=== PATIENT | male | born 1970 | race Caucasian/White ===

== ENCOUNTER 2022-12-11 07:51 | Outpatient (RCR) | payer BC, MEDICARE, SELFPAY | END 2023-01-03 16:15 | disposition home or self-care (01) | LOC: PT 07:51 | PROVIDERS: PCP Internal Medicine | DX: Z96.642 Presence of left artificial hip joint (principal) | CPT/HCPCS: 97110; 97112 ==

== ENCOUNTER 2023-09-12 10:03 | Outpatient (OUT) | payer OTHER, SELFPAY ==
[2023-09-12 11:02] LABS: Magnesium 1.8 mg/dL (1.8-2.4)
== END 2023-09-12 10:04 | disposition home or self-care (01) ==
LOC: LAB 10:03
PROVIDERS: PCP Internal Medicine; Visit Provider Nurse Practitioner Family
DX: E23.6 Other disorders of pituitary gland (principal)
CPT/HCPCS: 36415; 83735

== ENCOUNTER 2023-09-26 08:47 | Outpatient (OUT) | payer BC, MEDICARE, SELFPAY ==
--- OUTSIDE RECORDS SUMMARY | 2023-09-26 08:51 | XMS_ITS | CCD ---
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 creatine ingestion, or following therapy that affects renal tubular secretion. Performed By: #### C DP, BMP #### [facility] [place] [address] Tube Machine Operator: Fanelly, Omkar, DO Glucose [Mass/Vol] 118 mg/dL High 70-99 [facility] Comment on above: Performed By: #### C DP, BMP #### [facility] [address] [facility] [place] [address] Tube Machine Operator: Omkar Leon DO Potassium [Moles/Vol] 4.9 mmol/L Normal 3.7-5.3 [facility] Comment on above: Performed By: #### C DP, BMP #### [facility] [address] [facility] [place] [address] Tube Machine Operator: Omkar Leon DO Sodium [Moles/Vol] 138 mmol/L Normal 135-144 [facility] Comment on above: Performed By: #### C TOÑO, BMP #### [facility] [address] [place] [address] Tube Machine Operator: Omkar Leon DO Urea nitrogen [Mass/Vol] 17 mg/dL Normal 6-20 [facility] Comment on above: Performed By: #### C TOÑO, BMP #### [facility] [address] [facility] [place] [address] Tube Machine Operator: Omkar Leon DO CBC with Auto Differentialon 09-24-2022 Absolute Eos # 0.20 [facility] Absolute Lymph # 1.70 [facility] Absolute [place] # 0.60 [facility] Basophils (Bld) [#/Vol] 0.10 10*3/uL [facility] Basophils/100 WBC (Bld) 1 % 0 - 2 % [facility] Eosinophils/100 WBC (Bld) 2 % 0 - 4 % [facility] Hematocrit (Bld) [Volume fraction] 41.3 % 41 - 53 % [facility] Hemoglobin (Bld) [Mass/Vol] 14.2 g/dL 13.5 - 17.5 g/dL [facility] Interpretation and review of laboratory results Abnormal [facility] Lymphocytes/100 WBC (Bld) 23 % Low 24 - 44 % [facility] MCH (RBC) [Entitic mass] 31.1 pg 26 - 34 pg [facility] MCHC (RBC) [Mass/Vol] 34.4 g/dL 31 - 37 g/dL [facility] MCV (RBC) [Entitic vol] 90.4 fL 80 - 100 fL [facility] Monocytes/100 WBC (Bld) 8 % High 1 - 7 % [facility] Platelet distribution width (Bld) [Ratio] 13.4 % 11.5 - 14.9 % [facility] Platelet mean volume (Bld) [Entitic vol] 9.2 fL 6.0 - 12.0 fL [facility] Platelets (Bld) [#/Vol] 230 10*3/uL [facility] RBC (Bld) [#/Vol] 4.57 10*6/uL 4.5 - 5.9 m/uL [facility] Segmented neutrophils/100 WBC (Bld) 66 % 36 - 66 % [facility] Segs Absolute 5.00 [facility] WBC (Bld) [#/Vol] 7.6 10*3/uL [facility] CBC with Diffon 09-24-2022 Abs. Basophil 0.10 k/uL Normal 0.0-0.2 [facility] Comment on above: Performed By: #### C DP, BMP #### [facility] [address] [place], [place] [phone] Tube Machine Operator: Omkar Leon DO Abs.Neutrophil (Seg) 5.00 k/uL Normal 1.3-9.1 [facility] Comment on above: Performed By: #### C DP, BMP #### [facility] [address] [place], [place] [id number] Tube Machine Operator: Omkar Leon DO Basophils/100 WBC (Bld) 1 % Normal 0-2 [facility] Comment on above: Performed By: #### C DP, BMP #### [facility] [address] [facility] [place] [address] Tube Machine Operator: Omkar Leon DO Eosinophils (Bld) [#/Vol] 0.20 10*3/uL Normal 0.0-0.4 [facility] Comment on above: Performed By: #### C DP, BMP #### [facility] [place] [address] Tube Machine Operator: Omkar Leon DO Eosinophils/100 WBC (Bld) 2 % Normal 0-4 [facility] Comment on above: Performed By: #### C DP, BMP #### [facility] [address] [place] [address] Tube Machine Operator: Omkar Leon DO Erythrocyte distribution width (RBC) [Ratio] 13.4 % Normal 11.5-14.9 [facility] Comment on above: Performed By: #### C DP, BMP #### [facility] [address] [place] [address] Tube Machine Operator: Omkar Leon DO Hematocrit (Bld) [Volume fraction] 41.3 % Normal 41-53 [facility] Comment on above: Performed By: #### C TOÑO, BMP #### [facility] [address] [place] [address] Tube Machine Operator: Omkar Leon DO Hemoglobin (Bld) [Mass/Vol] 14.2 g/dL Normal 13.5-17.5 [facility] Comment on above: Performed By: #### C DP, BMP #### [facility] [address] [place] [address] Tube Machine Operator: Omkar Leon DO Lymphocytes (Bld) [#/Vol] 1.70 10*3/uL Normal 1.0-4.8 [facility] Comment on above: Performed By: #### C DP, MARLO #### [facility] [address] [place] [address] Tube Machine Operator: Omkar Leon DO Lymphocytes/100 WBC (Bld) 23 % Low 24-44 [facility] Comment on above: Performed By: #### C DP, BMP #### [facility] [address] [place] [address] Tube Machine Operator: Omkar Leon DO MCH (RBC) [Entitic mass] 31.1 pg Normal 26-34 [facility] Comment on above: Performed By: #### C TOÑO, BMP #### [facility] [address] [place] [address] Tube Machine Operator: Omkar Leon DO MCHC (RBC) [Mass/Vol] 34.4 g/dL Normal 31-37 [facility] Comment on above: Performed By: #### C DP, BMP #### [facility] [address] [place] [address] Tube Machine Operator: Omkar Leon DO MCV (RBC) [Entitic vol] 90.4 fL Normal 80-100 [facility] Comment on above: Performed By: #### C TOÑO, BMP #### [facility] [address] [place] [address] Tube Machine Operator: Omkar Leon DO Monocytes (Bld) [#/Vol] 0.60 10*3/uL Normal 0.1-1.3 [facility] Comment on above: Performed By: #### C DP, BMP #### [facility] [address] [place] [address] Tube Machine Operator: Omkar Leon DO Monocytes/100 WBC (Bld) 8 % High 1-7 [facility] Comment on above: Performed By: #### C DP, BMP #### [facility] [address] [place] [address] Tube Machine Operator: Omkar eLon DO Neutrophil (Seg) 66 % Normal 36-66 [facility] Comment on above: Performed By: #### C DP, BMP #### [facility] [address] [place] [address] Tube Machine Operator: Omkar Leon DO Platelet mean volume (Bld) [Entitic vol] 9.2 fL Normal 6.0-12.0 [facility] Comment on above: Performed By: #### C TOÑO, BMP #### [facility] [address] [place] [address] Tube Machine Operator: Omkar Leon DO Platelets (Bld) [#/Vol] 230 10*3/uL Normal 150-450 [facility] Comment on above: Performed By: #### C TOÑO, BMP #### [facility] [address] [place] [address] Tube Machine Operator: Omkar Leon DO RBC (Bld) [#/Vol] 4.57 10*6/uL Normal 4.5-5.9 [facility] Comment on above: Performed By: #### C TOÑO, BMP #### [facility] [address] [place] [address] Tube Machine Operator: Omkar Leon DO WBC (Bld) [#/Vol] 7.6 10*3/uL Normal 3.5-11.0 [facility] Comment on above: Performed By: #### C TOÑO, BMP #### [facility] [address] [place] [address] Tube Machine Operator: Omkar Leon DO MRSA, DNA, Nasalon 3 Specimen Description .NASAL SWAB Normal [facility] Comment on above: Performed By: #### M RSANO #### [facility] [address] [place] [address] Tube Machine Operator: Omkar Leon DO [address] [id number] Tube Machine Operator: Nirmal Colon MD Microscopic Urinalysison Bacteria, UA None None [facility] Casts UA 3 to 5 /LPF [facility] Epithelial Cells UA 0 TO 2 /HPF [facility] RBC clumps Auto (Urine sed) [#/Area] 0 TO 2 /HPF [facility] WBC, UA 0 TO 2 /HPF [facility] TYPE AND SCREENon 09-24-2022 ABO/Rh Positive [facility] Arm Band Number [id number] [facility] Blood Bank Comment ABORH CONFIRMED O POS: 003 [facility] Expiration Date 2022,2359 [facility] Type + Screenon 09-24-2022 Type + Screen Sample Expiration 2022,2359 Arm Band Number [id number] ABO/Rh(D) O POSITIVE Antibody Screen NEGATIVE Blood Bank Comment ABORH CONFIRMED O POS: 003 Normal [facility] Comment on above: Performed By: #### T YS #### [facility] [address] [place] [address] Tube Machine Operator: Omkar Leon DO UA w/Reflex Cultureon 2022 Bilirubin, SemiQt,Ur Negative Normal NEG [facility] Comment on above: Performed By: #### U AXLOR #### [facility] [address] [place] [address] Tube Machine Operator: Omkar Leon DO Blood, Urine Negative Normal NEG [facility] Comment on above: Performed By: #### U AX UMJULISSAO #### [facility] [address] [place] [address] Tube Machine Operator: Omkar Leon DO Clarity (U) Clear Normal CLEAR [facility] Comment on above: Performed By: #### U LOR CARDOZA #### [facility] [address] [place] [address] Tube Machine Operator: Omkar Leon DO Color (U) Yellow Normal YEL [facility] Comment on above: Performed By: #### U AXLOR #### [facility] [address] [place] [address] Tube Machine Operator: Omkar Leon DO Glucose Ql (U) Negative Normal NEG [facility] Comment on above: Performed By: #### U LOR CARDOZA #### [facility] [address] [place] [address] Tube Machine Operator: Omkar Leon DO Ketones Ql (U) Negative Normal NEG [facility] Comment on above: Performed By: #### U AXLOR #### [facility] [address] [place] [address] Tube Machine Operator: Omkar Leon DO Leukocyte esterase Test strip Ql (U) Negative Normal NEG [facility] Comment on above: Performed By: #### U LOR CARDOZA #### [facility] [address] [place] [address] Tube Machine Operator: Omkar Leon DO Nitrite,Ur Negative Normal NEG [facility] Comment on above: Performed By: #### U AXLOR #### [facility] [address] [place] [address] Tube Machine Operator: Omkar Leon DO PH,Ur 5.5 Normal 5.0-8.0 [facility] Comment on above: Performed By: #### U LOR CARDOZA #### [facility] [address] [place] [address], [place] [address] Tube Machine Operator: Omkar Leon DO Protein Ql (U) 2+ Abnormal NEG [facility] Comment on above: Performed By: #### U AXLOR #### [facility] [address] [facility] [place] [address] Tube Machine Operator: Omkar Leon DO Spec. [place],Ur 1.021 Normal 1.000-1.030 [facility] Comment on above: Performed By: #### U AXLOR #### [facility] [address] [facility] [place] [address] Tube Machine Operator: Omkar Leon DO Urobilinogen,Ur Normal Normal NORM [facility] Comment on above: Performed By: #### U AXLOR #### [facility] [address] [place] [address] Tube Machine Operator: Omkar Leon DO Urinalysis with Reflex to Cu ltureon 09-24-2022 Bilirubin Urine Negative NEGATIVE [facility] Color, UA Yellow Yellow [facility] Glucose Auto test strip (U) [Mass/Vol] Negative NEGATIVE [facility] Interpretation and review of laboratory results Abnormal [facility] Ketones (U) [Mass/Vol] Negative NEGATIVE [facility] Leukocyte esterase Auto test strip Ql (U) Negative NEGATIVE [facility] Nitrite Auto test strip Ql (U) Negative NEGATIVE [facility] Protein (U) [Mass/Vol] 5.5 mg/dL 5.0 - 8.0 [facility] Protein (U) [Mass/Vol] 2+ Abnormal NEGATIVE [facility] Specific [place], UA 1.021 1.000 - 1.030 [facility] Turbidity UA Clear Clear [facility] Urine Hgb Negative NEGATIVE [facility] Urobilinogen, Urine Normal Normal [facility] Urinalysis,Microon 3 Bacteria None Normal NONE [facility] Comment on above: Performed By: #### LOR PARKER #### [facility] [address] [facility] [place] [address] Tube Machine Operator: Omkar Leon DO Casts 3 to 5 Normal [facility] Comment on above: Performed By: #### LOR PARKER #### [facility] [address] [facility] [place] [address] Tube Machine Operator: Omkar Leon DO Epithelial cells LM Ql (Urine sed) 0 TO 2 Normal [facility] Comment on above: Performed By: #### LOR PARKER #### [facility] [address] [facility] [place] [address] Tube Machine Operator: Omkar Leon DO Urine RBC's 0 TO 2 Normal [facility] Comment on above: Performed By: #### LOR PARKER #### [facility] [address] [facility] [place] [address] Tube Machine Operator: Omkar Leon DO Urine WBC's 0 TO 2 Normal [facility] Comment on above: Performed By: #### LOR PARKER #### [facility] [address] [facility] [place] [address] Tube Machine Operator: Omkar Leon DO Refillon 09-08-2022 Refill [id number] Spencer Desir 1970 M Date Provider Department Center 09/08/2022 LIEN [facility]A MP MED Medical [facility]avi No family history on file Reason for Visit and Comments: Med Refill [[id number]] Normal [facility] MAGNESIUMon 04-01-2022 Magnesium [Mass/Vol] 1.8 mg/dL Normal 1.8-2.4 [facility] Comment on above: Performed By: #### M G #### [facility] [address] [place] [address] Dr. Madhu Augustine [id number] 1 on 02-03-2022 Insulin-Like Growth Factor I 240 ng/mL Normal 74-255 [facility] Comment on above: Performed By: #### I NSGF1 #### [facility] [address] [address] [address] Madhu Augustine FSHon 02-01-2022 FSH 0.4 mIU/mL Critically low 1.5-12.4 [facility] Comment on above: Performed By: #### L BCFSH #### [facility] [address] [address] [address] Madhu Augustine LUTEINIZING HORMONE (LH)on 0 02-01-2022 LH <0.3 Critically low 1.7-8.6 [facility] Comment on above: Performed By: #### L BCLH #### [facility] [address] [place] [address] Dr. Madhu Augustine TESTOSTERONE, TOTALon 2021 Testosterone [Mass/Vol] 756 ng/dL Normal 264-916 [facility] Comment on above: Result Comment: Adul t male reference interval is based on a population of healthy nonobese males (BMI <30) between 19 and 39 years old. Omar et.al. JCEM 2017,102;1966-6042. PMID: [id number]. Performed By: #### T ESTTOT #### [facility] [address] [place] [address] Dr. Madhu Augustine CBC AUTO DIFFon 01-31-2022 BASO # 0.1 103/ul Normal 0.0-0.1 [facility] Comment on above: Performed By: #### C BC #### [facility] [address] [address] [address] Madhu Augustine Basophils/100 WBC (Bld) 0.9 % Normal 0.2-2.0 [facility] Comment on above: Performed By: #### C BC #### [facility] [address] [place] [address] Dr. Madhu Augustine EO # 0.2 103/ul Normal 0.0-0.7 [facility] Comment on above: Performed By: #### C BC #### [facility] [address] [place] [address] Dr. Madhu Augustine Eosinophils/100 WBC (Bld) 2.4 % Normal 0.9-7.0 [facility] Comment on above: Performed By: #### C BC #### [facility] [address] [place] [address] Dr. Madhu Augustine Erythrocyte distribution width (RBC) [Ratio] 14.4 % Normal 11.0-15.0 [facility] Comment on above: Performed By: #### C BC #### [facility] [address] [place] [address] Dr. Madhu Augustine Hematocrit (Bld) [Volume fraction] 41.1 % Critically low 42.0-54.0 [facility] Comment on above: Performed By: #### C BC #### [facility] [address] [place] [address] Dr. Madhu Augustine Hemoglobin (Bld) [Mass/Vol] 13.5 g/dL Critically low 14.0-18.0 [facility] Comment on above: Performed By: #### C BC #### [facility] [address] [place] [address] Dr. Madhu Augustine IG # 0.05 10e3/ul Critically high 0.00-0.03 [facility] Comment on above: Performed By: #### C BC #### [facility] [address] [place] [address] Dr. Madhu Augustine IG % 0.7 % Critically high 0.0-0.5 [facility] Comment on above: Performed By: #### C BC #### [facility] [address] [place] [address] Dr. Madhu Augustine LYMPH # 1.6 103/ul Normal 1.2-3.8 [facility] Comment on above: Performed By: #### C BC #### [facility] [address] [place] [address] Dr. Madhu Augustine Lymphocytes/100 WBC (Bld) 21.5 % Normal 20.5-60.0 [facility] Comment on above: Performed By: #### C BC #### [facility] [address] [place] [address] Dr. Madhu Augustine MANUAL DIFF REQ NO Normal [facility] Comment on above: Performed By: #### C BC #### [facility] [address] [place] [address] Dr. Madhu Augustine MCH (RBC) [Entitic mass] 30.7 pg Normal 25.9-34.0 [facility] Comment on above: Performed By: #### C BC #### [facility] [address] [place] [address] Dr. Madhu Augustine MCHC (RBC) [Mass/Vol] 32.8 g/dL Normal 29.9-35.2 [facility] Comment on above: Performed By: #### C BC #### [facility] [address] [place] [address] Dr. Madhu Augustine MCV (RBC) [Entitic vol] 93.4 fL Normal 80.0-94.0 [facility] Comment on above: Performed By: #### C BC #### [facility] [address] [place] [address] Dr. Madhu Augustine MONO # 0.7 103/ul Normal 0.3-0.8 [facility] Comment on above: Performed By: #### C BC #### [facility] [address] [place] [address] Dr. Madhu Augustine Monocytes/100 WBC (Bld) 8.5 % Normal 1.7-12.0 [facility] Comment on above: Performed By: #### C BC #### [facility] [address] [place] [address] Dr. Madhu Augustine NEUT # 5.1 103/ul Normal 1.4-6.5 [facility] Comment on above: Performed By: #### C BC #### [facility] [address] [place] [address] Dr. Madhu Augustine Neutrophils/100 WBC (Bld) 66.0 % Normal 43.0-75.0 [facility] Comment on above: Performed By: #### C BC #### [facility] [address] [address] [address] Madhu Augustine Platelet mean volume (Bld) [Entitic vol] 10.2 fL Normal 9.5-13.5 [facility] Comment on above: Performed By: #### C BC #### [facility] [address] [address] [address] Madhu Augustine PLT 207 103/ul Normal 150-450 [facility] Comment on above: Performed By: #### C BC #### [facility] [address] [address] [address] Madhu Augustine RBC 4.40 106/ul Critically low 4.70-6.10 [facility] Comment on above: Performed By: #### C BC #### [facility] [address] [place] [address] Dr. Madhu Augustine WBC 7.6 103/ul Normal 4.0-11.0 [facility] Comment on above: Performed By: #### C BC #### [facility] [address] [place] [address] Dr. Madhu Augustine LIPID PROFILEon 01-31-2022 CHOL-HDL RATIO NORM SEE BELOW Normal [facility] Comment on above: Result Comment: 3.3 - 4.4 LOW RISK 4.4 - 7.1 AVERAGE RISK 7.1 - 11.0 MODERATE RISK >11.0 HIGH RISK Performed By: #### L IPID, CMP #### [facility] [address] [place] [address] Dr. Madhu Augustine Cholesterol [Mass/Vol] 156 mg/dL Normal <=200 [facility] Comment on above: Performed By: #### L IPID, CMP #### [facility] [address] [place] [address] Dr. Madhu Augustine Cholesterol in HDL [Mass/Vol] 53 mg/dL Normal 40-60 [facility] Comment on above: Performed By: #### L IPID, CMP #### [facility] [address] [place] [address] Dr. Madhu Augustine Cholesterol in LDL [Mass/Vol] 84.0 mg/dL Normal [facility] Comment on above: Performed By: #### L IPID, CMP #### [facility] [address] [address] [address] Madhu Augustine Cholesterol.total/ Cholesterol in HDL [Mass ratio] 2.9 {ratio} Normal [facility] Comment on above: Performed By: #### L IPID, CMP #### [facility] [address] [address] [address] Madhu Augustine HDL NORMAL > or = 60 mg/dl - LO W CARDIOVASCULAR RISK <40 mg/dl - HIGH CARDIOVASCULAR RISK Normal [facility] Comment on above: Performed By: #### L IPID, CMP #### [facility] [address] [address] [address] Madhu Augustine LDL CALC NORMAL SEE BELOW Normal [facility] Comment on above: Result Comment: <100 mg/dl OPTIMAL 100 - 129 mg/dl NEAR OR ABOVE OPTIMAL 130 - 159 mg/dl BORDERLINE HIGH 160 - 189 mg/dl HIGH >190 mg/dl VERY HIGH Performed By: #### L IPID, CMP #### [facility] [address] [address] [address] Madhu Augustine Triglyceride [Mass/Vol] 95 mg/dL Normal <=150 [facility] Comment on above: Performed By: #### L IPID, CMP #### [facility] [address] [address] [address] Madhu Augustine VLDL CALC 19.0 mg/dL Normal [facility] Comment on above: Performed By: #### L IPID, CMP #### [facility] [address] [address] [address] Madhu Augustine PROF 14(COMP METB)on 022 Albumin [Mass/Vol] 3.5 g/dL Normal 3.4-5.0 [facility] Comment on above: Performed By: #### L IPID, CMP #### [facility] [address] [address] [address] Madhu Augustine Albumin/Globulin [Mass ratio] 1.1 {ratio} Normal [facility] Comment on above: Performed By: #### L IPID, CMP #### [facility] [address] [address] [address] Madhu Augustine ALP [Catalytic activity/Vol] 51 U/L Normal 46-116 [facility] Comment on above: Performed By: #### L IPID, CMP #### [facility] [address] [address] [address] Madhu Augustnie ALT [Catalytic activity/Vol] 40 U/L Normal 16-63 [facility] Comment on above: Performed By: #### L IPID, CMP #### [facility] [address] [address] [address] Madhu Augustine Anion gap [Moles/Vol] 12.7 mmol/L Normal [facility] Comment on above: Performed By: #### L IPID, CMP #### [facility] [address] [address] [address] Madhu Augustine AST [Catalytic activity/Vol] 18 U/L Normal 15-37 [facility] Comment on above: Performed By: #### L IPID, CMP #### [facility] [address] [address] [address] Madhu Augustine Bilirubin [Mass/Vol] 0.4 mg/dL Normal 0.2-1.0 [facility] Comment on above: Performed By: #### L IPID, CMP #### [facility] [address] [address] [address] Madhu Augustine Calcium [Mass/Vol] 8.9 mg/dL Normal 8.5-10.1 [facility] Comment on above: Performed By: #### L IPID, CMP #### [facility] [address] [address] [address] Madhu Augustine Chloride [Moles/Vol] 104 mmol/L Normal 98-107 [facility] Comment on above: Performed By: #### L IPID, CMP #### [facility] [address] [address] [address] Madhu Augustine CO2 [Moles/Vol] 26.4 mmol/L Normal 21.0-32.0 [facility] Comment on above: Performed By: #### L IPID, CMP #### [facility] [address] [address] [address] Madhu Augustine Creatinine [Mass/Vol] 0.99 mg/dL Normal 0.70-1.30 [facility] Comment on above: Performed By: #### L IPID, CMP #### [facility] [address] [address] [address] Madhu Augustine EGFR-AF BAHRAINI >60 Normal >=60 [facility] Comment on above: Performed By: #### L IPID, CMP #### [facility] [address] [address] [address] Madhu Augustine EGFR-NON AF BAHRAINI >60 Normal >=60 [facility] Comment on above: Performed By: #### L IPID, CMP #### [facility] [address] [address] [address] Madhu Augustine Globulin (S) [Mass/Vol] 3.2 g/dL Normal [facility] Comment on above: Performed By: #### L IPID, CMP #### [facility] [address] [address] [address] Madhu Augustine Glucose [Mass/Vol] 108 mg/dL Critically high 74-106 [facility] Comment on above: Performed By: #### L IPID, CMP #### [facility] [address] [address] [address] Madhu Augustine Potassium [Moles/Vol] 4.1 mmol/L Normal 3.5-5.1 [facility] Comment on above: Performed By: #### L IPID, CMP #### [facility] [address] [address] [address] Madhu Augustine Protein [Mass/Vol] 6.7 g/dL Normal 6.4-8.2 [facility] Comment on above: Performed By: #### L IPID, CMP #### [facility] [address] [address] [address] Madhu Augustine Sodium [Moles/Vol] 139 mmol/L Normal 136-145 [facility] Comment on above: Performed By: #### L IPID, CMP #### [facility] [address] [address] [address] Madhu Augustine Urea nitrogen [Mass/Vol] 14.0 mg/dL Normal 7.0-18.0 [facility] Comment on above: Performed By: #### L IPID, CMP #### [facility] [address] [address] [address] Madhu Augustine Urea nitrogen/Creatinin e [Mass ratio] 14.1 mg/mg Normal [facility] Comment on above: Performed By: #### L IPID, CMP #### [facility] [address] [address] [address] Madhu Augustine VITAMIN B12on 01-31-2022 Cobalamin (Vitamin B12) [Mass/Vol] 1106.0 pg/mL Critically high 193.0-986.0 [facility] Comment on above: Performed By: #### V ITB12, VITAD #### [facility] [address] [place] [address] Dr. Madhu Augustine VITAMIN D 25 OHon 01-31-2022 VIT D 25-OH 53.4 ng/mL Normal [facility] Comment on above: Performed By: #### V ITB12, VITAD #### [facility] [address] [place] [address] Dr. Madhu Augustine VIT D RANGES SEE BELOW Normal [facility] Comment on above: Result Comment: <20 ng/mL Vit D deficient 20 - <30 ng/mL Vit D insufficient 30 - 100 ng/mL Vit D sufficient >100 ng/mL Potential Toxicity Performed By: #### V ITB12, VITAD #### [facility] [address] [place] [address] Dr. Madhu Augustine Rehab Psych Evaluationon Rehab Psych Evaluation MR#: [id number] REHABILITATION SERVICES ( ) INPATIENT (x) OUTPATIENT Patient Name: Gabino Desir Date of : 1970 Referring Physician: Lien Johnson M.D. Dictated By: Ramesh Hu, PhD Evaluation Date: 10/13/2018 neuropsychological evaluation DATE OF SERVICE: 10/12/2018-10/22/2018 DIAGNOSIS: Postconcussive syndrome DATE OF ONSET: 05/14/2018 DATE OF : 1970 AGE: 47 years TIME SPENT: 34895=0 unit; 03568=1 unit; 51324=3 units; 81268=0 unit; 33053=4 units REASON FOR REFERRAL: This is the initial neuropsychological evaluation of Mr. Gabino Desir, a 48-year-old, right-hand, White, , gentleman, who was referred by hide stretcher hand, Dr. Lien Johnson to ascertain his present neurocognitive status in the context of a work-related incident, which occurred on 05/14/2018 and resulted in a concussion and a reported brief loss of consciousness. Mr. Desir is referred with postconcussive syndrome. HISTORY OF PRESENTING PROBLEM: Mr. Desir presents to the current evaluation on time and accompanied by his , Mrs. Bev Desir; both were believed to be accurate historians. A clinic note from Dr. Johnson dated 09/13/2018 was consulted. Mr. Desir is presently involved with worker's compensation and was evaluated on 09/01/2018 by preventative medicine specialist, Dr. Young Morgan ([employer]); said evaluation was also consulted. Mr. Desir notes that attorneys working with the [employer] are handling his case. According to Dr. Morgan's medical examination report, Mr. Desir sustained a concussion on 05/14/2018, while working for [employer]. Dr. Morgan noted a 70-80 pound object had fallen from a dvaid striking [Mr. Desir] on the head. According to Dr. Morgan's evaluation, Mr. Desir experienced no nausea or vomiting, but reported a headache of 7 of 10. It was noted that Mr. Desir was taken to [facility], where he underwent a CT of the head, which according to Dr. Morgan was read as normal. Dr. Morgan's medical evaluation also cites an MRI of the brain, which was also read as normal. According to Dr. Lucas's evaluation, by 06/2018, it was deemed Mr. Desir was not capable of returning to work and speech therapy was requested; Mr. Desir reportedly was found to have cognitive and communication deficits (please see cognitive section for more specific findings from noted speech therapy evaluation). Presently, Mr. Desir continues to report difficulties with cognitive functioning that affect multiple areas of his daily functioning. CURRENT MEDICATIONS: Mrs. Desir kindly presented us with an up-to-date list of Mr. Desir's current medications and they are as follows: Coreg, Lotrel, BuSpar, Topamax, melatonin, Elavil, and apresoline. PAST MEDICAL HISTORY: Mr. Desir reports history of high blood pressure. According to Dr. Johnson's clinic note, Mr. Desir's medical history is also significant for a sprain of the right knee. Mr. Desir reports no history of seizure disorder or additional instances of loss of consciousness. He adds his developmental history was unremarkable. PAST SURGICAL HISTORY: Mr. Desir reports a history of knee procedure and a hand surgery as a child. PSYCHIATRIC HISTORY: Mr. Desir reports no current or historical psychiatric treatment. SUBSTANCE USE: Mr. Desir reports very little alcohol use. He adds no history of heavy alcohol consumption. Mr. Desir notes no history of illicit substance use, but adds occasional chewing tobacco use. FAMILY MEDICAL HISTORY: Mr. Desir reports cardiovascular disease on his mother's side of the family. He reports his father's side of the family is healthy. SOCIAL HISTORY: Mr. Desir notes he was born in [place], [place]. He adds he has been for 24 years and has one child. Mr. Desir notes he presently resides in [place], [place] with his and daughter. EDUCATIONAL HISTORY: Mr. 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 Mr. Desir reports no difficulties with academic attainment such as special education, learning disabilities, or grade retention. For the purposes of this evaluation, Mr. Desir was credited with 14 years of education. VOCATIONAL HISTORY: As previously mentioned, Mr. Desir has been on medical leave since the May 2018 injury from his employment at [employer], where he has worked for approximately five years. CURRENT FUNCTIONING: Behavioral: Mr. Desir reports variable sleep. He adds since the accident, he's had frequent racing thoughts that reportedly impact his sleep quality. Mr. Desir reports frequent fatigue throughout the day and notes he has gained weight since the accident. Mr. Desir notes he used to enjoy outdoor activities, but adds he has participated little since the accident. Emotional: Mr. Desir endorsed symptoms consistent with major depression, which he reports experiencing approximately 2-3 days per week. He reports his depressive episodes can last half a day. Mrs. Desir reports her has displayed isolation and reports he is not nearly as social as he used to be. She adds he struggles with lots of stimulation. Mr. Desir also reports increases in anger and irritability, and notes he is easily frustrated and that this behavior is new since the accident. Mrs. Desir also agrees and notes her is more frustrated than he had been previously. Cognitive: Mr. Desir reports difficulties with maintaining concentration and focus. With regard to memory, Mr. Desir notes difficulties with short-term memory, specifically for conversations and lists. He also reports difficulty remembering information his has told him. He adds no difficulties remembering his medications, but notes his medications are organized for him. He states he has been employing memory strategies that he learned from the Speech Therapy when he participated at [facility]. Mr. Desir also reports changes to his speech and language, and that he often blurts out in the middle of conversations in order to prevent forgetting what he wants to say. The following cognitive scores are highlighted in Dr. Lucas's record regarding Mr. Desir's apparent Speech Therapy evaluation: [Mr. Desir's] memory was at 52.6%, attention 81.25%, problem-solving 86.9% with an overall score of 80%. At the time of Dr. Lucas's medical evaluation, Mr. Desir was administered a short memory screen; he was accurately able to recall 2 of 3 items by the end of the visit. Physical: Mr. Desir reports no current pain, but reports headaches occurring approximately 2-3 times per week. He adds his headaches often last all day. He also reports light sensitivity. Mr. Desir adds no changes to his hearing and vision. Activities of Daily Living: Mr. Desir reports he is independent with basic tasks of daily living such as dressing, bathing, eating, and toileting. Mr. Desir adds his manages their finances and has always done so. Mr. Desir notes he maintains his abilities to complete household duties and chores such as laundry and cooking. However, Mrs. Desir reports Mr. Desir struggles to complete household tasks he would have previously been able to do, such as installing a bathroom faucet. Mr. Desir is not currently driving and indicates he was instructed not to do so. FINDINGS: Behavior: Mr. Desir was observed to be of above average height and above average weight. He was appropriately dressed and groomed for this evaluation. Ambulation and level of activity were generally unremarkable, although Mr. Desir was observed to ambulate with a slight limp. Sensory and motor coordination were also unremarkable. Rapport was believed to be easily established, although he was generally quiet and reserved. He appeared euthymic and affect was congruent. Speech was normal with regard to rate, rhythm, and prosody. Word-finding difficulties were not observed. Auditory comprehension was unremarkable. Overall, Mr. Desir appeared cooperative and generally motivated throughout this evaluation and tasks used to evaluate performance validity suggested results are valid. Consequently, the results of this evaluation are believed to accurately reflect Mr. Desir's current neurocognitive status. Vision: Near-point visual acuity was estimated at 20/20 OU with corrective lens. Intellectual Functioning: Mr. Desir was administered selected subtests from the WAIS-IV and obtained an estimated Full Scale IQ in the average range (FSIQ=92). Mr. Desir was also administered a reading recognition task to estimate premorbid intellectual abilities; performance was in the average range, suggesting no attenuation of intellectual abilities. Visual Perception: Abilities in this domain are generally consistent with intellectual functioning. Performance on a task of visuoconstruction, in which he was to construct blocks to match picture item, was in the upper end of the low average range. Speech and Language: Abilities in this domain are variable and scores ranged from mildly impaired to average. Performance on a task of oral vocabulary was in the average range. However, timed tasks of speech fluency were impaired. Performance on a phonemic fluency task was in the mildly impaired range, as was a task of categorical fluency. Mr. Desir was slow to respond despite being instructed to work as quickly as possible. Attention: Abilities in this domain are variable and suggest difficulties maintaining attention. Performance on a task of immediate auditory attention, in which he was to recite digits forward, backward, and in sequential order was in the upper end of the low average range. Mr. Desir was also administered a computerized task designed to evaluate sustained visual attention. Performance on this task was notable for inattention and poor vigilance. Memory: Abilities in this domain are intact and consistent with IQ functioning. Performance on a story memory task was in the high average range for immediate recall and in the average range for delayed recall. Recognition memory was in the high average range. Performance on a task of visual memory was in the average range for both immediate and delayed recall. Recognition memory was in the high average range. Story and visual memory scores were combined to yield an Immediate Memory Index in the average range (HEO=656), and a Delayed Memory Index in the average range (FHW=405). Obtained index scores were compared to predicted index scores based on the previously mentioned reading recognition task. Predicted index scores were in the average range suggesting no attenuation of memory abilities. Speed of Information Processing: Abilities in this domain are impaired. Performance on a task of visual search and symbol matching was in the mildly impaired range, as was a more complex task involving symbol substitution. Together these scores combined to yield a Processing Speed Index in the mildly impaired range (PSI=74). Mr. Desir made no errors, but displayed little hurry speed, despite being instructed to work as quickly as possible. Higher Cognitive Functioning: Performance in this domain is intact and generally consistent with IQ functioning. Performance on a task of motor speed and sequencing, was in the average range. Performance on a more complex sequencing task involving set-shifting and cognitive flexibility, was in the low average range. Affective Functioning: Mr. Desir was administered the Personality Assessment inventory (FRANKI). No significant scale elevations were identified. However, during the clinical interview, Mr. Desir endorsed multiple symptoms of depressed and anxious mood. TEST DATA: WAIS-IV (scaled scores): VC=10, BD=8, DS=8, SS=5, CD=5 TOPF=96 TMT: A=24 seconds; B=77 seconds Phonemic=25 Categorical=14 WMS-IV (scaled scores): LM I=12, LM II=11, VR I=10, VR II=9 IMPRESSIONS: 1. Mr. Desir is a 48-year-old gentleman who was referred for this evaluation to determine his present neurocognitive status in the context of a work-related injury (05/14/2018) that resulted in a concussion and a reported brief loss of consciousness. Mr. Desir is referred with postconcussive syndrome. Neuroimaging (CT and MRI) have been read as normal . Mr. Desir continues to report difficulties with cognitive functioning. 2. Results appear valid. Mr. Desir's intellectual functioning was found to be in the average range, consistent with estimation of premorbid abilities. Tasks of cognitive functioning were generally intact. However, tasks involving processing speed were quite variable and scores ranged from mildly impaired to average and variability is likely related to fluctuating attention. With regard to memory, performance was intact and we have no evidence to suggest a memory impairment is present. Our findings of intact memory performance and fluctuating attention is contrary to how he performed on the noted Speech Therapy assessment. Research is clear that the trajectory of recovery of cognitive abilities following concussion is for a person to resume baseline functioning within the first few days to few weeks. Mr. Desir is approximately six-months post injury and it is likely his subjective cognitive difficulties are related to non-neurologic variables such as poor sleep and affective distress. We expect with treatment, Mr. Browns cognitive functioning to improve to baseline; he is very close at present. 3. From a cognitive perspective, we have no reservation regarding Mr. Desir's ability to carry out work related duties. However, we are unable to speak to any potential physical limitations that may be present. 4. With regard to Mr. Desir's behavioral functioning, no difficulties were observed. 5. With regard to Mr. Desir's emotional functioning, he endorsed no symptoms on a self-report questionnaire; however, multiple symptoms were identified during the interview and further evaluation is warranted. RECOMMENDATIONS: 1. Continue medications as prescribed and follow up with referring providers as directed. 2. Mr. Desir endorsed symptoms of depression and anxiety and we recommend he consider participating in counseling to help learn more adaptive ways to cope with low mood and stress. We recommend any provider who offers Cognitive Behavioral Therapy (CBT), such could be found through [facility] services. He may also benefit from reading The Depression Cure by Kamar and Feeling Better: A 6-week Mind-Body Program to Ease your Chronic Symptoms by Basilio Baron and The Anxiety and Phobia Workbook by Alfredo Lr. 2. We recommend the following strategies to help Mr. Desir with his memory difficulties. a. Place commonly lost items in the same spot. i. If you are prone to losing certain items, such as keys or eyeglasses, choose a place to leave them, and always put them in that spot when not using them. b. Write things down. i. If you have trouble remembering phone numbers or appointments, write them down and place the list in a conspicuous spot. ii. Make a daily to do that list can serve as a reminder of important tasks and obligations. In fact, the mere acts of writing notes and making lists reinforce memory. c. Say words out loud. i. Say I've turned off the stove after shutting off the stove will give you an extra verbal reminder when you later try to recall whether it is still on. ii. Incorporating people's names into the conversation just after you have met them will serve the same purpose. For example, saying Very nice to meet you, Emilia will help consolidate the memory of this name. d. Use memory aids. i. Use a pocket notepad, personal digital director, wristwatch alarm, voice recorder, pill box, or other aids to help remember what you have to do or to keep track of information. He may also benefit from reading the following book The Memory Bible, by Arvind Durham. This book offers brain exercises and strategies to help circumvent daily memory difficulties. 3. Mr. Desir did display variability in attention; though he does not meet criteria for ADHD, he may benefit from reading More Attention Less Deficit by Chetan 4. Mr. Desir reports difficulty with his sleep and notes racing thoughts at night. We recommend the read Say Hemal to Insomnia by Christiano. He may benefit from the following strategies: a. Limit daytime naps to 30 minutes b. Avoid stimulants such as caffeine close to bedtime c. Exercise to promote good quality sleep d. Avoid foods that are high in fat and sugar, or other foods that Mr. Desir finds disrupts her sleep, right before bedtime e. Increase exposure to natural light during the day f. Establish a regular, relaxing bedtime routine (having caffeine-free tea before bed, reading for 20 minutes before bed) g. Avoid electronic screens 30 minutes before bed h. Make sure your sleep environment is pleasant (cooler temperatures, blackout curtains, white noise machines) 5. The results of this evaluation will be provided to and Mrs. Desir on 10/22/2018 at 1:30 p.m. ADDENDUM: So Discussed. At this time, he is discharged from our care. 6. Repeat neuropsychological evaluation does not appear warranted at this time. Thank you for allowing us to participate in the care of this nice gentleman. If you have any questions, please call [phone]. DICTATED BY: Ramesh Hu, PhD Neuropsychology Fellow REVIEWED BY: Electronically Signed by: Nereyda Rivera, PhD, ABPP 10/28/2018 08:41 A Nereyda Rivera, PhD, ABPP Board Certified Clinical Neuropsychologist Date Dict: 10/13/2018/12:18 P/Ramesh Hu, PhD Date Trans: 10/13/2018 01:51 P/mmo [id number] cc: Nereyda Rivera, PhD, ABPP [address] Rehab Medicine [facility] [address] Lien Johnson M.D. Dept Of P M R Rehab [facility] [address] *Mr. Gabino Desir [address] [place] [id number] [place] [facility] Vital Signs Date Time Vital Sign Value Performing Clinician Facility 10-07-2022 13:13-0400 SaO2% (BldA) [Mass fraction] 92 % [facility] Lopez MD [facility] 10-07-2022 11:30-0400 Body temperature 98.1 [degF] Ravi Lopez MD [facility] 10-07-2022 11:30-0400 Diastolic blood pressure 74 mm[Hg] Ravi Lopez MD Work Phone: [facility] [employer] [facility] 10-07-2022 11:30-0400 Heart rate 70 /min Ravi Lopez MD Work Phone: [facility] 10-07-2022 11:30-0400 Respiratory rate 16 /min Ravi Lopez MD Work Phone: [facility] 10-07-2022 11:30-0400 Systolic blood pressure 128 mm[Hg] Ravi Lopez MD Work Phone: [facility] 10-07-2022 05:46-0400 Body height 182.9 cm Ravi Lopez MD Work Phone: [email or web address] 10-07-2022 05:46-0400 Body mass index (BMI) [Ratio] 49.5 kg/m2 Ravi Lopez MD Work Phone: [email or web address] 10-07-2022 05:46-0400 Body weight 165.56 kg Ravi Lopez MD Work Phone: [email or web address] 09-26-2022 09:30-0400 Body height 182.88 cm [facility] Other [employer] Other 09-26-2022 09:30-0400 Body mass index (BMI) [Ratio] 53.65 kg/m2 [facility] Other [facility] Other 09-26-2022 09:30-0400 Body weight 179.44 kg Iron [facility] Other [facility] Other 09-26-2022 09:30-0400 Diastolic blood pressure 82 mm[Hg] Iron [facility] Other [facility] Other 09-26-2022 09:30-0400 Respiratory rate 16 /min Iron [facility] Other [facility] Other 09-26-2022 09:30-0400 Systolic blood pressure 130 mm[Hg] Iron [facility] Other [facility] Other 09-24-2022 07:12-0400 Body height 182.9 cm Ravi Lopez MD Work Phone: [email or web address] 09-24-2022 07:12-0400 Body mass index (BMI) [Ratio] 49.5 kg/m2 Ravi Lopez MD Work Phone: [email or web address] 09-24-2022 07:12-0400 Body temperature 98.01 [degF] Ravi Lopez MD Work Phone: [email or web address] 09-24-2022 07:12-0400 Body weight 165.56 kg Ravi Lopez MD Work Phone: [email or web address] 09-24-2022 07:12-0400 Diastolic blood pressure 83 mm[Hg] Ravi Lopez MD Work Phone: [email or web address] Comment on above: 172/91 right arm 09-24-2022 07:12-0400 Heart rate 70 /min Ravi Lopez MD Work Phone: [email or web address] 09-24-2022 07:12-0400 Respiratory rate 18 /min Ravi Lopez MD Work Phone: [email or web address] 09-24-2022 07:12-0400 SaO2% (BldA) [Mass fraction] 97 % Ravi Lopez MD Work Phone: [email or web address] 09-24-2022 07:12-0400 Systolic blood pressure 162 mm[Hg] Ravi Lopez MD Work Phone: [email or web address] Comment on above: 172/91 right arm Encounters Encounter Date Encounter Type Care Provider Facility Start: 09-22-2023 Telephone encounter Miley Christopher Mike greer OD Work Phone: Ophthalmology Comment on above: Received Outside Med ical Records Start: 07-08-2023 End: 07-08-2023 ambulatory Iron Olmos Other [facility] Other Start: 07-08-2023 Telephone encounter [facility] Start: 03-30-2023 ambulatory LIEN JOHNSON [facility] Start: 03-19-2023 End: 03-19-2023 ambulatory Iron Olmos Other [facility] APERA BAGS Other Start: 03-19-2023 Telephone encounter [facility] Start: 10-31-[address] DOCTOR FLOWERS Facility :[facility]1 Start: 10-07-2022 End: 10-07-2022 ambulatory [facility] Start: 10-07-2022 End: 10-07-2022 Subsequent hospital visit by physician Ravi Lopez MD Work Phone: [facility] Med Surg Comment on above: Primary osteoarthrit is of left hip (Primary Dx) Start: 09-26-2022 End: 09-26-2022 ambulatory Iron Olmos Other [facility] Other Start: 09-26-2022 Encounter for other preprocedural examination [facility] Start: 09-26-2022 Office outpatient vi sit 25 minutes Iron [facility] Start: 09-24-2022 End: 09-29-2022 ambulatory [facility] Start: 09-24-2022 End: 09-28-2022 Subsequent hospital visit by physician Ravi Lopez MD Work Phone: [facility] Pre-Admit Testing Comment on above: Hypertension, unspec ified type Start: 04-02-2022 Encounter for genera l adult medical examination without abnormal findings DR IRON OLMOS [facility] Start: 04-01-2022 End: 04-02-2022 Encounter for general adult medical examination without abnormal findings DR IRON OLMOS Facility:[facility] Start: 04-01-2022 End: 04-02-[address] IRON OLMOS Facility:[facility] Start: 03-28-2022 Adult health examination Onesimo Olmos Other [facility] Other Start: 01-31-2022 End: 02-01-[address] DOCTOR FLOWERS Facility:[facility] Start: 04-05-2020 Preoperative cardiovascular examination Iron Olmos Other [facility] Other Procedures Date Procedure Procedure Detail Performing Clinician Start: 10-07-2022 Fluoroscopy during operation Ravi Lopez MD Work Phone: Start: 09-24-2022 Antibody screen Ravi Lopez MD Work Phone: Start: 09-24-2022 Ecg routine ecg w/le ast 12 lds i&r only Daniel Palmer MD Work Phone: Start: 09-24-2022 Basic metabolic pane l calcium total Daniel Palmer MD Work Phone: Start: 09-24-2022 Blood typing serologic abo Daniel Palmer MD Work Phone: Start: 09-24-2022 Iadna s aureus methi cillin resist amp probe tq Ravi Lopez MD Work Phone: Start: 09-24-2022 Urnls dip stick/tabl et rgnt auto w/o microscopy Daniel Palmer MD Work Phone: Start: 04-01-2022 PSA screening DMITRI FINLEY Comment on above: Performed By: #### L IPID, CMP #### [facility] [address] [place] [address] Dr. Madhu Augustine Start: 12-09-2013 Pre-surgery evaluation Iron [facility]mos Other Start: 02-25-2013 Lipid 1996 panel - S dinorah or Plasma Miley Enrique OD Work Phone: Screening for malign ant neoplasm of prostate [facility] Other Plan of Treatment Date Care Activity Detail Author Start: 07-13-2023 Depression Assessment Depression Ass essment [facility] Start: 03-13-2023 Covid-19 Vaccine ( season) Covid-19 Vaccine ( season) [facility] Start: 03-13-2023 Influenza vaccination Influenza Vacc ine (#1) [facility] Start: 10-24-2022 End: 10-24-2022 Patient encounter procedure 10/24/2022 Office Visit Orthopedic Surgery Ravi Lopez MD [address] [facility] [address] [place] [address] [facility] Orthopedics and Sports Medicine Start: 10-07-2022 End: 10-07-2022 Admission to same day surgery center 10/07/2022 Surgery IP Unit Ravi Lopez MD [address] [place] [address] HIP TOTAL ARTHROPLASTY MINIMALLY INVASIVE [facility] Comment on above: HIP TOTAL ARTHROPLAS TY MINIMALLY INVASIVE Start: 10-07-2022 Subsequent hospital visit by physician 10/07/2022 Hospital Encounter IP Unit Ravi Lopez MD [address] [place] [address] [facility] Start: 10-07-2022 End: 10-07-2022 Arthrp acetblr/prox fem prostc agrft/algrft [facility] Start: 02-10-2022 Influenza vaccination Flu vaccine (# 1) [facility] Start: 07-09-2021 COVID-19 Vaccine (4 - Booster for Pfizer series) COVID-19 Vaccine (4 - Booster for Pfizer series) [facility] Start: 10-11-2019 Shingles vaccine (1 of 2) Shingles vaccine (1 of 2) [facility] Start: 10-11-2019 Shingrix Vaccine (1 of 2) Shingrix Vaccine (1 of 2) [facility] Start: 02-25-2018 Lipid panel Lipid Screening [facility] Start: 02-29-2016 Diabetes Screening Diabetes Screenin g [facility] Start: 2014 Screening for malign ant neoplasm of colon [facility] Start: 2009 Lipid panel Lipids [facility] Start: 2004 Diabetes screen Diabetes screen [facility] Start: 1988 DTaP/Tdap/Td vaccine (1 - Tdap) DTaP/Tdap/Td vaccine (1 - Tdap) [facility] Start: 1988 Hepatitis B Vaccine (1 of 3 - 19+ 3-dose series) Hepatitis B Vaccine (1 of 3 - 19+ 3-dose series) [facility] Start: 1988 Urine microalbumin profile DTaP,Tdap,Td Vaccine (1 - Tdap) [facility] Start: 10-11-1987 Hepatitis C screening [facility] [employer] Start: 10-11-1987 HIV screening HIV Screening [facility] Start: 1984 HIV screening HIV screen [facility] Start: 1981 Depression Screen Depression Screen [facility] Oxygen therapy [[facility] Data Set] Initiate Oxygen Therapy Protocol Respiratory Care Routine Daily until discontinued starting 10/07/2022 [email or web address] Work Phone: Comment on above: Daily until disconti nued starting 10/07/2022 Spirometry panel Incentive maynor metry Respiratory Care Routine Every 2hr while awake until discontinued starting 10/07/2022 [email or web address] Work Phone: Comment on above: Every 2hr while awak e until discontinued starting 10/07/2022 Immunizations Immunization Date Immunization Notes Care Provider Leo santizo NEGATED: Highlighted row has not occurred!02-28-2013 pneumococcal polysaccharide vaccine, 23 valent Miley Enrique OD Work Phone: [facility] Payers Date Payer Category Payer Unknown [id number] 2019 Unknown [id number] 2018 Unknown [employer] HIOCOMP [id number] 2018-Present [phone] [address] [facility] [address] [place] [address] [facility] [id number] 2018 Worker's Compensation [id number] 1970 Unknown [id number] 1970 Unknown [id number] 6 1970 Unknown [id number] 3 1970 Unknown [id number] 3 1970 Unknown [id number] 3 1970 Unknown [id number] 3 1960 Medicare [id number] 1959 Unknown [id number] Social History Date Type Detail Facility Start: 02-25-2013 End: 09-24-2022 Tobacco smoking status AKIS Never smoked tobacco [email or web address] Start: 09-24-2022 Tobacco use and exposure Smokeless tobacco non-user [employer] Phone: Start: 02-25-2013 End: 09-24-2022 Alcohol intake Current drinker of alcohol (finding) [employer] Phone: Start: 09-24-2022 Alcohol Comment social [email or web address] Phone: Start: 1970 Sex Assigned At Not on file B ON [employer] Phone: Start: 09-14-2022 End: 10-07-2022 Exposure to SARS-CoV-2 (event) Not sure [employer] Phone: Sex Assigned At [facility] Other Start: 02-25-2013 Tobacco use and exposure User of smokeless tobacco [facility] History of tobacco use Chews Tobacco [facility] Start: 02-25-2013 Alcohol intake [facility] Start: 02-25-2013 Alcohol Comment 3-4 Cans Per Day [facility] Medical Equipment Procedure Code Equipment Code Equipment Origin al Text Equipment Identifier Dates Dup Use [id number] I mpl Hip Cer Option Type 1 Tpr Sleve +3 - [id number] Start: 10-07-2022 Head Fem [id number] Hip [employer] Delt Opt For G7 Acet Sys - [id number] Start: 10-07-2022 Note 09-22-2023 Telephone Encounter - Kristina Melton - 09/22/2023 3:37 PM EDT Note Date & Type Note Facility 09-22-2023 Miscellaneous Notes Formattin g of this note might be different from the original. Received outside Records from [facility] needing consult with Dr. Enrique for Neuro Ophthalmology consult. Please contact patient to schedule at [phone]. Records in Dr. Enrique's mailbox. documented in this encounter [facility] Progress note 03-30-2023 Note Date & Type Note Facility 03-30-2023 Note ASSESSMENT/PLAN: Gabino was seen today for follow-up. Diagnoses and all orders for this visit: Injury of head, subsequent encounter - ZOLMitriptan (Zomig) 2.5 mg tablet; zolmitriptan 2.5 mg tablet TAKE 1 TABLET BY MOUTH EVERY DAY NEEDED - traZODone (Desyrel) 150 mg tablet; Take 1 tablet (150 mg) by mouth at bedtime. - ondansetron (Zofran) 4 mg tablet; Zofran 4 mg tablet Take 2 tablets twice a day by oral route. No ref. 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 Does report some worsening of memory/concentration in the past few months. Plan: Discussed importance of sleep hygiene and sleep routine Continue magnesium oxide and Zomig for headaches Continue trazodone 150 mg for sleep hygiene Continue propanolol 20 mg TID for agitation Refilled Zofran for nausea associated with migraines Follow-up in one year Risks, and benefits to any new medications were discussed with patient. All questions answered to patient's satisfaction. The patient was instructed to call if symptoms are worsening or not improving. The patient was counseled regarding impressions, instructions for management and importance of compliance with treatment. Patient was seen and examined with a medical student. Agree with the above. Please see the additions to the impression and plan below: Impression: Traumatic brain injury with associated cognitive deficits, sleep disturbance, headache agitation and chronic nausea Plan: Patient continues to have persistent headaches nausea sleep difficulties. We will continue the trazodone, propranolol, and he is getting medications for headache and nausea from another provider (Ramin and perri) which he needs refills on today, so we were in agreement with providing them in the short-term/interim even though they are prescribed by another provider. He reports some acutely worsening cognitive deficits which are likely related to stress level and sleep hygiene, we re-discussed sleep hygiene during the visit. Lien Johnson MD SUBJECTIVE: Gabino Desir is a 52 y.o. male who presents to [facility] today for 1 year follow-up for work-related TBI in May 2018. Since his last visit, he states his headaches have been well controlled on Aimovig. He has noticed his short-term memory getting worse (forgetting where he is driving, grocery lists, and conversations) which he has noticed for the past 3-4 months. He has also noticed decreased concentration and is getting more easily distracted. His balance has been stable. His anxiety has also slightly worsened, though he attributes this to major life events including his daughter getting and buying a new house. Reports sleeping 5-6 hours per night. He continues to take magnesium oxide for headaches, trazodone 150 mg for sleep, and propanolol 20 mg TID for agitation. Does not report any new side effects or concerns. Review of Systems Musculoskeletal: Negative for gait problem. Neurological: Positive for headaches. Psychiatric/Behavioral: The patient is nervous/anxious. Patient Active Problem List Diagnosis Head injury Hypertension Hypertensive urgency DAMARIS on CPAP Osteoarthritis of left hip Tobacco abuse Outpatient Medications Prior to Visit Medication Sig Dispense Refill amLODIPine-benazepriL (Lotrel) 10-40 mg capsule amlodipine 10 mg-benazepril 40 mg capsule TAKE 1 CAPSULE BY MOUTH EVERY DAY carvedilol (Coreg) 25 mg tablet Take 25 mg by mouth. erenumab-aooe (Aimovig Autoinjector) 70 mg/mL auto-injector INJECT 1 DOSE SUBCUTANEOUSLY ONCE A MONTH hydrALAZINE (Apresoline) 25 mg tablet hydralazine 25 mg tablet TAKE 1 TABLET BY MOUTH FOUR TIMES A DAY magnesium oxide (Mag-Ox) 400 mg (241.3 mg magnesium) tablet Take 1 tablet by mouth in the morning. propranolol (Inderal) 20 mg tablet Take 20 mg by mouth. somatropin (Humatrope) 6 mg (18 unit) cartridge Take by injection route. testosterone cypionate (Depo-Testosterone) 200 mg/mL injection INJECT 1 ML INTRAMUSCULARLY EVERY 2 WEEKS FOR 30 DAYS triamcinolone (Kenalog) 0.1 % cream Apply topically. ondansetron (Zofran) 4 mg tablet Zofran 4 mg tablet Take 2 tablets twice a day by oral route. traZODone (Desyrel) 150 mg tablet Take 1 tablet (150 mg) by mouth at bedtime. 90 tablet 3 ZOLMitriptan (Zomig) 2.5 mg tablet zolmitriptan 2.5 mg tablet TAKE 1 TABLET BY MOUTH EVERY DAY NEEDED mirtazapine (Remeron) 7.5 mg tablet No facility-administered medications prior to visit. No Known Allergies OBJECTIVE: Vitals: 03/30/23 1340 BP: 167/80 Pulse: 67 Weight: (!) 157 kg (347 lb) Height: 1.829 m (6') Body mass index is 47.06 kg/m???. Physic (more content not included)... [facility] History of Present illness Narrative 10-07-2022 JURGEN Sandoval - 10/07/2022 3:46 PM Brigitte Schulz PT - 10/07/2022 3:45 PM Nathaniel Alvarado - 10/07/2022 2:26 PM EDT Note Date & Type Note Facility 10-07-2022 History of Present illness Narrative [facility] Occupational Therapy Evaluation Date: 10/07/22 Patient Name: Gabino Desir Room: Account: [id number] : 1970 (51 y.o.) Gender: male Discharge Recommendations: The patient would benefit from additional Occupational Therapy after discharge from the facility upon return to their Home. OT Equipment Recommendations Equipment Needed: Yes Mobility Devices: Walker, ADL Assistive Devices Walker: Rolling (present at end of session - daughter picked up RW) ADL Assistive Devices: Shower Chair with back, Toileting - Raised Toilet Seat with arms, Gait Belt, Elastic Shoe Laces Referring Practitioner: Ravi Lopez MD Diagnosis: Primary osteoarthritis of left hip s/p L KAREN Treatment Diagnosis: Impaired self-care status. Past Medical History: has a past medical history of Anxiety and depression, DJD (degenerative joint disease), Headaches due to old head injury, Hypertension, DAMARIS (obstructive sleep apnea), Pituitary dysfunction (HCC), PTSD (post-traumatic stress disorder), Sleep disorder, and TBI (traumatic brain injury). Past Surgical History: has a past surgical history that includes Hand surgery (Left); Colonoscopy; Endoscopy, colon, diagnostic; and Knee arthroscopy (Left). Restrictions Restrictions/Precautions Restrictions/Precautions: Fall Risk;Surgical Protocols;Weight Bearing (Preveena) Required Braces or Orthoses?: No Implants present? : Metal implants (L KAREN) Lower Extremity Weight Bearing Restrictions Left Lower Extremity Weight Bearing: Weight Bearing As Tolerated (Full WBAT) Position Activity Restriction Other position/activity restrictions: OT PT eval and treat; anterior approach no SLR LLE Vitals Vitals Heart Rate: 70 Heart Rate Source: Monitor BP: 128/74 Patient Position: Semi fowlers MAP (Calculated): 92 Resp: 16 SpO2: 92 % O2 Device: None (Room air) RN notified of patient's oxygen saturation on room air 91-92% with activity. Patient desaturated to 88% upon sitting in chair, however recovered to 91% with VCs for pursed lip breathing. Patient with PT at end of OT evaluation. Subjective Subjective: We got the walk-in shower all ready to go patient reports that he and his spouse got the house ready prior to his surgery. Subjective Pain: Patient reports 5/10 pain in L hip with movement. Social/Functional History Social/Functional History Lives With: Spouse Type of Home: House Home Layout: Two level, 1/2 bath on main level, Bed/Bath upstairs, Performs ADL's on one level (patient anticiaptes sleeping in recliner if needed; 16 steps to second floor with L HR) Home Access: Stairs to enter with rails Entrance Stairs - Number of Steps: front door entrance 4 INES with B HR (too wide to reach at same time); back door entrance 3 INES with R HR Entrance Stairs - Rails: Right Bathroom Shower/Tub: Walk-in shower, Doors Bathroom Toilet: Handicap height (vanity next to toilet upstairs) Bathroom Equipment: Grab bars in shower, Hand-held shower Home Equipment: Cane (RW has been ordered and patient's daughter is obtaining walker) Has the patient had two or more falls in the past year or any fall with injury in the past year?: No ADL Assistance: Independent (assist with socks PRN) Homemaking Assistance: Independent Homemaking Responsibilities: Yes Ambulation Assistance: Independent (with cane) Transfer Assistance: Independent Occupation: On disability Additional Comments: Patient's spouse Bev is taking 1 week off for work to stay home with patient and provide assist PRN. Objective Orientation Overall Orientation Status: Within Functional Limits Sensation Overall Sensation Status: WFL (denies) ADL Feeding: Independent Grooming: Setup UE Bathing: Stand by assistance LE Bathing: Moderate assistance LE Bathing Skilled Clinical Factors: patient reports his spouse bought him a long-handled sponge UE Dressing: Stand by assistance UE Dressing Skilled Clinical Factors: seated EOB LE Dressing: Maximum assistance LE Dressing Skilled Clinical Factors: OT demonstrated use of academic hospitalist and patient threaded B LE with academic hospitalist and Minimal assist into underwear. Assist to thread B LE pants. Assist to manage clothing over hips and don socks/shoes. Demonstrated use of sock aid, however patient declines use. Patient and patient's spouse report that she will provide patient with assist PRN for lower body self-care. Patient acknowledges that he has a academic hospitalist and sock aid at home. Toileting: Minimal assistance Toileting Skilled Clinical Factors: assist to manage pants as they fell to the ground, however CGA for all other tasks Additional Comments: OT provided patient and patient's spouse with education regarding safety with self-care including use of modified techniques such as sitting for lower body bathing/dressing, use of academic hospitalist/sock aid, and use of shower chair. Patient and patient's spouse verbalize Good understanding and state they have a sock aid and academic hospitalist and will purchase a shower chair. Patient acknowledges understanding of recommendation for 1st floor setup and / Supervision upon discharge home with use of recliner for sleeping as well as practicing flight of steps with PT prior to trialling. Patient and patient's verbalize Good understanding of all recommendations provided. 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 WFL per patient report Tone LUE LUE Tone: Normotonic LUE Strength Gross LUE Strength: WFL L Hand General: 4+/5 RUE AROM (degrees) RUE AROM : WFL Right Hand AROM (degrees) Right Hand AROM: WFL Tone RUE RUE Tone: Normotonic RUE Strength Gross RUE Strength: WFL R Hand General: 4+/5 Hand Dominance Hand Dominance: Right Fine Motor Skills/Coordination Coordination Movements Are Fluid And Coordinated: Yes Bed Mobility Bed mobility Rolling to Left: Moderate assistance, 2 Person assistance Supine to Sit: Moderate assistance, 2 Person assistance Sit to Supine: Unable to assess Scooting: Minimal assistance Bed Mobility Comments: head of bed elevated. 2 assist to edge of bed to L due to pain. Pt plans to sleep in recliner at home. Discussed elevated cushion or using several firm pillows to increase height of recliner Balance Balance Sitting Balance: Contact guard assistance Standing Balance: Contact guard assistance Transfers Transfers Sit to stand: Stand by assistance (initially Minimal assist x 2, however progessed to SBA with Good carryover of education) Stand to sit: Stand by assistance (initially Minimal assist x 2, however progessed to SBA with Good carryover of education) Toilet Transfers Toilet Transfers Comments: Patient stood at toilet to void with CGA. RN notified that patient voided. Functional Mobility Functional - Mobility Device: Rolling Walker Activity: To/from bathroom Assist Level: Contact guard assistance Functional Mobility Comments: progressing to SBA Assessment Assessment Performance deficits / Impairments: Decreased functional mobility , Decreased ADL status, Decreased endurance, Decreased balance, Decreased high-level IADLs Treatment Diagnosis: Impaired self-care status. Decision Making: Medium Complexity Discharge Recommendations: 24 hour supervision or assist, Home with Home health OT Activity Tolerance Activity Tolerance: Patient Tolerated treatment well Safety Devices Type of Devices: All fall risk precautions in place, Call light within reach, Gait belt, Patient at risk for falls, Left in chair, Nurse notified (RN Nancy notified of mobility and O2 sats) Patient Education Patient Education Education Given To: Patient, Family Education Provided: Role of Therapy, Plan of Care, Precautions, ADL Adaptive Strategies, Transfer Training, IADL Safety, Equipment, Fall Prevention Strategies Education Method: Verbal, Demonstration Barriers to Learning: None Education Outcome: Verbalized understanding, Demonstrated understanding Functional Outcome Measures [facility] Daily Activity - Inpatient How much help is needed for putting on and taking off regular lower body clothing?: A Lot How much help is needed for bathing (which includes washing, rinsing, drying)?: A Lot How much help is needed for toileting (which includes using toilet, bedpan, or urinal)?: A Little How much help is needed for putting on and taking off regular upper body clothing?: A Little How much help is needed for taking care of personal grooming?: A Little How much help for eating meals?: None [facility] Inpatient Daily Activity Raw Score: 17 [facility] Inpatient ADL T-Scale Score : 37.26 ADL Inpatient CMS 0-100% Score: 50.11 ADL Inpatient CMS G-Code Modifier : CK Goals Patient Goals Patient goals : To return home with spouse Short Term Goals Time Frame for Short Term Goals: By discharge, patient will Short Term Goal 1: perform BADLs with Supervision Short Term Goal 2: perform functional mobility and transfers during self-care with Supervision, RW, and Good safety Short Term Goal 3: verbalize/demonstrate Good understanding of Fall Prevention Strategies to maximize safety and IND with self-care Short Term Goal 4: verbalize/demonstrate Good understanding of assistive equipment/durable medical equipment/modified techniques to maximize safety and IND with self-care Plan Occupational Therapy Plan Times Per Week: 4-6 Times Per Day: Once a day Current Treatment Recommendations: Self-Care / ADL, Home management training, Strengthening, Balance training, Functional mobility training, Endurance training, Pain management, Safety education & training, Patient/Caregiver education & training, Equipment evaluation, education, & procurement OT Individual Minutes OT Individual Minutes Time In: 1307 Time Out: 1400 Minutes: 53 Time Code Minutes Timed Code Treatment Minutes: 38 Minutes Physical Therapy Facility/Department: [facility] Physical Therapy Initial Assessment Name: Gabino Desir : 1970 Date of Service: 10/07/2022 Discharge Recommendations: The patient would benefit from additional Physical Therapy after discharge from the facility upon return to their Home. PT Equipment Recommendations Equipment Needed: Yes Mobility Devices: Walker Other: Adjusted to his height by medical technical writer Patient Diagnosis(es): The encounter diagnosis was Primary osteoarthritis of left hip. Past Medical History: has a past medical history of Anxiety and depression, DJD (degenerative joint disease), Headaches due to old head injury, Hypertension, DAMARIS (obstructive sleep apnea), Pituitary dysfunction (HCC), PTSD (post-traumatic stress disorder), Sleep disorder, and TBI (traumatic brain injury). Past Surgical History: has a past surgical history that includes Hand surgery (Left); Colonoscopy; Endoscopy, colon, diagnostic; and Knee arthroscopy (Left). Assessment Assessment: Pt is a 1-2 assist for mobility. 2 assist only for initial bed mobiilty and stands but progressed to SBA transfers end of session. Did discuss education, benefits of pilows/additonal height in recliner. Educated on use of gait belt to enter stairs. present for stair training and pt verbalizes feeling safe on stairs. HEP went over with patient as well as use of ice as needed initially. Pt declines ice end of session. Bariatric RW adjusted for pt per his height by medical technical writer.Recommend staying on first floor initially and working on flight of steps with home health PT. Treatment Diagnosis: impaired functional mobility 2* L KAREN Specific Instructions for Next Treatment: gait, stairs, HEP Therapy Prognosis: Good Decision Making: Medium Complexity Exam: ROM, MMT, bed mobility transfers, amb, balance Clinical Presentation: Pt alert, cooperative, pleasant Barriers to Learning: pain Requires PT Follow-Up: Yes Activity Tolerance Activity Tolerance: Patient tolerated treatment well;Patient limited by pain Plan Physcial Therapy Plan General Plan: 2 times a day 7 days a week Specific Instructions for Next Treatment: gait, stairs, HEP Current Treatment Recommendations: Strengthening, ROM, Balance training, Functional mobility training, Transfer training, Endurance training, Gait training, Stair training, Equipment evaluation, education, & procurement, Patient/Caregiver education & training, Safety education & training, Home exercise program, Pain management, Positioning, Therapeutic activities Safety Devices Type of Devices: All fall risk precautions in place, Call light within reach, Gait belt, Patient at risk for falls, Left in chair, Nurse notified (TIFF Cruz notified of mobility and O2 sats) Restrictions Restrictions/Precautions Restrictions/Precautions: Fall Risk, Surgical Protocols, Weight Bearing (Preveena) Required Braces or Orthoses?: No Implants present? : Metal implants (L KAREN) Lower Extremity Weight Bearing Restrictions Left Lower Extremity Weight Bearing: Weight Bearing As Tolerated (Full WBAT) Position Activity Restriction Other position/activity restrictions: OT PT eval and treat; anterior approach no SLR LLE Subjective Pain: Pt reports 5/10 acute pain in L hip General Chart Reviewed: Yes Patient assessed for rehabilitation services?: Yes Additional Pertinent Hx: TBI Family / Caregiver Present: Yes (, additional family came later) Referring Practitioner: Dr Lopez Referral Date : 10/07/22 Diagnosis: primary OA L hip Follows Commands: Within Functional Limits Subjective Subjective: Pt in bed on 2L O2, agreeable to PT OT co eval. Social/Functional History Social/Functional History Lives With: Spouse Type of Home: House Home Layout: Two level, 1/2 bath on main level, Bed/Bath upstairs, Performs ADL's on one level (patient anticiaptes sleeping in recliner if needed; 16 steps to second floor with L HR) Home Access: Stairs to enter with rails Entrance Stairs - Number of Steps: front door entrance 4 INES with B HR (too wide to reach at same time); back door entrance 3 INES with R HR Entrance Stairs - Rails: Right Bathroom Shower/Tub: Walk-in shower, Doors Bathroom Toilet: Handicap height (vanity next to toilet upstairs) Bathroom Equipment: Grab bars in shower, Hand-held shower Home Equipment: Cane (RW has been ordered and patient's daughter is obtaining walker) Has the patient had two or more falls in the past year or any fall with injury in the past year?: No ADL Assistance: Independent (assist with socks PRN) Homemaking Assistance: Independent Homemaking Responsibilities: Yes Ambulation Assistance: Independent (with cane) Transfer Assistance: Independent Occupation: On disability Additional Comments: Patient's spouse Bev is taking 1 week off for work to stay home with patient and provide assist PRN. Vision/Hearing Vision Vision: Impaired Vision Exceptions: Wears glasses at all times Hearing Hearing: Within functional limits Cognition Orientation Overall Orientation Status: Within Functional Limits Objective Heart Rate: 70 Heart Rate Source: Monitor BP: 128/74 Patient Position: Semi fowlers MAP (Calculated): 92 Resp: 16 SpO2: 92 % O2 Device: None (Room air) Observation/Palpation Observation: O2 sats 92-94% on 2L O2 initially, O2 sats remained 91% and above during ambulation and dropped to 88% briefly before returning to 90% and above post ambulation., Preveena AROM RLE (degrees) RLE AROM: WFL AROM LLE (degrees) LLE AROM : WFL AROM RUE (degrees) RUE General AROM: See OT AROM LUE (degrees) LUE General AROM: See OT Strength RLE Strength RLE: WFL Comment: Grossly 4-/5 Strength LLE Strength LLE: WFL Comment: Grossly 3+/5 Strength RUE Comment: See OT Strength LUE Comment: See OT Sensation Overall Sensation Status: WFL (denies) Bed mobility Rolling to Left: Moderate assistance;2 Person assistance Supine to Sit: Moderate assistance;2 Person assistance Sit to Supine: Unable to assess Scooting: Minimal assistance Bed Mobility Comments: head of bed elevated. 2 assist to edge of bed to L due to pain. Pt plans to sleep in recliner at home. Discussed elevated cushion or using several firm pillows to increase height of recliner Transfers Sit to Stand: Minimal Assistance;Stand by assistance;2 Person Assistance (min x1 initially, progresssed to SBA) Stand to Sit: Minimal Assistance Bed to Chair: Contact guard assistance Comment: Pt initially min x2 to stand from elevated bed height, 2nd stand SBA at edge of bed. Up to mobility chair due to raised height. Discussed raise surfaces at home. Ambulation WB Status: Full WBAT LLE Ambulation Surface: Level tile Device: Rolling Walker Assistance: Contact guard assistance Quality of Gait: decreased stance time LLE, normal to slow silverio. Gait Deviations: Slow Silverio Distance: 50', 10' Comments: Good RW control, education on turns and picking up LLE on turns. Steady no LOB. More Ambulation?: No Stairs/Curb Stairs?: Yes Stairs # Steps : 2 (ascend/descend 2 steps) Stairs Height: 4 Rails: Bilateral Device: Rolling walker Assistance: Contact guard assistance Comment: Step to pattern, good technique. Pt verbalizes feeling good after 2 steps and familiar with technique prior to surgery. Balance Posture: Good Sitting - Static: Good Sitting - Dynamic: Good Standing - Static: Good;- Standing - Dynamic: Fair;+ Comments: Standing balance with bariatric RW. Exercise Treatment: static standing x2 minutes to use restroom, CGA to min x1. AM-PAC Score AM-PAC Inpatient Mobility Raw Score : 14 (10/07/22 154) AM-PAC Inpatient T-Scale Score : 38.1 (10/07/22 154) Mobility Inpatient CMS 0-100% Score: 61.29 (10/07/22 154) Mobility Inpatient CMS G-Code Modifier : CL (10/07/221543) Goals Short Term Goals Time Frame for Short Term Goals: 1-2 tx Short Term Goal 1: Pt to demo Min to CGA x1 for bed mobility. Short Term Goal 2: Pt to perform transfers SBA. Short Term Goal 3: Pt to amb 100' with device SBA to CGA. Short Term Goal 4: Pt to ascend/descend 4 stairs 1 UE support, CGA. Short Term Goal 5: Pt to demo good HEP technique. Additional Goals?: Yes Short Term Goal 6: Pt to reduce pain to 2-3/10 with movement Patient Goals Patient Goals : To go home Education Patient Education Education Given To: Patient;Family Education Provided: Role of Therapy;Plan of Care;Home Exercise Program;Precautions;Transfer Training;Family Education;Equipment;Fall Prevention Strategies Education Method: Demonstration;Verbal;Printed Information/Hand-outs Barriers to Learning: None Education Outcome: Demonstrated understanding;Verbalized understanding Therapy Time Individual Concurrent Group Co-treatment Time In 1313 Time Out 1408 Minutes 55 Timed Code Treatment Minutes: 40 Minutes Nicole Schulz PT CLINICAL PHARMACY NOTE: MEDS TO BEDS Total # of Prescriptions Filled: 2 The following medications were delivered to the patient: Percocet 5/325 Cefdinir 300mg Additional Documentation: Delivered Medication to Patients Room Sold bottle of ASA OTC at patient request documented in this encounter JAMILA SHARMA [employer] Work Phone: Hospital Discharge instructions 10-07-2022 Discharge InstructionsDischarge Instr - JACQUELIN Note Date & Type Note Facility 10-07-2022 Hospital Discharg e instructions Gillian Suarez RN - 10/07/2022 7:56 AM EDT DISCHARGE INSTRUCTIONS Caring for yourself after joint replacement surgery (Total Hip and Total Knee Replacement) Activity and Therapy Receive physical therapy three times per week. (Pain medication one hour prior to therapy) Perform PT exercises on own when not receiving home or outpatient PT. Ideally exercises should be at least two times a day. Increase level of activity and ambulation each day. Perform deep breathing exercises daily. Patient provides self-care when possible. Work on Range of motion for Total knee patients. No pillow under the knee for Total knee patients. Elevate the surgical leg when seated. No driving until cleared by surgeon Diet: Increase oral intake of fruits, fiber and water to prevent constipation. Drink fluids frequently and take stool softeners to aid in bowel motility. Increase protein intake/reduce high-sugar intake to help promote healing and prevent infection. Incision Care: Keep Aquacel or other dressing intact until seen and removed by surgeon, unless saturated, in which case, call surgeon and request instructions. If dressing falls off, call surgeon. Davis Hose on in the am and off in the pm to reduce swelling. Ice affected area four times a day, for twenty minutes. Pain Medications and Anticoagulant You have been place on an anticoagulant to prevent blood clots. Take this medication exactly as prescribed. Be alert for signs of bleeding. Take care not to injure yourself. You have been provided pain medicine to control your pain. Do not take more narcotics than prescribed. You may begin weaning from narcotics as your pain level improves by decreasing the amount or frequency of the narcotics. You may also take plain acetaminophen as an alternate to the narcotics. Never exceed the recommended dosage. Ice, rest and elevating the surgical limb also help with pain control. When to call the Surgeon: Increased redness, warmth, drainage, swelling or odor from incision site. Temperature above 101 degrees. Pain not controlled by prescribed medications. Calf tenderness, swelling, or redness. Shortness of breath or chest pain. If you cannot urinate and have been consuming liquids Any incision or surgical-related concerns. Call surgeon with concerns PRIOR TO going to hospital. Normal Conditions: Swelling in the operative leg: this should reduce over time. Bruising behind the knee and around surgical area. Some post-operative pain. Constipation related to pain medications/decreased mobility. (Increase fiber & water intake.) Slight warmth of operative leg. Fatigue and moderate pain after therapy. Numbness near the incision site. Nausea - take pain medications with food. Cut back on pain medication. NOTE: Remember to go to follow-up orthopedic appointment with surgeon Gillian Suarez RN - 10/07/2022 7:26 AM EDT Continuity of Care Form Patient Name: Gabino Desir : 1970 Admit date: 10/07/2022 Discharge date: 10/07/22 Code Status Order: Full Code Advance Directives: Advance Care Flowsheet Documentation Date/Time Healthcare Directive Type of Healthcare Directive Copy in Chart Healthcare Agent Appointed Healthcare Agent's Name Healthcare Agent's Phone Number 10/07/22 [phone] No, patient does not have an advance directive for healthcare treatment -- -- -- -- -- Admitting Physician: Ravi Lopez MD PCP: Iron Olmos DO Discharging Nurse: Discharging Hospital Unit/Room#: [facility] OR Pool/NONE Discharging Unit Emergency Contact: Extended Emergency Contact Information Primary Emergency Contact: Bev Desir Mobile Relation: Spouse Boot Trimmer needed? 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 Injury of head S09.90XA Primary osteoarthritis of left hip M16.12 Isolation/Infection: Isolation No Isolation Patient Infection Status None to display Nurse Assessment: Last Vital Signs: BP (!) 161/86 Pulse 75 Temp 96.9 F (36.1 C) (Infrared) Resp 20 Ht 6' (1.829 m) Wt (!) 365 lb (165.6 kg) SpO2 96% BMI 49.50 kg/m Last documented pain score (0-10 scale): Pain Level: 7 Last Weight: Wt Readings from Last 1 Encounters: 10/07/22 (!) 365 lb (165.6 kg) Mental Status: oriented and alert IV Access: - None Nursing Mobility/ADLs: Walking Independent Transfer Independent Bathing Assisted Dressing Independent Toileting Independent Feeding Independent Valance Cutter Independent Med Delivery whole Wound Care Documentation and Therapy: Safety Concerns: At Risk for Falls Impairments/Disabilities: None Nutrition Therapy: Current Nutrition Therapy: - Oral Diet: General Routes of Feeding: Oral Liquids: No Restrictions Daily Fluid Restriction: no Last Modified Barium Swallow with Video (Video Swallowing Test): not done Treatments at the Time of Hospital Discharge: Respiratory Treatments: n/a Oxygen Therapy: is not on home oxygen therapy. Ventilator: - No ventilator support Rehab Therapies: Physical Therapy and Occupational Therapy Weight Bearing Status/Restrictions: No weight bearing restrictions Other Medical Equipment (for information only, NOT a DME order): walker Other Treatments: Usp assessment and monitoring. Medication education and monitoring per protocol. TOTAL JOINT REPLACEMENT PATIENT HOME HEALTH CARE PROTOCOL This patient is a post-operative total joint replacement patient. Expectations for this patient s care are as follows: Goals: DailyTherapy for rehabilitative purposes for two weeks. Increased level of activity and ambulation each day. Well-controlled pain. Free from infection. Encourage patient to provide self-care when possible. Ambulation with a rolling walker. Activity & Diet: Therapy performed daily. (Instruct patient to take pain meds. 1 hour prior to therapy.) Up in chair for all meals and majority of day. Range of motion for TKA patients. Hip precautions for KAREN patients. Incentive Spirometer: 3- 4 inhalations every twenty minutes, during the day, while awake, the first week home after discharge Increase oral intake of fruits, fiber and water and take a daily stool softener to prevent constipation. Consider stronger bowel protocol if no bowel movement is achieved after three days home. Increase protein intake and reduce sugar intake to promote healing and prevent infection. No pillow under the knee for TKA patients. Davis Hose go on in the a.m. and come off in the p.m. (Hand wash them every two or three days, roll in towel to remove most of moisture, and hang to dry.) Incision Care: If patient has ROMERO bandage it may be removed POD #2 Keep incisional dressing intact until seen and removed by surgeon, unless saturated, in which case, call surgeon and request instructions. If dressing falls off, call surgeon. If using the Prevena dressing, with battery pack, place battery pack in waterproof bag during shower. If using Aquacel dressing then dressing is waterproof and patient may shower. If patient has a Prevena remove on POD #5 and replace with Aquacel dressing (patient was provided with dressing in hospital) Elevated the leg and ice the affected area four times a day, for twenty minutes each time and after every physical therapy session. Normal Conditions - Will improve with provided comfort measures and time: Some swelling in the operative leg is normal - this should reduce over time. Some post-operative pain is normal. This will improve with prescribed medication, provided comfort measures and time. Constipation related to pain medications & decreased mobility is a common occurrence. (Increase your fiber & water intake and take a stool softener.) Slight warmth of operative site is normal and will diminish with time. Fatigue and moderate pain after therapy is normal and will improve with time. Numbness near the incision site is normal and will improve with time. NOTE: Ensure/Remind patient to go to their follow-up appointment with their orthopedic surgeon, which is scheduled Abnormal Conditions - When to call the Surgeon: Increasing/excessive redness, warmth or swelling at the incisional site not relieved with ice and elevation. Increasing/excessive pain not well-controlled by prescribed medications. Drainage or odor from or around the incision site. (A little blood showing through the bandage is ok, but active leaking, of any color, coming out of the bandage is NOT normal.) Temperature above 101 degrees. (A mild temp of 99 - 100 is normal - if temp gets to 101 you may use Tylenol once - if it does not improve, you may use a 2nd dose of Tylenol after 5 hours - if temperature is still at or above 101 degrees then call the surgeon.) Calf tenderness, swelling, or redness or numbness of the foot/lower leg. Shortness of breath or chest pain. Any other incision or surgical-related concerns. CALL SURGEON with concerns PRIOR TO sending patient to hospital. Patient's personal belongings (please select all that are sent with patient): All belongings returned to patient RN SIGNATURE: CASE MANAGEMENT/SOCIAL WORK SECTION Inpatient Status Date: Readmission Risk Assessment Score: Readmission Risk Risk of Unplanned Readmission: 0 Discharging to Facility/ Agency [facility] [address] [facility] [id number] Fax Compressor Station Chief Engineer/Wet Room Supervisor signature: PHYSICIAN SECTION Prognosis: Good Condition at Discharge: Stable Rehab Potential (if transferring to Rehab): Good Recommended Labs or Other Treatments After Discharge: see above Physician Certification: I certify the above information and transfer of Gabino Desir is necessary for the continuing treatment of the diagnosis listed and that he requires Home Care for less 30 days. Update Admission H&P: No change in H&P PHYSICIAN SIGNATURE: documented in this encounter [employer] Phone: Evaluation note 09-26-2022 Note Date & Type Note Facility 09-26-2022 Evaluation note Encounter Date Diagnosis Assessment Notes Sep, Preop exam for internal medicine (ICD-10 - Z01.818) Health optimal with no further testing recommended. Reviewed medications, continue w/o interruption. Sep, Primary hypertension (ICD-10 - I10) Stable, continue medication w/o interruption Sep, Obstructive sleep apnea (ICD-10 - G47.33) Compliant w/ treatment. Sep, Morbid exogenous obesity (ICD-10 - E66.01) Monitor for postoperative hypoventilation and hypercapnia Sep, Post concussion syndrome (ICD-10 - F07.81) Stable w/ treatment [facility] Other Hospital Discharge instructions 09-24-2022 Discharge Instructions Note Date & Type Note Facility 09-24-2022 Hospital Discharg e instructions Loren Ortega RN - 09/24/2022 6:51 AM EDT Pre-op Instructions For Out-Patient Surgery Medication Instructions: Please stop herbs and any supplements now (includes vitamins and minerals). Please contact your surgeon and prescribing physician for pre-op instructions for any blood thinners. If you have inhalers/aerosol treatments at home, please use them the morning of your surgery and bring the inhalers with you to the hospital. Please take the following medications the morning of your surgery with a sip of water: Hydralazine, Clonidine, Propranolol Surgery Instructions: After midnight before surgery: Do not eat or drink anything, including water, mints, gum, and hard candy. You may brush your teeth without swallowing. No smoking, chewing tobacco, or street drugs. Please shower or bathe before surgery. If you were given Surgical Scrub Chlorhexidine Gluconate Liquid (CHG), please shower the night before and the morning of your surgery following the detailed instructions you received during your pre-admission visit. Please do not wear any cologne, lotion, powder, deodorant, jewelry, piercings, perfume, makeup, nail romansh, hair accessories, or hair spray on the day of surgery. Wear loose comfortable clothing. Leave your valuables at home. Bring a storage case for any glasses/contacts. An adult who is responsible for you MUST drive you home and should be with you for the first 24 hours after surgery. If having out-patient knee and foot surgeries, please arrange for planned crutches, walker, or wheelchair before arriving to the hospital. The Day of Surgery: Arrive at [facility] Surgery Entrance at the time directed by your surgeon and check in at the desk. If you have a living will or healthcare power of corporate associate attorney, please bring a copy. You will be taken to the pre-op holding area where you will be prepared for surgery. A physical assessment will be performed by a nurse practitioner or assisted living housekeeper. Your IV will be started and you will meet your anesthesiologist. When you go to surgery, your family will be directed to the surgical waiting room, where the doctor should speak with them after your surgery. After surgery, you will be taken to the recovery room then when you are awake and stable you will go to the short stay unit for preparation to be discharged. If you use a Bi-PAP or C-PAP machine, please bring it with you and leave it in the car in case it is needed in recovery room. documented in this encounter [employer] Phone: Evaluation note Note Date & Type Note Facility Evaluation note Diagnosis Hypertension, unspecified type Osteoarthritis of left hip, unspecified osteoarthritis type documented in this encounter [employer] Phone: Evaluation note Note Date & Type Note Facility Evaluation note Diagnosis Primary osteoarthritis of left hip- Primary Primary localized osteoarthrosis, pelvic region and thigh Primary osteoarthritis of left hip Primary localized osteoarthrosis, pelvic region and thigh documented in this encounter [employer] Phone: Evaluation note Note Date & Type Note Facility Evaluation note No Information [facility] Other History general Narrative - Reported Note Date & Type Note Facility History general Narrative - Reported Type Medical History Screening PSA (prost ate specific antigen) Medical History Obstructive sleep apnea Medical History Lumbar spondylosis Medical History Arthritis of left hip Medical History Arthritis of left knee Medical History Benign hypertension with chronic kidney disease, stage II Medical History COVID Medical History Low testosterone Medical History High risk medication use Medical History Acute eczema Surgical History EGD 2019 Surgical History COLONOSCOPY 2019 Surgical History ARTHROSCOPY, KNEE-LEFT 2013 Hospitalization History SEE SURGICAL HX [facility] Other Summary Purpose Family History No Family History Records FoundNo Family History Records FoundNo Family History Records FoundNo Family History Records Found Advance Directives Latest Code Status on File Code Status Date Activated Date Inactivated Comments Full Code 10/07/2022 5:37 AM Additional Source Comments (unrecognized sect ion and content) No Status Records FoundNo Status Records FoundNo Status Records FoundNo Status Records Found INFORMATION SOURCE (unrecogn ized section and content) DATE CREATED AUTHOR 12/19/2018 [facility] DATE CREATED AUTHOR AUTHOR'S ORGANIZ ATION 10/09/2022 [facility] DATE CREATED AUTHOR AUTHOR'S ORGANIZ ATION 11/24/2022 [facility] DATE CREATED AUTHOR AUTHOR'S ORGANIZ ATION 08/01/2023 [facility] Care Teams (unrecognized sec tion and content) Infection Prevention Specialist Relationship Specialty Start Date End Date Iron Olmos [address] [place] [address] PCP - General Internal Medicine 08/26/22 Infection Prevention Specialist Relationship Specialty Start Date End Date Iron OlmosDO [address] [place] [address] PCP - General Internal Medicine 08/26/22 REASON FOR VISIT (unrecogniz ed section and content) Specialty Diagnoses / Procedures Referred By Nayla lucio Referred To Contact Diagnoses Osteoarthritis of left hip, unspecified osteoarthritis type DEGENERATIVE JOINT DISEASE LEFT HIP Procedures WI ARTHRP ACETBLR/PROX FEM PROSTC AGRFT/ALGRFT HIP TOTAL ARTHROPLASTY MINIMALLY INVASIVE Ravi Lopez MD [address] [facility] [address] [place] [address] [facility] [id number] [place] [address] Referral ID Status Reason Start Date Expiration Date Visits Re quested Visits Authorized [id number] 1 1 Reason Comments Received Outside Medical Records Ordered Prescriptions (unrec ognized section and content) Prescription Sig Dispensed Refills Start Date End Da te oxyCODONE-acetaminophen (PERCOCET) 5-325 MG per tabletIndications:Primary osteoarthritis of left hip Take 1-2 tablets by mouth every 4 hours as needed for Pain for up to 7 days. Max Daily Amount: 12 tablets 42 tablet 0 10/07/2022 10/14/2022 cefdinir (OMNICEF) 300 MG capsule Take 1 capsule by mouth 2 times daily 20 capsule 1 10/07/2022 aspirin EC 81 MG EC tablet Take 1 tablet by mouth in the morning and 1 tablet in the evening. 90 tablet 1 10/07/2022 Scheduled Active and Recently Administ ered Medications (unrecognized section and content) Medication Order 10/05/2022 10/06/2022 10/07/2022 acetaminophen (TYLENOL) tablet 1,000 mg (COMPLETED) 1,000 mg, Oral, ONCE, 1 dose, On Thu10/07/22 at 0600, Maximum dose of acetaminophen is 4000 mg from all sources in 24 hours. Avoid in patient with liver disease Use reduced dose for patient <65kg, Maximum dose of acetaminophen is 4000 mg from all sources in 24 hours. Avoid in patient with liver disease Use reduced dose for patient <65kg, Pre-op (day of surgery) 0608 (Given - Provid er: Leigha Lea RN) acetaminophen (TYLENOL) tablet 650 mg 650 mg, Oral, EVERY 6 HOURS, First dose on Thu10/07/22 at 1200, Until Discontinued, Maximum dose of acetaminophen is 4000 mg from all sources in 24 hours., Post-op 1143 (Given - Provid er: Sergio Mccann RN)1800 (Due) aspirin EC tablet 81 mg 81 mg, Oral, 2 TIMES DAILY, First dose on Thu10/07/22 at 1145, Until Discontinued, Do not crush or break., Post-op 1143 (Given - Provid er: Sergio Mccann RN)2100 (Due) ceFAZolin (ANCEF) 3000 mg in sodium chloride 0.9% 100 mL IVPB (COMPLETED) 3,000 mg, IntraVENous, MASTER BLACK BELT TO O.R., 1 dose, On Thu10/07/22 at 0600, Antimicrobial Indications: Surgical Prophylaxis, Administer within 1 hour prior to incision. Recommend to repeat in 3-4 hours after initial dose if still intra-op., Pre-op (day of surgery) 0742 (Given - Provid er: Keny Deng, SPICE BLENDER - TRAFFIC OPERATOR) ceFAZolin (ANCEF) 3000 mg in sodium chloride 0.9% 100 mL IVPB (COMPLETED) 3,000 mg, IntraVENous, ONCE, 1 dose, On Thu10/07/22 at 1545, Antimicrobial Indications: Surgical Prophylaxis, Post-op 1412 (New Bag - Prov ider: Sergio Mccann RN)1445 (Stopped - Provider: Sergio Mccann RN) dexamethasone (PF) (DECADRON) injection 10 mg (COMPLETED) 10 mg, IntraVENous, ONCE, On Thu10/07/22 at 0600, For 1 dose, Avoid, or decrease dose if patient is hyperglycemic with FBS>300 Or in severe uncontrolled diabetes, Pre-op (day of surgery) 0615 (Given - Provid er: Leigha Lea RN) gabapentin (NEURONTIN) tablet 900 mg (COMPLETED) 900 mg (rounded from 800 mg), Oral, ONCE, 1 dose, On Thu10/07/22 at 0600, Decrease to 600 mg in patients > 65 yrs to 75 years Decrease to 300 mg in patients > 75 years Consider dose reduction in patients with DAMARIS Avoid in patients with CRI creatinine > 2.0, Decrease to 600 mg in patients > 65 yrs to 75 years Decrease to 300 mg in patients > 75 years Consider dose reduction in patients with DAMARIS Avoid in patients with CRI creatinine > 2.0, Pre-op (day of surgery) 0608 (Given - Provid er: Leigha Lea RN) scopolamine (TRANSDERM-SCOP) transdermal patch 1 patch (CANCELED) 1 patch, TransDERmal, Administer over 72 Hours, ONCE, On Thu10/07/22 at 0600, For 1 dose, 1.5 mg patch delivers 1 mg over 3 days. Apply patch to hairless area behind the ear. Caution: Increased chance of sedation and/or delirium/hallucination > 70 years Avoid in patient with glaucoma, Pre-op (day of surgery) 0608 (Patch Applied - Provider: Leigha Lea RN - Comment: behind left ear)1133 (Patch Removed - Provider: Sergio Mccann RN - Comment: Time automatically adjusted from order being discontinued) sodium chloride flush 0.9 % injection 5-40 mL 5-40 mL, IntraVENous, EVERY 12 HOURS SCHEDULED (2 times per day), First dose on Thu10/07/22 at 1145, Until Discontinued, For Line Patency: Peripheral IV = 5 mL; Midline or Central Line = 10 mL/lumen. If following IV push medication, administer flush at same rate as the IV push. Flush volume is determined by type of infusion therapy being given. For non-viscous solutions use: Peripheral IV = 5 mL Midline or Central Line = 10 mL/lumen For viscous solutions (i.e. blood components, parenteral nutrition, contrast media, or after obtaining blood sample) use: Peripheral IV = 10 mL Midline or Central Line = 20 mL/lumen, Post-op 1136 (Not Given - Pr ovider: Sergio Mccann RN - Reason: IV Fluid Infusing)2100 (Due) Continuous Medication Order 10/05/2022 10/06/2022 10/07/2022 lactated ringers IV soln infusion (CANCELED) IntraVENous, at 125 mL/hr, CONTINUOUS, Starting on Thu10/07/22 at 0600, Pre-op (day of surgery) 0613 (New Bag - Prov ider: Leigha Lea RN)0723 (NoRateChange - Provider: ARIC Singh CRNA)0909 (Paused - Provider: ARIC Singh CRNA - Comment: Switch to gravity)0910 (Restarted - Provider: ARIC Singh CRNA)0911 (Stopped - Provider: ARIC Singh CRNA)0913 (New Bag - Provider: ARIC Singh CRNA)0953 (Anesthesia Volume Adjustment - Provider: ARIC Singh CRNA)1510 (Stopped - Provider: Sergio Mccann RN) lactated ringers IV soln infusion IntraVENous, at 125 mL/hr, CONTINUOUS, Starting on Thu10/07/22 at 1145, Post-op 1137 (New Bag - Prov ider: Sergio Mccann RN)1510 (Stopped - Provider: Sergio Mccann RN) PRN Medication Order 10/05/2022 10/06/2022 10/07/2022 0.9 % sodium chloride infusion IntraVENous, at 5-250 mL/hr, PRN, if patient receiving piggyback infusions and maintenance fluids are not ordered OR KVO fluids to protect IV site / prevent frequent line interruptions/ long duration, Starting on Thu10/07/22 at 1121, For piggyback infusion, administer at same rate as piggyback for a total of 25 mL. Enter 25 mL into dose field and piggyback rate into rate field of order. If piggyback is infusing at a rate less than 100 mL/hr, enter 25 mL into dose field and 100 mL/hr into rate field of order. For KVO fluids, enter rate of 20 mL/hr or less into rate field of order., Post-op calcium chloride 10 % injection (CANCELED) PRN, Starting on Thu10/07/22 at 0934, Until Thu10/07/22 at 1007, Intra-op 0934 (Given - Provid er: Denis Leach DO) diphenhydrAMINE (BENADRYL) injection 12.5 mg (COMPLETED) 12.5 mg, IntraVENous, ONCE PRN, 1 dose, Starting on Thu10/07/22 at 0957, Until Thu10/07/22 at 1019, Itching, PACU only 1019 (Given - Provid er: Alban Agosto RN) EPINEPHrine (EPINEPHrine HCL) 1 mg/mL 1 mL, ketorolac (TORADOL) 30 MG/ML 1 mg, morphine (PF) 1 MG/ML 10 mg, ropivacaine (NAROPIN) 0.2% 60 mL, sodium chloride (PF) 0.9 % 30 mL (CANCELED) PRN, Starting on Thu10/07/22 at 0932, Intra-op 0932 (Given - Provid er: Denis Leach DO) fentaNYL (SUBLIMAZE) injection 50 mcg (COMPLETED) 50 mcg, IntraVENous, EVERY 5 MIN PRN, 2 doses, Starting on Thu10/07/22 at 0957, Until Thu10/07/22 at 1035, Pain Severe (7-10), For Phase I. If Phase II oral narcotics have been administered in the last 60 minutes, do not administer IV narcotics unless specifically approved by provider., PACU only 1018 (Given - Provid er: Alban Agosto RN)1035 (Given - Provider: Alban Agosto RN) HYDROmorphone (DILAUDID) injection 0.5 mg 0.5 mg, IntraVENous, EVERY 3 HOURS PRN, Starting on Thu10/07/22 at 1121, Until Discontinued, Pain Severe (7-10), If oral and IV narcotics ordered, use oral first and only use IV if oral is ineffective or cannot take oral. Do Not give oral and IV within 1 hour of each other unless specifically ordered., Post-op ketorolac (TORADOL) injection 30 mg 30 mg, IntraVENous, EVERY 6 HOURS PRN, 12 doses, Starting on Thu10/07/22 at 1121, Until Thu10/07/22 at 2359, Pain Moderate (4-6), Do not administer for more than 5 days., Post-op ondansetron (ZOFRAN) injection 4 mg 4 mg, IntraVENous, EVERY 6 HOURS PRN, Starting on Thu10/07/22 at 1121, Until Discontinued, Nausea, Post-op oxyCODONE (ROXICODONE) immediate release tablet 5 mg(Linked Group 1) 5 mg, Oral, EVERY 4 HOURS PRN, Starting on Thu10/07/22 at 1121, Until Discontinued, Pain Moderate (4-6), Post-op 1233 (See Alternativ e - Provider: Sergio Mccann RN) oxyCODONE HCl (OXY-IR) immediate release tablet 10 mg(Linked Group 1) 10 mg, Oral, EVERY 4 HOURS PRN, Starting on Thu10/07/22 at 1121, Until Discontinued, Pain Severe (7-10), Post-op 1233 (Given - Provid er: Sergio Mccann RN) sodium chloride flush 0.9 % injection 5-40 mL 5-40 mL, IntraVENous, PRN, Starting on Thu10/07/22 at 1121, Until Discontinued, Line Care, After every IV line use, For Line Patency: Peripheral IV = 5 mL; Midline or Central Line = 10 mL/lumen. If following IV push medication, administer flush at same rate as the IV push. Flush volume is determined by type of infusion therapy being given. For non-viscous solutions use: Peripheral IV = 5 mL Midline or Central Line = 10 mL/lumen For viscous solutions (i.e. blood components, parenteral nutrition, contrast media, or after obtaining blood sample) use: Peripheral IV = 10 mL Midline or Central Line = 20 mL/lumen, Post-op thrombin kit (CANCELED) PRN, Starting on Thu10/07/22 at 0934, Intra-op 0934 (Given - Provid er: Denis Leach, DO - Comment: GIVEN TO GPS NURSE) Linked Groups Order Group 1: oxyCODONE (ROXICODONE) immediate release tablet 5 mgJump to med 5 mg, Oral, EVERY 4 HOURS PRN, Starting on Thu10/07/22 at 1121, Until Discontinued, Pain Moderate (4-6), Post-op Or oxyCODONE HCl (OXY-IR) immediate release tablet 10 mgJump to med 10 mg, Oral, EVERY 4 HOURS PRN, Starting on Thu10/07/22 at 1121, Until Discontinued, Pain Severe (7-10), Post-op Source Comments (unrecognize d section and content) In the event this informatio n is protected by the Federal Confidentiality of Alcohol and Drug Abuse Patient Records regulations: The Federal rules restrict any use of the information to criminally investigate or prosecute any alcohol or drug abuse patient.[facility] FOR RECORDS PERTAINING TO PATIENTS WHO ARE OR HAVE BEEN ENROLLED IN A CHEMICAL DEPENDENCY/SUBSTANCEABUSE PROGRAM, SOME INFORMATION MAY BE OMITTED. This clinical summary was aggregated from multiple sources. Caution should be exercised in using it in the provision of clinical care. This summary normalizes information from multiple sources, and as a consequence, information in this document may materially change the coding, format and clinical context of patient data. In addition, data may be omitted in some cases. CLINICAL DECISIONS SHOULD BE BASED ON THE PRIMARY CLINICAL RECORDS. [email or web address] provides no warranty or guarantee of the accuracy or completeness of information in this document.
[2023-09-26 09:07] LABS: Basophils Absolute Auto 0.1 10^3/uL (0.0-0.1); Basophils Percent Auto 0.9 % (0.2-2.0); Eosinophils Absolute Auto 0.2 10^3/uL (0.0-0.7); Eosinophils Percent Auto 3.1 % (0.9-7.0); Hematocrit 37.6 % (42.0-54.0); Hemoglobin 12.3 g/dL (14.0-18.0); Immature Granulocytes Abs Auto 0.05 10^3/uL (0.00-0.03); Immature Granulocytes Pct Auto 0.7 % (0.0-0.5); Mean Corpuscular HGB Conc 32.7 g/dL (29.9-35.2); Mean Corpuscular Hemoglobin 30.9 pg (25.9-34.0); Mean Corpuscular Volume 94.5 fL (80.0-94.0); Mean Platelet Volume 10.2 fL (9.5-13.5); Monocytes Absolute Auto 0.6 10^3/uL (0.3-0.8); Monocytes Percent Auto 7.9 % (1.7-12.0); Neutrophils Absolute Auto 4.5 10^3/uL (1.4-6.5); Neutrophils Percent Auto 60.4 % (43.0-75.0); Platelet Count 226 10^3/uL (150-450); Red Blood Count 3.98 10^6/uL (4.70-6.10); Red Cell Distribution Width 12.6 % (11.0-15.0); White Blood Count 7.5 10^3/uL (4.0-11.0)
[2023-09-26 11:22] LABS: Alanine Aminotransferase 91 U/L (16-63); Albumin Globulin Ratio 0.9; Albumin Level 3.4 g/dL (3.4-5.0); Alkaline Phosphatase 78 U/L (46-116); Anion Gap 13.6; Aspartate Amino Transferase 33 U/L (15-37); BUN Creatinine Ratio 15.3; Bilirubin Total 0.4 mg/dL (0.2-1.0); Calcium 8.9 mg/dL (8.5-10.1); Carbon Dioxide 27.8 mmol/L (21.0-32.0); Chloride 105 mmol/L (98-107); Chol HDL Ratio 2.8; Cholesterol 196 mg/dL (<=200); Estimated GFR (African America >60 (>=60); Estimated GFR (Non-African Ame >60 (>=60); Globulin 3.6 g/dL; Glucose 110 mg/dL (74-106); HDL Cholesterol 70 mg/dL (40-60); Potassium 4.4 mmol/L (3.5-5.1); Sodium 142 mmol/L (136-145); Triglycerides 107 mg/dL (<=150); VLDL CHOLESTEROL 21.4 mg/dL
[2023-09-26 11:38] LABS: Prostate Specific Antigen Scrn 0.19 ng/mL (<=4.00)
[2023-09-27 08:10] LABS: Testosterone 144 ng/dL (264-916)
== END 2023-09-26 08:48 | disposition home or self-care (01) ==
PROVIDERS: PCP Internal Medicine; Visit Provider Internal Medicine
DX: Z00.00 Encounter for general adult medical examination without abnormal findings (principal); R79.89 Other specified abnormal findings of blood chemistry
CPT/HCPCS: 36415; 80053; 80061; 84403; 85025; G0103

== ENCOUNTER 2023-11-18 19:53 | Outpatient (OUT) | payer BC, MEDICARE, SELFPAY ==
--- OUTSIDE RECORDS SUMMARY | 2023-11-18 19:57 | XMS_ITS | CCD ---
Author Organization [facility] Care Team Providers Care De Alcoholizer Name Role Phone Iron Olmos DO Primary [...] Unavailable BALL, DR LEWIS Primary Care Unavailable Iron Olmos Unavailable LIEN JOHNSON Attending Unavailable Unavailable Primary Care Provider Unavailabl e Allergies Allergy Classification Reported Allergen(s) Allergy Type Date of Onset Reaction(s) Facility (2 sources) patient allergy list reviewed by nurse or physicia Propensity to adverse reactions 9 Comment:Done [facility] Other (2 sources) Allergies Reconciled Propensity to adverse reactions Unknown [facility] Other Medications Current Medications Medication Drug Class(es) [...] Vitamin D Cholecalciferol (VITAMIN D) 50 MCG (1999 UT) CAPS capsule Take by mouth daily 0 [...] Comment on above: [facility] metoprolol tartrate 50 mg oral [...] Start: 04-19-2020 take 2 tablets by mo [facility] twice daily ondansetron (ZOFRAN) 4 MG [...] sources) H/O: high risk medication; Translations: [Other chcf (current) drug therapy] Episodic Other aftercare (2 sources) Long-term current use of drug therapy; Translations: [Other chcf (current) drug therapy] Episodic Other circulatory disease [...] Test Name Value Interpretation Reference Range Facility [facility] 09-22-2023 CNPN Telephone (OPHTBE) SARA YEBOAH ([id number]) 1970 M Date Time Provider Department 09/22/23 MILEY ENRIQUE OPHTBE During your visit today, we recorded the following information about you: Kristina Melton 09/22/2023 3:40 PM Signed Received outside Records from [facility] needing consult with Dr. Enrique for Neuro Ophthalmology consult. Please contact patient to schedule at [phone]. Records in Dr. Enrique's mailbox. Allergies As of Date: 09/22/2023 (No Known Allergies) Date Reviewed: 02/28/2013 Reviewed by: Riana Trejo ([facility]) - Fully Assessed Reason for Visit: Received Outside Medical Records [[id number]] Prescriptions as of 09/25/2023 - metoprolol tartrate, short acting, 50 mg tablet Take 1.5 tablets by mouth every 8 hours. - chlorthalidone 25 mg tablet Take 1 tablet by mouth once daily. - lisinopril 40 mg tablet Take 1 tablet by mouth once daily. Problem List As Of Date 09/22/2023 Noted Resolved SUMMARY [V999.95] 02/25/2013 Hypertensive urgency [I16.0] 02/25/2013 DAMARIS on CPAP [G47.33] 02/25/2013 Hypertension [I10] 02/25/2013 Tobacco abuse [Z72.0] 02/26/2013 Encounter Status:Closed by KRISTINA MELTON on 09/25/23 Normal [facility] 36on 07-31-2023 36 Pateint spouse calls to state that Balaji Bennett has not received the visit notes for patient from 2021 which she states there were 2 visits and the visit from 03/2023 she request those notes be sent to [employer] legal rep also at fax [phone]. All visits have been fax to the requested parties. Normal [facility] Follow-Upon 03-30-2023 Follow-Up [id number] Spencer Yeboah 1970 M Date Provider Department Center 03/30/2023 LIEN ESPAÑA MP PHYS MED Medical Pavi No family history on file Level of Service:19408 [place] OFFICE/OUTPATIENT ESTABLISHED LOW MDM 20-29 MIN Reason for Visit and Comments: Follow-up [712076] - Today annual follow up, and also need medication refills Normal [facility] FLUORO FOR SURGICAL PROCEDUR ESon 10-07-2022 FLUORO FOR SURGICAL PROCEDURES Radiology exam is complete. No Radiologist dictation. Please follow up with ordering provider. Final result Normal [facility] Radiology exam is complete. No Radiologist dictation. Please follow up with ordering provider. [facility] RIS CONSOLIDATED EKG 12 LeadOrdered By: Milan Pearson on 09-25-2022 Atrial Rate 67 BPM [employer] Phone: P Sabael 21 degrees [employer] Phone: P-R Interval 190 ms [employer] Phone: Q-T Interval 388 ms [employer] Phone: QRS Duration 110 ms [employer] Phone: QTc Calculation (Bazett) 409 ms [employer] Phone: R Sabael -38 degrees [employer] Phone: T Sabael 41 degrees [employer] Work Phone: Ventricular Rate 67 BPM [facility] [employer] [employer] Work Phone: [facility] Work Phone: EKG 12 Leadon 09-25-2022 Normal sinus rhythm Left axis deviation Abnormal ECG No previous ECGs available [facility] Milan Menon MD - 09/25/2022 Normal sinus rhythm Left axis deviation Abnormal ECG No previous ECGs available [facility] Work Phone: MRSA DNA Probe, Nasalon 09-10 MRSA, DNA, Nasal Negative NEGATIVE [facility] [employer] Comment on above: NEGATIVE: MRSA DNA n ot detected by nucleic acid amplification. Results should be used as an adjunct to nosocomial control efforts to identify patients needing enhanced precautions. The test is not intended to identify patients with staphylococcal infections. Results should not be used to guide or monitor treatment for MRSA infections. Specimen Description .NASAL SWAB [facility] [employer] MRSA, DNA, Nasalon MRSA, DNA, Nasal Negative Normal [facility] Comment on above: Result Comment: NEGA TIVE: MRSA DNA not detected by nucleic acid amplification. Results should be used as an adjunct to nosocomial control efforts to identify patients needing enhanced precautions. The test is not intended to identify patients with staphylococcal infections. Results should not be used to guide or monitor treatment for MRSA infections. Performed By: #### M RSANO #### [facility] [address] [place] [address] Director Of Medicare: Omkar Leon DO [facility] [address] [place] [address] [id number] Director Of Medicare: Nirmal Colon MD Basic Metabolic Panelon 09-10 Anion gap [Moles/Vol] 9 mmol/L 9 - 17 mmol/L [facility] Calcium [Mass/Vol] 9.4 mg/dL 8.6 - 10. 4 mg/dL [facility] Chloride [Moles/Vol] 102 mmol/L 98 - 107 mmol/L [facility] CO2 [Moles/Vol] 27 mmol/L 20 - 31 mmol/L [facility] Creatinine [Mass/Vol] 1.06 mg/dL 0.70 - 1.20 mg/dL [facility] GFR/1.73 sq M.predicted MDRD (S/P/Bld) [Vol rate/Area] - PINF [facility] Comment on above: These results are not [...] 118 mg/dL High 70 - 99 mg/dL [facility] Interpretation and review of laboratory results Abnormal [facility] Potassium [Moles/Vol] 4.9 mmol/L 3.7 - 5.3 mmol/L [facility] Sodium [Moles/Vol] 138 mmol/L 135 - 144 mmol/L [facility] Urea nitrogen [Mass/Vol] 17 mg/dL 6 - 20 mg/dL [facility] Basic Metabolic Profon 09-24 Anion gap [Moles/Vol] 9 mmol/L Normal 9-17 [facility] Comment on above: Performed By: #### C DP, BMP #### [facility] [address] [facility] [place] [address] Director Of Medicare: Omkar Leon, DO Calcium [Mass/Vol] 9.4 mg/dL Normal 8.6-10.4 [facility] Comment on above: Performed By: #### C DP, BMP #### [facility] [address] [place], [place] [id number] Director Of Medicare: Omkar Leon DO Chloride [Moles/Vol] 102 mmol/L Normal 98-107 [facility] Comment on above: Performed By: #### C DP, BMP #### [facility] [address] [facility] [place] [address] Director Of Medicare: Omkar Leon DO CO2 [Moles/Vol] 27 mmol/L Normal 20-31 [facility] Comment on above: Performed By: #### C TOOÑ, BMP #### [facility] [address] [facility] [place] [address] Director Of Medicare: Omkar Leon DO Creatinine [Mass/Vol] 1.06 mg/dL Normal 0.70-1.20 [facility] Comment on above: Performed By: #### C TOÑO, BMP #### [facility] [place] [address] Director Of Medicare: Omkar Leon DO GFR/1.73 sq M.predicted among non-blacks MDRD (S/P/Bld) [Vol rate/Area] mL/min/{1.73_m2} Normal >60 [facility] Comment on above: Result Comment: These results [...] Performed By: #### C DP, BMP #### [facility] [address] [facility] [place] [address] Director Of Medicare: Omkar Leon DO Glucose [Mass/Vol] 118 mg/dL High 70-99 [facility] Comment on above: Performed By: #### C TOÑO, BMP #### [facility] [address] [facility] [place] [address] Director Of Medicare: Omkar Leon DO Potassium [Moles/Vol] 4.9 mmol/L Normal 3.7-5.3 [facility] Comment on above: Performed By: #### C DP, BMP #### [facility] [address] [facility] [place] [address] Director Of Medicare: Omkar Leon DO Sodium [Moles/Vol] 138 mmol/L Normal 135-144 [facility] Comment on above: Performed By: #### C DP, BMP #### [facility] [address] [facility] [place] [address] Director Of Medicare: Omkar Leon DO Urea nitrogen [Mass/Vol] 17 mg/dL Normal 6-20 [facility] Comment on above: Performed By: #### C DP, BMP #### [facility] [address] [facility] [place] [address] Director Of Medicare: Omkar Leon DO CBC with Auto Differentialon 09-24-2022 Absolute Eos # 0.20 [place] [facility] Absolute Lymph # 1.70 [facility] Absolute [place] # 0.60 [facility] Basophils (Bld) [#/Vol] 0.10 10*3/uL [facility] Basophils/100 WBC (Bld) 1 % 0 - 2 % [facility] Eosinophils/100 WBC (Bld) 2 % 0 - 4 % [facility] Hematocrit (Bld) [Volume fraction] 41.3 % 41 - 53 % [facility] Hemoglobin (Bld) [Mass/Vol] 14.2 g/dL 13.5 - 17.5 g/dL [facility] Interpretation and review of laboratory results Abnormal [facility] Lymphocytes/100 WBC (Bld) 23 % Low 24 - 44 % [facility] MCH (RBC) [Entitic mass] 31.1 pg 26 - 34 pg [facility] MCHC (RBC) [Mass/Vol] 34.4 g/dL 31 - 37 g/dL [facility] MCV (RBC) [Entitic vol] 90.4 fL 80 - 100 fL [facility] Monocytes/100 WBC (Bld) 8 % High 1 - 7 % [facility] Platelet distribution width (Bld) [Ratio] 13.4 % 11.5 - 14.9 % [facility] Platelet mean volume (Bld) [Entitic vol] 9.2 fL 6.0 - 12.0 fL [facility] Platelets (Bld) [#/Vol] 230 10*3/uL [facility] RBC (Bld) [#/Vol] 4.57 10*6/uL 4.5 - 5.9 m/uL [facility] Segmented neutrophils/100 WBC (Bld) 66 % 36 - 66 % [facility] Segs Absolute 5.00 [facility] WBC (Bld) [#/Vol] 7.6 10*3/uL [facility] CBC with Diffon 09-24-2022 Abs. Basophil 0.10 k/uL Normal 0.0-0.2 [facility] Comment on above: Performed By: #### C DP, BMP #### [facility] [address] [place] [address] Director Of Medicare: Omkar Leon DO Abs.Neutrophil (Seg) 5.00 k/uL Normal 1.3-9.1 [facility] Comment on above: Performed By: #### C DP, BMP #### [facility] [place] [address] Director Of Medicare: Omkar Leon DO Basophils/100 WBC (Bld) 1 % Normal 0-2 [facility] Comment on above: Performed By: #### C DP, BMP #### [facility] [place] [address] Director Of Medicare: Omkar Leon DO Eosinophils (Bld) [#/Vol] 0.20 10*3/uL Normal 0.0-0.4 [facility] Comment on above: Performed By: #### C DP, BMP #### [facility] [address] [facility] [place] [address] Director Of Medicare: Omkar Leon DO Eosinophils/100 WBC (Bld) 2 % Normal 0-4 [facility] Comment on above: Performed By: #### C DP, BMP #### [facility] [address] [facility] [place] [address] Director Of Medicare: Omkar Loen DO Erythrocyte distribution width (RBC) [Ratio] 13.4 % Normal 11.5-14.9 [facility] Comment on above: Performed By: #### C DP, BMP #### [facility] [address] [place] [address]. [place] [address] Director Of Medicare: Omkar Leon DO Hematocrit (Bld) [Volume fraction] 41.3 % Normal 41-53 [facility] Comment on above: Performed By: #### C DP, BMP #### [facility] [place] [address] Director Of Medicare: Omkar Leon DO Hemoglobin (Bld) [Mass/Vol] 14.2 g/dL Normal 13.5-17.5 [facility] Comment on above: Performed By: #### C DP, BMP #### [facility] [address] [place] [address]. [place] [address] Director Of Medicare: Omkar Leon DO Lymphocytes (Bld) [#/Vol] 1.70 10*3/uL Normal 1.0-4.8 [facility] Comment on above: Performed By: #### C DP, BMP #### [facility] [address] [place] [address]. [place] [address] Director Of Medicare: Omkar Leon DO Lymphocytes/100 WBC (Bld) 23 % Low 24-44 [facility] Comment on above: Performed By: #### C DP, BMP #### [facility] [address] [place] [address] Director Of Medicare: Omkar Leon DO MCH (RBC) [Entitic mass] 31.1 pg Normal 26-34 [facility] Comment on above: Performed By: #### C DP, BMP #### [facility] [address] [place] [address] Director Of Medicare: Omkar Leon DO MCHC (RBC) [Mass/Vol] 34.4 g/dL Normal 31-37 [facility] Comment on above: Performed By: #### C DP, BMP #### [facility] [address] [place] [address] Director Of Medicare: Omkar Leon DO MCV (RBC) [Entitic vol] 90.4 fL Normal 80-100 [facility] Comment on above: Performed By: #### C DP, BMP #### [facility] [address] [place] [address] Director Of Medicare: Omkar Leon DO Monocytes (Bld) [#/Vol] 0.60 10*3/uL Normal 0.1-1.3 [facility] Comment on above: Performed By: #### C DP, BMP #### [facility] [address] [place] [address] Director Of Medicare: Omkar Leon DO Monocytes/100 WBC (Bld) 8 % High 1-7 [facility] Comment on above: Performed By: #### C DP, BMP #### [facility] [address] [place] [address] Director Of Medicare: Omkar Leon DO Neutrophil (Seg) 66 % Normal 36-66 [facility] Comment on above: Performed By: #### C DP, BMP #### [facility] [address] [place] [address] Director Of Medicare: Omkar Leon DO Platelet mean volume (Bld) [Entitic vol] 9.2 fL Normal 6.0-12.0 [facility] Comment on above: Performed By: #### C TOÑO, BMP #### [facility] [address] [facility] [place] [address] Director Of Medicare: Omkar Leon DO Platelets (Bld) [#/Vol] 230 10*3/uL Normal 150-450 [facility] Comment on above: Performed By: #### C TOÑO, BMP #### [facility] [address] [place] [address] Director Of Medicare: Omkar Leon DO RBC (Bld) [#/Vol] 4.57 10*6/uL Normal 4.5-5.9 [facility] Comment on above: Performed By: #### C TOÑO, BMP #### [facility] [address] [place] [address] Director Of Medicare: Omkar eLon DO WBC (Bld) [#/Vol] 7.6 10*3/uL Normal 3.5-11.0 [facility] Comment on above: Performed By: #### C TOÑO, BMP #### [facility] [address] [place] [address] Director Of Medicare: Omkar Leon DO MRSA, DNA, Nasalon 3 Specimen Description .NASAL SWAB Normal [facility] Comment on above: Performed By: #### M RSANO #### [facility] [address] [place] [address] Director Of Medicare: Omkar Leon DO [address] [address] Director Of Medicare: Nirmal Colon MD Microscopic Urinalysison Bacteria, UA None None [facility] Casts UA 3 to 5 /LPF [facility] Epithelial Cells UA 0 TO 2 /HPF [facility] RBC clumps Auto (Urine sed) [#/Area] 0 TO 2 /HPF [facility] WBC, UA 0 TO 2 /HPF [facility] TYPE AND SCREENon 09-24-2022 ABO/Rh Positive [facility] Arm Band Number [id number] [facility] Blood Bank Comment ABORH CONFIRMED O POS: 003 [facility] Expiration Date 2022,2359 [facility] Type + Screenon 09-24-2022 Type + Screen Sample Expiration 2022,2359 Arm Band Number [id number] ABO/Rh(D) O POSITIVE Antibody Screen NEGATIVE Blood Bank Comment ABORH CONFIRMED O POS: 003 Normal [facility] Comment on above: Performed By: #### T YS #### [facility] [address] [place] [address] Director Of Medicare: Omkar Leon DO UA w/Reflex Cultureon 2022 Bilirubin, SemiQt,Ur Negative Normal NEG [facility] Comment on above: Performed By: #### LOR PARKER #### [facility] [address] [place] [address] Director Of Medicare: Omkar Leon DO Blood, Urine Negative Normal NEG [facility] Comment on above: Performed By: #### LOR PARKER #### [facility] [place] [address] Director Of Medicare: Omkar Leon DO Clarity (U) Clear Normal CLEAR [facility] Comment on above: Performed By: #### LOR PARKER #### [facility] [address] [place] [address] Director Of Medicare: Omkar Leon DO Color (U) Yellow Normal YEL [facility] Comment on above: Performed By: #### U AXLOR #### [facility] [address] [facility] [place] [address] Director Of Medicare: Omkar Leon DO Glucose Ql (U) Negative Normal NEG [facility] Comment on above: Performed By: #### U LOR CARDOZA #### [facility] [address] [facility] [place] [address] Director Of Medicare: Omkar Leon DO Ketones Ql (U) Negative Normal NEG [facility] Comment on above: Performed By: #### U LOR CARDOZA #### [facility] [address] [facility] [place] [address] Director Of Medicare: Omkar Leon DO Leukocyte esterase Test strip Ql (U) Negative Normal NEG [facility] Comment on above: Performed By: #### LOR PARKER #### [facility] [address] [facility] [place] [address] Director Of Medicare: Omkar Leon DO Nitrite,Ur Negative Normal NEG [facility] Comment on above: Performed By: #### U AXLOR #### [facility] [address] [facility] [place] [address] Director Of Medicare: Omkar Leon DO PH,Ur 5.5 Normal 5.0-8.0 [facility] Comment on above: Performed By: #### U LOR CARDOZA #### [facility] [address] [place] [address] Director Of Medicare: Omkar Leon DO Protein Ql (U) 2+ Abnormal NEG [facility] Comment on above: Performed By: #### LOR PARKER #### [facility] [address] [facility] [place] [address] Director Of Medicare: Omkar Leon DO Spec. Howell,Ur 1.021 Normal 1.000-1.030 [facility] Comment on above: Performed By: #### LOR PARKER #### [facility] [address] [place] [address] Director Of Medicare: Omkar Leon DO Urobilinogen,Ur Normal Normal NORM [facility] Comment on above: Performed By: #### LOR PARKER #### [facility] [address] [place] [address] Director Of Medicare: Omkar Leon DO Urinalysis with Reflex to Cu ltureon 09-24-2022 Bilirubin Urine Negative NEGATIVE [facility] Color, UA Yellow Yellow [facility] Glucose Auto test strip (U) [Mass/Vol] Negative NEGATIVE [facility] Interpretation and review of laboratory results Abnormal [facility] Ketones (U) [Mass/Vol] Negative NEGATIVE [facility] Leukocyte esterase Auto test strip Ql (U) Negative NEGATIVE [facility] Nitrite Auto test strip Ql (U) Negative NEGATIVE [facility] Protein (U) [Mass/Vol] 5.5 mg/dL 5.0 - 8.0 [facility] Protein (U) [Mass/Vol] 2+ Abnormal NEGATIVE [facility] Specific Howell, UA 1.021 1.000 - 1.030 [facility] Turbidity UA Clear Clear [facility] Urine Hgb Negative NEGATIVE [facility] Urobilinogen, Urine Normal Normal [facility] Urinalysis,Microon 3 Bacteria None Normal NONE [facility] Comment on above: Performed By: #### LOR PARKER #### [facility] [address] [place], [place] [id number] Director Of Medicare: Omkar Leon DO Casts 3 to 5 Normal [facility] Comment on above: Performed By: #### LOR PARKER #### [facility] [address] [facility] [place] [address] Director Of Medicare: Omkar Leon DO Epithelial cells LM Ql (Urine sed) 0 TO 2 Normal [facility] Comment on above: Performed By: #### U AX UMICAO #### [facility] [address] [facility] [place] [address] Director Of Medicare: Omkar Leon DO Urine RBC's 0 TO 2 Normal [facility] Comment on above: Performed By: #### LOR PARKER #### [facility] [address] [facility] [place] [address] Director Of Medicare: Omkar Leon DO Urine WBC's 0 TO 2 Normal [facility] Comment on above: Performed By: #### LOR PARKER #### [facility] [address] [facility] [place] [address] Director Of Medicare: Omkar Leon DO Refillon 09-08-2022 Refill [id number] Spencer Yeboah as 1970 M Date Provider Department Center 09/08/2022 LIEN [facility] MP PHYS MED Medical Pavi No family history on file Reason for Visit and Comments: Med Refill [[id number]] Normal [facility] MAGNESIUMon 04-01-2022 Magnesium [Mass/Vol] 1.8 mg/dL Normal 1.8-2.4 [facility] Comment on above: Performed By: #### M G #### [facility] [address] [address] [address] Madhu Augustine YQWURIR-KAWM-JFDSWX-FACTOR 1 on 02-03-2022 Insulin-Like Growth Factor I 240 ng/mL Normal 74-255 [facility] Comment on above: Performed By: #### I NSGF1 #### [facility] [address] [address] [address] Madhu Augustine FSHon 07-23-2022 FSH 0.4 mIU/mL Critically low 1.5-12.4 [facility] Comment on above: Performed By: #### L BCFSH #### [facility] [address] [place] [address] Dr. Madhu Augustine LUTEINIZING HORMONE (LH)on 0 02-01-2022 LH <0.3 Critically low 1.7-8.6 [facility] Comment on above: Performed By: #### L BCLH #### [facility] [address] [place] [address] Dr. Madhu Augustine TESTOSTERONE, TOTALon 2021 Testosterone [Mass/Vol] 756 ng/dL Normal 264-916 [facility] Comment on above: Result Comment: Adul t male reference interval is based on a population of healthy nonobese males (BMI <30) between 19 and 39 years old. Omar et.al. JCEM 2017,102;6838-8525. PMID: [id number]. Performed By: #### T ESTTOT #### [facility] [address] [place] [address] Dr. Madhu Augustine CBC AUTO DIFFon 01-31-2022 BASO # 0.1 103/ul Normal 0.0-0.1 [facility] Comment on above: Performed By: #### C BC #### [facility] [address] [place] [address] Dr. Madhu Augustine Basophils/100 WBC (Bld) 0.9 % Normal 0.2-2.0 [facility] [facility] Comment on above: Performed By: #### C BC #### [facility] [address] [place] [address] Dr. Madhu Augustine EO # 0.2 103/ul Normal 0.0-0.7 [facility] Comment on above: Performed By: #### C BC #### [facility] [address] [place] [address] Dr. Madhu Augustine Eosinophils/100 WBC (Bld) 2.4 % Normal 0.9-7.0 [facility] Comment on above: Performed By: #### C BC #### [facility] [address] [place] [address] Dr. Madhu Augustine Erythrocyte distribution width (RBC) [Ratio] 14.4 % Normal 11.0-15.0 [facility] Comment on above: Performed By: #### C BC #### [facility] [address] [place] [address] Dr. Madhu Augustine Hematocrit (Bld) [Volume fraction] 41.1 % Critically low 42.0-54.0 [facility] Comment on above: Performed By: #### C BC #### [facility] [address] [place] [address] Dr. Madhu Augustine Hemoglobin (Bld) [Mass/Vol] 13.5 g/dL Critically low 14.0-18.0 [facility] Comment on above: Performed By: #### C BC #### [facility] [address] [place] [address] Dr. Madhu Augustine IG # 0.05 10e3/ul Critically high 0.00-0.03 [facility] Comment on above: Performed By: #### C BC #### [facility] [address] [place] [address] Dr. Madhu Augustine IG % 0.7 % Critically high 0.0-0.5 [facility] Comment on above: Performed By: #### C BC #### [facility] [address] [place] [address] Dr. Madhu Augustine LYMPH # 1.6 103/ul Normal 1.2-3.8 [facility] Comment on above: Performed By: #### C BC #### [facility] [address] [place] [address] Dr. Madhu Augustine Lymphocytes/100 WBC (Bld) 21.5 % Normal 20.5-60.0 [facility] Comment on above: Performed By: #### C BC #### [facility] [address] [place] [address] Dr. Madhu Augustine MANUAL DIFF REQ NO Normal [facility] Comment on above: Performed By: #### C BC #### [facility] [address] [place] [address] Dr. Madhu Augustine MCH (RBC) [Entitic mass] 30.7 pg Normal 25.9-34.0 [facility] Comment on above: Performed By: #### C BC #### [facility] [address] [place] [address] Dr. Madhu Augustine MCHC (RBC) [Mass/Vol] 32.8 g/dL Normal 29.9-35.2 [facility] Comment on above: Performed By: #### C BC #### [facility] [address] [place] [address] Dr. Madhu Augustine MCV (RBC) [Entitic vol] 93.4 fL Normal 80.0-94.0 [facility] Comment on above: Performed By: #### C BC #### [facility] [address] [place] [address] Dr. Madhu Augustine MONO # 0.7 103/ul Normal 0.3-0.8 [facility] Comment on above: Performed By: #### C BC #### [facility] [address] [place] [address] Dr. Madhu Augustine Monocytes/100 WBC (Bld) 8.5 % Normal 1.7-12.0 [facility] Comment on above: Performed By: #### C BC #### [facility] [address] [place] [address] Dr. Madhu Augustine NEUT # 5.1 103/ul Normal 1.4-6.5 [facility] Comment on above: Performed By: #### C BC #### [facility] [address] [place] [address] Dr. Madhu Augustine Neutrophils/100 WBC (Bld) 66.0 % Normal 43.0-75.0 [facility] Comment on above: Performed By: #### C BC #### [facility] [address] [place] [address] Dr. Madhu Augustine Platelet mean volume (Bld) [Entitic vol] 10.2 fL Normal 9.5-13.5 [facility] Comment on above: Performed By: #### C BC #### [facility] [address] [place] [address] Dr. Madhu Augustine PLT 207 103/ul Normal 150-450 [facility] Comment on above: Performed By: #### C BC #### [facility] [address] [address] [address] Madhu Augustine RBC 4.40 106/ul Critically low 4.70-6.10 [facility] Comment on above: Performed By: #### C BC #### [facility] [address] [address] [address] Madhu Augustine WBC 7.6 103/ul Normal 4.0-11.0 [facility] Comment on above: Performed By: #### C BC #### [facility] [address] [address] [address] Madhu Augustine LIPID PROFILEon 01-31-2022 CHOL-HDL RATIO NORM SEE BELOW Normal [facility] Comment on above: Result Comment: 3.3 - 4.4 LOW RISK 4.4 - 7.1 AVERAGE RISK 7.1 - 11.0 MODERATE RISK >11.0 HIGH RISK Performed By: #### L IPID, CMP #### [facility] [address] [address] [address] Madhu Augustine Cholesterol [Mass/Vol] 156 mg/dL Normal <=200 [facility] Comment on above: Performed By: #### L IPID, CMP #### [facility] [address] [place] [address] Dr. Madhu Augustine Cholesterol in HDL [Mass/Vol] 53 mg/dL Normal 40-60 [facility] Comment on above: Performed By: #### L IPID, CMP #### [facility] [address] [address] [address] Madhu Augustine Cholesterol in LDL [Mass/Vol] 84.0 mg/dL Normal [facility] Comment on above: Performed By: #### L IPID, CMP #### [facility] [address] [address] [address] Madhu Augustine Cholesterol.total/ Cholesterol in HDL [Mass ratio] 2.9 {ratio} Normal [facility] Comment on above: Performed By: #### L IPID, CMP #### [facility] [address] [address] [address] Madhu Augustine HDL NORMAL > or = 60 mg/dl - LO W CARDIOVASCULAR RISK <40 mg/dl - HIGH CARDIOVASCULAR RISK Normal [facility] Comment on above: Performed By: #### L IPID, CMP #### [facility] [address] [address] [address] Madhu Augustine LDL CALC NORMAL SEE BELOW Normal [facility] Comment on above: Result Comment: <100 mg/dl OPTIMAL 100 - 129 mg/dl NEAR OR ABOVE OPTIMAL 130 - 159 mg/dl BORDERLINE HIGH 160 - 189 mg/dl HIGH >190 mg/dl VERY HIGH Performed By: #### L IPID, CMP #### [facility] [address] [address] [address] Madhu Augustine Triglyceride [Mass/Vol] 95 mg/dL Normal <=150 [facility] Comment on above: Performed By: #### L IPID, CMP #### [facility] [address] [address] [address] Madhu Augustine VLDL CALC 19.0 mg/dL Normal [facility] Comment on above: Performed By: #### L IPID, CMP #### [facility] [address] [place] [address] Dr. Madhu Augustine PROF 14(COMP METB)on 022 Albumin [Mass/Vol] 3.5 g/dL Normal 3.4-5.0 [facility] Comment on above: Performed By: #### L IPID, CMP #### [facility] [address] [place] [address] Dr. Madhu Augustine Albumin/Globulin [Mass ratio] 1.1 {ratio} Normal [facility] Comment on above: Performed By: #### L IPID, CMP #### [facility] [address] [place] [address] Dr. Madhu Augustine ALP [Catalytic activity/Vol] 51 U/L Normal 46-116 [facility] Comment on above: Performed By: #### L IPID, CMP #### [facility] [address] [place] [address] Dr. Madhu Augustine ALT [Catalytic activity/Vol] 40 U/L Normal 16-63 [facility] Comment on above: Performed By: #### L IPID, CMP #### [facility] [address] [place] [address] Dr. Madhu Augustine Anion gap [Moles/Vol] 12.7 mmol/L Normal [facility] Comment on above: Performed By: #### L IPID, CMP #### [facility] [address] [place] [address] Dr. Madhu Augustine AST [Catalytic activity/Vol] 18 U/L Normal 15-37 [facility] Comment on above: Performed By: #### L IPID, CMP #### [facility] [address] [place] [address] Dr. Madhu Augustine Bilirubin [Mass/Vol] 0.4 mg/dL Normal 0.2-1.0 [facility] Comment on above: Performed By: #### L IPID, CMP #### [facility] [address] [place] [address] Dr. Madhu Augustine Calcium [Mass/Vol] 8.9 mg/dL Normal 8.5-10.1 [facility] Comment on above: Performed By: #### L IPID, CMP #### [facility] [address] [place] [address] Dr. Madhu Augustine Chloride [Moles/Vol] 104 mmol/L Normal 98-107 [facility] Comment on above: Performed By: #### L IPID, CMP #### [facility] [address] [place] [address] Dr. Madhu Augustine CO2 [Moles/Vol] 26.4 mmol/L Normal 21.0-32.0 [facility] Comment on above: Performed By: #### L IPID, CMP #### [facility] [address] [place] [address] Dr. Madhu Augustine Creatinine [Mass/Vol] 0.99 mg/dL Normal 0.70-1.30 [facility] Comment on above: Performed By: #### L IPID, CMP #### [facility] [address] [address] [address] Madhu Augustine EGFR-AF SOUTH AFRICAN >60 Normal >=60 [facility] Comment on above: Performed By: #### L IPID, CMP #### [facility] [address] [address] [address] Madhu Augustine EGFR-NON AF SOUTH AFRICAN >60 Normal >=60 [facility] Comment on above: Performed By: #### L IPID, CMP #### [facility] [address] [address] [address] Madhu Augustine Globulin (S) [Mass/Vol] 3.2 g/dL Normal [facility] Comment on above: Performed By: #### L IPID, CMP #### [facility] [address] [address] [address] Madhu Augustine Glucose [Mass/Vol] 108 mg/dL Critically high 74-106 [facility] Comment on above: Performed By: #### L IPID, CMP #### [facility] [address] [address] [address] Madhu Augustine Potassium [Moles/Vol] 4.1 mmol/L Normal 3.5-5.1 [facility] Comment on above: Performed By: #### L IPID, CMP #### [facility] [address] [place] [address] Dr. Madhu Augustine Protein [Mass/Vol] 6.7 g/dL Normal 6.4-8.2 [facility] Comment on above: Performed By: #### L IPID, CMP #### [facility] [address] [place] [address] Dr. Madhu Augustine Sodium [Moles/Vol] 139 mmol/L Normal 136-145 [facility] Comment on above: Performed By: #### L IPID, CMP #### [facility] [address] [address] [address] Madhu Augustine Urea nitrogen [Mass/Vol] 14.0 mg/dL Normal 7.0-18.0 [facility] Comment on above: Performed By: #### L IPID, CMP #### [facility] [address] [address] [address] Madhu Augustine Urea nitrogen/Creatinin e [Mass ratio] 14.1 mg/mg Normal [facility] Comment on above: Performed By: #### L IPID, CMP #### [facility] [address] [place] [address] Dr. Madhu Augustine VITAMIN B12on 01-31-2022 Cobalamin (Vitamin B12) [Mass/Vol] 1106.0 pg/mL Critically high 193.0-986.0 [facility] Comment on above: Performed By: #### V ITB12, VITAD #### [facility] [address] [address] [address] Madhu Augustine VITAMIN D 25 OHon 01-31-2022 VIT D 25-OH 53.4 ng/mL Normal [facility] Comment on above: Performed By: #### V ITB12, VITAD #### [facility] [address] [address] [address] Madhu Augustine VIT D RANGES SEE BELOW Normal [facility] Comment on above: Result Comment: <20 ng/mL Vit D deficient 20 - <30 ng/mL Vit D insufficient 30 - 100 ng/mL Vit D sufficient >100 ng/mL Potential Toxicity Performed By: #### V ITB12, VITAD #### [facility] [address] [place] [address] Dr. Madhu Augustine Rehab Psych Evaluationon Rehab Psych Evaluation MR#: [id number] REHABILITATION SERVICES ( ) INPATIENT (x) OUTPATIENT Patient Name: Sara Yeboah Date of : 1970 Referring Physician: Lien Johnson M.D. Dictated By: Ramesh Hu, PhD Evaluation Date: 10/13/2018 neuropsychological evaluation DATE OF SERVICE: 10/12/2018-10/22/2018 DIAGNOSIS: Postconcussive syndrome DATE OF ONSET: 05/14/2018 DATE OF : 1970 AGE: 47 years TIME SPENT: 95258=2 unit; 80774=1 unit; 03667=2 units; 92381=9 unit; 75929=8 units REASON FOR REFERRAL: This is the initial neuropsychological evaluation of Mr. Sara Yeboah, a 48-year-old, right-hand, White, , gentleman, who was referred by fiber glass worker, Dr. Lien Johnson to ascertain his present neurocognitive status in the context of a work-related incident, which occurred on 05/14/2018 and resulted in a concussion and a reported brief loss of consciousness. Mr. Yeboah is referred with postconcussive syndrome. HISTORY OF PRESENTING PROBLEM: Mr. Yeboah presents to the current evaluation on time and accompanied by his , Mrs. Bev Yeboah; both were believed to be accurate historians. A clinic note from Dr. Johnson dated 09/13/2018 was consulted. Mr. Yeboah is presently involved with worker's compensation and was evaluated on 09/01/2018 by preventative medicine specialist, Dr. Young Morgan ([employer]); said evaluation was also consulted. Mr. Yeboah notes that attorneys working with the [employer] are handling his case. According to Dr. Morgan's medical examination report, Mr. Yeboah sustained a concussion on 05/14/2018, while working for [employer]. Dr. Morgan noted a 70-80 pound object had fallen from a david striking [Mr. Yeboah] on the head. According to Dr. Morgan's evaluation, Mr. Yeboah experienced no nausea or vomiting, but reported a headache of 7 of 10. It was noted that Mr. Yeboah was taken to [facility], where he underwent a CT of the head, which according to Dr. Morgan was read as normal. Dr. Morgna's medical evaluation also cites an MRI of the brain, which was also read as normal. According to Dr. Lucas's evaluation, by 06/2018, it was deemed Mr. Yeboah was not capable of returning to work and speech therapy was requested; Mr. Yeboah reportedly was found to have cognitive and communication deficits (please see cognitive section for more specific findings from noted speech therapy evaluation). Presently, Mr. Yeboah continues to report difficulties with cognitive functioning that affect multiple areas of his daily functioning. CURRENT MEDICATIONS: Mrs. Yeboah kindly presented us with an up-to-date list of Mr. Yeboah's current medications and they are as follows: Coreg, Lotrel, BuSpar, Topamax, melatonin, Elavil, and apresoline. PAST MEDICAL HISTORY: Mr. Yeboah reports history of high blood pressure. According to Dr. Johnson's clinic note, Mr. Yeboah's medical history is also significant for a sprain of the right knee. Mr. Yeboah reports no history of seizure disorder or additional instances of loss of consciousness. He adds his developmental history was unremarkable. PAST SURGICAL HISTORY: Mr. Yeboah reports a history of knee procedure and a hand surgery as a child. PSYCHIATRIC HISTORY: Mr. Yeboah reports no current or historical psychiatric treatment. SUBSTANCE USE: Mr. Yeboah reports very little alcohol use. He adds no history of heavy alcohol consumption. Mr. Yeboah notes no history of illicit substance use, but adds occasional chewing tobacco use. FAMILY MEDICAL HISTORY: Mr. Yeboah reports cardiovascular disease on his mother's side of the family. He reports his father's side of the family is healthy. SOCIAL HISTORY: Mr. Yeboah notes he was born in [place], [place]. He adds he has been for 24 years and has one child. Mr. Yeboah notes he presently resides in [place], [place] with his and daughter. EDUCATIONAL HISTORY: Mr. 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 Mr. Yeboah reports no difficulties with academic attainment such as special education, learning disabilities, or grade retention. For the purposes of this evaluation, Mr. Yeboah was credited with 14 years of education. VOCATIONAL HISTORY: As previously mentioned, Mr. Yeboah has been on medical leave since the May 2018 injury from his employment at [employer], where he has worked for approximately five years. CURRENT FUNCTIONING: Behavioral: Mr. Yeboah reports variable sleep. He adds since the accident, he's had frequent racing thoughts that reportedly impact his sleep quality. Mr. Yeboah reports frequent fatigue throughout the day and notes he has gained weight since the accident. Mr. Yeboah notes he used to enjoy outdoor activities, but adds he has participated little since the accident. Emotional: Mr. Yeboah endorsed symptoms consistent with major depression, which he reports experiencing approximately 2-3 days per week. He reports his depressive episodes can last half a day. Mrs. Yeboah reports her has displayed isolation and reports he is not nearly as social as he used to be. She adds he struggles with lots of stimulation. Mr. Yeboah also reports increases in anger and irritability, and notes he is easily frustrated and that this behavior is new since the accident. Mrs. Yeboah also agrees and notes her is more frustrated than he had been previously. Cognitive: Mr. Yeboah reports difficulties with maintaining concentration and focus. With regard to memory, Mr. Yeboah notes difficulties with short-term memory, specifically for conversations and lists. He also reports difficulty remembering information his has told him. He adds no difficulties remembering his medications, but notes his medications are organized for him. He states he has been employing memory strategies that he learned from the Speech Therapy when he participated at [facility]. Mr. Yeboah also reports changes to his speech and language, and that he often blurts out in the middle of conversations in order to prevent forgetting what he wants to say. The following cognitive scores are highlighted in Dr. Lucas's record regarding Mr. Yeboah's apparent Speech Therapy evaluation: [Mr. Yeboah's] memory was at 52.6%, attention 81.25%, problem-solving 86.9% with an overall score of 80%. At the time of Dr. Lucas's medical evaluation, Mr. Yeboah was administered a short memory screen; he was accurately able to recall 2 of 3 items by the end of the visit. Physical: Mr. Yeboah reports no current pain, but reports headaches occurring approximately 2-3 times per week. He adds his headaches often last all day. He also reports light sensitivity. Mr. Yeboah adds no changes to his hearing and vision. Activities of Daily Living: Mr. Yeboah reports he is independent with basic tasks of daily living such as dressing, bathing, eating, and toileting. Mr. Yeboah adds his manages their finances and has always done so. Mr. Yeboah notes he maintains his abilities to complete household duties and chores such as laundry and cooking. However, Mrs. Yeboah reports Mr. Yeboah struggles to complete household tasks he would have previously been able to do, such as installing a bathroom faucet. Mr. Yeboah is not currently driving and indicates he was instructed not to do so. FINDINGS: Behavior: Mr. Yeboah was observed to be of above average height and above average weight. He was appropriately dressed and groomed for this evaluation. Ambulation and level of activity were generally unremarkable, although Mr. Yeboah was observed to ambulate with a slight limp. Sensory and motor coordination were also unremarkable. Rapport was believed to be easily established, although he was generally quiet and reserved. He appeared euthymic and affect was congruent. Speech was normal with regard to rate, rhythm, and prosody. Word-finding difficulties were not observed. Auditory comprehension was unremarkable. Overall, Mr. Yeboah appeared cooperative and generally motivated throughout this evaluation and tasks used to evaluate performance validity suggested results are valid. Consequently, the results of this evaluation are believed to accurately reflect Mr. Yeboah's current neurocognitive status. Vision: Near-point visual acuity was estimated at 20/20 OU with corrective lens. Intellectual Functioning: Mr. Yeboah was administered selected subtests from the WAIS-IV and obtained an estimated Full Scale IQ in the average range (FSIQ=92). Mr. Yeboah was also administered a reading recognition task [...] was a task of categorical fluency. Mr. Yeboah was slow to respond despite being instructed to work as quickly as possible. Attention: Abilities in this domain are variable and suggest difficulties maintaining attention. Performance on a task of immediate auditory attention, in which he was to recite digits forward, backward, and in sequential order was in the upper end of the low average range. Mr. Yeboah was also administered a computerized task designed [...] Immediate Memory Index in the average range (DRU=851), and a Delayed Memory Index in the average range (WMP=598). Obtained index scores were compared to predicted [...] in the mildly impaired range (PSI=74). Mr. Yeboah made no errors, but displayed little hurry [...] the low average range. Affective Functioning: Mr. Yeboah was administered the Personality Assessment inventory (FRANKI). No significant scale elevations were identified. However, during the clinical interview, Mr. Yeboah endorsed multiple symptoms of depressed and anxious mood. TEST DATA: WAIS-IV (scaled scores): VC=10, BD=8, DS=8, SS=5, CD=5 TOPF=96 TMT: A=24 seconds; B=77 seconds Phonemic=25 Categorical=14 WMS-IV (scaled scores): LM I=12, LM II=11, VR I=10, VR II=9 IMPRESSIONS: 1. Mr. Yeboah is a 48-year-old gentleman who was referred for this evaluation to determine his present neurocognitive status in the context of a work-related injury (05/14/2018) that resulted in a concussion and a reported brief loss of consciousness. Mr. Yeboah is referred with postconcussive syndrome. Neuroimaging (CT and MRI) have been read as normal . Mr. Yeboah continues to report difficulties with cognitive functioning. 2. Results appear valid. Mr. Yeboah's intellectual functioning was found to be in [...] first few days to few weeks. Mr. Yeboah is approximately six-months post injury and it is likely his subjective cognitive difficulties are related to non-neurologic variables such as poor sleep and affective distress. We expect with treatment, Mr. Yeboah's cognitive functioning to improve to baseline; he is very close at present. 3. From a cognitive perspective, we have no reservation regarding Mr. Yeboah's ability to carry out work related duties. However, we are unable to speak to any potential physical limitations that may be present. 4. With regard to Mr. Yeboah's behavioral functioning, no difficulties were observed. 5. With regard to Mr. Yeboah's emotional functioning, he endorsed no symptoms on a self-report questionnaire; however, multiple symptoms were identified during the interview and further evaluation is warranted. RECOMMENDATIONS: 1. Continue medications as prescribed and follow up with referring providers as directed. 2. Mr. Yeboah endorsed symptoms of depression and anxiety and we recommend he consider participating in counseling to help learn more adaptive ways to cope with low mood and stress. We recommend any provider who offers Cognitive Behavioral Therapy (CBT), such could be found through [facility] services. He may also benefit from reading The Depression Cure by Kamar and Feeling Better: A 6-week Mind-Body Program to Ease your Chronic Symptoms by Basilio Baron and The Anxiety and Phobia Workbook by Alfredo Lr. 2. We recommend the following strategies to help Mr. Yeboah with his memory difficulties. a. Place commonly [...] i. Use a pocket notepad, personal digital imager, wristwatch alarm, voice recorder, pill box, or other aids to help remember what you have to do or to keep track of information. He may also benefit from reading the following book The Memory Bible, by Arvind Durham. This book offers brain exercises and strategies to help circumvent daily memory difficulties. 3. Mr. Yeboah did display variability in attention; though he does not meet criteria for ADHD, he may benefit from reading More Attention Less Deficit by Chetan 4. Mr. Yeboah reports difficulty with his sleep and notes [...] and sugar, or other foods that Mr. Yeboah finds disrupts her sleep, right before bedtime [...] evaluation will be provided to and Mrs. Yeboah on 10/22/2018 at 1:30 p.m. ADDENDUM: So Discussed. At this time, he is discharged from our care. 6. Repeat neuropsychological evaluation does not appear warranted at this time. Thank you for allowing us to participate in the care of this nice gentleman. If you have any questions, please call [phone]. DICTATED BY: Ramesh Hu, PhD Neuropsychology Fellow REVIEWED BY: Electronically Signed by: Nereyda Rivera, PhD, ABPP 10/28/2018 08:41 A Nereyda Rivera, PhD, ABPP Board Certified Clinical Neuropsychologist Date Dict: 10/13/2018/12:18 P/Ramesh Hu, PhD Date Trans: 10/13/2018 01:51 P/bertramo [id number] cc: Nereyda Rivera, PhD, ABPP [address] Rehab Medicine [facility] [address] Lien Johnson M.D. Dept Of P M R Rehab [facility] [address] *Mr. Sara Yeboah [address] [place] [id number] [place] [facility] Vital Signs Date Time Vital Sign Value Performing Clinician Facility 10-07-2022 13:13-0400 SaO2% (BldA) [Mass fraction] 92 % Ravi Lopez MD Work Phone: [facility] 10-07-2022 11:30-0400 Body temperature 98.1 [degF] Ravi Lopez MD Work Phone: [facility] 10-07-2022 11:30-0400 Diastolic blood pressure 74 mm[Hg] Ravi Lopez MD Work Phone: [facility] 10-07-2022 11:30-0400 Heart rate 70 /min Ravi Lopez MD Work Phone: [facility] 10-07-2022 11:30-0400 Respiratory rate 16 /min Ravi Lopez MD Work Phone: [facility] 10-07-2022 11:30-0400 Systolic blood pressure 128 mm[Hg] Ravi Lopez MD Work Phone: [facility] 10-07-2022 05:46-0400 Body height 182.9 cm Ravi Lopez MD Work Phone: [facility] 10-07-2022 05:46-0400 Body mass index (BMI) [Ratio] 49.5 kg/m2 Ravi Lopez MD Work Phone: [facility] 10-07-2022 05:46-0400 Body weight 165.56 kg Ravi Lopez MD Work Phone: [facility] 09-26-2022 09:30-0400 Body height 182.88 cm Iron [facility] Other [facility] Other 09-26-2022 09:30-0400 Body mass index (BMI) [Ratio] 53.65 kg/m2 [facility] Other 09-26-2022 09:30-0400 Body weight 179.44 kg [facility] Other [facility] Other 09-26-2022 09:30-0400 Diastolic blood pressure 82 mm[Hg] [facility] Other [facility] Other 09-26-2022 09:30-0400 Respiratory rate 16 /min [facility] Other [facility] Other 09-26-2022 09:30-0400 Systolic blood pressure 130 mm[Hg] [facility] Other [facility] Other 09-24-2022 07:12-0400 Body height 182.9 cm Ravi Lopez MD Work Phone: [facility] 09-24-2022 07:12-0400 Body mass index (BMI) [Ratio] 49.5 kg/m2 Ravi Lopez MD Work Phone: [facility] 09-24-2022 07:12-0400 Body temperature 98.01 [degF] Ravi Lopez MD Work Phone: [facility] 09-24-2022 07:12-0400 Body weight 165.56 kg Ravi Lopez MD Work Phone: [facility] 09-24-2022 07:12-0400 Diastolic blood pressure 83 mm[Hg] Ravi Lopez MD Work Phone: [facility] Comment on above: 172/91 right arm 09-24-2022 07:12-0400 Heart rate 70 /min Ravi Lopez MD Work Phone: [facility] 09-24-2022 07:12-0400 Respiratory rate 18 /min Ravi Lopez MD Work Phone: [facility] 09-24-2022 07:12-0400 SaO2% (BldA) [Mass fraction] 97 % Ravi Lopez MD Work Phone: [facility] 09-24-2022 07:12-0400 Systolic blood pressure 162 mm[Hg] Ravi Lopez MD Work Phone: [facility] Comment on above: 172/91 right arm Encounters Encounter Date Encounter Type Care Provider Facility Start: 09-22-2023 Telephone encounter Miley greer OD Work Phone: Ophthalmology Comment on above: Received Outside Med ical Records Start: 07-08-2023 End: 07-08-2023 ambulatory Iron Olmos Other [facility] Other Start: 07-08-2023 Telephone encounter Iron DEUTSCH [facility] Start: 03-30-2023 ambulatory CAODAISM [facility] Start: 03-19-2023 End: 03-19-2023 ambulatory Iron Olmos Other [facility] [employer] Other Start: 03-19-2023 Telephone encounter Iron DEUTSCH [facility] Start: 10-31-[address] DOCTOR FLOWERS Facility : Start: 10-07-2022 End: 10-07-2022 ambulatory RAVI LOPEZ [facility] Start: 10-07-2022 End: 10-07-2022 Subsequent hospital visit by physician Ravi Lopez MD Work Phone: [facility] Med Surg Comment on above: Primary osteoarthrit is of left hip (Primary Dx) Start: 09-26-2022 End: 09-26-2022 ambulatory Iron Olmos Other [facility] Other Start: 09-26-2022 Encounter for other preprocedural examination Iron Olmos [facility] Start: 09-26-2022 Office outpatient vi sit 25 minutes Iron Olmos [facility] Start: 09-24-2022 End: 09-29-2022 ambulatory RAVI LOPEZ [facility] Start: 09-24-2022 End: 09-28-2022 Subsequent hospital visit by physician Ravi Lopez MD Work Phone: ST Pre-Admit Testing Comment on above: Hypertension, unspec ified type Start: 04-02-2022 Encounter for genera l adult medical examination without abnormal findings DR IRON OLMOS [facility] Start: 04-01-2022 End: 04-02-2022 Encounter for general adult medical examination without abnormal findings DR IRON OLMOS Facility:[facility] Start: 04-01-2022 End: 04-02-[address] IRON OLMOS Facility:[facility] Start: 03-28-2022 Adult health examination Onesimo Olmos Other [facility] Other Start: 01-31-2022 End: 02-01-[address] DOCTOR FLOWERS Facility:[facility] Start: 04-05-2020 Preoperative cardiovascular examination Iron Olmos Other [facility] Other Procedures Date Procedure Procedure Detail Performing [...] Performed By: #### L IPID, CMP #### [facility] [address] [place] [address] Dr. Madhu Augustine Start: 12-09-2013 Pre-surgery evaluation Iron Olmos Other Start: 02-25-2013 Lipid 1996 panel - S dinorah or Plasma Miley Enrique OD Work Phone: Screening for malign ant neoplasm of prostate [facility] Other Plan of Treatment Date Care Activity Detail Author Start: 07-13-2023 Depression Assessment Depression Ass essment [facility] Start: 03-13-2023 Covid-19 Vaccine ( season) Covid-19 Vaccine ( season) [facility] Start: 03-13-2023 Influenza vaccination Influenza Vacc ine (#1) [facility] Start: 10-24-2022 End: 10-24-2022 Patient encounter procedure 10/24/2022 Office Visit Orthopedic Surgery Ravi Lopez MD [address] [place] [address] [facility] Start: 10-07-2022 End: 10-07-2022 Admission to same day surgery center 10/07/2022 Surgery IP Unit Ravi Lopez MD [address] [facility] [address] [place] [address] HIP TOTAL ARTHROPLASTY MINIMALLY INVASIVE [facility] Comment on above: HIP TOTAL ARTHROPLAS TY MINIMALLY INVASIVE Start: 10-07-2022 Subsequent hospital visit by physician 10/07/2022 Hospital Encounter IP Unit Ravi Lopez MD [address] [place] [address] [facility] Start: 10-07-2022 End: 10-07-2022 Arthrp acetblr/prox fem prostc agrft/algrft [facility] Start: 02-10-2022 Influenza vaccination Flu vaccine (# 1) [facility] Start: 07-09-2021 COVID-19 Vaccine (4 - Booster for Pfizer series) COVID-19 Vaccine (4 - Booster for Pfizer series) [facility] Start: 10-11-2019 Shingles vaccine (1 of 2) Shingles vaccine (1 of 2) [facility] Start: 10-11-2019 Shingrix Vaccine (1 of 2) Shingrix Vaccine (1 of 2) [facility] Start: 02-25-2018 Lipid panel Lipid Screening [facility] Start: 02-29-2016 Diabetes Screening Diabetes Screenin g [facility] Start: 2014 Screening for malign ant neoplasm of colon [facility] Start: 2009 Lipid panel Lipids [facility] Start: 2004 Diabetes screen Diabetes screen [facility] Start: 1988 DTaP/Tdap/Td vaccine (1 - Tdap) DTaP/Tdap/Td vaccine (1 - Tdap) [facility] Start: 1988 Hepatitis B Vaccine (1 of 3 - 19+ 3-dose series) Hepatitis B Vaccine (1 of 3 - 19+ 3-dose series) [facility] Start: 1988 Urine microalbumin profile DTaP,Tdap,Td Vaccine (1 - Tdap) [facility] Start: 10-11-1987 Hepatitis C screening B ON [facility] Start: 10-11-1987 HIV screening HIV Screening [facility] Start: 1984 HIV screening HIV screen [facility] Start: 1981 Depression Screen Depression Screen [facility] Oxygen therapy [[facility] Data Set] Initiate Oxygen Therapy Protocol Respiratory Care Routine Daily until discontinued starting 10/07/2022 [facility] Work Phone: Comment on above: Daily until disconti nued starting 10/07/2022 Spirometry panel Incentive maynor metry Respiratory Care Routine Every 2hr while awake until discontinued starting 10/07/2022 JAMILA EDITH [employer] Work Phone: Comment on above: Every 2hr while awak e until discontinued starting 10/07/2022 Immunizations Immunization Date Immunization Notes Care Provider Leo santizo NEGATED: Highlighted row has not occurred!02-28-2013 pneumococcal polysaccharide vaccine, 23 valent Miley Enrique OD Work Phone: [facility] Payers Date Payer Category Payer Unknown [id number] 2019 Unknown [id number] 2018 Unknown [employer] [id number] 2018-Present [phone] [address] [facility] [address] [place] [address] MCO [id number] 2018 Worker's Compensation [id number] 1970 Unknown [id number] 1969 Unknown [id number] 6 1969 Unknown [id number] 3 1969 Unknown [id number] 3 1969 Unknown [id number] 3 1969 Unknown [id number] 3 1960 Medicare [id number] 1959 Unknown [id number] Social History Date Type Detail Facility Start: 02-25-2013 End: 09-24-2022 Tobacco smoking status NHIS Never smoked tobacco [facility] Start: 09-24-2022 Tobacco use and exposure Smokeless tobacco non-user [employer] Phone: Start: 02-25-2013 End: 09-24-2022 Alcohol intake Current drinker of alcohol (finding) [employer] Phone: Start: 09-24-2022 Alcohol Comment social [employer] Phone: Start: 1970 Sex Assigned At Not on file [facility] [employer] Phone: Start: 09-14-2022 End: 10-07-2022 Exposure to SARS-CoV-2 (event) Not sure [employer] Phone: Sex Assigned At [facility] Other Start: 02-25-2013 Tobacco use and exposure User of smokeless tobacco [facility] History of tobacco use Chews Tobacco [facility] Start: 02-25-2013 Alcohol intake [facility] Start: 02-25-2013 Alcohol Comment 3-4 Cans Per Day [facility] Equipment Procedure Code Equipment Code Equipment Origin al Text Equipment Identifier Dates Dup Use [id number] I mpl Hip Cer Option Type 1 Tpr Sleve +3 - [id number] Start: 10-07-2022 Head Fem [id number] Hip Biolox Delt Opt For G7 Acet Sys - [id number] Start: 10-07-2022 Note 09-22-2023 Telephone Encounter - Kristina Melton - 09/22/2023 3:37 PM EDT Note Date & Type Note Facility 09-22-2023 Miscellaneous Notes Formattin g of this note might be different from the original. Received outside Records from [facility] needing consult with Dr. Enrique for Neuro Ophthalmology consult. Please contact patient to schedule at [phone]. Records in Dr. Enrique's mailbox. documented in this encounter [facility] Progress note 03-30-2023 Note Date & Type Note Facility 03-30-2023 Note ASSESSMENT/PLAN: Sara was seen today for follow-up. Diagnoses and [...] oral route. No ref. provider found Assessment: Sara Yeboah is a 52-year-old male with history of [...] during the visit. Lien Johnson MD SUBJECTIVE: Sara Yeboah is a 52 y.o. male who presents to [facility] today for 1 year follow-up [...] 47.06 kg/m???. Physic (more content not included)... [facility] History of Present illness Narrative 10-07-2022 VICK Sandoval/Ashwin - 10/07/2022 3:46 PM Brigitte Schulz PT - 10/07/2022 3:45 PM Nathaniel Alvarado - 10/07/2022 2:26 PM EDT Note Date & Type Note Facility 10-07-2022 History of Present illness Narrative [facility] Occupational Therapy Evaluation Date: 10/07/22 Patient Name: Sara Yeboah Room: Account: [id number] : 1970 (51 y.o.) Gender: male Discharge [...] Skilled Clinical Factors: OT demonstrated use of ditch cleaner and patient threaded B LE with ditch cleaner and Minimal assist into underwear. Assist to thread B LE pants. Assist to manage clothing over hips and don socks/shoes. Demonstrated use of sock aid, however patient declines use. Patient and patient's spouse report that she will provide patient with assist PRN for lower body self-care. Patient acknowledges that he has a ditch cleaner and sock aid at home. Toileting: Minimal assistance Toileting Skilled Clinical Factors: assist to manage pants as they fell to the ground, however CGA for all other tasks Additional Comments: OT provided patient and patient's spouse with education regarding safety with self-care including use of modified techniques such as sitting for lower body bathing/dressing, use of ditch cleaner/sock aid, and use of shower chair. Patient and patient's spouse verbalize Good understanding and state they have a sock aid and ditch cleaner and will purchase a shower chair. Patient acknowledges understanding of recommendation for 1st floor setup and 24/7 Supervision upon discharge home with use of [...] Cruz notified of mobility and O2 sats) Patient Education Patient Education Education Given To: Patient, Family Education Provided: Role of Therapy, Plan of Care, Precautions, ADL Adaptive Strategies, Transfer Training, IADL Safety, Equipment, Fall Prevention Strategies Education Method: Verbal, Demonstration Barriers to Learning: None Education Outcome: Verbalized understanding, Demonstrated understanding Functional Outcome Measures [facility] Daily Activity - Inpatient How much help [...] How much help for eating meals?: None [facility] Inpatient Daily Activity Raw Score: 17 [facility] Inpatient ADL T-Scale Score : 37.26 ADL [...] Treatment Minutes: 38 Minutes Physical Therapy Facility/Department: [facility] MED SURG Physical Therapy Initial Assessment Name: Sara Yeboah : 1970 Date of Service: 10/07/2022 Discharge Recommendations: The patient would benefit from additional Physical Therapy after discharge from the facility upon return to their Home. PT Equipment Recommendations Equipment Needed: Yes Mobility Devices: Walker Other: Adjusted to his height by sign writer hand Patient Diagnosis(es): The encounter diagnosis was Primary [...] adjusted for pt per his height by sign writer hand.Recommend staying on first floor initially and working [...] patient request documented in this encounter JAMILA [employer] Phone: Hospital Discharge instructions 10-07-2022 Discharge InstructionsDischarge [...] EDT Continuity of Care Form Patient Name: Sara Yeboah : 1970 Admit date: 10/07/2022 Discharge date: [...] Emergency Contact Information Primary Emergency Contact: Bev Yeboah [employer] Relation: Spouse J2Ee Software Engineer needed? No Past Surgical History: Past Surgical [...] Assisted Dressing Independent Toileting Independent Feeding Independent Concaver Independent Med Delivery whole Wound Care Documentation [...] NOT a DME order): walker Other Treatments: Senior Living assessment and monitoring. Medication education and monitoring [...] Unplanned Readmission: 0 Discharging to Facility/ Agency [facility] [address] [place] [id number] Fax Water Meter Reader/Night Monitor signature: PHYSICIAN SECTION Prognosis: Good Condition at Discharge: Stable Rehab Potential (if transferring to Rehab): Good Recommended Labs or Other Treatments After Discharge: see above Physician Certification: I certify the above information and transfer of Sara Yeboah is necessary for the continuing treatment of the diagnosis listed and that he requires Home Care for less 30 days. 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 The Day of Surgery: Arrive at [facility] Surgery Entrance at the time directed by your surgeon and check in at the desk. If you have a living will or healthcare power of divorce attorney, please bring a copy. You will be taken to the pre-op holding area where you will be prepared for surgery. A physical assessment will be performed by a nurse practitioner or powerhouse electrician. Your IV will be started and you [...] in recovery room. documented in this encounter [employer] Phone: Evaluation note Note Date & Type Note Facility Evaluation note Diagnosis Hypertension, unspecified type Osteoarthritis of left hip, unspecified osteoarthritis type documented in this encounter [employer] Phone: Evaluation note Note Date & Type Note Facility Evaluation note Diagnosis Primary osteoarthritis of left hip- Primary Primary localized osteoarthrosis, pelvic region and thigh Primary osteoarthritis of left hip Primary localized osteoarthrosis, pelvic region and thigh documented in this encounter [employer] Phone: Evaluation note Note Date & Type Note Facility Evaluation note No Information [place] [employer] Other History general Narrative - Reported Note [...] KNEE-LEFT 2013 Hospitalization History SEE SURGICAL HX [facility] Other Summary Purpose Family History No Family History Records FoundNo Family History Records FoundNo Family History Records FoundNo Family History Records FoundNo Family History Records Found Advance Directives No Advanced Directives Records FoundLatest Code Status on File Code Status Date Activated Date Inactivated Comments Full Code 10/07/2022 5:37 AM Additional Source Comments (unrecognized sect ion and content) No Status Records FoundNo Status Records FoundNo Status Records FoundNo Status Records FoundNo Status Records Found INFORMATION SOURCE (unrecogn ized section and content) DATE CREATED AUTHOR 12/19/2018 [facility] DATE CREATED AUTHOR AUTHOR'S ORGANIZ ATION 10/09/2022 [facility] DATE CREATED AUTHOR AUTHOR'S ORGANIZ ATION 11/24/2022 [facility] DATE CREATED AUTHOR AUTHOR'S ORGANIZ ATION 08/01/2023 [facility] DATE CREATED AUTHOR AUTHOR'S ORGANIZ ATION 09/26/2023 [facility] Care Teams (unrecognized sec tion and content) De Alcoholizer Relationship Specialty Start Date End Date Iron Olmos, [address] [place] [address] PCP - General Internal Medicine 08/26/22 De Alcoholizer Relationship Specialty Start Date End Date Iron Olmos, [address] [place] [address] PCP - General Internal Medicine 08/26/22 REASON FOR VISIT (unrecogniz ed section and content) Specialty Diagnoses / Procedures Referred By Nayla lucio Referred To Contact Diagnoses Osteoarthritis of left hip, unspecified osteoarthritis type DEGENERATIVE JOINT DISEASE LEFT HIP Procedures [place] ARTHRP ACETBLR/PROX FEM PROSTC AGRFT/ALGRFT HIP TOTAL ARTHROPLASTY MINIMALLY INVASIVE Ravi Lopez MD [address] [facility] [address] [place] [address] [facility] [address] [place] [address] Referral ID Status Reason Start Date Expiration Date Visits Re quested Visits Authorized [id number] 1 Reason Comments Received Outside Medical [...] 100 mL IVPB (COMPLETED) 3,000 mg, IntraVENous, LINE ASSEMBLER AIRCRAFT TO O.R., 1 dose, On Thu10/07/22 at 0600, Antimicrobial Indications: Surgical Prophylaxis, Administer within 1 hour prior to incision. Recommend to repeat in 3-4 hours after initial dose if still intra-op., Pre-op (day of surgery) 0742 (Given - Provid er: Keny Deng APRN - INSTALLATION MANAGER) ceFAZolin (ANCEF) 3000 mg in sodium chloride [...] ider: Leigha Lea RN)0723 (NoRateChange - Provider: Keny Degn APRN - MAHAD)0909 (Paused - Provider: Keny Deng APRN - MAHAD - Comment: Switch to gravity)0910 (Restarted - Provider: Keny Deng APRN - MAHAD)0911 (Stopped - Provider: Keny Deng APRN - MAHAD)0913 (New Bag - Provider: Keny Deng APRN - MAHAD)0953 (Anesthesia Volume Adjustment - Provider: Keny Deng APRN - MAHAD)1510 (Stopped - Provider: Sergio Mccann RN) lactated [...] or prosecute any alcohol or drug abuse patient.[facility] FOR RECORDS PERTAINING TO PATIENTS WHO [...] BE BASED ON THE PRIMARY CLINICAL RECORDS. [employer] [facility]. provides no warranty or guarantee of the accuracy or completeness of information in this document.
== END 2023-11-18 19:54 | disposition home or self-care (01) ==
LOC: SLEEP 19:53
PROVIDERS: PCP Internal Medicine; Visit Provider Internal Medicine
DX: G47.33 Obstructive sleep apnea (adult) (pediatric) (principal); F51.01 Primary insomnia

== ENCOUNTER 2023-11-25 19:56 | Outpatient (OUT) | payer BC, MEDICARE, SELFPAY ==
--- OUTSIDE RECORDS SUMMARY | 2023-11-25 20:15 | XMS_ITS | CCD ---
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) drug therapy] Episodic Other aftercare (2 sources) Long-term current use of drug therapy; Translations: [Other fdc (current) drug therapy] Episodic Other circulatory disease [...] Test Name Value Interpretation Reference Range Facility [facility] 09-22-2023 CNPN Telephone (OPHTBE) SARA YEBOAH ([id number]) 1970 M Date Time Provider Department 09/22/23 MILEY ENRIQUE OPHTBE During your visit today, we recorded the following information about you: Kristina Melton 09/22/2023 3:40 PM Signed Received outside Records from [facility] needing consult with Dr. Enrique for Neuro Ophthalmology consult. Please contact patient to schedule at [phone]. Records in Dr[address] Enrique's mailbox. Allergies As of Date: 09/22/2023 (No Known Allergies) Date Reviewed: 02/28/2013 Reviewed by: Riana Trejo ([facility]) - Fully Assessed Reason for Visit: Received Outside Medical Records [[id number]] Prescriptions as of 09/25/2023 - metoprolol tartrate, [...] Status:Closed by KRISTINA MELTON on 09/25/23 Normal [facility] 36on 07-31-2023 36 Pateint spouse calls to state that Balaji Bennett has not received the visit notes for patient from 2021 which she states there were 2 visits and the visit from 03/2023 she request those notes be sent to [employer] legal rep also at fax [phone]. All visits have been fax to the requested parties. Normal [facility] Follow-Upon 03-30-2023 Follow-Up [id number] Spencer Yeboah 1970 M Date Provider Department Center 03/30/2023 [facility]EN [facility] MP PHYS MED Medical Pavi No family history on file Level of Service:10083 MI OFFICE/OUTPATIENT ESTABLISHED LOW MDM 20-29 MIN Reason for Visit and Comments: Follow-up [[id number]] - Today annual follow up, and also need medication refills Normal [facility] FLUORO FOR SURGICAL PROCEDUR ESon 10-07-2022 FLUORO FOR SURGICAL PROCEDURES Radiology exam is complete. No Radiologist dictation. Please follow up with ordering provider. Final result Normal [facility] Radiology exam is complete. No Radiologist dictation. Please follow up with ordering provider. MHPN RIS CONSOLIDATED EKG 12 LeadOrdered By: Milan Pearson on 09-25-2022 Atrial Rate 67 BPM [employer] Phone: P [place] 21 degrees [employer] Phone: P-R Interval 190 ms [employer] Phone: Q-T Interval 388 ms [employer] Phone: QRS Duration 110 ms [employer] Phone: QTc Calculation (Bazett) 409 ms [employer] Phone: R [place] -38 degrees [employer] Phone: T [place] 41 degrees [employer] Work Phone: Ventricular Rate 67 BPM [facility] [employer] Work Phone: [facility] Work Phone: EKG 12 Leadon 09-25-2022 Normal sinus rhythm Left axis deviation Abnormal ECG No previous ECGs available [facility] Milan Menon MD - 09/25/2022 Normal sinus rhythm Left axis deviation Abnormal ECG No previous ECGs available [employer] Work Phone: MRSA DNA Probe, Nasalon 09-10 MRSA, DNA, Nasal Negative NEGATIVE [facility] [employer] Comment on above: NEGATIVE: MRSA DNA n ot detected by nucleic acid amplification. Results should be used as an adjunct to nosocomial control efforts to identify patients needing enhanced precautions. The test is not intended to identify patients with staphylococcal infections. Results should not be used to guide or monitor treatment for MRSA infections. Specimen Description .NASAL SWAB [facility]ITAL[facility] [employer] [facility]ITAL[facility] [employer] MRSA, DNA, Nasalon MRSA, DNA, Nasal Negative Normal [facility] Comment on above: Result Comment: NEGA TIVE: MRSA DNA not detected by nucleic acid amplification. Results should be used as an adjunct to nosocomial control efforts to identify patients needing enhanced precautions. The test is not intended to identify patients with staphylococcal infections. Results should not be used to guide or monitor treatment for MRSA infections. Performed By: #### M RSANO #### [facility] [address] [place] [address] [employer] Pusher: Omkar Leon DO [facility] [address] [place] [address] [id number] [employer]: Nirmal Colon MD Basic Metabolic Panelon 09-10 Anion gap [Moles/Vol] 9 mmol/L 9 - 17 mmol/L [facility] Calcium [Mass/Vol] 9.4 mg/dL 8.6 - 10. 4 mg/dL [facility] Chloride [Moles/Vol] 102 mmol/L 98 - 107 mmol/L [facility] CO2 [Moles/Vol] 27 mmol/L 20 - 31 mmol/L [facility] Creatinine [Mass/Vol] 1.06 mg/dL 0.70 - 1.20 mg/dL [facility] GFR/1.73 sq M.predicted MDRD (S/P/Bld) [Vol rate/Area] - PINF [facility] Comment on above: These results are [...] 118 mg/dL High 70 - 99 mg/dL [facility] Interpretation and review of laboratory results Abnormal [facility] Potassium [Moles/Vol] 4.9 mmol/L 3.7 - 5.3 mmol/L [facility] Sodium [Moles/Vol] 138 mmol/L 135 - 144 mmol/L [facility] Urea nitrogen [Mass/Vol] 17 mg/dL 6 - 20 mg/dL [facility] Basic Metabolic Profon 09-24 Anion gap [Moles/Vol] 9 mmol/L Normal 9-17 [facility] Comment on above: Performed By: #### C DP, BMP #### [facility] [address] [facility] [place] [address] [employer]her: Omkar Leon, DO Calcium [Mass/Vol] 9.4 mg/dL Normal 8.6-10.4 [facility] Comment on above: Performed By: #### C DP, BMP #### [facility] [address] [place], [place] [id number] [employer]her: Omkar Leon DO Chloride [Moles/Vol] 102 mmol/L Normal 98-107 [facility] Comment on above: Performed By: #### C DP, BMP #### [facility] [address] [facility] [place] [address] [employer] P[employer]her: Omkar Leon DO CO2 [Moles/Vol] 27 mmol/L Normal 20-31 [facility] Comment on above: Performed By: #### C TOÑO, BMP #### [facility] [address] [facility] [place] [address] [employer] P[employer]her: Omkar Leon DO Creatinine [Mass/Vol] 1.06 mg/dL Normal 0.70-1.20 [facility] Comment on above: Performed By: #### C TOÑO, BMP #### [facility] [place] [address] [employer] P[employer]her: Omkar Leon DO GFR/1.73 sq M.predicted among non-blacks MDRD (S/P/Bld) [Vol rate/Area] mL/min/{1.73_m2} Normal >60 [facility] Comment on above: Result Comment: These results [...] Performed By: #### C DP, BMP #### [facility] [address] [facility] [place] [address] [employer] P[employer]her: Omkar Leon DO Glucose [Mass/Vol] 118 mg/dL High 70-99 [facility] Comment on above: Performed By: #### C TOÑO, BMP #### [facility] [address] [facility] [place] [address] [employer] P[employer]her: Omkar Leon DO Potassium [Moles/Vol] 4.9 mmol/L Normal 3.7-5.3 [facility] Comment on above: Performed By: #### C DP, BMP #### [facility] [address] [facility] [place] [address] [employer] P[employer]her: Omkar Leon DO Sodium [Moles/Vol] 138 mmol/L Normal 135-144 [facility] Comment on above: Performed By: #### C DP, BMP #### [facility] [address] [facility] [place] [address] [employer] P[employer]her: Omkar Leon DO Urea nitrogen [Mass/Vol] 17 mg/dL Normal 6-20 [facility] Comment on above: Performed By: #### C DP, BMP #### [facility] [address] [facility] [place] [address] [employer] P[employer]her: Omkar Leon DO CBC with Auto Differentialon 09-24-2022 Absolute Eos # 0.20 [facility] Absolute Lymph # 1.70 [facility] Absolute Haralson # 0.60 [facility] Basophils (Bld) [#/Vol] 0.10 10*3/uL [facility] Basophils/100 WBC (Bld) 1 % 0 - 2 % [facility] Eosinophils/100 WBC (Bld) 2 % 0 - 4 % [facility] Hematocrit (Bld) [Volume fraction] 41.3 % 41 - 53 % [facility] Hemoglobin (Bld) [Mass/Vol] 14.2 g/dL 13.5 - 17.5 g/dL [facility] Interpretation and review of laboratory results Abnormal [facility] Lymphocytes/100 WBC (Bld) 23 % Low 24 - 44 % [facility] MCH (RBC) [Entitic mass] 31.1 pg 26 - 34 pg [facility] MCHC (RBC) [Mass/Vol] 34.4 g/dL 31 - 37 g/dL [facility] MCV (RBC) [Entitic vol] 90.4 fL 80 - 100 fL [facility] Monocytes/100 WBC (Bld) 8 % High 1 - 7 % [facility] Platelet distribution width (Bld) [Ratio] 13.4 % 11.5 - 14.9 % [facility] Platelet mean volume (Bld) [Entitic vol] 9.2 fL 6.0 - 12.0 fL [facility] Platelets (Bld) [#/Vol] 230 10*3/uL [facility] RBC (Bld) [#/Vol] 4.57 10*6/uL 4.5 - 5.9 m/uL [facility] Segmented neutrophils/100 WBC (Bld) 66 % 36 - 66 % [facility] Segs Absolute 5.00 [facility] WBC (Bld) [#/Vol] 7.6 10*3/uL [facility] CBC with Diffon 09-24-2022 Abs. Basophil 0.10 k/uL Normal 0.0-0.2 [facility] Comment on above: Performed By: #### C DP, BMP #### [facility] [address] [place] [address] [employer]: Omkar Leon DO Abs.Neutrophil (Seg) 5.00 k/uL Normal 1.3-9.1 [facility] Comment on above: Performed By: #### C DP, BMP #### [facility] [place] [address] [employer]her: Omkar Leon DO Basophils/100 WBC (Bld) 1 % Normal 0-2 [facility] Comment on above: Performed By: #### C DP, BMP #### [facility] [place] [address] [employer]her: Omkar Leon DO Eosinophils (Bld) [#/Vol] 0.20 10*3/uL Normal 0.0-0.4 [facility] Comment on above: Performed By: #### C DP, BMP #### [facility] [address] [facility] [place] [address] [employer]her: Omkar Leon DO Eosinophils/100 WBC (Bld) 2 % Normal 0-4 [facility] Comment on above: Performed By: #### C DP, BMP #### [facility] [address] [facility] [place] [address] [employer]her: Omkar Leon DO Erythrocyte distribution width (RBC) [Ratio] 13.4 % Normal 11.5-14.9 [facility] Comment on above: Performed By: #### C DP, BMP #### [facility] [address] [place] [address]. [place] [address] [employer]: Omkar Leon DO Hematocrit (Bld) [Volume fraction] 41.3 % Normal 41-53 [facility] Comment on above: Performed By: #### C DP, BMP #### [facility] [place] [address] [employer]her: Omkar Leon DO Hemoglobin (Bld) [Mass/Vol] 14.2 g/dL Normal 13.5-17.5 [facility] Comment on above: Performed By: #### C DP, BMP #### [facility] [address] [place] [address]. [place] [address] [employer]her: Omkar Leon DO Lymphocytes (Bld) [#/Vol] 1.70 10*3/uL Normal 1.0-4.8 [facility] Comment on above: Performed By: #### C DP, BMP #### [facility] [address] [place] [address]. [place] [address] [employer]her: Omkar Leon DO Lymphocytes/100 WBC (Bld) 23 % Low 24-44 [facility] Comment on above: Performed By: #### C DP, BMP #### [facility] [address] [place] [address] [employer]: Omkar Leon DO MCH (RBC) [Entitic mass] 31.1 pg Normal 26-34 [facility] Comment on above: Performed By: #### C DP, BMP #### [facility] [address] [place] [address] [employer]: Omkar Leon DO MCHC (RBC) [Mass/Vol] 34.4 g/dL Normal 31-37 [facility] Comment on above: Performed By: #### C DP, BMP #### [facility] [address] [place] [address] [employer]: Omkar Leon DO MCV (RBC) [Entitic vol] 90.4 fL Normal 80-100 [facility] Comment on above: Performed By: #### C DP, BMP #### [facility] [address] [place] [address] [employer]: Omkar Leon DO Monocytes (Bld) [#/Vol] 0.60 10*3/uL Normal 0.1-1.3 [facility] Comment on above: Performed By: #### C DP, BMP #### [facility] [address] [place] [address] [employer]: Omkar Leon DO Monocytes/100 WBC (Bld) 8 % High 1-7 [facility] Comment on above: Performed By: #### C DP, BMP #### [facility] [address] [place] [address] [employer]: Omkar Leon DO Neutrophil (Seg) 66 % Normal 36-[address] [facility] Comment on above: Performed By: #### C DP, BMP #### [facility] [address] [place] [address] [employer]: Omkar Leon DO Platelet mean volume (Bld) [Entitic vol] 9.2 fL Normal 6.0-12.0 [facility] Comment on above: Performed By: #### C TOÑO, BMP #### [facility] [address] [facility] [place] [address] [employer]: Omkar Leon DO Platelets (Bld) [#/Vol] 230 10*3/uL Normal 150-450 [facility] Comment on above: Performed By: #### C TOÑO, BMP #### [facility] [address] [place] [address] [employer]: Omkar Leon DO RBC (Bld) [#/Vol] 4.57 10*6/uL Normal 4.5-5.9 [facility] Comment on above: Performed By: #### C TOÑO, BMP #### [facility] [address] [place] [address] [employer]: Omkar Leon DO WBC (Bld) [#/Vol] 7.6 10*3/uL Normal 3.5-11.0 [facility] Comment on above: Performed By: #### C TOÑO, BMP #### [facility] [address] [place] [address] [employer]: Omkar Leon DO MRSA, DNA, Nasalon 3 Specimen Description .NASAL SWAB Normal [facility] Comment on above: Performed By: #### M RSANO #### [facility] [address] [place] [address] [employer]: Omkar Leon DO [address] [address] [employer]: Nirmal Colon MD Microscopic Urinalysison Bacteria, UA None None [facility] Casts UA 3 to 5 /LPF [facility] Epithelial Cells UA 0 TO 2 /HPF [facility] RBC clumps Auto (Urine sed) [#/Area] 0 TO 2 /HPF [facility] WBC, UA 0 TO 2 /HPF [facility] TYPE AND SCREENon 09-24-2022 ABO/Rh Positive [facility] Arm Band Number [id number] [facility] Blood Bank Comment ABORH CONFIRMED O POS: 003 [facility] Expiration Date 2022,2359 [facility] Type + Screenon 09-24-2022 Type + Screen Sample Expiration 2022,2359 Arm Band Number [id number] ABO/Rh(D) O POSITIVE Antibody Screen NEGATIVE Blood Bank Comment ABORH CONFIRMED O POS: 003 Normal [facility] Comment on above: Performed By: #### T YS #### [facility] [address] [place] [address] [employer]: Omkar Leon DO UA w/Reflex Cultureon 2022 Bilirubin, SemiQt,Ur Negative Normal NEG [facility] Comment on above: Performed By: #### LOR PARKER #### [facility] [address] [place] [address] [employer]: Omkar Leon DO Blood, Urine Negative Normal NEG [facility] Comment on above: Performed By: #### LOR PARKER #### [facility] [place] [address] [employer]her: Omkar Leon DO Clarity (U) Clear Normal CLEAR [facility] Comment on above: Performed By: #### LOR PARKER #### [facility] [address] [place] [address] [employer]: Omkar Leon DO Color (U) Yellow Normal YEL [facility] Comment on above: Performed By: #### U AXLOR #### [facility] [address] [facility] [place] [address] [employer] P[employer]her: Omkar Leno DO Glucose Ql (U) Negative Normal NEG [facility] Comment on above: Performed By: #### U LOR CARDOZA #### [facility] [address] [facility] [place] [address] [employer] P[employer]her: Omkar Leon DO Ketones Ql (U) Negative Normal NEG [facility] Comment on above: Performed By: #### U LOR CARDOZA #### [facility] [address] [facility] [place] [address] [employer] P[employer]her: Omkar Leon DO Leukocyte esterase Test strip Ql (U) Negative Normal NEG [facility] Comment on above: Performed By: #### LOR PARKER #### [facility] [address] [facility] [place] [address] [employer] P[employer]her: Omkar Leon DO Nitrite,Ur Negative Normal NEG [facility] Comment on above: Performed By: #### U AXLOR #### [facility] [address] [facility] [place] [address] [employer]her: Omkar Leon DO PH,Ur 5.5 Normal 5.0-8.0 [facility] Comment on above: Performed By: #### U LOR CARDOZA #### [facility] [address] [place] [address] [employer] P[employer]her: Omkar Leon DO Protein Ql (U) 2+ Abnormal NEG [facility] Comment on above: Performed By: #### LOR PARKER #### [facility] [address] [facility] [place] [address] [employer] P[employer]her: Omkar Leon DO Spec. [place],Ur 1.021 Normal 1.000-1.030 [facility] Comment on above: Performed By: #### LOR PARKER #### [facility] [address] [place] [address] [employer]her: Omkar Leon DO Urobilinogen,Ur Normal Normal NORM [facility] Comment on above: Performed By: #### LOR PARKER #### [facility] [address] [place] [address] [employer] P[employer]her: Omkar Leon DO Urinalysis with Reflex to Cu ltureon 09-24-2022 Bilirubin Urine Negative NEGATIVE [facility] Color, UA Yellow Yellow [facility] Glucose Auto test strip (U) [Mass/Vol] Negative NEGATIVE [facility] Interpretation and review of laboratory results Abnormal [facility] Ketones (U) [Mass/Vol] Negative NEGATIVE [facility] Leukocyte esterase Auto test strip Ql (U) Negative NEGATIVE [facility] Nitrite Auto test strip Ql (U) Negative NEGATIVE [facility] Protein (U) [Mass/Vol] 5.5 mg/dL 5.0 - 8.0 [facility] Protein (U) [Mass/Vol] 2+ Abnormal NEGATIVE [facility] Specific [place], UA 1.021 1.000 - 1.030 [facility] Turbidity UA Clear Clear [facility] Urine Hgb Negative NEGATIVE [facility] Urobilinogen, Urine Normal Normal [facility] Urinalysis,Microon 3 Bacteria None Normal NONE [facility] Comment on above: Performed By: #### LOR PARKER #### [facility] [address] [place], [place] [address] [employer] P[employer]her: Omkar Leon DO Casts 3 to 5 Normal [facility] Comment on above: Performed By: #### LOR PARKER #### [facility] [address] [facility] [place] [address] [employer] P[employer]her: Omkar Leon DO Epithelial cells LM Ql (Urine sed) 0 TO 2 Normal [facility] Comment on above: Performed By: #### U AX UMICAO #### [facility] [address] [facility] [place] [address] [employer] P[employer]her: Omkar Leon DO Urine RBC's 0 TO 2 Normal [facility] Comment on above: Performed By: #### LOR PARKER #### [facility] [address] [facility] [place] [address] [employer] P[employer]her: Omkar Leon DO Urine WBC's 0 TO 2 Normal [facility] Comment on above: Performed By: #### LOR PARKER #### [facility] [address] [facility] [place] [address] [employer] P[employer]her: Omkar Leon DO Refillon 09-08-2022 Refill [id number] Spencer Yeboah as 1970 M Date Provider Department Center 09/08/2022 [facility] MP PHYS MED Medical Pavi No family history on file Reason for Visit and Comments: Med Refill [[id number]] Normal [facility] MAGNESIUMon 04-01-2022 Magnesium [Mass/Vol] 1.8 mg/dL Normal 1.8-2.4 [facility] Comment on above: Performed By: #### M G #### [facility] [address] [address] [address] Madhu Augustine [id number]-FACTOR 1 on 02-03-2022 Insulin-Like Growth Factor I 240 ng/mL Normal 74-255 [facility] Comment on above: Performed By: #### I NSGF1 #### [facility] [address] [address] [address] Madhu Augustine FSHon 07-23-2022 FSH 0.4 mIU/mL Critically low 1.5-12.4 [facility] Comment on above: Performed By: #### L BCFSH #### [facility] [address] [place] [address] Dr. Madhu Augustine LUTEINIZING HORMONE (LH)on 0 02-01-2022 LH <0.3 Critically low 1.7-8.6 [facility] Comment on above: Performed By: #### L BCLH #### [facility] [address] [place] [address] Dr. Madhu Augustine TESTOSTERONE, TOTALon 2021 Testosterone [Mass/Vol] 756 ng/dL Normal 264-916 [facility] Comment on above: Result Comment: Adul t male reference interval is based on a population of healthy nonobese males (BMI <30) between 19 and 39 years old. Omar et.al. JCEM 2017,102;7430-0690. PMID: [id number]. Performed By: #### T ESTTOT #### [facility] [address] [place] [address] Dr. Madhu Augustine CBC AUTO DIFFon 01-31-2022 BASO # 0.1 103/ul Normal 0.0-0.1 [facility] Comment on above: Performed By: #### C BC #### [facility] [address] [place] [address] Dr. Madhu Augustine Basophils/100 WBC (Bld) 0.9 % Normal 0.2-2.0 [facility] Comment on above: Performed By: #### C BC #### [facility] [address] [place] [address] Dr. Madhu Augustine EO # 0.2 103/ul Normal 0.0-0.7 [facility] Comment on above: Performed By: #### C BC #### [facility] [address] [place] [address] Dr. Madhu Augustine Eosinophils/100 WBC (Bld) 2.4 % Normal 0.9-7.0 [facility] Comment on above: Performed By: #### C BC #### [facility] [address] [place] [address] Dr. Madhu Augustine Erythrocyte distribution width (RBC) [Ratio] 14.4 % Normal 11.0-15.0 [facility] Comment on above: Performed By: #### C BC #### [facility] [address] [place] [address] Dr. Madhu Augustine Hematocrit (Bld) [Volume fraction] 41.1 % Critically low 42.0-54.0 [facility] Comment on above: Performed By: #### C BC #### [facility] [address] [place] [address] Dr. Madhu Augustine Hemoglobin (Bld) [Mass/Vol] 13.5 g/dL Critically low 14.0-18.0 [facility] Comment on above: Performed By: #### C BC #### [facility] [address] [place] [address] Dr. Madhu Augustine IG # 0.05 10e3/ul Critically high 0.00-0.03 [facility] Comment on above: Performed By: #### C BC #### [facility] [address] [place] [address] Dr. Madhu Augustine IG % 0.7 % Critically high 0.0-0.5 [facility] Comment on above: Performed By: #### C BC #### [facility] [address] [place] [address] Dr. Madhu Augustine LYMPH # 1.6 103/ul Normal 1.2-3.8 [facility] Comment on above: Performed By: #### C BC #### [facility] [address] [place] [address] Dr. Madhu Augustine Lymphocytes/100 WBC (Bld) 21.5 % Normal 20.5-60.0 [facility] Comment on above: Performed By: #### C BC #### [facility] [address] [place] [address] Dr. Madhu Augustine MANUAL DIFF REQ NO Normal [facility] Comment on above: Performed By: #### C BC #### [facility] [address] [place] [address] Dr. Madhu Augustine MCH (RBC) [Entitic mass] 30.7 pg Normal 25.9-34.0 [facility] Comment on above: Performed By: #### C BC #### [facility] [address] [place] [address] Dr. Madhu Augustine MCHC (RBC) [Mass/Vol] 32.8 g/dL Normal 29.9-35.2 [facility] Comment on above: Performed By: #### C BC #### [facility] [address] [place] [address] Dr. Madhu Augustine MCV (RBC) [Entitic vol] 93.4 fL Normal 80.0-94.0 [facility] Comment on above: Performed By: #### C BC #### [facility] [address] [place] [address] Dr. Madhu Augustine MONO # 0.7 103/ul Normal 0.3-0.8 [facility] Comment on above: Performed By: #### C BC #### [facility] [address] [place] [address] Dr. Madhu Augustine Monocytes/100 WBC (Bld) 8.5 % Normal 1.7-12.0 [facility] Comment on above: Performed By: #### C BC #### [facility] [address] [place] [address] Dr. Madhu Augustine NEUT # 5.1 103/ul Normal 1.4-6.5 [facility] Comment on above: Performed By: #### C BC #### [facility] [address] [place] [address] Dr. Madhu Augustine Neutrophils/100 WBC (Bld) 66.0 % Normal 43.0-75.0 [facility] Comment on above: Performed By: #### C BC #### [facility] [address] [place] [address] Dr. Madhu Augustine Platelet mean volume (Bld) [Entitic vol] 10.2 fL Normal 9.5-13.5 [facility] Comment on above: Performed By: #### C BC #### [facility] [address] [place] [address] Dr. Madhu Augustine PLT 207 103/ul Normal 150-450 [facility] Comment on above: Performed By: #### C BC #### [facility] [address] [address] [address] Madhu Augustine RBC 4.40 106/ul Critically low 4.70-6.10 [facility] Comment on above: Performed By: #### C BC #### [facility] [address] [address] [address] Madhu Augustine WBC 7.6 103/ul Normal 4.0-11.0 [facility] Comment on above: Performed By: #### C BC #### [facility] [address] [address] [address] Madhu Augustine LIPID PROFILEon 01-31-2022 CHOL-HDL RATIO NORM SEE BELOW Normal [facility] Comment on above: Result Comment: 3.3 - 4.4 LOW RISK 4.4 - 7.1 AVERAGE RISK 7.1 - 11.0 MODERATE RISK >11.0 HIGH RISK Performed By: #### L IPID, CMP #### [facility] [address] [address] [address] Madhu Augustine Cholesterol [Mass/Vol] 156 mg/dL Normal <=200 [facility] Comment on above: Performed By: #### L IPID, CMP #### [facility] [address] [place] [address] Dr. Madhu Augustine Cholesterol in HDL [Mass/Vol] 53 mg/dL Normal 40-60 [facility] Comment on above: Performed By: #### L IPID, CMP #### [facility] [address] [address] [address] Madhu Augustine Cholesterol in LDL [Mass/Vol] 84.0 mg/dL Normal [facility] Comment on above: Performed By: #### L IPID, CMP #### [facility] [address] [address] [address] Madhu Augustine Cholesterol.total/ Cholesterol in HDL [Mass ratio] 2.9 {ratio} Normal [facility] Comment on above: Performed By: #### L IPID, CMP #### [facility] [address] [address] [address] Madhu Augustine HDL NORMAL > or = 60 mg/dl - LO W CARDIOVASCULAR RISK <40 mg/dl - HIGH CARDIOVASCULAR RISK Normal [facility] Comment on above: Performed By: #### L IPID, CMP #### [facility] [address] [address] [address] Madhu Augustine LDL CALC NORMAL SEE BELOW Normal [facility] Comment on above: Result Comment: <100 mg/dl OPTIMAL 100 - 129 mg/dl NEAR OR ABOVE OPTIMAL 130 - 159 mg/dl BORDERLINE HIGH 160 - 189 mg/dl HIGH >190 mg/dl VERY HIGH Performed By: #### L IPID, CMP #### [facility] [address] [address] [address] Madhu Augustine Triglyceride [Mass/Vol] 95 mg/dL Normal <=150 [facility] Comment on above: Performed By: #### L IPID, CMP #### [facility] [address] [address] [address] Madhu Augustine VLDL CALC 19.0 mg/dL Normal [facility] Comment on above: Performed By: #### L IPID, CMP #### [facility] [address] [place] [address] Dr. Madhu Augustine PROF 14(COMP METB)on 022 Albumin [Mass/Vol] 3.5 g/dL Normal 3.4-5.0 [facility] Comment on above: Performed By: #### L IPID, CMP #### [facility] [address] [place] [address] Dr. Madhu Augustine Albumin/Globulin [Mass ratio] 1.1 {ratio} Normal [facility] Comment on above: Performed By: #### L IPID, CMP #### [facility] [address] [place] [address] Dr. Madhu Augustine ALP [Catalytic activity/Vol] 51 U/L Normal 46-116 [facility] Comment on above: Performed By: #### L IPID, CMP #### [facility] [address] [place] [address] Dr. Madhu Augustine ALT [Catalytic activity/Vol] 40 U/L Normal 16-63 [facility] Comment on above: Performed By: #### L IPID, CMP #### [facility] [address] [place] [address] Dr. Madhu Augustine Anion gap [Moles/Vol] 12.7 mmol/L Normal [facility] Comment on above: Performed By: #### L IPID, CMP #### [facility] [address] [place] [address] Dr. Madhu Augustine AST [Catalytic activity/Vol] 18 U/L Normal 15-37 [facility] Comment on above: Performed By: #### L IPID, CMP #### [facility] [address] [place] [address] Dr. Madhu Augustine Bilirubin [Mass/Vol] 0.4 mg/dL Normal 0.2-1.0 [facility] Comment on above: Performed By: #### L IPID, CMP #### [facility] [address] [place] [address] Dr. Madhu Augustine Calcium [Mass/Vol] 8.9 mg/dL Normal 8.5-10.1 [facility] Comment on above: Performed By: #### L IPID, CMP #### [facility] [address] [place] [address] Dr. Madhu Augustine Chloride [Moles/Vol] 104 mmol/L Normal 98-107 [facility] Comment on above: Performed By: #### L IPID, CMP #### [facility] [address] [place] [address] Dr. Madhu Augustine CO2 [Moles/Vol] 26.4 mmol/L Normal 21.0-32.0 [facility] Comment on above: Performed By: #### L IPID, CMP #### [facility] [address] [place] [address] Dr. Madhu Augustine Creatinine [Mass/Vol] 0.99 mg/dL Normal 0.70-1.30 [facility] Comment on above: Performed By: #### L IPID, CMP #### [facility] [address] [address] [address] Madhu Augustine EGFR-AF LEBANESE >60 Normal >=60 [facility] Comment on above: Performed By: #### L IPID, CMP #### [facility] [address] [address] [address] Madhu Augustine EGFR-NON AF LEBANESE >60 Normal >=60 [facility] Comment on above: Performed By: #### L IPID, CMP #### [facility] [address] [address] [address] Madhu Augustine Globulin (S) [Mass/Vol] 3.2 g/dL Normal [facility] Comment on above: Performed By: #### L IPID, CMP #### [facility] [address] [address] [address] Madhu Augustine Glucose [Mass/Vol] 108 mg/dL Critically high 74-106 [facility] Comment on above: Performed By: #### L IPID, CMP #### [facility] [address] [address] [address] Madhu Augustine Potassium [Moles/Vol] 4.1 mmol/L Normal 3.5-5.1 [facility] Comment on above: Performed By: #### L IPID, CMP #### [facility] [address] [place] [address] Dr. Madhu Augustine Protein [Mass/Vol] 6.7 g/dL Normal 6.4-8.2 [facility] Comment on above: Performed By: #### L IPID, CMP #### [facility] [address] [place] [address] Dr. Madhu Augustine Sodium [Moles/Vol] 139 mmol/L Normal 136-145 [facility] Comment on above: Performed By: #### L IPID, CMP #### [facility] [address] [address] [address] Madhu Augustine Urea nitrogen [Mass/Vol] 14.0 mg/dL Normal 7.0-18.0 [facility] Comment on above: Performed By: #### L IPID, CMP #### [facility] [address] [address] [address] Madhu Augustine Urea nitrogen/Creatinin e [Mass ratio] 14.1 mg/mg Normal [facility] Comment on above: Performed By: #### L IPID, CMP #### [facility] [address] [place] [address] Dr. Madhu Augustine VITAMIN B12on 01-31-2022 Cobalamin (Vitamin B12) [Mass/Vol] 1106.0 pg/mL Critically high 193.0-986.0 [facility] Comment on above: Performed By: #### V ITB12, VITAD #### [facility] [address] [address] [address] Madhu Augustine VITAMIN D 25 OHon 01-31-2022 VIT D 25-OH 53.4 ng/mL Normal [facility] Comment on above: Performed By: #### V ITB12, VITAD #### [facility] [address] [address] [address] Madhu Augustine VIT D RANGES SEE BELOW Normal [facility] Comment on above: Result Comment: <20 ng/mL Vit D deficient 20 - <30 ng/mL Vit D insufficient 30 - 100 ng/mL Vit D sufficient >100 ng/mL Potential Toxicity Performed By: #### V ITB12, VITAD #### [facility] [address] [place] [address] Dr. Madhu Augustine Rehab Psych Evaluationon Rehab Psych Evaluation MR#: [id number] REHABILITATION SERVICES ( ) INPATIENT (x) OUTPATIENT Patient Name: Sara Yeboah Date of : 1970 Referring Physician: Lien Johnson M.D. Dictated By: Ramesh Hu, PhD Evaluation Date: 10/13/2018 neuropsychological evaluation DATE OF SERVICE: 10/12/2018-10/22/2018 DIAGNOSIS: Postconcussive syndrome DATE OF ONSET: 05/14/2018 DATE OF : 1970 AGE: 47 years TIME SPENT: 61301=3 unit; 16625=4 unit; 26865=9 units; 58179=7 unit; 42319=5 units REASON FOR REFERRAL: This is the initial neuropsychological evaluation of Mr. Sara Yeboah, a 48-year-old, right-hand, White, , gentleman, who was referred by dry boss, Dr. Lien Johnson to ascertain his present [...] medicine specialist, Dr. Young Morgan ([employer]); said evaluation was also consulted. Mr. Yeboah notes that attorneys working with the [employer] are handling his case. According to Dr. Morgan's medical examination report, Mr. Yeboah sustained a concussion on 05/14/2018, while working for [employer]. Dr. Morgan noted a 70-80 pound object had fallen from a david striking [Mr. Yeobah] on the head. According to Dr. Morgan's evaluation, Mr. Yeboah experienced no nausea or vomiting, but reported a headache of 7 of 10. It was noted that Mr. Yeboah was taken to [facility], where he underwent a CT [...] Mr. Yeboah notes he was born in [place], [place]. He adds he has been for 24 years and has one child. Mr. Yeboah notes he presently resides in [place], [place] with his and daughter. EDUCATIONAL HISTORY: [...] May 2018 injury from his employment at [employer], where he has worked for approximately five [...] the Speech Therapy when he participated at [facility]. Mr. Yeboah also reports changes to [...] Immediate Memory Index in the average range (HBZ=853), and a Delayed Memory Index in the average range (AZY=958). Obtained index scores were compared to predicted [...] Therapy (CBT), such could be found through [facility] services. He may also benefit from [...] i. Use a pocket notepad, personal digital marketing analyst, wristwatch alarm, voice recorder, pill box, or [...] If you have any questions, please call [phone]. DICTATED BY: Ramesh Hu, PhD Neuropsychology Fellow REVIEWED BY: Electronically Signed by: Nereyda Rivera, PhD, ABPP 10/28/2018 08:41 A Nereyda Rivera, PhD, ABPP Board Certified Clinical Neuropsychologist Date Dict: 10/13/2018/12:18 P/Ramesh Hu, PhD Date Trans: 10/13/2018 01:51 P/bertramo [id number] cc: Nereyda Rivera, PhD, ABPP [address] Rehab Medicine [facility] [address] Lien Johnson M.D. Dept Of [facility] Rehab [facility] [address] *Mr. Sara Yeboah [address] [place] [address] [address] [facility] Vital Signs Date Time Vital Sign Value Performing Clinician Facility 10-07-2022 13:13-0400 SaO2% (BldA) [Mass fraction] 92 % Ravi Lopez MD Work Phone: [employer] 10-07-2022 11:30-0400 Body temperature 98.1 [degF] Ravi Lopez MD Work Phone: [employer] 10-07-2022 11:30-0400 Diastolic blood pressure 74 mm[Hg] Ravi Lopez MD Work Phone: [employer] 10-07-2022 11:30-0400 Heart rate 70 /min Ravi Lopez MD Work Phone: [employer] 10-07-2022 11:30-0400 Respiratory rate 16 /min Ravi Lopez MD Work Phone: [employer] 10-07-2022 11:30-0400 Systolic blood pressure 128 mm[Hg] Ravi Lopez MD Work Phone: [employer] 10-07-2022 05:46-0400 Body height 182.9 cm Ravi Lopez MD Work Phone: [employer] 10-07-2022 05:46-0400 Body mass index (BMI) [Ratio] 49.5 kg/m2 Ravi Lopez MD Work Phone: [employer] 10-07-2022 05:46-0400 Body weight 165.56 kg Ravi Lopez MD Work Phone: [employer] 09-26-2022 09:30-0400 Body height 182.88 cm [facility] Other [employer] Other 09-26-2022 09:30-0400 Body mass index (BMI) [Ratio] 53.65 kg/m2 [facility] Other [employer] Other 09-26-2022 09:30-0400 Body weight 179.44 kg [facility] Other [employer] Other 09-26-2022 09:30-0400 Diastolic blood pressure 82 mm[Hg] [facility] Other [employer] Other 09-26-2022 09:30-0400 Respiratory rate 16 /min [facility] Other [employer] Other 09-26-2022 09:30-0400 Systolic blood pressure 130 mm[Hg] [facility] Other [employer] Other 09-24-2022 07:12-0400 Body height 182.9 cm Ravi Lopez MD Work Phone: [employer] 09-24-2022 07:12-0400 Body mass index (BMI) [Ratio] 49.5 kg/m2 Ravi Lopez MD Work Phone: [employer] 09-24-2022 07:12-0400 Body temperature 98.01 [degF] Ravi Lopez MD Work Phone: [employer] 09-24-2022 07:12-0400 Body weight 165.56 kg Ravi Lopez MD Work Phone: [employer] 09-24-2022 07:12-0400 Diastolic blood pressure 83 mm[Hg] Ravi Lopez MD Work Phone: [employer] Comment on above: 172/91 right arm 09-24-2022 07:12-0400 Heart rate 70 /min Ravi Lopez MD Work Phone: [employer] 09-24-2022 07:12-0400 Respiratory rate 18 /min Ravi Lopez MD Work Phone: [employer] 09-24-2022 07:12-0400 SaO2% (BldA) [Mass fraction] 97 % Ravi Lopez MD Work Phone: [employer] 09-24-2022 07:12-0400 Systolic blood pressure 162 mm[Hg] Ravi Lopez MD Work Phone: [employer] Comment on above: 172/91 right arm Encounters Encounter Date Encounter Type Care Provider Facility Start: 09-22-2023 Telephone encounter Miley greer OD Work Phone: Ophthalmology Comment on above: Received Outside Med ical Records Start: 07-08-2023 End: 07-08-2023 ambulatory Iron Olmos Other [employer] Other Start: 07-08-2023 Telephone encounter Iron DEUTSCH [facility] Start: 03-30-2023 ambulatory HIND[facility] Start: 03-19-2023 End: 03-19-2023 ambulatory Iron Olmos Other [facility] [employer] Other Start: 03-19-2023 Telephone encounter Iron DEUTSCH [facility] Start: 10-31-[address] DOCTOR FLOWERS Facility : Start: 10-07-2022 End: 10-07-2022 ambulatory RAVI LOPEZ [facility] Start: 10-07-2022 End: 10-07-2022 Subsequent hospital visit by physician Ravi Lopez MD Work Phone: [facility] Med Surg Comment on above: Primary osteoarthrit is of left hip (Primary Dx) Start: 09-26-2022 End: 09-26-2022 ambulatory Iron Olmos Other [employer] Other Start: 09-26-2022 Encounter for other preprocedural examination Iron Olmos [facility] Start: 09-26-2022 Office outpatient vi sit 25 minutes Iron Olmos [facility] Start: 09-24-2022 End: 09-29-2022 ambulatory RAVI LOPEZ [facility] Start: 09-24-2022 End: 09-28-2022 Subsequent hospital visit by physician Ravi Lopez MD Work Phone: ST Pre-Admit Testing Comment on above: Hypertension, unspec ified type Start: 04-02-2022 Encounter for genera l adult medical examination without abnormal findings DR IRON OLMOS [facility] Start: 04-01-2022 End: 04-02-2022 Encounter for general adult medical examination without abnormal findings DR IRON OLMOS Facility:[facility] Start: 04-01-2022 End: 04-02-[address] IRON OLMOS Facility:[facility] Start: 03-28-2022 Adult health examination Onesimo Olmos Other [employer] Other Start: 01-31-2022 End: 02-01-[address] DOCTOR FLOWERS Facility:[facility] Start: 04-05-2020 Preoperative cardiovascular examination Iron Olmos Other [employer] Other Procedures Date Procedure Procedure Detail Performing [...] Performed By: #### L IPID, CMP #### [facility] [address] [place] [address] Dr. Madhu Augustine Start: 12-09-2013 Pre-surgery evaluation Iron Oloms Other Start: 02-25-2013 Lipid 1996 panel - S dinorah or Plasma Miley Enrique OD Work Phone: Screening for malign ant neoplasm of prostate [facility] Other Plan of Treatment Date Care Activity Detail Author Start: 07-13-2023 Depression Assessment Depression Ass essment [facility] Start: 03-13-2023 Covid-19 Vaccine ( season) Covid-19 Vaccine ( season) [facility] Start: 03-13-2023 Influenza vaccination Influenza Vacc ine (#1) [facility] Start: 10-24-2022 End: 10-24-2022 Patient encounter procedure 10/24/2022 Office Visit Orthopedic Surgery Ravi Lopez MD [address] [place] [address] [facility] Start: 10-07-2022 End: 10-07-2022 Admission to same day surgery center 10/07/2022 Surgery IP Unit Ravi Lopez MD [address] [facility] [address] [place] [address] HIP TOTAL ARTHROPLASTY MINIMALLY INVASIVE [facility] Comment on above: HIP TOTAL ARTHROPLAS TY MINIMALLY INVASIVE Start: 10-07-2022 Subsequent hospital visit by physician 10/07/2022 Hospital Encounter IP Unit Ravi Lopez MD [address] [place] [address] [facility] Start: 10-07-2022 End: 10-07-2022 Arthrp acetblr/prox fem prostc agrft/algrft [facility] Start: 02-10-2022 Influenza vaccination Flu vaccine (# 1) [facility] Start: 07-09-2021 COVID-19 Vaccine (4 - Booster for Pfizer series) COVID-19 Vaccine (4 - Booster for Pfizer series) [facility] Start: 10-11-2019 Shingles vaccine (1 of 2) Shingles vaccine (1 of 2) [facility] Start: 10-11-2019 Shingrix Vaccine (1 of 2) Shingrix Vaccine (1 of 2) [facility] Start: 02-25-2018 Lipid panel Lipid Screening [facility] Start: 02-29-2016 Diabetes Screening Diabetes Screenin g [facility] Start: 2014 Screening for malign ant neoplasm of colon [facility] Start: 2009 Lipid panel Lipids [facility] Start: 2004 Diabetes screen Diabetes screen [facility] Start: 1988 DTaP/Tdap/Td vaccine (1 - Tdap) DTaP/Tdap/Td vaccine (1 - Tdap) [facility] Start: 1988 Hepatitis B Vaccine (1 of 3 - 19+ 3-dose series) Hepatitis B Vaccine (1 of 3 - 19+ 3-dose series) [facility] Start: 1988 Urine microalbumin profile DTaP,Tdap,Td Vaccine (1 - Tdap) [facility] Start: 10-11-1987 Hepatitis C screening B ON [facility] Start: 10-11-1987 HIV screening HIV Screening [facility] Start: 1984 HIV screening HIV screen [facility] Start: 1981 Depression Screen Depression Screen [facility] Oxygen therapy [[facility] Data Set] Initiate Oxygen Therapy Protocol Respiratory Care Routine Daily until discontinued starting 10/07/2022 [facility] Work Phone: Comment on above: Daily until disconti nued starting 10/07/2022 Spirometry panel Incentive maynor metry Respiratory Care Routine Every 2hr while awake until discontinued starting 10/07/2022 JAMILA EDITH [employer] Work Phone: Comment on above: Every 2hr while awak e until discontinued starting 10/07/2022 Immunizations Immunization Date Immunization Notes Care Provider Leo santizo NEGATED: Highlighted row has not occurred!02-28-2013 pneumococcal polysaccharide vaccine, 23 valent Miley Enrique OD Work Phone: [facility] Payers Date Payer Category Payer Unknown [id number] 2019 Unknown [id number] 2018 Unknown [employer] [id number] 2018-Present [phone] [address] [facility] [address] [place] [address] [employer] [id number] 2018 Worker's Compensation [id number] 1970 Unknown [id number] 6 1970 Unknown [id number] 6 1970 Unknown [id number] 3 1970 Unknown [id number] 3 1970 Unknown [id number] 3 1969 Unknown [id number] 3 1960 Medicare [id number] 1959 Unknown [id number] Social History Date Type Detail Facility Start: 02-25-2013 End: 09-24-2022 Tobacco smoking status NHIS Never smoked tobacco [employer] Start: 09-24-2022 Tobacco use and exposure Smokeless tobacco non-user [employer] Phone: Start: 02-25-2013 End: 09-24-2022 Alcohol intake Current drinker of alcohol (finding) [employer] Phone: Start: 09-24-2022 Alcohol Comment social [employer] Phone: Start: 1970 Sex Assigned At Not on file B [place] [employer] Phone: Start: 09-14-2022 End: 10-07-2022 Exposure to SARS-CoV-2 (event) Not sure [employer] Phone: Sex Assigned At [employer] Other Start: 02-25-2013 Tobacco use and exposure User of smokeless tobacco [facility] History of tobacco use Chews Tobacco [facility] Start: 02-25-2013 Alcohol intake [facility] Start: 02-25-2013 Alcohol Comment 3-4 Cans Per Day [facility] Medical Equipment Procedure Code Equipment Code Equipment Origin al Text Equipment Identifier Dates Dup Use [id number] I mpl Hip Cer Option Type 1 Tpr Sleve +3 - [id number] Start: 10-07-2022 Head Fem Usr71uf Hip Biolox Delt Opt For G7 Acet Sys - [id number] Start: 10-07-2022 Note 09-22-2023 Telephone Encounter - Kristina Melton - 09/22/2023 3:37 PM EDT Note Date & Type Note Facility 09-22-2023 Miscellaneous Notes Formattin g of this note might be different from the original. Received outside Records from [facility] needing consult with Dr. Enrique for Neuro Ophthalmology consult. Please contact patient to schedule at [phone]. Records in Dr. Enrique's mailbox. documented in this encounter [facility] Progress note 03-30-2023 Note Date & Type [...] a 52 y.o. male who presents to [facility] today for 1 year follow-up [...] 47.06 kg/m???. Physic (more content not included)... [facility] History of Present illness Narrative 10-07-2022 VICK Sandoval/Ashwin - 10/07/2022 3:46 PM Brigitte Schulz PT - 10/07/2022 3:45 PM Nathaniel Alvarado - 10/07/2022 2:26 PM EDT Note Date & Type Note Facility 10-07-2022 History of Present illness Narrative [facility] Occupational Therapy Evaluation Date: 10/07/22 Patient Name: Sara Yeboah Room: Account: [id number] : 1970 (51 y.o.) Gender: male Discharge [...] Skilled Clinical Factors: OT demonstrated use of telecommunicator and patient threaded B LE with telecommunicator and Minimal assist into underwear. Assist to thread B LE pants. Assist to manage clothing over hips and don socks/shoes. Demonstrated use of sock aid, however patient declines use. Patient and patient's spouse report that she will provide patient with assist PRN for lower body self-care. Patient acknowledges that he has a telecommunicator and sock aid at home. Toileting: Minimal assistance Toileting Skilled Clinical Factors: assist to manage pants as they fell to the ground, however CGA for all other tasks Additional Comments: OT provided patient and patient's spouse with education regarding safety with self-care including use of modified techniques such as sitting for lower body bathing/dressing, use of telecommunicator/sock aid, and use of shower chair. Patient and patient's spouse verbalize Good understanding and state they have a sock aid and telecommunicator and will purchase a shower chair. Patient [...] Verbalized understanding, Demonstrated understanding Functional Outcome Measures [facility] Daily Activity - Inpatient How [...] How much help for eating meals?: None [facility] Inpatient Daily Activity Raw Score: 17 [facility] Inpatient ADL T-Scale Score : 37.26 ADL [...] Treatment Minutes: 38 Minutes Physical Therapy Facility/Department: [facility] MED SURG Physical Therapy Initial Assessment Name: Sara Yeboah : 1970 Date of Service: 10/07/2022 Discharge Recommendations: The patient would benefit from additional Physical Therapy after discharge from the facility upon return to their Home. PT Equipment Recommendations Equipment Needed: Yes Mobility Devices: Walker Other: Adjusted to his height by advertising copywriter Patient Diagnosis(es): The encounter diagnosis was Primary [...] adjusted for pt per his height by advertising copywriter.Recommend staying on first floor initially and working [...] patient request documented in this encounter JAMILA [facility] Phone: Hospital Discharge instructions 10-07-2022 Discharge InstructionsDischarge [...] Contact Information Primary Emergency Contact: Bev Yeboah Ransom Mobile Relation: Spouse Clinic Mgr needed? No Past Surgical History: Past Surgical [...] Assisted Dressing Independent Toileting Independent Feeding Independent History Card Clerk Independent Med Delivery whole Wound Care Documentation [...] NOT a DME order): walker Other Treatments: Prison assessment and monitoring. Medication education and monitoring [...] Unplanned Readmission: 0 Discharging to Facility/ Agency [facility] [address] [place] [phone] Fax [employer] Vice President/Lawn Service Worker signature: PHYSICIAN SECTION Prognosis: Good Condition at [...] PHYSICIAN SIGNATURE: documented in this encounter [facility] [employer] Phone: Evaluation note 09-26-2022 Note Date & [...] syndrome (ICD-10 - F07.81) Stable w/ treatment [employer] Other Hospital Discharge instructions 09-24-2022 Discharge Instructions [...] powder, deodorant, jewelry, piercings, perfume, makeup, nail liberian, hair accessories, or hair spray on the [...] a living will or healthcare power of patent attorney, please bring a copy. You will be taken to the pre-op holding area where you will be prepared for surgery. A physical assessment will be performed by a nurse practitioner or washhouse worker. Your IV will be started and you [...] in recovery room. documented in this encounter [employer] Phone: Evaluation note Note Date & Type Note Facility Evaluation note Diagnosis Hypertension, unspecified type Osteoarthritis of left hip, unspecified osteoarthritis type documented in this encounter [employer] Phone: Evaluation note Note Date & Type Note Facility Evaluation note Diagnosis Primary osteoarthritis of left hip- Primary Primary localized osteoarthrosis, pelvic region and thigh Primary osteoarthritis of left hip Primary localized osteoarthrosis, pelvic region and thigh documented in this encounter [employer] Phone: Evaluation note Note Date & Type Note Facility Evaluation note No Information [place] [employer] Other History general Narrative - Reported Note [...] KNEE-LEFT 2013 Hospitalization History SEE SURGICAL HX [employer] Other Summary Purpose Family History No Family [...] section and content) DATE CREATED AUTHOR 12/19/2018 [facility] DATE CREATED AUTHOR AUTHOR'S ORGANIZ ATION 10/09/2022 [facility] DATE CREATED AUTHOR AUTHOR'S ORGANIZ ATION 11/24/2022 [facility] DATE CREATED AUTHOR AUTHOR'S ORGANIZ ATION 08/01/2023 [facility] DATE CREATED AUTHOR AUTHOR'S ORGANIZ ATION 09/26/2023 [facility] Care Teams (unrecognized sec tion and content) Real Estate Lawyer Relationship Specialty Start Date End Date [place], [address] [place] [address] PCP - General Internal Medicine 08/26/22 Real Estate Lawyer Relationship Specialty Start Date End Date [employer] [place], [address] [place] [address] PCP - General Internal Medicine 08/26/22 REASON FOR VISIT (unrecogniz ed section and content) Specialty Diagnoses / Procedures Referred By Nayla lucio Referred To Contact Diagnoses Osteoarthritis of left hip, unspecified osteoarthritis type DEGENERATIVE JOINT DISEASE LEFT HIP Procedures MI ARTHRP ACETBLR/PROX FEM PROSTC AGRFT/ALGRFT HIP TOTAL ARTHROPLASTY MINIMALLY INVASIVE Ravi Lopez MD [address] [place] [address] [facility] [address] [place] [address] Referral ID Status Reason Start Date Expiration Date Visits Re quested Visits Authorized [id number] 1 1 Reason Comments Received Outside Medical [...] 100 mL IVPB (COMPLETED) 3,000 mg, IntraVENous, PANEL SEWER TO O.R., 1 dose, On Thu10/07/22 at 0600, Antimicrobial Indications: Surgical Prophylaxis, Administer within 1 hour prior to incision. Recommend to repeat in 3-4 hours after initial dose if still intra-op., Pre-op (day of surgery) 0742 (Given - Provid er: Keny Deng APRN - REPAIRER SASH AND DOOR) ceFAZolin (ANCEF) 3000 mg in sodium chloride [...] Leigha Lea RN)0723 (NoRateChange - Provider: Keny Deng APRN - MAHAD)0909 (Paused - Provider: Keny [...] or prosecute any alcohol or drug abuse patient.[facility] FOR RECORDS PERTAINING TO PATIENTS WHO ARE [...] BE BASED ON THE PRIMARY CLINICAL RECORDS. [employer] [facility]. provides no warranty or guarantee of the accuracy or completeness of information in this document.
== END 2023-11-25 19:57 | disposition home or self-care (01) ==
LOC: SLEEP 19:56
PROVIDERS: PCP Internal Medicine; Visit Provider Internal Medicine
DX: G47.33 Obstructive sleep apnea (adult) (pediatric) (principal); F51.01 Primary insomnia
CPT/HCPCS: 95811

== ENCOUNTER 2024-04-25 07:59 | Outpatient (RCR) | payer OTHER, SELFPAY | END 2024-05-25 12:13 | disposition home or self-care (01) | LOC: PT 07:59 | PROVIDERS: PCP Internal Medicine | DX: S09.90XD Unspecified injury of head, subsequent encounter (principal) | CPT/HCPCS: 97112; 97140; 97161 ==

== ENCOUNTER 2024-10-01 08:54 | Outpatient (OUT) | payer BC, MEDICARE, SELFPAY ==
--- OUTSIDE RECORDS SUMMARY | 2024-10-01 08:57 | XMS_ITS | CCD ---
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 Name Role Phone Iron Olmos DO Primary Care Provider RAVI LOPEZ Admitting Unavailable RAVI LOPEZ Attending Unavailable IRON OLMOS Primary Care Unavailable RAVI LOPEZ Referring Unavailable RAVI LOPEZ Admitting Unavailable RAVI LOPEZ Attending Unavailable IRON OLMOS Primary Care Unavailable TUSHARDMITRI HER Admitting Unavailable TUSHAR, DMITRI Attending Unavailable TUSHAR, DMITRI Consulting Unavailable RODRIGO, DR LEWIS Primary Care Unavailable MISC, DR BLAKELY Attending Unavailable MISC, DR BLAKELY Consulting Unavailable MISC, DR BLAKELY Admitting Unavailable RODRIGO, DR LEWIS Primary Care Unavailable BALL, DR LEWIS Primary Care Unavailable BALL, DR LEWIS Admitting Unavailable BALL, DR LEWIS Attending Unavailable RODRIGO, DR LEWIS Consulting Unavailable MISC, DR BLAKELY Admitting Unavailable MISC, DR BLAKELY Attending Unavailable RODRIGO, DR LEWIS Primary Care Unavailable Iron Olmos Unavailable Unavailable Primary Care Provider Unavailabl e Unavailable Primary Care Provider Unavailabl e MILEY ENRIQUE Referring Unavailable MILEY ENRIQUE Attending Unavailable LIEN JOHNSON Attending Unavailable Bo Shah Admitting Unavailable Iron Olmos Primary Care Unavailable Bo Shah Attending Unavailable Iron Olmos Primary Care Unavailable ANDREW CRUZ Attending Unavailable ANDREW CRUZ Admitting Unavailable Allergies Allergy Classification Reported Allergen(s) Allergy Type Date of Onset Reaction(s) Facility (2 sources) patient allergy list reviewed by nurse or physicia Propensity to adverse reactions Comment:Done Infectious Other (2 sources) Allergies Reconciled Propensity to adverse reactions Unknown Infectious Other Medications Current Medications Medication Drug Class(es) [...] tablets 42 tablet 0 10/07/2022 10/14/2022 Active amLODIPine 10 mg / benazepril hydrochloride 40 mg oral capsule (9 sources) Dihydropyridine Calcium Channel Betsy, Angiotensin Converting Enzyme Inhibitor Start: 09-29-2024 take 1 capsule by mouth once daily Amlodipine-Benazepr il 10-40 mg capsule Active 1 CAP PO Daily 90 September 29, 2024 9:54am Start: 09-10-2023 End: 09-29-2024 take 1 capsule by mouth once daily Amlodipine-Benazepril 10-40 mg capsule Discontinued 0 .ROUTE .COMPLEX December 06, 2023 3:48pm September 29, 2024 9:55am TAKE 1 CAPSULE BY MOUTH EVERY DAY Start: 02-19-2020 End: 09-10-2023 take 1 capsule by mouth once daily Amlodipine-Benazepril 10-40 mg capsule Discontinued 1 CAP PO Daily September 10, 2023 1:00am September 10, 2023 8:14pm aspirin 81 mg delayed release oral tablet [...] times daily 20 capsule 1 10/07/2022 Active chlorthalidone 25 mg oral tablet (3 sources) Thiazide-like Diuretic Start: 02-28-2013 take 1 tablet by mouth once daily chlorthalidone 25 mg tablet Take 1 tablet by mouth once daily. 30 tablet 3 02/28/2013 Active Comment on above: Take 1 tablet by faye once daily. cholecalciferol 0.05 mg oral capsule (4 sources) Vitamin D Start: 09-29-2024 take 1 capsule by mouth once daily Cholecalciferol (Vitamin D3) 50 mcg (2,000 unit) capsule Active 50 MCG PO Daily September 29, 2024 12:00am Cholecalciferol, Vitamin D3, (VITAMIN D-3) 50 mcg (2,000 unit) cap Active cloNIDine hydrochloride 0.1 mg oral tablet (11 sources) Central alpha-2 Adrenergic Agonist Start: 09-29-2024 take 1 tablet by mouth twice daily Clonidine Hcl 0.1 mg tablet Active 0.1 MG PO Twice daily 180 90 September 29, 2024 9:54am Start: 10-21-2023 End: 09-29-2024 take 1 tablet by mouth twice daily Clonidine Hcl 0.1 mg tablet Discontinued 0 .ROUTE .COMPLEX 180 July 27, 2024 10:43am September 29, 2024 9:55am TAKE 1 TABLET BY MOUTH TWICE A DAY Start: 10-21-2023 End: 10-21-2023 take 1 tablet by mouth twice daily Clonidine Hcl 0.1 mg tablet Discontinued 0.1 MG PO Twice daily October 21, 2023 12:00am October 21, 2023 1:31pm take 1 tablet by [facility] every twenty-four hours cloNIDine HCl 0.1 MG 1 tablet Orally Once a day Active 1 ml erenumab-aooe 70 mg/ml auto-injector (2 sources) Start: 09-29-2024 inject 70 mg by subcutaneous injection every month Erenumab-Aooe (Aimovig Autoinjector) 70 mg/mL auto-injector Active 70 MG SUBCUT every month September 29, 2024 12:00am Erenumab-aooe (A IMOVIG) 70 MG/ML SOAJ Inject into the skin every 30 days 0 Active hydrALAZINE hydrochloride 25 mg oral tablet (9 sources) Arteriolar Vasodilator Start: 09-29-2024 take 1 tablet by mouth four times daily Hydralazine 25 mg tablet Active 25 MG PO Four times daily 360 90 September 29, 2024 9:54am Start: 09-10-2023 End: 09-29-2024 take 1 tablet by mouth four times daily Hydralazine 25 mg tablet Discontinued 0 .ROUTE .COMPLEX 360 August 25, 2024 10:06am September 29, 2024 9:55am TAKE 1 TABLET BY MOUTH 4 TIMES A DAY Start: 09-10-2023 End: 09-10-2023 take 1 tablet by mouth four times daily Hydralazine 25 mg tablet Discontinued 25 MG PO Four times daily September 10, 2023 1:00am September 10, 2023 8:14pm Start: 03-11-2020 take 1 tablet by faye th four times daily hydrALAZINE (APRESOLINE) 25 MG tablet hydralazine 25 mg tablet TAKE 1 TABLET BY MOUTH FOUR TIMES A DAY 0 03/11/2020 Suspended 1 ml HYDROmorphone hydrochloride 1 mg/ml cartridge (1 source) Opioid Agonist Start: 10-07-2022 take 0.5 mg by mouth every three [...] source) Nonsteroidal Anti-inflammatory Drug, Cyclooxygenase Inhibitor Start: 10-07-2022 End: 10-07-2022 30 mg, IntraVENous, EVERY 6 HOURS PRN, 12 doses, Starting on Thu10/07/22 at 1121, Until Thu10/07/22 at 2359, Pain Moderate (4-6) Do not administer for more than 5 days. Post-op lisinopril 40 mg oral tablet (3 sources) Angiotensin Converting Enzyme Inhibitor Start: 02-28-2013 take 1 tablet by mouth once daily lisinopril 40 mg tablet Take 1 tablet by mouth once daily. 30 tablet 3 02/28/2013 Active Comment on above: Take 1 tablet by faye th once daily. magnesium oxide 400 mg oral capsule (4 sources) Start: 09-29-2024 take 1 capsule by mouth once daily Magnesium Oxide 400 mg magnesium capsule Active 400 MG PO Daily September 29, 2024 12:00am Magnesium Oxide 500 mg cap Take by mouth. Active Magnesium Oxide (MAG-OXIDE PO) Take by mouth daily 0 Active mecobalamin (1 source) Start: 09-29-2024 take 1 tablet by mouth once daily Mecobalamin (Vitamin B12) 5,000 mcg tablet,chewable Active 5000 MCG PO Daily September 29, 2024 12:00am metoprolol tartrate 50 mg oral tablet (3 sources) beta-Adrenergic Betsy Start: 02-28-2013 take 1.5 tablets by mouth every eight hours metoprolol tartrate, short acting, 50 mg tablet Take 1.5 tablets by mouth every 8 hours. 90 tablet 3 02/28/2013 Active Comment on above: Take 1.5 tablets by mouth every 8 hours. ondansetron 4 mg oral tablet (6 sources) Serotonin-3 Receptor Antagonist Start: 09-29-2024 take 1 tablet by mouth every eight hours as needed Ondansetron Hcl 4 mg tablet Active 4 MG PO Every 8 hours as needed September 29, 2024 12:00am Start: 10-07-2022 4 mg, IntraVEN ous, EVERY 6 HOURS PRN, Starting on Thu10/07/22 at 1121, Until Discontinued, Nausea, Post-op Start: 04-19-2020 take 2 tablets by mo [facility] twice daily ondansetron (ZOFRAN) 4 MG tablet Zofran 4 mg tablet Take 2 tablets twice a day by oral route. 0 04/19/2020 Suspended ondansetron (ZOF RAN) 4 mg tablet Take by mouth every 8 hours as needed for nausea/vomiting. Active oxyCODONE (1 source) Opioid Agonist Start: 10-07-2022 oxyCODONE (ROXICODONE) immediate release tablet 5 mg propranolol hydrochloride 20 mg oral tablet (9 sources) beta-Adrenergic Betsy Start: 09-29-2024 take 1 tablet by mouth three times daily Propranolol 20 mg tablet Active 20 MG PO Three times daily 270 90 September 29, 2024 9:55am Start: 02-16-2024 End: 09-29-2024 take 1 tablet by mouth three times daily Propranolol 20 mg tablet Discontinued 0 .ROUTE .COMPLEX 270 July 27, 2024 10:43am September 29, 2024 9:55am TAKE 1 TABLET BY MOUTH THREE TIMES A DAY Start: 10-21-2023 End: 02-16-2024 take 1 tablet by mouth three times daily Propranolol 20 mg tablet Discontinued 20 MG PO Three times daily October 21, 2023 12:00am February 16, 2024 1:59pm take 1 tablet by faye th three times daily Propranolol HCl 20 MG TAKE 1 TABLET BY MOUTH THREE TIMES A DAY for 90 Active take 1 tablet by faye th every twenty-four hours Propranolol HCl 20 MG 1 tablet Orally Once a day Active Semaglutide (Weight Loss) (1 source) Start: 09-29-2024 Semaglutide (W eight Loss) (Theo) 0.25 mg/0.5 mL pen injector Active 0.25 MG SUBCUT every week 2 September 29, 2024 12:00am administer weeks 1 through 4 of therapy 1000 ml sodium chloride 9 mg /ml injection (3 sources) Start: 10-07-2022 IntraVENous, a [...] 1 ml testosterone cypionate 200 mg/ml injection (2 sources) Androgen Start: 09-29-2024 Testosterone Cypionate (Depo-Testosterone) 200 mg/mL oil Active 200 MG IM EVERY 4 WEEKS September 29, 2024 12:00am testosterone cyp ionate (DEPO-TESTOSTERONE) 200 MG/ML injection Inject 200 mg into the muscle once a week. 1/2 ml weekly 0 Active traZODone hydrochloride 150 mg oral tablet (5 sources) Serotonin Reuptake Inhibitor Start: 09-29-2024 take 1 tablet by mouth once daily at bedtime Trazodone 150 mg tablet Active 150 MG PO Daily at bedtime September 29, 2024 12:00am take 1 tablet by faye th once daily at bedtime traZODone (DESYREL) 150 mg tablet Take 1 50 mg by mouth daily at bedtime. Active tropicamide 10 mg/ml ophthalmic solution (2 sources) Anticholinergic Start: 03-01-2024 End: 03-01-2024 tropicamide 1 % 1 Drop (MYDRIACYL) Start: 03-01-2024 End: 03-01-2024 1 Drop, BOTH EYES, DIRECT ED, Starting on Thu03/01/24 at 0930, Until Thu03/01/24 at 2129, Administer for dilation vitamin b12 1 mg oral tablet (6 sources) Vitamin B12 cyanocobalamin ( VITAMIN B-12) 1,000 mcg tab Active Vitamin B12 Acti ve Completed/Discontinued Medications Medication Drug Class(es) Dates Sig [...] 10-07-2022 acetaminophen (TYLENOL) tabl et 1,000 mg carvedilol 25 mg oral tablet (1 source) [...] at 1545 Antimicrobial Indications: Surgical Prophylaxis Post-op 1 ml dexamethasone phosphate 10 mg/ml injection [...] End: 10-07-2022 gabapentin (NEURONTIN) tablet 900 mg mirtazapine 7.5 mg oral tablet (1 source) Start: 04-29-2020 End: 09-24-2022 mirtazapine (REMERON) 7.5 MG tablet 72 hr scopolamine 0.0139 mg/hr transdermal system (1 source) Anticholinergic Start: 10-07-2022 End: 10-07-2022 scopolamine (TRANSDERM-SCOP) transdermal patch 1 patch triamcinolone acetonide 1 mg/ml topical cream (2 sources) Corticosteroid triamcinolone (KENALOG) 0.1 % cream Apply topically 2 times daily Apply topically 2 times daily. 0 Suspended ZOLMitriptan 2.5 mg oral tablet (4 sources) Serotonin-1b and Serotonin-1d Receptor Agonist Start: 04-20-2020 take 1 tablet by mouth once daily as needed ZOLMitriptan (ZOMIG) 2.5 MG tablet zolmitriptan 2.5 mg tablet TAKE 1 TABLET BY MOUTH EVERY DAY NEEDED 0 04/20/2020 Suspended take 1 tablet by faye th every two hours as needed, then take 4 tablets by mouth once daily as needed ZOLMitriptan (ZOMIG) 2.5 mg tablet Take 2.5 mg by mouth as needed. May repeat dose after 2 hours if needed. Maximum daily dose is 10 mg per day. Active zolpidem tartrate 5 mg oral tablet (1 source) gamma-Aminobutyric Acid-ergic Agonist Start: 11-20-2023 End: 09-29-2024 take 1 tablet by mouth once daily at bedtime Zolpidem 5 mg tablet Discontinued 5 MG PO Daily at bedtime 07 13November 20, 2023 12:00am September 29, 2024 9:35am may repeat once if no response in 30-60 minutes Problems Active Problems Problem Classification Problem Date Documented Date Episodic/Chronic Allergic reactions (5 sources) Acute eczema; Translations: [Dermatitis, unspecified] Episodic Anxiety disorders (4 sources) Anxiety disorder; Translations: [Anxiety disorder, unspecified] Chronic Chronic kidney disease (4 sources) Chronic kidney disease stage 3; Translations: [Chronic kidney disease, stage III (moderate)] Onset: 03-07-2013 Chronic Delirium, dementia, and amnestic and other cognitive disorders (9 sources) Postconcussion syndrome; Translations: [Postconcussional syndrome] Onset: 07-21-2018 Chronic Essential hypertension (17 sources) Hypertensive disorder; Translations: [Essential (primary) hypertension] Onset: 02-25-2013 Chronic Headache; including migraine (2 sources) Chronic post-traumatic headache; Translations: [Chronic post-traumatic headache, not intractable] Onset: 07-21-2018 Chronic Hypertension with complications and secondary hypertension (13 sources) Chronic kidney disease due to hypertension; Translations: [Hypertensive chronic kidney disease with stage 1 through stage 4 chronic kidney disease, or unspecified chronic kidney disease] Onset: 02-25-2013 09-17-2023 Chronic Intracranial injury (4 sources) Concussion with less than 1 hour loss of consciousness; Translations: [Concussion with loss of consciousness of 30 minutes or less, subsequent encounter] Onset: 08-09-2018 Episodic Miscellaneous mental health disorders (2 sources) Acute insomnia; Translations: [Adjustment insomnia] Episodic Mood disorders (5 sources) Recurrent major depression; Translations: [Major depressive disorder, recurrent, unspecified] 09-18-2023 Chronic Nutritional deficiencies (1 source) Vitamin D [...] externa] Onset: 04-16-2016 Chronic Other endocrine disorders (3 sources) Disorder of pituitary gland; Translations: [Disorder [...] conditions (not mental disorders or infectious disease) (17 sources) Decreased testosterone level ; Translations: [Other specified abnormal findings of blood chemistry] Onset: 04-01-2022 Episodic Comment on above: PSA: 0.19 - 09/2023 Residual codes; unclassified (11 sources) Obstructive sleep apnea syndrome; Translations: [Obstructive sleep apnea (adult) (pediatric)] Onset: 02-25-2013 09-24-2022 Chronic Residual codes; unclassified (2 sources) Obstructive sleep apnea (adult) (pediatric); Translations: [Obstructive sleep apnea (adult)(pediatric)] Chronic Residual codes; unclassified (1 source) Insomnia; Translations: [Insomnia, unspecified] 09-21-2023 Episodic Residual codes; unclassified (1 source) Insomnia, unspecified; Translations: [Insomnia, unspecified] 09-29-2024 Episodic Spondylosis; intervertebral disc disorders; other back problems (6 sources) Lumbar spondylosis; Translations: [Spondylosis without myelopathy or radiculopathy, lumbar region] 09-17-2023 Chronic Unclassified (3 sources) SUMMARY Onset: 02-25-2013 Viral infection (5 sources) [...] ear] Onset: 05-16-2014 Episodic Residual codes; unclassified (3 sources) Tobacco user; Translations: [Tobacco use] Onset: 02-26-2013 Episodic Spondylosis; intervertebral disc disorders; other back problems (2 sources) Low back pain; Translations: [Low back pain, unspecified] Onset: 12-27-2015 Episodic Results Test Name Value Interpretation Reference Range Facility Employee Health Noteon 09-22 Employee Health Note [id number]#[id number] 0[facility] Coding Summaryon 09-20-2024 Coding Summary HTMLBase 64 NyhautepWJo9xGa+PGhlYW Q+YT7CMBHyC40qjTXrhR6e P4TWAEsXUpyoXJTRIXxOQy NimjYwRW7suDWxYZUz IC8+KG7gAUAqZomymYPcf9 Q6vLJ8R78hkt3lTRvkzPA4 DUEgUpAhhjtvs9xosTm0YM cuNmluOyBt IUXlaQ22IEU9vT83Wq58iD YrpSOuz6hfaSx0ZqLwSKXh UOO0cZkhKSmnl7JeFNVjH1 7uzMJkd6D9 UANtsHnvzDMjZdJfcIH2eI 9bMCeodeytx0bvjuftShq3 ql36wHJun5H0dXU0Z5Ugwl L0XQIvzOSl VbsvxBOBgV0mgnucl3egug bqPbQjYGSmRTx9EMu9KCLc eBxeFpGvBC20XJN3QUNmwu PmF4GoPFIk kTpvBsQ0g9K6In3NA5HOXp bqL4GLYAFRTNblaES+PC90 vs00D5TiZlszTny8VHWzVE S5nZX9nH9r BEZxYBlvs0D7oRH6I4Nhix Wedd7xn1raLLQsNEjcF23j tOSfc0L8RYTrbXZ6ACFloH vaTdVktO91 Oyc+HOEfiXqgq1OvNgcrd1 ovt1fapAx3OayiYEPvywZo sEitSES0x9BbWd6jJDIioS K8uCD2uQ5l NlHdFlZ5NLthZ870VzXceT DkPyknO71rJ2BfsTY+PHRy Jwn1CMVidJjcTY1vT0MlVB RpbmctbGVm cTwuDM9oQTEsqzluNXCtgU 9kBIScD5h6CuDiKcZ1KIvu H6YpEFGnvktjRv94xJ4mIa XnFrD3NDqx C1GwtbK0JARcnXHjOBouJQ S9J11kb3H4LWPaATRvXBI5 aBT5yI0mvAtiraezfOQslR sgdmVydGlj ASswFIxqP637OLSywNsxMp NvZGluZyBEYXRlOiAgMDMv MTEvMjAyNTwvdGQ+PHRkIH C8cEveLWOh mFVdBDlrMj5zgAlajAjpBX 7kDBXmnkqsJYAgwL7qHDTc cOMcpHbtTH7cBERhdvkax3 97JeWqHMJ5 VBTciMNtS6RgnA4zEdZtPP BgEDLmW9WqnHWmTHbnZ588 EAhjTpZ6BGCieuUbB4FfLH FsaWduOiB0 s5W7Wl4Dc0LoeqejG0YwnQ RrPhVrOipnCEq1F4JrGkbu dHI+ST11QTIgKL58ZGo2KM H0tCvtTZye ALJeV3IbmH1iVsSyTKHmYB RkOyc+PHRhYmxlIHdpZHRo YKbnYFCqInUgmLuwWR3kDe 9yZGVyLWNv mKvhgBOoUfOhf7yiXZUsRX xwSR2huFtdF9BcwUM7TZSi d6z0Ut43Q84mU7ZrmNP+PG KbeEP8aKC5 uB5xFjUtZhD7CExiF672Sq UpaWVcYmtca9moq1hqwCm8 MqR4FEGmbeIodInqABG1r4 FpYm54E14d IHdpZHRoPSIxNSUiIHZhbG ffoy6tjC6wCv4+PGNvbCB3 qJG3uY8hByWbFrU8KYozB7 49InRvcCIv Uhdqe7pno9oueFj4KdYvIY PydwYrsJjlVPU5h8MfFz39 F6QxeLors3YsYav9bn65gZ Ovx1R7mBJ2 T6TyBASvhmltwMZxoAhyIY 4yOESoxdodVIKemB3kUJSi M8x8HxVkEcP2RHwyV3Mnfb M7JFLzqXQp EFBsdIGAbH3cmhyzi3itcz mfScVnLRWfSQs1ZYt9XJRl jQftGmIyNES0BhF0IZZ1cG UumM5etBjf ljbveX0uEvh+VEY9kLFrtY NXRO2oJiwssVX+PHRkIHN0 pOkdUWysFMBdhF3bTOHiB5 k2NzPaCfA4 THhcX1VaplB0NOEmqEBgEO WljZWSvJ5euqldu4xoaggg NrGjXDWaUPc6UYw0ICNsiK duOiBsZWZ0 DmW0YFL7qDYsuI2yhSpqxh qmcG3tQpg+QmlydGggRGF0 INe0G5WwIul4SRGkiJfrHW 0ncGFkZGlu Pv6rlOjxnClbAB6kYQGmht cmk251EsIcy8blIIAikONu HDfjQJA9S83da9N4SWTdRB HqRWD9vQU3 sZ2vcXpfmkygaDZewJdbga MamRsvNKatFYrcC685WIJi yLytHuJpDRs0N5EkZla1QJ EsbFcdBW2e vTMrNMlwHe7kwBjqyCveUQ 3pOKCavlpfv572XgWdx3yw WQWriLXnCHadOUL4Q78ue8 G0XLQjWGVv WNH2lRI6uG7gmXzcnrbxmT VmdDsgdmVydGljYWwtYWxp E291EKTemPoyZjZwmLc2Q5 VvErb8HDPn wKplDV8bwQDpZXyrOn9azF qgcYjnKI4dSYMczjzqi327 WjSiy4zyOGMmdLVlCSncWH I5F40vn0M3 FKMiWNYaRPA4mAF0lP9reT lnbjogbGVmdDsgdmVydGlj JStfOIceD560YIMnpTgwGy BhdGllbnQg ZBlgTLf5Q2TfSznglMP+PC 91CWVpRN04zMUcdWBco3ov cLv1CdKzFGIcTJE1uLwkOL eph6UsJMEx O48waXZcz0Y0KNCllUegrU SkIqCfdZH6zO0kHWysnxzf y5vijfmfIbfyf2thyn38qM 58G73xZTkz ZHRoPSIzMCUiIHZhbGlnbj 3bgF7cAo3+PPWrsJX3zXS9 bX2zZIPfExI6UZtaJ786Qv RvcCIvPjxj e5zju7vitCj7DuX3KDUych RrvZgeMFV3i9QrGo63H37m IHdpZHRoPSIyMCUiIHZhbG ixbh6kuE7q Ii8+BDLhwTL8aAJ6kK5bZy UwKyY3QDjpM347IcWauVIc BdheL92qJ0PbmMV+PHRyPj h4MUAqfZiz RA8vcSOxUPtuDv9eHVM4Uo UiZyQeWTauG4YaTLPghnbo cugpgDP8MGFgYOIguR83Nm 9udDogMTBw vZASgJ9myaqba5fbwlsmEg QvDAAbOIm4HPd5JYLjhCnw CjBbKTH0AsG5POV9yZIwvC 1hbGlnbjog iX7kR9GvCXLdnjqgZj46nS 4vTnSjGzB2XBpnSqj+R0VP QxqZJTPYFY9AJNVnZ7LGPP QYLW61MX12 jAQnr1C1hAS1X4BtUUKtjm iunsnvbZM1OUVqYGDtrG00 mNTjFLaaPh9yp6E3z598FB GcTOTmiS40 Xf0odUytIZJjeHWEwL2orv qhu5sxdspuJvWjPBUjRMg7 EDd6GQZsoKyfNgRxYDO9Ah X3XTA1jPVy uY0rtJypwhutlX6hYxh+MD BkRlAeCTo1AKdcvMB+PHRk EYC1bOodIHgqCBKaaK6sEF QhC4m0TeLk ViN7JJlwH7YuPEPnqjueYt 13wB9fRjNfDvW6HMqkJ6Lm avW3COTtxDTiCOokVPU8L0 1am3V7IWYr NXBaWPL9tXQ8qH5yeHgqls ogbGVmdDsgdmVydGljYWwt JEdtV032EOXpkRkdKpL6KV ufDLJgHW51 ZA80nMEoy5Q1jHF0G9XtHV TezqagkoxiwNU6NEIuLBQt oB26yZLtTWlsYq1nc6U3z8 06IDAuMDUw vF07Ah9lsAwsNTAhzROZsY 7vwhmzc5lvhbiaDyQvKXQq ZQj3ECh3ONKlhRfaWtIdCT G6NwO0NFP4 yJDjsP8ptFhjjmifpA2aEv c+TUFMRTwvdGQ+PHRkIHN0 bCwaSSdiGBJdjM1wMPKbF3 i2MtAfUiI7 WKcpR4HdJXLxatmqLb39wO 4qTuUgJzT5WBwgB9AaebD7 HCSmtUCaHOjdBQY5L37ls6 H5MKYjVPZu XYD4zTP1rN6bhHvgzbaopI VmdDsgdmVydGljYWwtYWxp O726YABonBwsPh7EPI11ZU 84N8VmJrgg dGFibGU+PHRhYmxlIHdpZH FmKQvaUPWqOdBzgOmnLK3w Js8eIEJeSRMxlFhnvWPpXk Jmw8bfNDGm KNexMT7wyFrjE8GrqQA9IP Oji9u5Vi59H92wG8VzePK+ VZNpgZZ3pMN1qD2mVjOnQq D0TGqkX474 IrXbvCFhFbwnv4gkt9ypoM e4CdHnMOHivkGwgVwtTDX1 m7DgBg29B70pNOojPHYkHU IyMCUiIHZh kSwpon3wcG4ySi2+PGNvbC P3cGN3xY0jUwKaAzY9SIev A906FzHpdTWtOrgwS89eB3 JvdXA+PHRy Mew9TAMkoMzgOZ0abORkAO btAl7fXHS4WgFqPhFgSJvf T7EoEBKdcostaykudHG9TU VuVZXaeA71 Iq3vmVykTh3gXXHeGIC1AY VetXEqA7AadA6nYbMyFPQs DTEeM2UmzGVtEUlfU113LU jlEmK7OTTz jzMqJ9AxKQWnbHesQdI9w0 A0Ll1EoAwwvBJoLY7jKiGh AQm4X0TeZsj2TTAgrIthON 0ncGFkZGlu Yh5thDhjmRijVW0nKKLcpi phg018PgCmk5pzORQknQQd EQwkALY5O17kr4I1BWGdUW DpGTH6hFZ7 hR2aoAmotwcubBNixWslfh MfhGysDOfbXPskB035YXIq cGmkXlWEYwn8U3QmZyi2CT YlgXsyBH6a eIYeCMgnIq3pbFnszZbaOX 0xNORvdonww030MnJzq4bi PEAzvZXmOIhnLAM0S58vt9 E1RFSiXCYb XEI7xTR9dI6bcWayvdxbhV VmdDsgdmVydGljYWwtYWxp X727PYDheYkeJq1LVan9L9 WfZyk7GBZq kTliQD6mrOVeRZmvWi7uwG zcsJdxFD8pKORkjzgmn278 DaHil0hlAZNojZSxPPnwLV M5S37rn1O4 QYShWELwJQY9iFH6tD9zyQ lnbjogbGVmdDsgdmVydGlj XKypUJtkV741LSPnhBsdRi BheWVyOjwv dGQ+HC17ad35D2JnWempOb l0LHNtDPK5dXH2nG8vHAYp YJzmo5S0pKK1B7WngrUzdo 7tc5zyADMk ZTo (more content not included)... [facility] Coding Summaryon 09-12-2024 Coding Summary HTMLBase 64 LgfllyroKAc9cSf+PGhlYW Q+SF1LNMPwF03vkBBzfT4u S2IILReAGnehEWRWZJbQCe NsiuDcMZ8mlWLhTAEf IC8+QX9wIMCjOpazlPEik3 E9mOI9A20byp6lAKhcuAX4 PBFvIoUnalxxp1muxQs8DT cuNmluOyBt PJCtxN81GDF4aX60Hj11sL YlqKBwj0cpaUg3IlXwSPKp JXL1oJmaNZrkc0AmMTAlX1 0hdAEim7C6 TANqzHectGHzDkMwmVF5uC 2dBFayasnai1hnrvmbNzv0 ya48qNJjd1U4tXL6X0Lhbn A0JBVcgJXq TiydfYIRsC9ftcfoz9nxsg wlJyZqUMKeWWa8RNg0HNYl lNakMcEvER21SPC2WJDbgp ZsL8XhBQVp rWqfYpA7k4M9Ao3CF9KPSc oaA2PULIUKTHfmmKC+PC90 gp12B6OnGypbDmx7QQXrCE K0oKO0vZ1l GYCoHUftp2E4gMF8C7Zrft Neby7mg6rfSCXkBBpdR14n iJEdq8O3IKErrQX1HSUjrZ sqXhIppY61 Oyc+LQLzaYqen6EvAtjpi2 thq6utuTc3MmxvBFEiiiOt pZthUYD3l6QxYk4yHTMkeO X8hMN1qB1v JnKsTjX8WBxkT163YnJerT RoCtsvG90tN7OivDE+PHRy Ozq0KEStiDfiCT6cY5ZfPI RpbmctbGVm pEzrZA6aTQQmyeqhGTVsvU 1hWJLlJ1j5RiMdUvI0TGjt I6PhOLNumlceLq89bI5dBa ElRzO4TFeq T8JrnyI6CSCyoDExKXfqOX L9L34tl7A7ELQmNXRqVBM7 cCR6eT9jpVstdudfwCDhlU sgdmVydGlj WAszBJdrZ908HCXmaXsuOs NvZGluZyBEYXRlOiAgMDMv MDMvMjAyNTwvdGQ+PHRkIH S0aOttFEIs oKLgNHlqQk3coAqcoEhqBH 1iQDMcylqpBUEnpC5oJKSz qPTxqLxlBK3yUWKdstwep7 99WuHlWNQ5 OBUsnKLxH8QpbS5wZbWdQM WhTNZdZ8LjuEMuTIqfS621 EIedVeS4HFAzlhDjS7PbJQ FsaWduOiB0 x2L7Ti9Uh4QbqvukS2AotM HyYwGfIovuBTz6I0XyHevg dHI+NP26SGYyPF62RIe1OY V0pGxuNQbs FNUuI0HpwZ3iIiRnHXGpSL RkOyc+PHRhYmxlIHdpZHRo WVcrBHZjOxCorZguHW2kFq 9yZGVyLWNv zIlnlQHxUeBjr6wpREVfFF luSP7bhLshZ4GzbGT4NYWd x8i0Wi16L08fO2VuiZA+PG UdtHN7fXG9 kN1pNfCzRfC1YCviJ896Rd UznUFrRwpgc9loc2nkyMy4 EuR6YWJxyeLizOjpHBZ2s7 GyOp43W94c IHdpZHRoPSIxNSUiIHZhbG ovyd9agI4tZx2+PGNvbCB3 wTI9hH5vUpSjLaI3FZrrH7 49InRvcCIv Nfaov0vzs9okxCq8VwHoLC DugsMbwLndXVM9b6UfFo82 U6GhiRtxx1FmSgq7pk22nX Mxc2X0vKH9 A6AlQSIysqxwjNBokGxbQB 6eNPGuoslwFQKwkP2lUOOb E0y1NgDuHkU8MRlzK6Cmch X8MWFxoXSf YCCxyNWUkQ2tzxpop1llau dvDpRbGWFqBJa2ZDq5AXAi mDipNiMsLIA6HgK8UJL7eK HxwV7ahWfc qclmoN0jDhf+CNE1uHJeuE WJBZ8oGfnzcZM+PHRkIHN0 lSdhSYrpAVWghN7xRJAxV4 d7QxJvTxL2 SRrmO4WjivF9QITqdHVgQT DbfDQBxF9zcmnvk6fxlclu SuLxEVPwUKs2ALw1YIPkqN duOiBsZWZ0 UuC6JWX7aEWfhJ1xdLtrgo jfdO3cVwn+QmlydGggRGF0 NBo5Q1UrRik6GBCjoLwmTW 0ncGFkZGlu Du9ebVdztFiuIP9aUKGucu dta517TtRox2vpEJDwdRJc XGrrZLL0S38mm3Q9MINhVA VnHLW6uZL3 uA6ruGgqwcgetQNzqGkilx FxgBclLMcuFZijM657RVDm cTkeTyAyQUh4H5AhWte0NA OjuYlmYX3w jWStVMoqVk5fiEudkGgaBP 1zRTSjzcumx813HqXjs9wx ZCKawRWkHFipABO2L43mj5 B5WPNiLASg YIY2kLL6wW7gcCyxtntsoX VmdDsgdmVydGljYWwtYWxp U726PAElsSzmCmUqtRh4D5 DcDot5ZJEd eGonMB6biMJbNKgpBk7gvY hihHqkNE9dBLDapgxqh321 IgTop4ylYCCcrNMdZBkfMW Q3G09br2E8 KRUxMQZiZTW1zKQ5rT9xuC lnbjogbGVmdDsgdmVydGlj MKvcTNtrI171JMWvvRrfDw BhdGllbnQg KGxdJGc5N8WoCchalEM+PC 40NKBdJH84mPUmgKOde2tp aFg4ChAhJURoTDY4eBsdRX vlp5GgFDMw G59xpMSea7X0REXeuTkohD WiZbFerQP6gA6jRKdyjgtt f0xbcmqrCssdz8jxii84eD 59A64gSQiu ZHRoPSIzMCUiIHZhbGlnbj 0znS7jMu9+ILCreUI2mMN6 yB5bXSPmOmP2TIzkI208Qg RvcCIvPjxj m9krc5vdsRo5YpZ0CSKcco DaeWzbGPC5v8VwLk83Z50m IHdpZHRoPSIyMCUiIHZhbG wiel4rcN3v Ii8+HJZnyCS0sGP1gI3fYs TtIlD7PJxcH721BcNqcJFk AspgC56jP9JfaFT+PHRyPj j7WXIrnPfl ZR1fbCErQDgsHc5nKHJ0Cg CtJxPnMRnfB5CvTWEcpdjr zgfprZD4YDGuULLylU48Xi 9udDogMTBw yFZBeI8vxmycl7qujxocDs RfNEQzCAj8PXz6JKTiiZdp RcKmVXE6CmA3LDZ5yBGptI 1hbGlnbjog nD0wT3BoBSFxtqzgVq55xM 5aIqIsGjC7FWflDhp+R0VP KbnVVMGEPN3YCBPtI7PAAE IMLW13IF48 cZUrp9H1fPR6A8HxVBUwgy okylhfeJX1CSQhSLAivS87 gCKpOJyyQu6gn8N5x522QB QkFOTghR35 Zy0veTosKJYglLGJgN8hxz ekw1krxfzbRmShAIDzVRh6 QOd3DYHooPjfNtOdFFQ2Cz K9MXQ7mNDq mD9sfXuwzsnanV5sJvw+MD UvJxSxZFq8WWtnuTH+PHRk MUM1gUgyHJynMGDiiS1tOA RuC8m5NmNz OdR7BKlnR8HxUZAainejKr 50sN8aRmNyZdW3HIloY5Iq gkS2KKImnDDlPQsbVJA6E4 3fk8E9CRGe ZJWsZYR4hDE2rE5yvGqqzt ogbGVmdDsgdmVydGljYWwt ZEqxW317XQIdaIzuZkK6HB frWAHqTY57 RX97oPZbe6D2jSD3E9EmZN YqzbkjimlxzKK4DWBpRVSt sA87qZFoGIxxUi0ph6P9q4 06IDAuMDUw cP19Rd2nzZrpVIFjzGYAtA 4fmipwi1fjfnxhVoUkXXVq WYs0ZKt5WZYnqKiyWxIbEE E6KsI3CYO6 hBKhmN9upQljjfdqkC5lLh c+TUFMRTwvdGQ+PHRkIHN0 qIfbILvzOCGaaI5gGGXgX3 e5XpSeWmG1 XPcvR2GsKPRdmsrzMn66tB 9qTvQmQvZ6DCquW9FlqjQ2 RPEicGFbHXrgNPL3A56rm8 H7VGTtOJAs JEX5cNA0pK8ckDaeujefgI VmdDsgdmVydGljYWwtYWxp G662YIWhdLhiXt5MWO95JI 67N3NxZoao dGFibGU+PHRhYmxlIHdpZH HxNWzaPAVqKrIuySbgIN0b Hk4vHPJtUCKpsNowiSBqZk Sgq2dsTCRi ICunFU5fuSrhC8JafAH7AM Swy6c7Vr63P25xH4VzyCN+ OTJpzZC3dRF8qW6fNoAqCk R7YNicK717 TjIgbYDxVlqbr4ywz9lblR b4LfVhKTUnvfNziXmlRQF9 r1WbXw91Z35gRJjpJYRxAV IyMCUiIHZh lJowyy1czR4vSt4+PGNvbC H5fRC1zN5rTpWzZtW5NJqs P254TyHdeLCwMrkoA96oZ2 JvdXA+PHRy Fhr8UVIfzHzaZR2ulLQzPS ggLd9fGLR0RkSuJrDpETbx K3MwIMKapnfcbeuawPY0KC CxTJXdlW12 Pd4anAdlEr5tDCOzLRV3XH TbmTDxF2PuzJ7rSdRcXBVe KCVsU9YjjAQsVIewF191IQ imUjH2MMHx nyHjC6TuUYEpsMldPxU2c2 G8Wp6ZeYalbAOaOX3eQcEq NXk4K4VeJyb8IVWnjGnfNF 0ncGFkZGlu Jp9doJisnTxnET4dLPRwie gbi941JbSzf9iiYDIdfMGa NPpmGYW2A49vz8A7TSIpLX JkKTF5mZM9 lP0cpBdvpaqupRIlrIvwmm UkdTdrNHcdOEfaF473LYQr pOpmEtREWro3Z4JfKjx1TM AduOhjMS6f vJKjJVcnXo7ztZdhpFueFV 8qKLCtukyqi425AjBmp4rz EUPptTGaCHjiQMX4F86fu9 E0BSDzHRBh NKF7wFN6eQ6deGsapuyebO VmdDsgdmVydGljYWwtYWxp M590OOZapAtvOh4THzm2W9 PoBua2WOAt lMpgKL6hwAJhCAtxLs9keZ jvsDbcMH3gEZEvczfpz876 GdGqq2cpEIMavIIrOTwhNB F5W28jo2O9 DFNuHGDbUSF8uFZ7wC3kyS lnbjogbGVmdDsgdmVydGlj FXxmIJcsX110JBSpfLjgSg BheWVyOjwv dGQ+ST74io55B2OdFwtwVe n6CVOhUYK6gGQ9xE5iCLCi XVxle4X5kSW1H4UzemExxk 7zf1xrKWZw ZTo (more content not included)... [facility] Refillon 08-06-2024 Refill [id number] Spencer Yeboah as 1970 M Date Provider Department Center 08/06/2024 MAURY WILLIS PHYS MED Medical Pavi No family history on file Reason for Visit and Comments: Med Refill [[id number]] [facility] Abstracton 06-22-2024 Abstract [id number] Spencer Yeboah as 1970 M Date Provider Department Center 06/22/2024 LIEN ESPAÑA PHYS MED Medical Pavi No family history on file [facility] Coding Summaryon 05-30-2024 Coding Summary HTMLBase 64 MkibvctxGVt8rKs+PGhlYW Q+SX0NBEEyM58vxDOzaS9i Q2MVOFuCJdqqWUGWMAsBEk QgfsRnGN1clXVzYSXt IC8+IF2zVOPtFxqhfLJel3 F3xNM5G03wfs9fUJqcdGO3 SYLfRrZkgldhp4anqYl8DY cuNmluOyBt TJKorT86NIB4uW11Fa27aG HcfMOhy4dzmLr9FpPiNURr JVP1yRawLKunv4LmJQSkP7 3stEFzt6X3 KLNheGdgmKNnJwYcbAP9cZ 4lEGeuakica1gsotysGqg9 rn51rYPej9T4bBB3O4Soko N1PTJcnREt VngqzEQMvF5byrwxu1lakr pbHeRnPYXnDCi0MSm2LXTt lGolZzLeWB90CBA5KKCsej KsV4SmAIIn tEoySjB9j8F5Nk3RG6WJHm tbU9VDVJMZZDloeOC+PC90 pg80N1TdGvqvRvk4OJKvRR A0pMH5sR9e CGWbTRaao5F2vJJ1D3Fcyx Vqdf8ck8hkVWNsHYveP96p tUKnn8J7IHKikFC6DFGljY ktIoFaaP86 Oyc+GMCdtXgyb9PkFaglj0 loc2otvVn9BvrkHKCpmyWu rNjpUKB4f2XgQw6iKBFreX V5fLD7lT7h OwRpGnU1KIzkI690McBboE NsAroiR87vB9OxvKW+PHRy Pai5KCYzaTzbWO3bZ7CqNJ RpbmctbGVm xPsxAH6lKTUenjraIFDdlU 1uADVgB8d8RnIdGzU0ESgo V8SxJMMtvviwLg28kP0dSi MuFiO6EDjo D1ZmseA0MBVltLPxSPqqYY A0O10ia1Z6AVUeOYExQDG7 fDP9mQ8koIxfmbwwmTTasI sgdmVydGlj WUbzIJguP312EDVzeBgpXd NvZGluZyBEYXRlOiAgMTEv MTgvMjAyNDwvdGQ+PHRkIH Y7eEpxLTXp iABiDGusTg5unSxrmRloLX 1lBPApjatnVPQkxQ3wHRYp rRAskLxjID6uHNIuwkjwm1 76FnTeAFX5 ODJllRTxL5KzlU3nLyHwMB RfYKIzM6YqeHRtSIuhF621 HFzvIlG4VZBqapYjA2QhWH FsaWduOiB0 i7Y9Oc1Rz0DhkvhpX0WszB VoMxZzVrzgPLi9G8LgCcye dHI+EI93GZKbOZ38SJk7YT A8wOowBZqk FIUtZ7BgjG5lZaAlVRRpBO RkOyc+PHRhYmxlIHdpZHRo PZfyFQOuHtJrlJpyLV7wJk 9yZGVyLWNv wVgqrPZnXcZqk2vxWADfNE saQW8gjOhyG6KaiAB1PJJe i1i5Nb07G38eE8GzxWH+PG KtsGW1ePT4 jM8vZwMkTbB4ZYtcC294Vb YvbSBnLftee5mld2mueNn7 EkP1DCQktfXjiNvqNCO0o8 OyAq24T41r IHdpZHRoPSIxNSUiIHZhbG qoen5jmX0oTx3+PGNvbCB3 eSG6lR4cKtAbMtB1DIqgF9 49InRvcCIv Dqkbk8zpl3mnoOf6KoFdSC YdtcXjgMsxWQI5f5IlQl96 U9HlsKzje4NlVqh0rt00sP Ibw1G4wMV4 T5FsNJVcerkpuDDezUwcRX 9aFRWivkllDCBgnP8iITTi Z4k1YhIzUcE8WUnoU0Mgun M3FBXicTJp NCEgoNKEyL1thdkqu0ktni yjBnCfBJEbJKu7JYs1UMDt bKkkYpTfNXN1YvY6EVN0hL QlyB7saRzr adsppC1rKbw+IBA1aNPwsO YDAD8wXucfnBW+PHRkIHN0 nSobEFjvGIZwdZ2qNNCsM1 y2CfOmRpO4 GSbnX5SqjrN1PKWgwYNkRP VtzVYPsR2bvxvzl9hgmept GxXgQKDiEVa7RSm3RAEfcT duOiBsZWZ0 IzB8IXR3kGYimL8npIlgto sibY1bYnu+QmlydGggRGF0 NVv6T4KoMxs5MGKhdOnwAX 0ncGFkZGlu Uq8ytOhgoTluFI6nLKUxob omv071RtQpz4wdAZJlyQSs JTstIDY1C04as0U9PLZwTA PbQXH3gPY5 uO0kuAacduviaHXspIpard HfcAzgBMltYAphZ122SDCn fAfqJnWaCAf2B9UnUvc3YT KiaOyxGA3g rSRmYAtuTl3dsOoimPkcCR 6rVECdutcdr515AaIon9hx LCAwzONxPWnbPXI3A53dh3 N9BANwZADw ENC4cUS5hT9htHfurpqlkO VmdDsgdmVydGljYWwtYWxp Y744PFRrrKtjXdOdyAw2N9 DsZjn6RRLy hPjtGW0pxSXzGVfrFf8iqR pehQlzDQ6cZOQqbzwtp503 GwUjt3iuJHAfmFTcJOshGR C8B35lu1B1 NUWwMXKnBLL5rFR4jY1prQ lnbjogbGVmdDsgdmVydGlj YIypXIulT198FEIqzGdsNo BhdGllbnQg AKvtMMy3Q9PfPirvtVV+PC 97RFYhZF90oWVylTOmn9fh gBm9YnZoDUAiLVQ4eMzvHH rgr6InGNOo I51xfTKjj1M3QSSvpCsihT IyChSadDG3nM1wBKuentkd v3cskkbmAwljw3nwpw64oV 08G62xXWmm ZHRoPSIzMCUiIHZhbGlnbj 8jkK7iEs2+VTDinWM2tFL2 qO1pLDBfTsQ8FUncH455Ou RvcCIvPjxj h4xfc3xahDi8PfC3XRBopz KazQheEFM9w0KjPb21V78u IHdpZHRoPSIyMCUiIHZhbG skar7cqE6o Ii8+DXBtqEA6uQE1hC0fRq HlWvP9DQbrA086YnOifJKo SgpxG96vB1YmnBZ+PHRyPj z3MYPcrMxx MY2yxUTxJZmpQb3qSLS4Ff HzSnDsYHitK8UkCHNnivxo emsnzJA0HZAtJIOrtE64Uk 9udDogMTBw tIIOxS4pjfbbc8qzpcuhHb YpNQNhYEo6JFh9WCWbpIma JeXsLTL9CjA0WGV2tQTihG 1hbGlnbjog rP7rY4EhJJEpyxwiNi27fV 5aKkCmWrI0XWrrPdw+R0VP HjvPWXUPFK0RHSKoT3IPXT AJVP67PR60 pHDrn9W3rAH4I9NcVUDrso rdndwwzWF5IWCsKRSeuU01 hMVkVZicHb4ba8T8b648ZW JeIDVzjC70 Jz0ksPdcAICfiIUJbG0wqo fda2fixmqlJnUcAOIdGWq9 KDz4UCYlwYplPmCkXSG4Cu Z8DBR1nZVp aH9btSkklyvibV3uIwo+MD McJyVnGLk3LOniuMO+PHRk YTI2zGncVVdlJKAylJ9fGC RdR6h0EfBv OjU1NWptR7XcUEUnbknwFb 41wY6pNgEvJfF3HVpeQ7Aj dmA1TWLltQVcCDokRRJ1L2 3yc6X4TGLq QROyPFQ0bZB7vU8cmNakgy ogbGVmdDsgdmVydGljYWwt ZTpfT396AUPjoTyqJpF1UD nqLZAtMR68 XT50cEJbv7D7dYV9M2WqKK SicrgafhejqZE2GIHmKDJi tS69wRGxAQvkJm2ku2O4d8 06IDAuMDUw oF30Cd0dvYwmGSAiiPSAdV 4ggeofo2kxlfdgLyEgDZTe CKb9QLm9NRGbrIdcUgNeJC C2PxX9AKW3 pTPokN4alLkgflqgpF1yMg c+TUFMRTwvdGQ+PHRkIHN0 nTckHNpjCKImsH0pWCVbV9 c6RaWmGdP9 MKftH0ToDWGgkxsuXt24qM 0kBfFiKrB5JMzqA5FfnmC2 RHXghOKtHMdwQVE1G87yd2 V6BPIbATZt ODL8nQO0fJ6anBudwqbavG VmdDsgdmVydGljYWwtYWxp F956FKThsPraNj4SLF30JB 01B2SmPjif dGFibGU+PHRhYmxlIHdpZH TlKVruFICaGsNgeZbbGX1i Pe5fBDQdSVWduYslfEIoJp Zcc5roTPIa CWxyRU1zrDrnF9SdnTU5TG Reh4h8Dd39E02nE6XpwCP+ DTTesFG3pCF8jI2aPgJsCo P8LTtiM043 VwTqnJEdPslpd8rvb6dyzQ g7TzKnZAQqwyUiiRkaIFV2 p9LrZr59S27tNKjfOWOwPA IyMCUiIHZh gLztvo1nmZ9lVy8+PGNvbC Z2iTD8sW3sLpTfWnI9DHpx I531HvUccGNtKncoQ56mH0 JvdXA+PHRy Kmp8THMosXmtBO0edNDtWB eoCe4vFNY2GnUjCvHgNMiz N7KeMOJgljxrwtvffEN8KL SpZGNbmF42 Gl4gmVmzZt0cJLKbZPI4XH BcjRIyO7YidY2iLkDvILKq HTHhX5XurQHiEIuxZ231NH lcDxA9QXYk ywRbF9LmPAKaeEjuCcI2q2 A3Vo0WaTcqwPTuEF7qAwHx ILi5H7DaKiz8GRMhuRsxVO 0ncGFkZGlu Dq8vaQseoOnxBU9vXTRhnp qpo956VaHoj6soOXKydHUw MYfuBGA2H55cr4T5TBEbOL AaETC7pRK6 aY2ejKlrkbfdpBAlpAjqyv ZslWjcNSfqCAplU496OZWj gXnsNuFBZgq6B9XzNoj4PX KwdTsyXP9v jMKwIByoWk6vdAmvlQtyJQ 1lMJXavpqpu166TdTbl9ir EGHysOUfJJjpPYL8Q53yt7 Z6BGHvUCOu LCV7tYL9cH2pvQwjphqmdP VmdDsgdmVydGljYWwtYWxp X096KWZyhKilPb2JVdt8C5 FlLtw5GRWp yXjhZL1bxYPvTIexAv4yxS ciwNkjEI7oMIBmjzlyy063 EoIgf4caREMekBKhTImvBA C4O39ip8J8 DPHxKHDyNRH9cAO7cN6byI lnbjogbGVmdDsgdmVydGlj RIncXZouL115AKGprMjiDu BheWVyOjwv dGQ+SD62vj37C0HfLtycOb d4ESQqKES3qUJ7hC3jGVKb NPgjh3H1yIZ9U3QxxvVbie 4fr5hbEPMs ZTo (more content not included)... [facility] Coding Queryon 05-25-2024 Coding Query Can you please document for this patient's visit? Thanks. [Electronically Signed on: 05/26/2024 07:46 EST] ANDREW CRUZ [Verified on: 05/26/2024 07:46 EST] ANDREW CRUZ [Transcribed on: 05/25/2024 08:42 EST] [facility] ED Clinical Summaryon 2023 ED Clinical Summary [facility] ? Urgent Care [address] [place] [address] Clinical Summary PERSON INFORMATION Name: SARA YEBOAH Age: 53 Years Sex: MALE : 1970 MRN: Acct#: Visit Reason: Medical screening exam; [facility] F/U- RT KNEE INJURY, HEAD INJURY Arrival: 05/24/2024 15:43:59 Discharge: 05/24/2024 16:50:00 LOS: 000 01:07 Check In: 05/24/2024 15:43:59 Checkout: 05/24/2024 16:50:00 Address: [address] [place] [id number] PCP: Iron Olmos PROVIDER INFORMATION Provider Role Assigned Unassigned ANDREW CRUZ ED PA 05/24/2024 15:47:27 Farheen Kincaid MA ED Nurse 05/24/2024 16:50:01 05/24/2024 16:50:02 Farheen Kincaid MA ED Nurse 05/24/2024 16:50:05 VITALS INFORMATION Vital Sign Triage Latest Temperature Tympanic Temperature Temporal Artery Pulse Rate O2 Sat 98 % 98 % Respiratory Rate Blood Pressure /85 mmHg /85 mmHg MEDICAL INFORMATION Medications Given: Allergy Information: No known allergies PHYSICIAN DOCUMENTATION DISCHARGE INFORMATION: Discharge Disposition: Home Discharge Location: Home PATIENT EDUCATION INFORMATION Instructions: Head Injury, Adult Follow-Up: With: Address: When: [facility] [employer] Within 3 months Comments: Follow-up occupational health in approximately 3 months for reevaluation. If you are having any worsening issues or any other problems please contact us at any time. DIAGNOSIS: Concussion with loss of consciousness of 30 minutes or less, initial encounter; Major depressive disorder, single episode, mild; Panic disorder [episodic paroxysmal anxiety]; Postconcussional syndrome; Sprain of unspecified site of right knee, initial encounter; Tinnitus, bilateral; Unspecified injury of head, initial encounter Patient Understands: Yes - Patient/family/caregiv er verbalizes understanding of instructions given Comment: Normal [facility] ED Patient Summaryon 024 ED Patient Summary [facility] ? Urgent Care [address] [place], [place] [id number] PATIENT DISCHARGE INSTRUCTIONS Patient Information Name: SARA YEBOAH Age: 53 Years Date of : 1970 Reason For Visit: Medical screening exam; [facility] F/U- RT KNEE INJURY, HEAD INJURY Arrival Time: 05/24/2024 15:43:59 Primary Care Physician: Iron Olmos Attending Physician: Bo Shah PA-C Comment: Patient Education With: Address: When: [facility] Within 3 months Comments: Follow-up occupational health in approximately 3 months for reevaluation. If you are having any worsening issues or any other problems please contact us at any time. Head Injury, Adult There are many types of head injuries. Head injuries can be as minor as a small bump, or they can be a serious medical issue. More severe head injuries include: ? A jarring injury to the brain (concussion). ? A bruise (contusion) of the brain. This means there is bleeding in the brain that can cause swelling. ? A cracked skull (skull fracture). ? Bleeding in the brain that collects, clots, and forms a bump (hematoma). After a head injury, most problems occur within the first 24 hours, but side effects may occur up to 7?10 days after the injury. It is important to watch your condition for any changes. You may need to be observed in the emergency department or urgent care, or you may have to stay in the hospital. What are the causes? There are many causes of a head injury. Serious head injuries may be caused by car crashes, bicycle or motorcycle crashes, sports injuries, falls, or being struck by an object. What are the symptoms? Symptoms of a head injury include a contusion, bump, or bleeding at the site of the injury. Other physical symptoms may include: ? Headache. ? Nausea or vomiting. ? Dizziness. ? Blurred or double vision. ? Sensitivity to bright lights or loud noises. ? Feeling tired. ? Trouble waking up. ? Severe symptoms such as: ? Weakness or numbness on one side of the body. ? Slurred speech or swallowing problems. ? Loss of consciousness. ? Seizures. Mental symptoms may include: ? Irritability. ? Confusion and memory problems. ? Poor attention and concentration. ? Changes in eating or sleeping habits. ? Anxiety or depression. How is this diagnosed? This condition is diagnosed based on your symptoms and a physical exam. You may also have imaging tests done, such as a CT scan or an MRI. How is this treated? Treatment for this condition depends on the severity and type of injury you have. The main goal of treatment is to prevent complications and allow the brain time to heal. Mild head injury If you have a mild head injury, you may be sent home, and treatment may include: ? Observation. A responsible adult should stay with you for 24 hours after your injury and check on you often. ? Physical rest. ? Brain rest. ? Pain medicines. Severe head injury If you have a severe head injury, treatment may include: ? Close observation. You may have to stay in the hospital and have: ? Frequent physical exams. ? Frequent checks of how your brain and nervous system are working. ? Your blood pressure and oxygen levels checked. ? Medicines to relieve pain, prevent seizures, and decrease brain swelling. ? Airway protection and breathing support. This may include using a ventilator. ? Monitoring and managing swelling inside the brain. ? Brain surgery. Surgery may include: ? Removing a collection of blood or blood clots. ? Stopping the bleeding. ? Removing a part of the skull to make room for the brain to swell. Follow these instructions at home: Activity ? Rest. Avoid activities that are hard or tiring. ? Make sure you get enough sleep. ? Let your brain rest by limiting activities that take a lot of thought or attention, such as: ? Watching TV. ? Playing memory games and doing puzzles. ? Job-related work or homework. ? Working on the computer, using social media, and texting. ? Avoid activities that could cause another head injury, such as playing sports, until your health care provider approves. ? Ask your provider when it is safe for you to return to your regular activities, such as work or school. ? Ask your provider when you can drive, ride a bicycle, or use machinery. Your ability to react may be slower after a brain injury. Do not do these activities if you are dizzy. Lifestyle ? Do not drink alcohol until your provider approves. Do not use drugs. Alcohol and certain drugs may slow your recovery and can put you at risk of further injury. ? If it is hard to remember things, write them down. ? If you are easily distracted, try to do one thing at a time. ? Talk with family members or close friends when making important decisions. ? Tell your frie (more content not included)... Normal [facility] Urgent Care Note- Provideron 05-24-2024 Urgent Care Note- Provider Patient: SARA YEBOAH Age: 53 years Sex: MALE : 1970 Associated Diagnoses: Concussion with loss of consciousness of 30 minutes or less, initial encounter; Major depressive disorder, single episode, mild; Panic disorder [episodic paroxysmal anxiety]; Postconcussional syndrome; Sprain of unspecified site of right knee, initial encounter; Tinnitus, bilateral; Unspecified injury of head, initial encounter; Disorder of pituitary gland, unspecified Author: ANDREW CRUZ Subjective Occupational health Date of injury: 05/14/2018 Claim number: [id number] Employer: [employer] Diagnosis: Unspecified injury of head, sprain of unspecified site of right knee, postconcussional syndrome, concussion with loss of consciousness of 30 minutes or less, major depressive disorder single episode mild, panic disorder episodic paroxysmal anxiety, tinnitus bilateral, 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 Patient previously seen at [facility] occupational health clinic, transferring care over to [facility] at this time. Patient has a previous history of head injury while at work on 05/14/2018. Patient states that he was working when a david dropped a hook in chains that hit him on the top of the head causing him to have a head injury with loss of consciousness. Patient states that secondary to secondary to this he has suffered multiple neurological issues that he still dealing with at this time. Patient reports that from this injury subsequently had pituitary dysfunction from this head injury currently following with Dr. Salcedo a neuro ball maker in [place], who he sees once a year to reassess. Was previously on human growth hormone and testosterone secondary to the pituitary injury but states that he has not been taking this recently as he cannot find this medication anymore. States that he did go through withdrawals when he could not get this medication regularly and does not want to be on this at this time. Patient also states that he is currently following with Dr. Johnson at [facility] who is following him for his head injury and concussion, patient reports that he sees this physician approximately once a year for reevaluation. Indicates that intermittently he requires vestibular rehab which his physician prescribes for him secondary to balance issues from his head injury. States that he has gone through physical therapy which has helped with his ambulation but does indicate that this seems to intermittently get worse. States he does have trouble with ambulation on uneven surfaces such as in the grass or on gravel. Has had previous falls in the gravel secondary to his balance issues. States that initially after his head injury he did go through speech therapy and physical therapy to learn proper movements and speaking. States he has not had any need for physical therapy recently. Patient also reports that he was evaluated by a Dr. Enrique at the [facility] who is a neuro-emergency registrar as they were concerned that his vision was causing him issues with his balance, states that his neuro-emergency registrar stated that his vision is fine but it is a delay with visual cues reaching his brain secondary to his brain injury which is causing his balance issue. He continues to ambulate and try to work on his walking. Patient also reports that secondary to his head injury he still currently experiencing headaches intermittently, initially saw Dr. Verma his neurologist, prescribed him Aimovig for his headaches which seem to help significantly. This has decreased his headaches and now he states he is only having a headache approximately once a week. States for his breakthrough headaches he will use Zomig and Zofran which seems to shala his headaches. He states he is continue to help him significantly. Patient reports along with his headaches he is still currently experiencing tinnitus which she describes as ringing in his ears, states he has seen an educational manager, not currently in any active treatment for this. Patient also reports secondary to head injury he has continued with anxiety and depression, also previous history of outbursts. Taking propranolol to help with outburst which seems to help significantly states that he has been doing well, no significant outbursts or episodes of depression, does see a counselor once a month which she does feel it helps him out significantly. Denies any suicidal or homicidal ideation. Today he denies any significant new issues, states he has recently just finished vestibular rehab and states he does feel that this does help with his ambulation significantly. Significant other indicates that with long walks he does seem to be more off balance, not currently using a assistive device although she feels that he should use an assistive device when they are ambulating out further. She states that he has i (more content not included)... Normal [facility] [place] 024 Urgent Care Record [facility] ? Urgent Care [address] [place] [address] PATIENT DISCHARGE INSTRUCTIONS Patient Information Name: SARA YEBOAH Age: 53 Years Date of : 1970 Reason For Visit: Medical screening exam; [facility] F/U- RT KNEE INJURY, HEAD INJURY Arrival Time: 05/24/2024 15:43:59 Primary Care Physician: Iron Olmos Attending Physician: Bo Shah PA-C Comment: Visit Diagnosis: Diagnoses This Visit Concussion with loss of consciousness of 30 minutes or less, initial encounter (S06.0X1A) Major depressive disorder, single episode, mild (F32.0) Medical screening exam ([id number]) Panic disorder [episodic paroxysmal anxiety] (F41.0) Postconcussional syndrome (F07.81) Sprain of unspecified site of right knee, initial encounter (S83.91XA) Tinnitus, bilateral (H93.13) Unspecified injury of head, initial encounter (S09.90XA) If you received any narcotics, sedation, or any other medication that causes drowsiness for the next 24 hours, unless otherwise directed: ? Do not drive a car. ? Do not operate machinery such as power tools, lawn mowers, drills, sewing machines, or stoves ? Avoid alcoholic beverages and drugs for allergies, nerves, or sleep ? Do not make important personal or business decisions or sign any legal documents With: Address: When: [facility] Occupational Health Within 3 months Comments: Follow-up occupational health in approximately 3 months for reevaluation. If you are having any worsening issues or any other problems please contact us at any time. Medication Information: The exam and treatment you received today in the [facility] were for an urgent problem and are not intended as complete care. It is important for you to follow up with a doctor, nurse practitioner, or physician?s teacher's assistant for ongoing care. If your symptoms become worse or you do not improve as expected and you are unable to reach your usual health care provider, you should return to the Emergency Department, we are available 24 hours a day. For those patients who have received Radiology results, the interpretation of your X-ray as given to you by our Urgent Care physician is only a preliminary report. The Radiologist will review your films and if there is a change in the diagnosis you will be notified by phone. Please make sure you have provided a working phone number so we can reach you if necessary. In the event that you had a lab culture while you were a patient in the Urgent Care, you will be notified by phone if there is a need to change your antibiotic. Please make sure you have provided a working phone number so we can reach you if necessary. [facility] has provided you with a complete list of medications post discharge. Please inform your railway equipment operator/provider of your visit and for further instruction on these medications. Any specific questions regarding your chronic medications and dosages should be discussed with your primary care physician(s) and/or pharmacist. Additional medications on your home medication list not specifically addressed. Please contact the ordering physician if you have questions about these medications. amlodipine-benazepril (amlodipine-benazepril 10 mg-40 mg oral capsule) TAKE 1 CAPSULE BY MOUTH EVERY DAY. cholecalciferol (Vitamin D3 50 mcg (2000 intl units) oral tablet, chewable) 1 tab(s) Oral (given by mouth) every day. cloNIDine (cloNIDine 0.1 mg oral tablet) TAKE 1 TABLET BY MOUTH TWICE A DAY. cyanocobalamin (Vitamin B12 5000 mcg oral tablet, disintegrating) 1 tab(s) Oral (given by mouth) every day. erenumab (Aimovig SureClick Autoinjector 70 mg/mL subcutaneous solution) 70 Milligram Subcutaneous (under the skin) for 30 Days. hydrALAZINE (hydrALAZINE 25 mg oral tablet) TAKE 1 TABLET BY MOUTH 4 TIMES A DAY. propranolol (propranolol 20 mg oral tablet) TAKE 1 TABLET BY MOUTH THREE TIMES A DAY. testosterone (Depo-Testosterone 100 mg/mL intramuscular solution) 200 Milligram Intramuscular every other week. traZODone (traZODone 150 mg oral tablet) 1 tab(s) Oral (given by mouth) 2 times per day. TAKE 1 TABLET BY MOUTH AT BEDTIME. ZOLMitriptan (ZOLMitriptan 2.5 mg oral tablet) TAKE ONE TABLET BY MOUTH NEEDED AND MAY REPEAT DOSE IN 2 HOURS (MAX 2 TABS PER DAY). Visit Information Allergies: Substance Reaction Symptoms Type Comments No known allergies Drug Vital Signs: Vitals and Measurements this Visit (last charted value for your 05/24/2024 visit) Vital Signs This Visit Temperature Oral: 36.4 DegC Apical Heart Rate: 80 bpm Respiratory Rate: 18 br/min Systolic Blood Pressure: 173 mmHg Diastolic Blood Pressure: 85 mmHg SpO2: 98 % Blood Pressure Method: Automatic Measurements This Visit Height/Length Measured: 182.88 cm Weight Measured: 172.37 kg Weight Dosin.370 kg Body Mass Index: 51.54 kg/m2 BSA Measured: 2.96 m2 (more content not included)... Normal [facility] Follow-Upon 04-04-2024 Follow-Up [id number] Spencer Yeboah 1970 M Date Provider Department Center 04/04/2024 [facility] MED Medical Pavi No family history on file Level of Service:49877 AR OFFICE/OUTPATIENT ESTABLISHED LOW MDM 20 MIN () Reason for Visit and Comments: Follow-up [[id number]] Worker's Compensation [732] [facility] FORRESTNon 03-08-2024 CNPN Telephone (OPHTBE) SARA YEBOAH ([id number]) 1970 M Date Time Provider Department 03/08/24 MILEY ENRIQUE OPHTBE During your visit today, we recorded the following information about you: Estefany Bowles 03/08/2024 8:32 AM Signed Faxed FROI form to [facility] at [phone]. Also faxed to [facility] and placed original in envelope for scanning into [employer]. Allergies As of Date: 03/08/2024 (No Known Allergies) Date Reviewed: 03/01/2024 Reviewed by: Miley Enrique OD - Fully Assessed Reason for Visit: FROI form [Other] Prescriptions as of 03/21/2024 - Cholecalciferol, Vitamin D3, (VITAMIN D-3) 50 mcg (2,000 unit) cap - cyanocobalamin (VITAMIN B-12) 1,000 mcg tab - amLODIPine-Benazepril 10-40 mg per capsule Take 1 capsule by mouth once daily. - ondansetron (ZOFRAN) 4 mg tablet Take by mouth every 8 hours as needed for nausea/vomiting. - cloNIDine HCl (CATAPRES) 0.1 mg tablet Take 0.1 mg by mouth two times a day. - ZOLMitriptan (ZOMIG) 2.5 mg tablet Take 2.5 mg by mouth as needed. May repeat dose after 2 hours if needed. Maximum daily dose is 10 mg per day. - traZODone (DESYREL) 150 mg tablet Take 150 mg by mouth daily at bedtime. - Magnesium Oxide 500 mg cap Take by mouth. - metoprolol tartrate, short acting, 50 mg tablet Take 1.5 tablets by mouth every 8 hours. - chlorthalidone 25 mg tablet Take 1 tablet by mouth once daily. - lisinopril 40 mg tablet Take 1 tablet by mouth once daily. Problem List As Of Date 03/08/2024 Noted Resolved SUMMARY [V999.95] 02/25/2013 Hypertensive urgency [I16.0] 02/25/2013 DAMARIS on CPAP [G47.33] 02/25/2013 Hypertension [I10] 02/25/2013 Tobacco abuse [Z72.0] 02/26/2013 Encounter Status:Closed by ESTEFANY BOWLES on 03/08/24 Normal [facility] FUNDUS PHOTOS OU (BOTH EYES) on 03-01-2024 [facility] Radiology Study observation (narrative) [facility] VISUAL FIELD 30-2 OU (BOTH E YES)on 03-01-2024 [facility] Radiology Study observation (narrative) [facility] 36on 01-18-2024 36 Patient last seen 03/2023 has a one year F/U scheduled for 03/2024 [facility] Refillon 01-18-2024 Refill [id number] Spencer Yeboah as 1970 M Date Provider Department Center 01/18/2024 LIEN [place]A MP [facility] Medical Pavi No family history on file Reason for Visit and Comments: Med Refill [[id number]] [facility] CNPMaame 09-22-2023 CNPN Telephone (OPHTBE) SARA YEBOAH ([id number]) 1970 M Date Time Provider Department 09/22/23 MILEY ENRIQUE OPHDIONNE During your visit today, we recorded the following information about you: Kristina Melton 09/22/2023 3:40 PM Signed Received outside Records from [facility] needing consult with Dr. Enrique for Neuro Ophthalmology consult. Please contact patient to schedule at [phone]. Records in Dr. Enrique's mailbox. Allergies As of Date: 09/22/2023 (No Known Allergies) Date Reviewed: 02/28/2013 Reviewed by: Riana Trejo (Hist) - Fully Assessed Reason for Visit: Received Outside Medical Records [[id number]] Prescriptions as of 09/25/2023 - metoprolol tartrate, [...] Status:Closed by KRISTINA MELTON on 09/25/23 Normal [facility] FLUORO FOR SURGICAL PROCEDUR ESon 10-07-2022 FLUORO FOR SURGICAL PROCEDURES Radiology exam is complete. No Radiologist dictation. Please follow up with ordering provider. Final result Normal [facility] Radiology exam is complete. No Radiologist dictation. Please follow up with ordering provider. [facility] RIS CONSOLIDATED EKG 12 LeadOrdered By: Milan Pearson on 09-25-2022 Atrial Rate 67 BPM 27 [place] Phone: P [place] 21 degrees 27 Perry Phone: P-R Interval 190 ms 27 [place] Phone: Q-T Interval 388 ms 27 [place] Phone: QRS Duration 110 ms 27 [place] Phone: QTc Calculation (Bazett) 409 ms 27 [place] Phone: R [place] -38 degrees 27 [place] Phone: T [place] 41 degrees 27 [place] Phone: Ventricular Rate 67 BPM BON Daily [employer] Phone: [facility] Work Phone: EKG 12 Leadon 09-25-2022 Normal sinus rhythm Left axis deviation Abnormal ECG No previous ECGs available [facility] Milan Menon MD - 09/25/2022 Normal sinus rhythm Left axis deviation Abnormal ECG No previous ECGs available [facility] [employer] Work Phone: MRSA DNA Probe, Nasalon 09-10 MRSA, DNA, Nasal Negative [facility]GATIVE [facility] Comment on above: NEGATIVE: MRSA DNA n ot detected by nucleic acid amplification. Results should be used as an adjunct to nosocomial control efforts to identify patients needing enhanced precautions. The test is not intended to identify patients with staphylococcal infections. Results should not be used to guide or monitor treatment for MRSA infections. Specimen Description .NASAL SWAB [facility] MRSA, DNA, Nasalon MRSA, DNA, Nasal Negative Normal NEG [facility] Comment on above: Result Comment: NEGA TIVE: MRSA DNA not detected by nucleic acid amplification. Results should be used as an adjunct to nosocomial control efforts to identify patients needing enhanced precautions. The test is not intended to identify patients with staphylococcal infections. Results should not be used to guide or monitor treatment for MRSA infections. Performed By: #### M RSANO #### [facility] [address] [facility] [place] [address] Water Use Inspector: Omkar Leon DO [facility] [address] [place], [place] [id number] Water Use Inspector: Nirmal Colon MD Basic Metabolic Panelon 09-10 Anion gap [Moles/Vol] 9 mmol/L 9 - 17 mmol/L [facility] Calcium [Mass/Vol] 9.4 mg/dL 8.6 - 10. 4 mg/dL [facility] Chloride [Moles/Vol] 102 mmol/L 98 - 107 mmol/L [facility] CO2 [Moles/Vol] 27 mmol/L 20 - 31 mmol/L [facility] Creatinine [Mass/Vol] 1.06 mg/dL 0.70 - 1.20 mg/dL [facility] GFR/1.73 sq M.predicted MDRD (S/P/Bld) [Vol rate/Area] - PINF [facility] Comment on above: These results are not [...] 118 mg/dL High 70 - 99 mg/dL [facility] Interpretation and review of laboratory results Abnormal [facility] Potassium [Moles/Vol] 4.9 mmol/L 3.7 - 5.3 mmol/L [facility] Sodium [Moles/Vol] 138 mmol/L 135 - 144 mmol/L [facility] Urea nitrogen [Mass/Vol] 17 mg/dL 6 - 20 mg/dL [facility] Basic Metabolic Profon 09-24 Anion gap [Moles/Vol] 9 mmol/L Normal 9-17 [facility] Comment on above: Performed By: #### C DP, BMP #### [facility] [address] [place] [address] Water Use Inspector: Omkar Leon DO Calcium [Mass/Vol] 9.4 mg/dL Normal 8.6-10.4 [facility] Comment on above: Performed By: #### C DP, BMP #### [facility] [address] [place] [address] Water Use Inspector: Omkar Leon DO Chloride [Moles/Vol] 102 mmol/L Normal 98-107 [facility] Comment on above: Performed By: #### C DP, BMP #### [facility] [address] [place] [address] Water Use Inspector: Omkar Leon DO CO2 [Moles/Vol] 27 mmol/L Normal 20-31 [facility] Comment on above: Performed By: #### C TOÑO, BMP #### [facility] [address] [facility] [place] [address] Water Use Inspector: Omkar Leon DO Creatinine [Mass/Vol] 1.06 mg/dL Normal 0.70-1.20 [facility] Comment on above: Performed By: #### C TOÑO, BMP #### [facility] [address] [facility] [facility] [place] [address] Water Use Inspector: Omkar Leon DO GFR/1.73 sq M.predicted among non-blacks MDRD (S/P/Bld) [Vol rate/Area] mL/min/{1.73_m2} Normal >60 [facility] Comment on above: Result Comment: These [...] Performed By: #### C DP, BMP #### [facility] [address] [facility] [facility] [place] [address] Water Use Inspector: Omkar Leon DO Glucose [Mass/Vol] 118 mg/dL High 70-99 [facility] Comment on above: Performed By: #### C DP, BMP #### [facility] [address] [facility] [place] [address] Water Use Inspector: Omkar Leon DO Potassium [Moles/Vol] 4.9 mmol/L Normal 3.7-5.3 [facility] Comment on above: Performed By: #### C DP, BMP #### [facility] [address] [facility] [place] [address] Water Use Inspector: Omkar Leon DO Sodium [Moles/Vol] 138 mmol/L Normal 135-144 [facility] Comment on above: Performed By: #### C DP, BMP #### [facility] [address] [facility] [place] [address] Water Use Inspector: Omkar Leon DO Urea nitrogen [Mass/Vol] 17 mg/dL Normal 6-20 [facility] Comment on above: Performed By: #### C DP, BMP #### [facility] [address] [facility] [place] [address] Water Use Inspector: Omkar Leon DO CBC with Auto Differentialon 09-24-2022 Absolute Eos # 0.20 [facility] Absolute Lymph # 1.70 [facility] Absolute [place] # 0.60 [facility] Basophils (Bld) [#/Vol] 0.10 10*3/uL [facility] Basophils/100 WBC (Bld) 1 % 0 - 2 % [facility] Eosinophils/100 WBC (Bld) 2 % 0 - 4 % [facility] Hematocrit (Bld) [Volume fraction] 41.3 % 41 - 53 % [facility] Hemoglobin (Bld) [Mass/Vol] 14.2 g/dL 13.5 - 17.5 g/dL [facility] Interpretation and review of laboratory results Abnormal [facility] Lymphocytes/100 WBC (Bld) 23 % Low 24 - 44 % [facility] MCH (RBC) [Entitic mass] 31.1 pg 26 - 34 pg [facility] MCHC (RBC) [Mass/Vol] 34.4 g/dL 31 - 37 g/dL [facility] MCV (RBC) [Entitic vol] 90.4 fL 80 - 100 fL [facility] Monocytes/100 WBC (Bld) 8 % High 1 - 7 % [facility] Platelet distribution width (Bld) [Ratio] 13.4 % 11.5 - 14.9 % [facility] Platelet mean volume (Bld) [Entitic vol] 9.2 fL 6.0 - 12.0 fL [facility] Platelets (Bld) [#/Vol] 230 10*3/uL [facility] RBC (Bld) [#/Vol] 4.57 10*6/uL 4.5 - 5.9 m/uL [facility] Segmented neutrophils/100 WBC (Bld) 66 % 36 - 66 % [facility] Segs Absolute 5.00 [facility] WBC (Bld) [#/Vol] 7.6 10*3/uL [facility] CBC with Diffon 09-24-2022 Abs. Basophil 0.10 k/uL Normal 0.0-0.2 [facility] Comment on above: Performed By: #### C TOÑO, BMP #### [facility] [address] [place] [address] Water Use Inspector: Omkar Leon DO Abs.Neutrophil (Seg) 5.00 k/uL Normal 1.3-9.1 [facility] Comment on above: Performed By: #### C TOÑO, BMP #### [facility] [address] [place] [address] Water Use Inspector: Omkar Leon DO Basophils/100 WBC (Bld) 1 % Normal 0-2 [facility] Comment on above: Performed By: #### C DP, BMP #### [facility] [address] [place] [address] Water Use Inspector: Omkar Leon DO Eosinophils (Bld) [#/Vol] 0.20 10*3/uL Normal 0.0-0.4 [facility] Comment on above: Performed By: #### C DP, BMP #### [facility] [address] [place] [address] Water Use Inspector: Omkar Leon DO Eosinophils/100 WBC (Bld) 2 % Normal 0-4 [facility] Comment on above: Performed By: #### C TOÑO, BMP #### [facility] [place] [address] Water Use Inspector: Omkar Leon DO Erythrocyte distribution width (RBC) [Ratio] 13.4 % Normal 11.5-14.9 [facility] Comment on above: Performed By: #### C DP, BMP #### [facility] [place] [address] Water Use Inspector: Omkar Leon DO Hematocrit (Bld) [Volume fraction] 41.3 % Normal 41-53 [facility] Comment on above: Performed By: #### C TOÑO, BMP #### [facility] [address] [place] [address] Water Use Inspector: Omkar Leon DO Hemoglobin (Bld) [Mass/Vol] 14.2 g/dL Normal 13.5-17.5 [facility] Comment on above: Performed By: #### C TOÑO, BMP #### [facility] [address] [place] [address] Water Use Inspector: Omkar Leon DO Lymphocytes (Bld) [#/Vol] 1.70 10*3/uL Normal 1.0-4.8 [facility] Comment on above: Performed By: #### C DP, BMP #### [facility] [address] [place] [address] Water Use Inspector: Omkar Leon DO Lymphocytes/100 WBC (Bld) 23 % Low 24-44 [facility] Comment on above: Performed By: #### C DP, BMP #### [facility] [address] [place], [place] [address] [place] [address] Water Use Inspector: Omkar Leon DO MCH (RBC) [Entitic mass] 31.1 pg Normal 26-34 [facility] Comment on above: Performed By: #### C DP, BMP #### [facility] [place] [address] Water Use Inspector: Omkar Leon DO MCHC (RBC) [Mass/Vol] 34.4 g/dL Normal 31-37 [facility] Comment on above: Performed By: #### C DP, BMP #### [facility] [place] [address] Water Use Inspector: Omkar Leon DO MCV (RBC) [Entitic vol] 90.4 fL Normal 80-100 [facility] Comment on above: Performed By: #### C TOÑO, BMP #### [facility] [address] [place] [address] Water Use Inspector: Omkar Leon DO Monocytes (Bld) [#/Vol] 0.60 10*3/uL Normal 0.1-1.3 [facility] Comment on above: Performed By: #### C TOÑO, BMP #### [facility] [address] [place] [address] Water Use Inspector: Omkar Leon DO Monocytes/100 WBC (Bld) 8 % High 1-7 [facility] Comment on above: Performed By: #### C TOÑO, BMP #### [facility] [address] [place] [address] Water Use Inspector: Omkar Leon DO Neutrophil (Seg) 66 % Normal 36-66 [facility] Comment on above: Performed By: #### C DP, BMP #### [facility] [address] [place] [address] Water Use Inspector: Omkar Leon DO Platelet mean volume (Bld) [Entitic vol] 9.2 fL Normal 6.0-12.0 [facility] Comment on above: Performed By: #### C DP, BMP #### [facility] [address] [place] [address] Water Use Inspector: Omkar Leon DO Platelets (Bld) [#/Vol] 230 10*3/uL Normal 150-450 [facility] Comment on above: Performed By: #### C TOÑO, BMP #### [facility] [address] [place] [address] Water Use Inspector: Omkar Leon DO RBC (Bld) [#/Vol] 4.57 10*6/uL Normal 4.5-5.9 [facility] Comment on above: Performed By: #### Harriet LUNDBERG, BMP #### [facility] [address] [place] [address] Water Use Inspector: Omkar Leon DO WBC (Bld) [#/Vol] 7.6 10*3/uL Normal 3.5-11.0 [facility] Comment on above: Performed By: #### Harriet LUNDBERG, BMP #### [facility] [address] [place] [address] Water Use Inspector: Omkar Leon DO MRSA, DNA, Nasalon 3 Specimen Description .NASAL SWAB Normal [facility] Comment on above: Performed By: #### M RSANO #### [facility] [place] [address] Water Use Inspector: Omkar Leon DO [address] [address] Water Use Inspector: Nirmal Colon MD Microscopic Urinalysison 4 Bacteria, UA None None [facility] [employer] Casts UA 3 to 5 /LPF [facility] Epithelial Cells UA 0 TO 2 /HPF [facility] RBC clumps Auto (Urine sed) [#/Area] 0 TO 2 /HPF [facility] WBC, UA 0 TO 2 /HPF [facility] TYPE AND SCREENon 09-24-2022 ABO/Rh Positive [facility] Arm Band Number [id number] [facility] Blood Bank Comment ABORH CONFIRMED O POS: 003 [facility] Expiration Date 2022,2359 [facility] Type + Screenon 09-24-2022 Type + Screen Sample Expiration 2022,2359 Arm Band Number [id number] ABO/Rh(D) O POSITIVE Antibody Screen NEGATIVE Blood Bank Comment ABORH CONFIRMED O POS: 003 Normal [facility] Comment on above: Performed By: #### T YS #### [facility] [address] [place] [address] Water Use Inspector: Omkar Leon DO UA w/Reflex Cultureon 2022 Bilirubin, SemiQt,Ur Negative Normal NEG [facility] Comment on above: Performed By: #### LOR PARKER #### [facility] [address] [place] [address] Water Use Inspector: Omkar Leon DO Blood, Urine Negative Normal NEG [facility] Comment on above: Performed By: #### LOR PARKER #### [facility] [address] [place] [address] Water Use Inspector: Omkar Leon DO Clarity (U) Clear Normal CLEAR [facility] Comment on above: Performed By: #### LOR PARKER #### [facility] [address] [place] [address] Water Use Inspector: Omkar Leon DO Color (U) Yellow Normal YEL [facility] Comment on above: Performed By: #### U LOR CARDOZA #### [facility] [address] [place] [address] Water Use Inspector: Omkar Leon DO Glucose Ql (U) Negative Normal NEG [facility] Comment on above: Performed By: #### LOR PARKER #### [facility] [address] [place] [address] Water Use Inspector: Omkar Leon DO Ketones Ql (U) Negative Normal NEG [facility] Comment on above: Performed By: #### LOR PARKER #### [facility] [address] [place] [address] Water Use Inspector: Omkar Leon DO Leukocyte esterase Test strip Ql (U) Negative Normal NEG [facility] Comment on above: Performed By: #### LOR PARKER #### [facility] [address] [place] [address] Water Use Inspector: Omkar Leon DO Nitrite,Ur Negative Normal NEG [facility] Comment on above: Performed By: #### LOR PARKER #### [facility] [address] [place] [address] Water Use Inspector: Omkar Leon DO PH,Ur 5.5 Normal 5.0-8.0 [facility] Comment on above: Performed By: #### LOR PARKER #### [facility] [address] [place] [address] Water Use Inspector: Omkar Leon DO Protein Ql (U) 2+ Abnormal NEG [facility] Comment on above: Performed By: #### LOR PARKER #### [facility] [address] [place] [address] Water Use Inspector: Omkar Leon DO Spec. [place],Ur 1.021 Normal 1.000-1.030 [facility] Comment on above: Performed By: #### U AXLOR #### [facility] [address] [place] [address] Water Use Inspector: Omkar Leon DO Urobilinogen,Ur Normal Normal NORM [facility] Comment on above: Performed By: #### U AX, SUKHIO #### [facility] [address] [place] [address] Water Use Inspector: Omkar Leon DO Urinalysis with Reflex to Cu ltureon 09-24-2022 Bilirubin Urine Negative NEGATIVE [facility] Color, UA Yellow Yellow [facility] Glucose Auto test strip (U) [Mass/Vol] Negative NEGATIVE [facility] Interpretation and review of laboratory results Abnormal [facility] Ketones (U) [Mass/Vol] Negative NEGATIVE [facility] Leukocyte esterase Auto test strip Ql (U) Negative NEGATIVE [facility] Nitrite Auto test strip Ql (U) Negative NEGATIVE [facility] Protein (U) [Mass/Vol] 5.5 mg/dL 5.0 - 8.0 [facility] Protein (U) [Mass/Vol] 2+ Abnormal NEGATIVE [facility] Specific [place], UA 1.021 1.000 - 1.030 [facility] Turbidity UA Clear Clear [facility] Urine Hgb Negative NEGATIVE [facility] Urobilinogen, Urine Normal Normal [facility] Urinalysis,Microon 3 Bacteria None Normal NONE [facility] Comment on above: Performed By: #### U AXLOR #### [facility] [address] [place] [address] Water Use Inspector: Omkar Leon DO Casts 3 to 5 Normal [facility] Comment on above: Performed By: #### U AXLOR #### [facility] [address] [place] [address] Water Use Inspector: Omkar Leon DO Epithelial cells LM Ql (Urine sed) 0 TO 2 Normal [facility] Comment on above: Performed By: #### LOR PARKER #### [facility] [address] [facility] [place] [address] Water Use Inspector: Omkar Leon DO Urine RBC's 0 TO 2 Normal [facility] Comment on above: Performed By: #### LOR PARKER #### [facility] [address] [facility] [place] [address] Water Use Inspector: Omkar Leon DO Urine WBC's 0 TO 2 Normal [facility] Comment on above: Performed By: #### LOR PARKER #### [facility] [address] [facility] [place] [address] Water Use Inspector: Omkar Leon DO MAGNESIUMon 04-01-2022 Magnesium [Mass/Vol] 1.8 mg/dL Normal 1.8-2.4 [facility] Comment on above: Performed By: #### M G #### [facility] [address] [place] [address] Dr. Madhu Augustine [id number]-FACTOR 1 on 02-03-2022 Insulin-Like Growth Factor I 240 ng/mL Normal 74-[address] [facility] Comment on above: Performed By: #### I NSGF1 #### [facility] [address] [place] [address] Dr. Madhu Augustine FSHon 02-01-2022 FSH 0.4 mIU/mL Critically low 1.5-12.4 [facility] Comment on above: Performed By: #### L BCFSH #### [facility] [address] [place] [address] Dr. Madhu Augustine LUTEINIZING HORMONE (LH)on 0 02-01-2022 LH <0.3 Critically low 1.7-8.6 [facility] Comment on above: Performed By: #### L BCLH #### [facility] [address] [place] [address] Dr. Madhu Augustine TESTOSTERONE, TOTALon 2021 Testosterone [Mass/Vol] 756 ng/dL Normal 264-[address] [facility] Comment on above: Result Comment: Adul t male reference interval is based on a population of healthy nonobese males (BMI <30) between 19 and 39 years old. Omar, et.al. JCEM 2017,102;2724-8989. PMID: [id number]. Performed By: #### T ESTTOT #### [facility] [address] [place] [address] Dr. Madhu Augustine CBC AUTO DIFFon 01-31-2022 BASO # 0.1 103/ul Normal 0.0-0.1 [facility] Comment on above: Performed By: #### C BC #### [facility] [address] [place] [address] Dr. Madhu Augustine Basophils/100 WBC (Bld) 0.9 % Normal 0.2-2.0 [facility] Comment on above: Performed By: #### C BC #### [facility] [address] [place] [address] Dr. Madhu Augustine EO # 0.2 103/ul Normal 0.0-0.[address] [facility] Comment on above: Performed By: #### C BC #### [facility] [address] [place] [address] Dr. Madhu Augustine Eosinophils/100 WBC (Bld) 2.4 % Normal 0.9-7.[address] [facility] Comment on above: Performed By: #### C BC #### [facility] [address] [place] [address] Dr. Madhu Augustine Erythrocyte distribution width (RBC) [Ratio] 14.4 % Normal 11.0-15.[address] [facility] Comment on above: Performed By: #### C BC #### [facility] [address] [place] [address] Dr. Madhu Augustine Hematocrit (Bld) [Volume fraction] 41.1 % Critically low 42.0-54.0 [facility] Comment on above: Performed By: #### C BC #### [facility] [address] [address] [address] Madhu Augustine Hemoglobin (Bld) [Mass/Vol] 13.5 g/dL Critically low 14.0-18.0 [facility] Comment on above: Performed By: #### C BC #### [facility] [address] [address] [address] Madhu Augustine IG # 0.05 10e3/ul Critically high 0.00-0.03 [facility] Comment on above: Performed By: #### C BC #### [facility] [address] [address] [address] Madhu Augustine IG % 0.7 % Critically high 0.0-0.5 [facility] Comment on above: Performed By: #### C BC #### [facility] [address] [place] [address] Dr. Madhu Augustine LYMPH # 1.6 103/ul Normal 1.2-3.8 [facility] Comment on above: Performed By: #### C BC #### [facility] [address] [place] [address] Dr. Madhu Augustine Lymphocytes/100 WBC (Bld) 21.5 % Normal 20.5-60.0 [facility] Comment on above: Performed By: #### C BC #### [facility] [address] [place] [address] Dr. Madhu Augustine MANUAL DIFF REQ NO Normal [facility] Comment on above: Performed By: #### C BC #### [facility] [address] [address] [address] Madhu Augustine MCH (RBC) [Entitic mass] 30.7 pg Normal 25.9-34.0 [facility] Comment on above: Performed By: #### C BC #### [facility] [address] [place] [address] Dr. Madhu Augustine MCHC (RBC) [Mass/Vol] 32.8 g/dL Normal 29.9-35.2 [facility] Comment on above: Performed By: #### C BC #### [facility] [address] [address] [address] Madhu Augustine MCV (RBC) [Entitic vol] 93.4 fL Normal 80.0-94.0 [facility] Comment on above: Performed By: #### C BC #### [facility] [address] [address] [address] Madhu Augustine MONO # 0.7 103/ul Normal 0.3-0.[address] [facility] Comment on above: Performed By: #### C BC #### [facility] [address] [address] [address] Madhu Augustine Monocytes/100 WBC (Bld) 8.5 % Normal 1.7-12.0 [facility] Comment on above: Performed By: #### C BC #### [facility] [address] [place] [address] Dr. Madhu Augustine NEUT # 5.1 103/ul Normal 1.4-6.5 [facility] Comment on above: Performed By: #### C BC #### [facility] [address] [place] [address] Dr. Madhu Augustine Neutrophils/100 WBC (Bld) 66.0 % Normal 43.0-75.0 [facility] Comment on above: Performed By: #### C BC #### [facility] [address] [place] [address] Dr. Madhu Augustine Platelet mean volume (Bld) [Entitic vol] 10.2 fL Normal 9.5-13.[address] [facility] Comment on above: Performed By: #### C BC #### [facility] [address] [address] [address] Madhu Augustine PLT 207 103/ul Normal 150-[address] [facility] Comment on above: Performed By: #### C BC #### [facility] [address] [address] [address] Madhu Augustine RBC 4.40 106/ul Critically low 4.70-6.10 [facility] Comment on above: Performed By: #### C BC #### [facility] [address] [address] [address] Madhu Augustine WBC 7.6 103/ul Normal 4.0-11.0 [facility] Comment on above: Performed By: #### C BC #### [facility] [address] [address] [address] Madhu Augustine LIPID PROFILEon 01-31-2022 CHOL-HDL RATIO NORM SEE BELOW Normal [facility] Comment on above: Result Comment: 3.3 - 4.4 LOW RISK 4.4 - 7.1 AVERAGE RISK 7.1 - 11.0 MODERATE RISK >11.0 HIGH RISK Performed By: #### L IPID, CMP #### [facility] [address] [address] [address] Madhu Augustine Cholesterol [Mass/Vol] 156 mg/dL Normal <=200 [facility] Comment on above: Performed By: #### L IPID, CMP #### [facility] [address] [address] [address] Madhu Augustine Cholesterol in HDL [Mass/Vol] 53 mg/dL Normal 40-60 [facility] Comment on above: Performed By: #### L IPID, CMP #### [facility] [address] [address] [address] Madhu Augustine Cholesterol in LDL [Mass/Vol] 84.0 mg/dL Normal [facility] Comment on above: Performed By: #### L IPID, CMP #### [facility] [address] [address] [address] Madhu Augustine Cholesterol.total/ Cholesterol in HDL [Mass ratio] 2.9 {ratio} Normal [facility] Comment on above: Performed By: #### L IPID, CMP #### [facility] [address] [address] [address] Madhu Augustine HDL NORMAL > or = 60 mg/dl - LO W CARDIOVASCULAR RISK <40 mg/dl - HIGH CARDIOVASCULAR RISK Normal [facility] Comment on above: Performed By: #### L IPID, CMP #### [facility] [address] [address] [address] Madhu Augustine LDL CALC NORMAL SEE BELOW Normal [facility] Comment on above: Result Comment: <100 mg/dl OPTIMAL 100 - 129 mg/dl NEAR OR ABOVE OPTIMAL 130 - 159 mg/dl BORDERLINE HIGH 160 - 189 mg/dl HIGH >190 mg/dl VERY HIGH Performed By: #### L IPID, CMP #### [facility] [address] [address] [address] Madhu Augustine Triglyceride [Mass/Vol] 95 mg/dL Normal <=150 [facility] Comment on above: Performed By: #### L IPID, CMP #### [facility] [address] [address] [address] Madhu Augustine VLDL CALC 19.0 mg/dL Normal [facility] Comment on above: Performed By: #### L IPID, CMP #### [facility] [address] [place] [address] Dr. Madhu Augustine PROF 14(COMP METB)on 022 Albumin [Mass/Vol] 3.5 g/dL Normal 3.4-5.0 [facility] Comment on above: Performed By: #### L IPID, CMP #### [facility] [address] [address] [address] Madhu Augustine Albumin/Globulin [Mass ratio] 1.1 {ratio} Normal [facility] Comment on above: Performed By: #### L IPID, CMP #### [facility] [address] [place] [address] Dr. Madhu Augustine ALP [Catalytic activity/Vol] 51 U/L Normal 46-[address] [facility] Comment on above: Performed By: #### L IPID, CMP #### [facility] [address] [place] [address] Dr. Madhu Augustine ALT [Catalytic activity/Vol] 40 U/L Normal 16-63 [facility] Comment on above: Performed By: #### L IPID, CMP #### [facility] [address] [place] [address] Dr. Madhu Augustine Anion gap [Moles/Vol] 12.7 mmol/L Normal [facility] Comment on above: Performed By: #### L IPID, CMP #### [facility] [address] [place] [address] Dr. Madhu Augustine AST [Catalytic activity/Vol] 18 U/L Normal 15-37 [facility] Comment on above: Performed By: #### L IPID, CMP #### [facility] [address] [place] [address] Dr. Madhu Augustine Bilirubin [Mass/Vol] 0.4 mg/dL Normal 0.2-1.0 [facility] Comment on above: Performed By: #### L IPID, CMP #### [facility] [address] [place] [address] Dr. Madhu Augustine Calcium [Mass/Vol] 8.9 mg/dL Normal 8.5-10.1 [facility] Comment on above: Performed By: #### L IPID, CMP #### [facility] [address] [place] [address] Dr. Madhu Augustine Chloride [Moles/Vol] 104 mmol/L Normal 98-107 [facility] Comment on above: Performed By: #### L IPID, CMP #### [facility] [address] [place] [address] Dr. Madhu Augustine CO2 [Moles/Vol] 26.4 mmol/L Normal 21.0-32.[address] [facility] Comment on above: Performed By: #### L IPID, CMP #### [facility] [address] [place] [address] Dr. Madhu Augustine Creatinine [Mass/Vol] 0.99 mg/dL Normal 0.70-1.30 [facility] Comment on above: Performed By: #### L IPID, CMP #### [facility] [address] [place] [address] Dr. Madhu Augustine EGFR-AF HONDURAN >60 Normal >=60 [facility] Comment on above: Performed By: #### L IPID, CMP #### [facility] [address] [place] [address] Dr. Madhu Augustine EGFR-NON AF HONDURAN >60 Normal >=60 [facility] Comment on above: Performed By: #### L IPID, CMP #### [facility] [address] [address] [address] Madhu Augustine Globulin (S) [Mass/Vol] 3.2 g/dL Normal [facility] Comment on above: Performed By: #### L IPID, CMP #### [facility] [address] [address] [address] Madhu Augustine Glucose [Mass/Vol] 108 mg/dL Critically high 74-106 [facility] Comment on above: Performed By: #### L IPID, CMP #### [facility] [address] [place] [address] Dr. Madhu Augustine Potassium [Moles/Vol] 4.1 mmol/L Normal 3.5-5.1 [facility] Comment on above: Performed By: #### L IPID, CMP #### [facility] [address] [place] [address] Dr. Madhu Augustine Protein [Mass/Vol] 6.7 g/dL Normal 6.4-8.2 [facility] Comment on above: Performed By: #### L IPID, CMP #### [facility] [address] [place] [address] Dr. Madhu Augustine Sodium [Moles/Vol] 139 mmol/L Normal 136-145 [facility] Comment on above: Performed By: #### L IPID, CMP #### [facility] [address] [place] [address] Dr. Madhu Augustine Urea nitrogen [Mass/Vol] 14.0 mg/dL Normal 7.0-18.0 [facility] Comment on above: Performed By: #### L IPID, CMP #### [facility] [address] [place] [address] Dr. Madhu Augustine Urea nitrogen/Creatinin e [Mass ratio] 14.1 mg/mg Normal [facility] Comment on above: Performed By: #### L IPID, CMP #### [facility] [address] [place] [address] Dr. Madhu Augustine VITAMIN B12on 01-31-2022 Cobalamin (Vitamin B12) [Mass/Vol] 1106.0 pg/mL Critically high 193.0-986.0 [facility] Comment on above: Performed By: #### V ITB12, VITAD #### [facility] [address] [address] [address] Madhu Augustine VITAMIN D 25 OHon 01-31-2022 VIT D 25-OH 53.4 ng/mL Normal [facility] Comment on above: Performed By: #### V ITB12, VITAD #### [facility] [address] [address] [address] Madhu Augustine VIT D RANGES SEE BELOW Normal [facility] Comment on above: Result Comment: <20 ng/mL Vit D deficient 20 - <30 ng/mL Vit D insufficient 30 - 100 ng/mL Vit D sufficient >100 ng/mL Potential Toxicity Performed By: #### V ITB12, VITAD #### [facility] [address] [place] [address] Dr. Madhu Augustine Rehab Psych Evaluationon Rehab Psych Evaluation MR#: [id number] REHABILITATION SERVICES ( ) INPATIENT (x) OUTPATIENT Patient Name: Sara Yeboah Date of : 1970 Referring Physician: Lien Johnson M.D. Dictated By: Ramesh Hu, PhD Evaluation Date: 10/13/2018 neuropsychological evaluation DATE OF SERVICE: 10/12/2018-10/22/2018 DIAGNOSIS: Postconcussive syndrome DATE OF ONSET: 05/14/2018 DATE OF : 1970 AGE: 47 years TIME SPENT: 07854=9 unit; 21521=7 unit; 90700=5 units; 97120=8 unit; 79023=3 units REASON FOR REFERRAL: This is the initial neuropsychological evaluation of Mr. Sara Yeboah, a 48-year-old, right-hand, White, , gentleman, who was referred by continuous improvement director, Dr. Lien Johnson to ascertain his present [...] medicine specialist, Dr. Young Morgan ([employer] Medical Surface Plate Inspector); said evaluation was also consulted. Mr. Yeboah notes that attorneys working with the [employer] are handling his case. According to Dr. Morgan's medical examination report, Mr. Yeboah sustained a concussion on 05/14/2018, while working for [employer]. Dr. Morgan noted a 70-80 pound object had fallen from a david striking [Mr. Yeboah] on the head. According to Dr. Morgan's evaluation, Mr. Yeboah experienced no nausea or vomiting, but reported a headache of 7 of 10. It was noted that Mr. Yeboah was taken to [facility], where he underwent a CT [...] Mr. Yeboah notes he was born in [place], [place]. He adds he has been for 24 years and has one child. Mr. Yeboah notes he presently resides in [place], [place] with his and daughter. EDUCATIONAL HISTORY: [...] May 2018 injury from his employment at [employer], where he has worked for approximately five [...] the Speech Therapy when he participated at [facility]. Mr. Yeboah also reports changes to his [...] Immediate Memory Index in the average range (NGL=179), and a Delayed Memory Index in the average range (JIM=263). Obtained index scores were compared to predicted [...] cognitive functioning. 2. Results appear valid. Mr. Browns intellectual functioning was found to be in [...] Therapy (CBT), such could be found through [facility]ing services. He may also benefit from [...] i. Use a pocket notepad, personal digital photographer, wristwatch alarm, voice recorder, pill box, or [...] If you have any questions, please call [phone]. DICTATED BY: Ramesh Hu, PhD Neuropsychology Fellow REVIEWED BY: Electronically Signed by: Nereyda Rivera, PhD, ABPP 10/28/2018 08:41 A Nereyda Rivera, PhD, ABPP Board Certified Clinical Neuropsychologist Date Dict: 10/13/2018/12:18 P/Ramesh Hu, PhD Date Trans: 10/13/2018 01:51 P/julianna [id number] cc: Nereyda Rivera, PhD, [facility] [address] Rehab Medicine [facility] [address] Lien Johnson M.D. Dept Of [facility] Re[facility] [address] *Mr. Sara Yeboah [address] [facility] [address] [facility] Vital Signs Date Time Vital Sign Value Performing Clinician Facility 09-29-2024 09:290400 Body height 182.[address] [facility] 09-29-2024 09:29-0400 Body mass index (BMI) [Ratio] 59.8 kg/m2 [facility] 09-29-2024 09:290400 Body weight 200.[address] [facility] 09-29-2024 09:29-0400 Diastolic blood pressure 101 mm[Hg] [facility] 09-29-2024 09:29-0400 Heart rate 76 /min [facility] 09-29-2024 09:29-0400 Respiratory rate 20 /min [facility] 09-29-2024 09:29-0400 Systolic blood pressure 170 mm[Hg] [facility] 10-07-2022 13:13-0400 SaO2% (BldA) [Mass fraction] 92 % Rvai Lopez MD [facility]: [facility] 10-07-2022 11:30-0400 Body temperature 98.1 [degF] Ravi Lopez MD Work Phone: [facility] [employer] [facility] 10-07-2022 11:30-0400 Diastolic blood pressure 74 mm[Hg] Ravi Lopez MD Work Phone: [employer] [facility] 10-07-2022 11:30-0400 Heart rate 70 /min Ravi Lopez MD Work Phone: [facility] [employer] [facility] 10-07-2022 11:30-0400 Respiratory rate 16 /min Ravi Lopez MD Work Phone: [employer] 10-07-2022 11:30-0400 Systolic blood pressure 128 mm[Hg] Ravi Lopez MD Work Phone: [employer] [facility] 10-07-2022 05:46-0400 Body height 182.9 cm Ravi Lopez MD Work Phone: [employer] [facility] 10-07-2022 05:46-0400 Body mass index (BMI) [Ratio] 49.5 kg/m2 Ravi Lopez MD Work Phone: [employer] 10-07-2022 05:46-0400 Body weight 165.56 kg Ravi Lopez MD Work Phone: [employer] 09-26-2022 09:30-0400 Body height 182.88 cm [facility] Other 09-26-2022 09:30-0400 Body mass index (BMI) [Ratio] 53.65 kg/m2 [employer] [facility] Other 09-26-2022 09:30-0400 Body weight 179.44 kg [facility] Other 09-26-2022 09:30-0400 Diastolic blood pressure 82 mm[Hg] [facility] Other 09-26-2022 09:30-0400 Respiratory rate 16 /min [facility] Other 09-26-2022 09:30-0400 Systolic blood pressure 130 mm[Hg] [facility] Other 09-24-2022 07:12-0400 Body height 182.9 cm Ravi Lopez MD Work Phone: [employer] 09-24-2022 07:12-0400 Body mass index (BMI) [Ratio] 49.5 kg/m2 Ravi Lopez MD Work Phone: [employer] 09-24-2022 07:12-0400 Body temperature 98.01 [degF] Ravi Lopez MD Work Phone: [employer] 09-24-2022 07:12-0400 Body weight 165.56 kg Ravi Lopez MD Work Phone: [employer] 09-24-2022 07:12-0400 Diastolic blood pressure 83 mm[Hg] Ravi Lopez MD Work Phone: [employer] Comment on above: 172/91 right arm 09-24-2022 07:12-0400 Heart rate 70 /min Ravi Lopez MD Work Phone: [employer] 09-24-2022 07:12-0400 Respiratory rate 18 /min Ravi Lopez MD Work Phone: [employer] 09-24-2022 07:12-0400 SaO2% (BldA) [Mass fraction] 97 % Ravi Lopez MD Work Phone: [employer] 09-24-2022 07:12-0400 Systolic blood pressure 162 mm[Hg] Ravi Lopez MD Work Phone: [employer] Comment on above: 172/91 right arm Encounters Encounter Date Encounter Type Care Provider Facility Start: 09-29-2024 End: 09-29-2024 ambulatory [facility] Work Phone: Start: 09-29-2024 End: 09-29-2024 Encounter for general adult medical examination without abnormal findings [facility] Start: 09-29-2024 End: 09-29-2024 Patient encounter procedure [facility] Work Phone: Start: 08-30-2024 ambulatory Bo Shah Facility:[facility] Start: 05-24-2024 End: 05-24-2024 ambulatory Iron Olmos Facility:[facility] Start: [facility]-04[facility] Start: 03-08-2024 End: 03-08-2024 Telephone encounter Miley Enrique OD Work Phone: Ophthalmology Comment on above: FROI form Start: 03-01-2024 End: 03-01-2024 ambulatory MILEY ENRIQUE Facility:[facility] Start: 03-01-2024 End: 03-01-2024 Patient encounter procedure Miley Mendozaer OD Work Phone: Ophthalmology Comment on above: Post concussion synd alma (Primary Dx); Pituitary dysfunction (HCC) Start: 09-22-2023 Telephone encounter Miley Christopher Mike greer OD Work Phone: Ophthalmology Comment on above: Received Outside Med ical Records Start: 07-08-2023 End: 07-08-2023 ambulatory [facility] Other Infectious Other Start: 07-08-2023 Telephone encounter Iron DEUTSCH [facility] Start: 03-19-2023 End: 03-19-2023 ambulatory [facility] Other Infectious Other Start: 03-19-2023 Telephone encounter Iron DEUTSCH [facility] Start: 10-31-[address] DOCTOR MAYORGA Facility : Start: 10-07-2022 End: 10-07-2022 ambulatory [facility] Start: 10-07-2022 End: 10-07-2022 Subsequent hospital visit by physician Ravi Lopez MD Work Phone: [facility] Comment on above: Primary osteoarthrit is of left hip (Primary Dx) Start: 09-26-2022 End: 09-26-2022 ambulatory [facility] Other Infectious Other Start: 09-26-2022 Encounter for other preprocedural examination Iron Olmos [facility] Start: 09-26-2022 Office outpatient vi sit 25 minutes Iron Olmos [facility] Start: 09-24-2022 End: 09-29-2022 ambulatory [facility] Start: 09-24-2022 End: 09-28-2022 Subsequent hospital visit by physician Ravi Lopez MD Work Phone: [facility] Pre-Admit Testing Comment on above: Hypertension, unspec ified type Start: 04-02-2022 Encounter for genera l adult medical examination without abnormal findings DR IRON OLMOS [facility] Start: 04-01-2022 End: 04-02-2022 Encounter for general adult medical examination without abnormal findings DR IRON OLMOS Facility:[facility] Start: 04-01-2022 End: 04-02-[address] IRON OLMOS Facility:[facility] Start: 03-28-2022 Adult health examination Onesimo Olmos Other Infectious Other Start: 01-31-2022 End: 02-01-[address] DOCTOR MAYORGA Facility:[facility] Start: 04-05-2020 Preoperative cardiovascular examination Iron Olmos Other Infectious Other Procedures Date Procedure Procedure Detail Performing Clinician Start: 03-01-2024 End: 03-01-2024 Fundus photography w/interpretation & report Miley Enrique OD Work Phone: Start: 10-07-2022 Fluoroscopy during operation Ravi Lopez [...] Performed By: #### L IPID, CMP #### [facility] [address] [address] [address] Madhu Augustine Start: 12-09-2013 Pre-surgery evaluation [facility] Other Start: 02-25-2013 Lipid 1996 panel - S dinorah or Plasma Miley Mckeoncker OD Work Phone: Screening for malign ant neoplasm of prostate [facility] Other Plan of Treatment Date Care Activity Detail Author Start: 09-24-2025 Diabetes Screening Diabetes Screenin g [facility] Start: 03-13-2024 Influenza vaccination Influenza Vacc ine (#1) [facility] Start: 07-13-2023 Depression Assessment Depression Ass essment [facility] Start: 03-13-2023 Covid-19 Vaccine ( season) Covid-19 Vaccine () [facility] Start: 03-13-2023 Influenza vaccination Influenza Vacc ine (#1) [facility] Start: 10-24-2022 End: 10-24-2022 Patient encounter procedure 10/24/2022 Office Visit Orthopedic Surgery Ravi Lopez MD [address] [place] [id number] [facility] Start: 10-07-2022 End: 10-07-2022 Admission to same day surgery center 10/07/2022 Surgery IP Unit Rvai Lopez MD [address] [place] [id number] HIP TOTAL ARTHROPLASTY MINIMALLY INVASIVE [facility] Comment on above: HIP TOTAL ARTHROPLAS TY MINIMALLY INVASIVE Start: 10-07-2022 Subsequent hospital visit by physician 10/07/2022 Hospital Encounter IP Unit Ravi Lopez MD [address] [place] [id number] [facility] Start: 10-07-2022 End: 10-07-2022 Arthrp acetblr/prox fem prostc agrft/algrft [facility] Start: 02-10-2022 Influenza vaccination Flu vaccine (# 1) [facility] Start: 07-09-2021 COVID-19 Vaccine (4 - Booster for Pfizer series) COVID-19 Vaccine (4 - Booster for Pfizer series) [facility] [facility] Start: 10-11-2019 Shingles vaccine (1 of 2) Shingles vaccine (1 of 2) [facility] Start: 10-11-2019 Shingrix Vaccine (1 of 2) Shingrix Vaccine (1 of 2) [facility] Start: 02-25-2018 Lipid panel Lipid Screening [facility] Start: 02-29-2016 Diabetes Screening Diabetes Screenin g [facility] Start: 2014 Screening for malign ant neoplasm of colon [facility] Start: 2009 Lipid panel Lipids [facility] Start: 2004 Diabetes screen Diabetes screen [facility] Start: 1988 DTaP/Tdap/Td vaccine (1 - Tdap) DTaP/Tdap/Td vaccine (1 - Tdap) [facility] Start: 1988 Hepatitis B Vaccine (1 of 3 - 19+ 3-dose series) Hepatitis B Vaccine (1 of 3 - 19+ 3-dose series) [facility] Start: 1988 Urine microalbumin profile DTaP,Tdap,Td Vaccine (1 - Tdap) [facility] Start: 10-11-1987 Annual PCP Team Molder Operator jeramy Disease Visit Annual PCP Team Chronic Disease Visit [facility] Start: 10-11-1987 Anxiety Screening Anxiety Screening [facility] Start: 10-11-1987 BP Controlled (<130/80) BP Con trolled (<130/80) [facility] Start: 10-11-1987 Depression Screening Depression Scre ening [facility] Start: 10-11-1987 Hepatitis C screening B ON [facility] Start: 10-11-1987 HIV screening HIV Screening [facility] Start: 1984 HIV screening HIV screen [facility] Start: 1981 Depression Screen Depression Screen [facility] Comprehensive metabo lic 2000 panel - Serum or Plasma [facility] Oxygen therapy [Mini mum Data Set] Initiate Oxygen Therapy Protocol Respiratory Care Routine Daily until discontinued starting 10/07/2022 [address] Phone: Comment on above: Daily until disconti nued starting 10/07/2022 Spirometry panel Incentive maynor metry Respiratory Care Routine Every 2hr while awake until discontinued starting 10/07/2022 [address] Phone: Comment on above: Every 2hr while awak e until discontinued starting 10/07/2022 [facility] Immunizations Immunization Date Immunization Notes Care Provider Leo santizo NEGATED: Highlighted row has not occurred!02-28-2013 pneumococcal polysaccharide vaccine, 23 valent Miley Mendozaer OD Work Phone: [facility] Comment on above: Deferred: Patient Re fused - pt spoke with MD (DR. Parish) decided vaccine not needed, d/c'd order Payers Date Payer Category Payer Unknown [id number] 2019 Unknown [id number] 2018 Unknown [id number] 2018 Unknown [id number] 2018 Worker's Compensation [id number] 1970 Unknown [id number] 2.16.8 [id number] 1970 Unknown [id number] 2.16.8 [id number] 1970 Unknown [id number] 2.16.84 [id number] 1970 Unknown [id number] 2.16.84 [id number] 1970 Unknown [id number] 2.16.84 [id number] 1970 Unknown [id number] 2.16.84 [id number] 1970 Unknown [id number] 2.16.8 [id number] 1970 Unknown [id number] 2.16.8 [id number] 1960 Medicare [id number] 1959 Unknown [id number] Social History Date Type Detail Facility Start: 02-25-2013 End: 09-24-2022 Tobacco smoking status NHIS Never smoked tobacco [facility] Start: 09-24-2022 Tobacco use and exposure Smokeless tobacco non-user [address] Phone: Start: 09-24-2022 End: 03-01-2024 Alcohol intake Current drinker of alcohol (finding) [address] Phone: Start: 09-24-2022 Alcohol Comment social [employer] Phone: Start: 1970 Sex Assigned At Not on file B [facility] [employer] Phone: Start: 09-14-2022 End: 10-07-2022 Exposure to SARS-CoV-2 (event) Not sure [address] Phone: Start: 03-01-2024 Sex Assigned At [facility] Other Start: 02-25-2013 Tobacco use and exposure User of smokeless tobacco [facility] History of tobacco use Chews Tobacco [facility] Start: 02-25-2013 End: 03-01-2024 Alcohol intake [facility] Start: 02-25-2013 Alcohol Comment 3-4 Cans Per Day [facility] Tobacco smoking status NHIS Unknown if ever smoked [facility] Work Phone: Start: 09-29-2024 Sex Male (finding) [facility] Start: 1970 Sex Assigned At Male F [facility] Medical Equipment Procedure Code Equipment Code Equipment Origin al Text Equipment Identifier Dates Dup Use [id number] I mpl Hip Cer Option Type 1 Tpr Sleve +3 - [id number] Start: 10-07-2022 Head Fem [id number] Hip Biolox Delt Opt For G7 Acet Sys - [id number] Start: 10-07-2022 Clinical Notes 09-24-2022 to 05-24-2024 Telephone Encounter - Wilbur Estefany - 03/08/2024 8:29 AM EDTTelephone Encounter - Wilbur Estefany - 03/08/2024 8:29 AM Miley Huston OD - 03/01/2024 12:21 PM EDTDischarge Instructions Note Date & Type Note Facility 05-24-2024 Note Patient Education Ma terials Follows: Head Injury, Adult There are many types of head injuries. Head injuries can be as minor as a small bump, or they can be a serious medical issue. More severe head injuries include: ? A jarring injury to the brain (concussion). ? A bruise (contusion) of the brain. This means there is bleeding in the brain that can cause swelling. ? A cracked skull (skull fracture). ? Bleeding in the brain that collects, clots, and forms a bump (hematoma). After a head injury, most problems occur within the first 24 hours, but side effects may occur up to 7?10 days after the injury. It is important to watch your condition for any changes. You may need to be observed in the emergency department or urgent care, or you may have to stay in the hospital. What are the causes? There are many causes of a head injury. Serious head injuries may be caused by car crashes, bicycle or motorcycle crashes, sports injuries, falls, or being struck by an object. What are the symptoms? Symptoms of a head injury include a contusion, bump, or bleeding at the site of the injury. Other physical symptoms may include: ? Headache. ? Nausea or vomiting. ? Dizziness. ? Blurred or double vision. ? Sensitivity to bright lights or loud noises. ? Feeling tired. ? Trouble waking up. ? Severe symptoms such as: ? Weakness or numbness on one side of the body. ? Slurred speech or swallowing problems. ? Loss of consciousness. ? Seizures. Mental symptoms may include: ? Irritability. ? Confusion and memory problems. ? Poor attention and concentration. ? Changes in eating or sleeping habits. ? Anxiety or depression. How is this diagnosed? This condition is diagnosed based on your symptoms and a physical exam. You may also have imaging tests done, such as a CT scan or an MRI. How is this treated? Treatment for this condition depends on the severity and type of injury you have. The main goal of treatment is to prevent complications and allow the brain time to heal. Mild head injury If you have a mild head injury, you may be sent home, and treatment may include: ? Observation. A responsible adult should stay with you for 24 hours after your injury and check on you often. ? Physical rest. ? Brain rest. ? Pain medicines. Severe head injury If you have a severe head injury, treatment may include: ? Close observation. You may have to stay in the hospital and have: ? Frequent physical exams. ? Frequent checks of how your brain and nervous system are working. ? Your blood pressure and oxygen levels checked. ? Medicines to relieve pain, prevent seizures, and decrease brain swelling. ? Airway protection and breathing support. This may include using a ventilator. ? Monitoring and managing swelling inside the brain. ? Brain surgery. Surgery may include: ? Removing a collection of blood or blood clots. ? Stopping the bleeding. ? Removing a part of the skull to make room for the brain to swell. Follow these instructions at home: Activity ? Rest. Avoid activities that are hard or tiring. ? Make sure you get enough sleep. ? Let your brain rest by limiting activities that take a lot of thought or attention, such as: ? Watching TV. ? Playing memory games and doing puzzles. ? Job-related work or homework. ? Working on the computer, using social media, and texting. ? Avoid activities that could cause another head injury, such as playing sports, until your health care provider approves. ? Ask your provider when it is safe for you to return to your regular activities, such as work or school. ? Ask your provider when you can drive, ride a bicycle, or use machinery. Your ability to react may be slower after a brain injury. Do not do these activities if you are dizzy. Lifestyle ? Do not drink alcohol until your provider approves. Do not use drugs. Alcohol and certain drugs may slow your recovery and can put you at risk of further injury. ? If it is hard to remember things, write them down. ? If you are easily distracted, try to do one thing at a time. ? Talk with family members or close friends when making important decisions. ? Tell your friends, family, a trusted colleague, and outside maintenance worker about your injury, symptoms, and restrictions. Ask them to watch for any problems that are new or get worse. General instructions ? Take scac-oef-kfrsguw and prescription medicines only as told by your provider. ? Have a responsible adult stay with you for 24 hours after your head injury. They should watch you for any changes in your symptoms and be ready to get help right away. ? Keep all follow-up visits to make sure your needs are being met and catch any new problems early. How is this prevented? Avoiding another brain injury is very important. In rare cases, another injury can lead to permanent brain damage, brain swelling, or . The ris (more content not included)... [facility] 04-04-2024 Note ASSESSMENT/PLAN: Sara was seen today for follow-up and worker's compensation. Diagnoses and all orders for this visit: Injury of head, subsequent encounter (Primary) No ref. 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 Reports issues with balance in the last few months. Plan: Will submit for approval of vestibular therapy Continue magnesium oxide and Zomig for headaches Continue trazodone 150 mg for sleep hygiene, Refilled Continue propanolol 20 mg TID for agitation Follow-up in one year Risks, and benefits to any new medications were discussed with patient. All questions answered to patient's satisfaction. The patient was instructed to call if symptoms are worsening or not improving. The patient was counseled regarding impressions, instructions for management and importance of compliance with treatment. Jovany Campos MD GC: I saw this patient and was physically present for the critical/walsh portions that determines the level of service. I was directly involved in the management and treatment plan of the patient. I reviewed the resident's note and agree with the resident's documentation. Please note there may be additional personal documentation from me, which may include corrections and/or changes to the residents note and plan. Patient has persistent deficits including some mild concentration and short-term difficulties as well as dizziness with 1 recent fall. I think he would benefit from a short vestibular rehab program, and we can recommend continued yearly follow-up. The propranolol, trazodone and magnesium continue to provide benefit Lien Johnson MD SUBJECTIVE: Sara Yeboah is a 53 y.o. 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 Since his last visit, he states his headaches have been well controlled on Aimovig. His memory issues have been about the same since his last visit. He follows with a counselor for these. His anxiety and agitation have been about the same currently on propranolol. Reports no outbursts. He states that he has been having issues with balance particularly over unstable surfaces such as grass and gravel. He had 1 fall about 3 weeks ago and is not clear exactly why he fell while he was on it gravel. He denies any loss of consciousness however he did skin part of his holbrook. He was evaluated by neuro-emergency registrar at [facility] for his issues who ruled out any perception elements of his instability. He says his sleep has been fine currently on trazodone. Review of Systems Respiratory: Negative for chest tightness and shortness of breath. Musculoskeletal: Negative for gait problem. Neurological: Positive for headaches. Patient Active Problem List Diagnosis Head injury Hypertension Hypertensive urgency DAMARIS on CPAP Osteoarthritis of left hip Tobacco abuse Outpatient Medications Prior to Visit Medication Sig Dispense Refill amLODIPine-benazepriL (Lotrel) 10-40 mg capsule amlodipine 10 mg-benazepril 40 mg capsule TAKE 1 CAPSULE BY MOUTH EVERY DAY cholecalciferol, vitamin D3, 50 mcg (2,000 unit) capsule cloNIDine (Catapres) 0.1 mg tablet Take 0.1 mg by mouth twice a day. cyanocobalamin (Vitamin B-12) 1,000 mcg tablet hydrALAZINE (Apresoline) 25 mg tablet hydralazine 25 mg tablet TAKE 1 TABLET BY MOUTH FOUR TIMES A DAY magnesium oxide (Mag-Ox) 400 mg (241.3 mg magnesium) tablet Take 1 tablet by mouth in the morning. ondansetron (Zofran) 4 mg tablet Zofran 4 mg tablet Take 2 tablets twice a day by oral route. 20 tablet 2 propranolol (Inderal) 20 mg tablet Take 20 mg by mouth. somatropin (Humatrope) 6 mg (18 unit) cartridge Take by injection route. testosterone cypionate (Depo-Testosterone) 200 mg/mL injection INJECT 1 ML INTRAMUSCULARLY EVERY 2 WEEKS FOR 30 DAYS traZODone (Desyrel) 150 mg tablet Take 1 tablet (150 mg) by mouth at bedtime. 90 tablet 3 ZOLMitriptan (Zomig) 2.5 mg tablet zolmitriptan 2.5 mg tablet TAKE 1 TABLET BY MOUTH EVERY DAY NEEDED 10 tablet 2 carvedilol (Coreg) 25 mg tablet Take 25 mg by mouth. erenumab-aooe (Aimovig Autoinjector) 70 mg/mL auto-injector INJECT 1 DOSE SUBCUTANEOUSLY ONCE A MONTH mirtazapine (Remeron) 7.5 mg tablet triamcinolone (Kenalog) 0.1 % cream Apply topically. No facility-administered medications prior to visit. No Known Allergies OBJECTIVE: Vitals: 04/04/24 1253 BP: 179/75 Pulse: 87 Weight: (!) 157 kg (347 lb) Height: 1.829 m (6') Body mass index is 47.06 kg/m???. Physical Exam: General: No acute distress, conversant Lungs: Normal rate, no respiratory distress Extremity: No significant edema Psychiatric: Normal mood and affect Neurological: Alert and oriented, no dysarthria and no word finding difficul (more content not included)... [facility] 03-08-2024 Telephone encounter Note Faxed FROI form to [facility] at [phone]. Also faxed to HIM and placed original in envelope for scanning into [employer]. [facility] 03-08-2024 Miscellaneous Notes Faxed FROI form to [facility] at [phone]. Also faxed to HIM and placed original in envelope for scanning into [facility]. documented in this encounter [facility] 03-01-2024 Note HNO ID: [id number] Author: MILEY ENRIQUE OD Service: ? Author Type: PLASTIC SURGERY SPECIALIST Type: Progress Notes Filed: 03/01/2024 12:42 Note Text: F07.81 Post concussion syndrome (primary encounter diagnosis) Comment: still having Brain integration and processing Main complaint of judging depth and balance when walking normal eye alignment normal depth perception normal eye movements normal peripheral vision no change in refraction and current glasses are OK - 20/20 vision Both eyes E23.7 Pituitary dysfunction (HCC) Comment: no eye problems Normal eye health Dilated ocular health unremarkable OU normal optos photos of the Retina normal 30-2 vivas Both eyes Normal Optic nerves Plan: Discussed all normal findings and no visual treatment is needed discussed Perception and balance is due to processing issues and motor planning issues may want to retry Vestibular therapy with Physical therapy if balance does not improve Return care to PCP and Neurologist [facility] 03-01-2024 History of Presen t illness Narrative F07.81 Post concussion syndrome (primary encounter diagnosis) Comment: still having Brain integration and processing Main complaint of judging depth and balance when walking normal eye alignment normal depth perception normal eye movements normal peripheral vision no change in refraction and current glasses are OK - 20/20 vision Both eyes E23.7 Pituitary dysfunction (HCC) Comment: no eye problems Normal eye health Dilated ocular health unremarkable OU normal optos photos of the Retina normal 30-2 vivas Both eyes Normal Optic nerves Plan: Discussed all normal findings and no visual treatment is needed discussed Perception and balance is due to processing issues and motor planning issues may want to retry Vestibular therapy with Physical therapy if balance does not improve Return care to PCP and Neurologist documented in this encounter [facility] 03-01-2024 Note Date of Procedure 03/01/2024. Industrial Design Intern Information Phosphorus Processing Supervisor: Tia R. Disc Right Eye Normal. Left Eye Normal. Macula Right Eye Normal. Left Eye Normal. Periphery Right Eye Pigmentation. Left Eye Normal. [facility] 03-01-2024 Note Date of Procedure 03/01/2024. Industrial Design Intern Information Phosphorus Processing Supervisor: Jessica Rodriguez Right Eye Borderline. Left Eye Borderline. Interpretation Right Eye Normal. Left Eye Normal. Interval Change Right Eye Initial. Left Eye Initial. [facility] 09-22-2023 Miscellaneous Notes Received outside Records from [facility] needing consult with Dr. Enrique for Neuro Ophthalmology consult. Please contact patient to schedule at [phone]. Records in Dr. Enrique's mailbox. documented in this encounter [facility] 10-07-2022 History of Presen t illness Narrative [facility] Occupational Therapy Evaluation Date: 10/07/22 Patient Name: Sara Yeboah Room: Account: [id number] : 1970 (51 y.o.) Gender: male Discharge [...] Skilled Clinical Factors: OT demonstrated use of logistics assistant and patient threaded B LE with logistics assistant and Minimal assist into underwear. Assist to thread B LE pants. Assist to manage clothing over hips and don socks/shoes. Demonstrated use of sock aid, however patient declines use. Patient and patient's spouse report that she will provide patient with assist PRN for lower body self-care. Patient acknowledges that he has a logistics assistant and sock aid at home. Toileting: Minimal assistance Toileting Skilled Clinical Factors: assist to manage pants as they fell to the ground, however CGA for all other tasks Additional Comments: OT provided patient and patient's spouse with education regarding safety with self-care including use of modified techniques such as sitting for lower body bathing/dressing, use of logistics assistant/sock aid, and use of shower chair. Patient and patient's spouse verbalize Good understanding and state they have a sock aid and logistics assistant and will purchase a shower chair. Patient acknowledges understanding of recommendation for 1st floor setup and 24/7 Supervision upon discharge home with use of recliner for sleeping as well as practicing flight of steps with HH PT prior to trialling. Patient and patient's [...] Verbalized understanding, Demonstrated understanding Functional Outcome Measures [facility] Daily Activity - Inpatient How much help [...] How much help for eating meals?: None [facility] Inpatient Daily Activity Raw Score: 17 [facility] Inpatient ADL T-Scale Score : 37.26 ADL [...] Treatment Minutes: 38 Minutes Physical Therapy Facility/Department: [facility] Physical Therapy Initial Assessment Name: Sara Yeboah : 1970 Date of Service: 10/07/2022 Discharge Recommendations: The patient would benefit from additional Physical Therapy after discharge from the facility upon return to their Home. PT Equipment Recommendations Equipment Needed: Yes Mobility Devices: Walker Other: Adjusted to his height by greeting card writer Patient Diagnosis(es): The encounter diagnosis was [...] adjusted for pt per his height by greeting card writer.Recommend staying on first floor initially and [...] 154) [facility] Inpatient T-Scale Score : 38.1 (10/07/221543) Mobility Inpatient CMS 0-100% Score: 61.29 (10/07/221543) Mobility Inpatient CMS G-Code Modifier : CL [...] at patient request documented in this encounter [address] Phone: 10-07-2022 Hospital Discharg e instructions Gillian Suarez [...] Contact Information Primary Emergency Contact: Bev Yeboah Mobile Relation: Spouse Sanitary Chemist needed? No Past Surgical History: Past Surgical [...] Assisted Dressing Independent Toileting Independent Feeding Independent Rn Peritoneal Dialysis Independent Med Delivery whole Wound Care Documentation [...] NOT a DME order): walker Other Treatments: [facility] assessment and monitoring. Medication education and monitoring [...] Unplanned Readmission: 0 Discharging to Facility/ Agency [facility] [address] [place] [address] [address] [facility] [id number] Fax Director Of Oncology/Content Publisher signature: PHYSICIAN SECTION Prognosis: Good Condition at [...] PHYSICIAN SIGNATURE: documented in this encounter [facility] [employer] Phone: 09-26-2022 Evaluation note Encounter Date Diagnosis Assessment [...] syndrome (ICD-10 - F07.81) Stable w/ treatment Infectious Other 03-15-2023 Hospital Discharge instructions* Discharge Instructions* Loren Ortega RN - 09/24/2022 6:51 AM [...] your surgery with a sip of water: Hydralazine,Clonidine, Propranolol Surgery Instructions: After midnight before surgery: [...] powder, deodorant, jewelry, piercings, perfume, makeup, nail romanian, hair accessories, or hair spray on the [...] hospital. The Day of Surgery: Arrive at [facility] Surgery Entrance at the time directed by your surgeon and check in at the desk. If you have a living will or healthcare power of veneer production machine operator, please bring a copy. You will be taken to the pre-op holding area where you will be prepared for surgery. A physical assessment will be performed by a nurse practitioner or housekeeper supervisor. Your IV will be started and you will meet your anesthesiologist. When you go to surgery, your family will be directed to the surgical waiting room, where the doctorshould speak with them after your surgery. After [...] needed in recovery room. [facility] [employer] Phone: evaluation note* Diagnosis Hypertension, unspecified type Osteoarthritis of left hip, unspecified osteoarthritis type documented in this encounter [facility] [employer] Phone: evaluation note* Diagnosis Primary osteoarthritis of left hip- Primary Primary localized osteoarthrosis, pelvic region and thigh Primary osteoarthritis of left hip Primary localized osteoarthrosis, pelvic region and thigh documented in this encounter [facility] [employer] Phone: evaluation noteNo [facility] Other Evaluation note* Diagnosis Post concussion syndrome- Primary Postconcussion syndrome Pituitary dysfunction (HCC) Unspecified disorder of the pituitary gland and its hypothalamic control [facility] Diagnosis Onset Date Resolution Status Admit Date Depression acute September 29 9:21am Hypertension acute September 29, 2024 9:21am Insomnia acute September 29 9:21am Low testosterone in male acute September 29, 2024 9:21am Obstructive sleep apnea acute 2024 9:21am Post concussion syndrome acute September 29, 2024 9:21am Screening PSA (prostate specific antigen) acute September 29 9:21am Wellness examination noneactive Justin 2024 9:21am [facility] Work Phone: History general Narrative - Reported* Type Description Date Medical History Screening PSA (prostate specific antigen) Medical History Obstructive sleep apnea Medical History Lumbar spondylosis Medical History Arthritis of left hip Medical History Arthritis of left knee Medical History Benign hypertension with chronic kidney disease, stage II Medical History COVID Medical History Low testosterone Medical History High risk medication use Medical History Acute eczema Surgical History EGD 2019 Surgical History COLONOSCOPY 2019 Surgical History ARTHROSCOPY, KNEE-LEFT 2014 Hospitalization History SEE SURGICAL HX [facility] Other Summary Purpose Family History Relationship Condition Age at Onset Recorded Date/T álvaro mother Hypertension Unknown Advance Directives Latest Code Status on File Code Status Date Activated Date Inactivated Comments Full Code 10/07/2022 5:37 AM Advance Directive Response Recorded Date/ Time Advance Directives No September 13 10:23am Chief Complaint and Reason for Visit Chief Complaint Admit Date Wellness September 29, 2024 9:2 1am Reason for Visit Admit Date Depression September 29, 2024 9:2 1am Hypertension September 29, 2024 9:2 1am Insomnia September 29, 2024 9:2 1am Low testosterone in male September 29 9:21am Obstructive sleep apnea September 29, 2024 9:21am Post concussion syndrome September 29 9:21am Screening PSA (prostate specific antigen ) September 29, 2024 9:21am Wellness examination September 29, 2024 9: 21am Additional Source Comments (unrecognized sect ion and content) No Status Records FoundNo Status Records FoundNo Status Records FoundNo Status Records FoundNo Status Records FoundNo Status Records Found INFORMATION SOURCE (unrecogn ized section and content) DATE CREATED AUTHOR 12/19/2018 [facility] DATE CREATED AUTHOR AUTHOR'S ORGANIZ ATION 10/09/2022 [facility] DATE CREATED AUTHOR AUTHOR'S ORGANIZ ATION 11/24/2022 [facility] DATE CREATED AUTHOR AUTHOR'S ORGANIZ ATION 03/22/2024 [facility] DATE CREATED AUTHOR AUTHOR'S ORGANIZ ATION 08/07/2024 [facility] DATE CREATED AUTHOR AUTHOR'S ORGANIZ ATION 09/22/2024 [facility] Teams (unrecognized sec tion and content) Pillowcase Sewer Relationship Specialty Start Date End Date Iron Olmos DO [address] [place] [id number] PCP - General Internal Medicine 08/26/22 Pillowcase Sewer Relationship Specialty Start Date End Date Iron Olmos DO [address] [place] [address] PCP - General Internal Medicine 08/26/22 Team Status: Active Member Role Status Dates Iron Olmos DO Primary Care Provider Active Team Status: Inactive Member Role Status Dates Iron Olmos DO Primary Care Provide r, Attending Provider Active Start: September 29, 2024 End: September 29, 2024 REASON FOR VISIT (unrecogniz ed section and content) Specialty Diagnoses / Procedures Referred By Nayla t Referred To Contact Diagnoses Osteoarthritis of left hip, unspecified osteoarthritis type DEGENERATIVE JOINT DISEASE LEFT HIP Procedures AR ARTHRP ACETBLR/PROX FEM PROSTC AGRFT/ALGRFT HIP TOTAL ARTHROPLASTY MINIMALLY INVASIVE Ravi Lopez MD [address] [facility] [address] [place] [address] [facility] [address] [place] [address] Referral ID Status Reason Start Date Expiration Date Visits Re quested Visits Authorized [id number] 1 1 Reason Comments Received Outside Medical Records Reason Comments concussion follow up Specialty Diagnoses / Procedures Referred By Nayla lucio Referred To Contact Optometry / OPHTHALMOLOGY Diagnoses CONCUSSION Procedures CONCUSSION OPHT Miley Enrique, OD [address] [facility] [address] [place] [address] Miley Enrique, OD [address] [facility] [address] [place] [address] Referral ID Status Reason Start Date Expiration Date Visits Re quested Visits Authorized [id number] Closed 03/01/2024 03/01/2024 1 1 Reason Comments FROI form Ordered Prescriptions (unrec ognized section and content) [...] 100 mL IVPB (COMPLETED) 3,000 mg, IntraVENous, CARDBOARD CUTTER TO O.R., 1 dose, On Thu10/07/22 at 0600, Antimicrobial Indications: Surgical Prophylaxis, Administer within 1 hour prior to incision. Recommend to repeat in 3-4 hours after initial dose if still intra-op., Pre-op (day of surgery) 0742 (Given - Provid er: Keny Deng, ALCOHOL RUBBER - REPAIRER EVAPORATOR) ceFAZolin (ANCEF) 3000 mg in sodium chloride [...] Provider: ARIC Singh CRNA)[id number] (Stopped - Provider: Keny Deng APRN - MAHAD)0913 (New Bag - Provider: ARIC Singh CRNA)[id number] [...] or prosecute any alcohol or drug abuse patient.[facility] the event this information is protected by the Federal Confidentiality of Alcohol and Drug Abuse Patient Records regulations: The Federal rules restrict any use of the information to criminally investigate or prosecute any alcohol or drug abuse patient.[facility] Hospital[facility] the event this information is protected by the Federal Confidentiality of Alcohol and Drug Abuse Patient Records regulations: The Federal rules restrict any use of the information to criminally investigate or prosecute any alcohol or drug abuse patient.[facility] Goals (unrecognized section and content) Goals may be documented in a n alternate section FOR RECORDS PERTAINING TO PATIENTS WHO ARE [...] BE BASED ON THE PRIMARY CLINICAL RECORDS. [facility]. provides no warranty or guarantee of the accuracy or completeness of information in this document.
[2024-10-01 09:45] LABS: Basophils Absolute Auto 0.1 10^3/uL (0.0-0.1); Basophils Percent Auto 0.7 % (0.2-2.0); Eosinophils Absolute Auto 0.3 10^3/uL (0.0-0.7); Eosinophils Percent Auto 3.4 % (0.9-7.0); Hematocrit 40.5 % (42.0-54.0); Hemoglobin 13.6 g/dL (14.0-18.0); Immature Granulocytes Abs Auto 0.06 10^3/uL (0.00-0.03); Immature Granulocytes Pct Auto 0.7 % (0.0-0.5); Lymphocytes Absolute Auto 1.7 10^3/uL (1.2-3.8); Lymphocytes Percent Auto 21.1 % (20.5-60.0); Mean Corpuscular HGB Conc 33.6 g/dL (29.9-35.2); Mean Corpuscular Volume 92.3 fL (80.0-94.0); Mean Platelet Volume 10.6 fL (9.5-13.5); Monocytes Absolute Auto 0.6 10^3/uL (0.3-0.8); Monocytes Percent Auto 7.5 % (1.7-12.0); Neutrophils Absolute Auto 5.4 10^3/uL (1.4-6.5); Neutrophils Percent Auto 66.6 % (43.0-75.0); Platelet Count 208 10^3/uL (150-450); Red Blood Count 4.39 10^6/uL (4.70-6.10); Red Cell Distribution Width 12.8 % (11.0-15.0); White Blood Count 8.2 10^3/uL (4.0-11.0)
[2024-10-01 10:14] LABS: Alanine Aminotransferase 95 U/L (16-63); Albumin Globulin Ratio 0.9; Albumin Level 3.4 g/dL (3.4-5.0); Alkaline Phosphatase 75 U/L (46-116); Anion Gap 11.5; Aspartate Amino Transferase 45 U/L (15-37); BUN Creatinine Ratio 15.6; Bilirubin Total 0.5 mg/dL (0.2-1.0); Calcium 8.7 mg/dL (8.5-10.1); Carbon Dioxide 26.8 mmol/L (21.0-32.0); Chloride 104 mmol/L (98-107); Chol HDL Ratio 2.8; Cholesterol 168 mg/dL (<=200); Estimated GFR (African America >60 (>=60 mL/min/1.73m^2); Estimated GFR (Non-African Ame >60 (>=60 mL/min/1.73m^2); Globulin 3.7 g/dL; Glucose 121 mg/dL (74-106); HDL Cholesterol 60 mg/dL (40-60); LDL Cholesterol Calculated 86.2 mg/dL; Magnesium 1.8 mg/dL (1.8-2.4); Potassium 4.3 mmol/L (3.5-5.1); Sodium 138 mmol/L (136-145); Total Protein 7.1 g/dL (6.4-8.2); Triglycerides 109 mg/dL (<=150); VLDL CHOLESTEROL 21.8 mg/dL
[2024-10-01 10:29] LABS: Prostate Specific Antigen Scrn 0.22 ng/mL (<=4.00)
[2024-10-02 08:12] LABS: Testosterone 210 ng/dL (264-916)
== END 2024-10-01 08:55 | disposition home or self-care (01) ==
LOC: LAB 08:54
PROVIDERS: PCP Internal Medicine; Visit Provider Internal Medicine
DX: Z00.00 Encounter for general adult medical examination without abnormal findings (principal)
CPT/HCPCS: 36415; 80053; 80061; 83735; 84403; 85025; G0103

== ENCOUNTER 2025-01-21 08:53 | Outpatient (OUT) | payer MEDICARE, BC, SELFPAY ==
--- OUTSIDE RECORDS SUMMARY | 2025-01-21 08:57 | XMS_ITS | Clinical Summary ---
Author Organization [facility] Address [address] [place] [address] Care Team Providers Care Data Entry Associate Name Role Phone Unavailable Primary Care Provider Unavailabl e Allergies No known active allergies Medications amLODIPine-bhanu azepriL (Lotrel) 10-40 mg capsule amlodipine 10 mg-benazepril 40 mg capsule TAKE 1 CAPSULE BY MOUTH EVERY DAY 02/19/20 20 Active carvedilol (Coreg) 25 mg tablet Take 25 mg by mouth. 03/25/20 20 Active erenumab-aooe (Aimovig Autoinjector) 70 mg/mL auto-injector INJECT 1 DOSE SUBCUTANEOUSLY ONCE A MONTH Active hydrALAZINE (Apresoline) 25 mg tablet hydralazine 25 mg tablet TAKE 1 TABLET BY MOUTH FOUR TIMES A DAY 03/11/20 20 Active magnesium oxide (Mag-Ox) 400 mg (241.3 mg magnesium) tablet Take 1 tablet by mouth in the morning. 12/20/19 22 Active mirtazapine (Remeron) 7.5 mg tablet 04/29/20 20 Active propranolol (Inderal) 20 mg tablet Take 20 mg by mouth. Active somatropin (Humatrope) 6 mg (18 unit) cartridge Take by injection route. Active testosterone cypionate (Depo-Testoste timothy) 200 mg/mL injection INJECT 1 ML INTRAMUSCULARLY EVERY 2 WEEKS FOR 30 DAYS Active triamcinolone (Kenalog) 0.1 % cream Apply topically. Act seth ZOLMitriptan (Zomig) 2.5 mg tabletIndicati ons:Injury of head, subsequent encounter zolmitriptan 2.5 mg tablet TAKE 1 TABLET BY MOUTH EVERY DAY NEEDED 10 tablet 2 03/30/20 23 Active ondansetron (Zofran) 4 mg tabletIndicati ons:Injury of head, subsequent encounter Zofran 4 mg tablet Take 2 tablets twice a day by oral route. 20 tablet 2 03/30/20 23 Active cholecalcifero l, vitamin D3, 50 mcg (2,000 unit) capsule Active cloNIDine (Catapres) 0.1 mg tablet Take 0.1 mg by mouth twice a day. Active cyanocobalamin (Vitamin B-12) 1,000 mcg tablet Active traZODone (Desyrel) 150 mg tabletIndicati ons:Injury of head, subsequent encounter TAKE 1 TABLET BY MOUTH AT BEDTIME 90 tablet 3 08/07/19 25 Active Active Problems Problem Noted Date Diagnosed Date Osteoarthritis of left hip 08/06/2020 Head injury 05/14/2018 Overview (09/08/2022): HEAD INJURY DUE TO ACCIDENT Tobacco abuse 02/26/2013 Overview (09/08/2022): History: Chews Tobacco Plan: Chaser Apprentice prior to discharge to risk of oral cancer Hypertension 02/25/2013 Overview (09/08/2022): History: Has been told by PCP before that has systolic's in 160's, but patient denied treatment Assessment: Uncontrolled HTN Plan: As above under hypertensive urgency Hypertensive urgency 02/25/2013 Overview (09/08/2022): History: BP 220/114 on admission Had Diaphoresis and chest pain No positive troponin's, all here have been negative No episodes of chest pain during admission ECHO showed moderate LVH and stage 2 diastolic dysfunction Assessment: HTN urgency Plan: Continue metop, chlorthalidone. Increased Captopril to 75mg TID this AM Plan for nuc stress today given chest pain with HTN urgency DAMARIS on CPAP 02/25/2013 Overview (09/08/2022): History: For the past 4 years On home BiPAP brought home BiPAP with Assessment: DAMARIS Plan: Continue nocturnal BiPAP Encounters Date Type Department Care Team Description 11/03/[address] [facility] at [address] [place] [address] Shannon Choudhury MA from Last 3 Months Social History Tobacco Use Types Packs/Day Years Used Date Smoking Tobacco: Never Smokeless Tobacco: Never Tobacco Cessation:Counseling Given: Not Answered PHQ-2 Answer Date Recorded Patient Health Questionnaire-2 Score 0 04/04/2024 [place] Safety & Environment Answer Date Rec orded Fear of Current or Ex-Partner Not on file Emotionally Abused Not on file 09/03/2023 Physically Abused Not on file 09/03/2023 Sexually Abused Not on file 09/03/2023 Physically or Sexually Abused Not on file Sex and Gender Information Value Date Recorded Sex Assigned at Not on file Legal Sex Male 12:11 AM EDT Gender Identity Not on file Sexual Orientation Not on file Last Filed Vital Signs Vital Sign Reading Time Taken Comments Blood Pressure 179/75 04/04/2024 12:53 PM EDT Pulse 87 04/04/2024 12:53 PM EDT Temperature - - Respiratory Rate - - Oxygen Saturation - - Inhaled Oxygen Concentration - - Weight 157 kg (347 lb) 04/04/2024 12:53 PM EDT Height 182.9 cm (6') 04/04/2024 12:53 PM EDT Body Mass Index 47.06 04/04/2024 12:53 PM EDT Plan of Treatment Upcoming Encounters Date Type Department Care Team (Late st Contact Info) Description 04/03/2025 1:00 PM EDT Office Visit [facility] [address] [place] [address] Jorge L Johnson MD [address] [place] [address] Health Maintenance Due Date Last Done Comments CT Colonography 1969 Colonoscopy 1969 Colorectal Cancer Screening 1969 FIT-DNA 1969 FIT 1969 FOBT 1969 Sigmoidoscopy 1969 Hepatitis B Vaccines (1 of 3 - 19+ 3-dose series) 1988 Adult Tetanus 10/11/1991 Zoster Vaccines (1 of 2) 10/11/2019 COVID-19 Vaccine (4 - 2023-2 5 season) 2024 05/14/2021, 10/16/2020, 09/24/2020 Influenza Vaccine (#1) 2025 Depression Screening 04/04/2025 04/04/2024 HIB Vaccines Aged Out No longer eligi ble based on patient's age to complete this topic HPV Vaccines Aged Out No longer eligi ble based on patient's age to complete this topic IPV Vaccines Aged Out No longer eligi ble based on patient's age to complete this topic Meningococcal B Vaccine Aged Out No l onger eligible based on patient's age to complete this topic Meningococcal Vaccine Aged Out No ken carlos eligible based on patient's age to complete this topic Pneumococcal Vaccine: Pediatrics (0 to 5 Years) and At-Risk Patients (6 to 64 Years) Aged Out No longer eligible b ased on patient's age to complete this topic Rotavirus Vaccines Aged Out No longer eligible based on patient's age to complete this topic Insurance [place] [employer] [place] [address] [address]
--- OUTSIDE RECORDS SUMMARY | 2025-01-21 08:57 | XMS_ITS | Patient Health Record ---
Author Organization [facility] Address [address] [place] [address] Care Team Providers Care Sailor Name Role Phone Leigh Salcedo MD Primary Care Provider Leigh Holbrook Unavailable [phone] Allergies No Known Allergies Reason For Referral No Information Medications Medication SIG (Take, Route, Frequency, Duration) Notes Start Date End Date Status Testosterone Cypionate 200 MG/ML Solution INJECT 0.5ML INTRAMUSCULARLY ONCE EVERY WEEK; Duration: 28 12/24/2022 Active Norditropin FlexPro 15 MG/1.5ML Solution Pen-injector INJECT 0.6 MG SUB-Q EVERY MORNING; Duration: 25 Active Comfort EZ Pen Stigler 32G X 5 MM Miscellaneous USE TO INJECT NORDITROPIN ONCE DAILY; Duration: 25 Active Needle (Disp) 23G X 1 Miscellaneous as directed intramuscular once a week; Duration: 90 days Active hydrALAZINE HCl 25 MG Tablet 1 tablet with food Orally Three times a day; Duration: 30 day(s) Active Lotrel 10-40 MG Capsule as directed Orally Active BD Pen Needle Mini U/F 31G X 5 MM Miscellaneous as directed subcutaneous every morning; Duration: 30 days NKDA; Dx: S06.9X0A. Please process through [employer] Workers [employer]. Claim [id number]. DOI: 05/14/18. Heel Sorter: Diane Perry [phone] 04/25/2021 Active Syringe (Disposable) 3 ML Miscellaneous as directed in vitro once a week; Duration: 90 days Active Propranolol HCl 20 MG Tablet 1 tablet Orally twice a day Active Needle (Disp) 18G X 1 Miscellaneous as directed intramuscular once a week; Duration: 90 days Active traZODone HCl 100 MG Tablet 1 tablet at bedtime Orally Once a day; Duration: 30 day(s) Active Pharmacist Choice Alcohol - Pad USE TO WIPE SKIN BEFORE INJECTION ONCE DAILY; Duration: 25 Active Social History Social History Additional Details Category Social Info Options Details General occupation currently not w orking, focusing on improving health alcohol occasional sexually active yes marital status exercise None diet fast food, varie ty. 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 (growth hormone deficiency) (E23.0) Active confirmed Problem Disorder of pituitary gland (463812356) Pituitary dysfunction (E23.7) Active confirmed Plan Of Treatment Pending Test Test Name Order Date Testosterone, Free & Total by MS 021 Vitamin B12 10/29/2021 Vitamin B12 09/16/2022 Vitamin B12 06/10/2022 Vitamin B12 02/27/2022 Vitamin B12 03/05/2021 T4 Free 02/27/2022 T4 Free 09/16/2022 T4 Free 06/10/2022 T3 total 06/10/2022 T3 total 09/16/2022 Testosterone, Serum 09/16/2022 Testosterone, Serum 06/10/2022 Testosterone, Serum 04/02/2021 Testosterone, Serum 10/29/2021 Testosterone, Serum 06/27/2021 TSH 02/27/2022 TSH 09/16/2022 TSH 06/10/2022 Luteinizing Hormone(LH), S 10/29/2021 FSH, Serum 10/29/2021 CBC With Differential/Platelet 1 CBC With Differential/Platelet 2 CBC With Differential/Platelet 1 CBC With Differential/Platelet 2 CBC With Differential/Platelet 3 CBC With Differential/Platelet 1 T3,Free,Serum 02/27/2022 Vitamin D, 25-Hydroxy 02/27/2022 Vitamin D, 25-Hydroxy 03/05/2021 Vitamin D, 25-Hydroxy 06/10/2022 Vitamin D, 25-Hydroxy 09/16/2022 Vitamin D, 25-Hydroxy 10/29/2021 Lipid Panel 10/29/2021 Lipid Panel 09/16/2022 Comp. Metabolic Panel (14) 06/10/2022 Comp. Metabolic Panel (14) 09/16/2022 Comp. Metabolic Panel (14) 02/27/2022 Comp. Metabolic Panel (14) 04/02/2021 Comp. Metabolic Panel (14) 03/05/2021 Comp. Metabolic Panel (14) 10/29/2021 CBC, No Differential/Platelet 02/27/2022 IGF-1 (ADULT) 09/16/2022 IGF-1 (ADULT) 06/10/2022 IGF-1 04/02/2021 IGF-1 03/05/2021 IGF-1 02/27/2022 IGF-1 06/27/2021 IGF-1 10/29/2021 Insurance Providers Payer Name Payer Address Payer Phone Subscriber Number Group Number Insured Name Patient Relationship to Insured Coverage Start Date Coverage End Date -[employer] [address] [place] [address] [id number] SARA YEBOAH Self - patient is the insured Medications Administered Medication Instructions Date of Administration Dosage Notes SOD CHLOR 250([phone] SEBASTIAN) 03/05/2021 250 mL Medical (General) History Medical History History ICD Code Hypertension Personal history of traumatic brain inju ry Z87.820 Hypogonadism male E29.1 Pituitary dysfunction E23.7 Surgical History Surgery Date(Month/Year) Left Knee Arthoscopy 2013 L Hand reconstruction (congenital defect ) 1976 Hospitalization History Reason Date(Month/Year) see above.
--- OUTSIDE RECORDS SUMMARY | 2025-01-21 08:57 | XMS_ITS | Clinical Summary ---
Author Organization [facility] Address [address] [place] [address] Care Team Providers Care Extractor Plant Operator Name Role Phone Unavailable Primary Care Provider Unavailabl e Allergies No known active allergies Medications metoprolol tartrate, short acting, 50 mg tablet Take 1.5 tablets by mouth every 8 hours. 90 tablet 3 02/28/2013 Active chlorthalidone 25 mg tablet Take 1 tablet by mouth once daily. 30 tablet 3 02/28/2013 Active lisinopril 40 mg tablet Take 1 tablet by mouth once daily. 30 tablet 3 02/28/2013 Active Cholecalciferol , Vitamin D3, (VITAMIN D-3) 50 mcg (2,000 unit) cap Active cyanocobalamin (VITAMIN B-12) 1,000 mcg tab Active amLODIPine-[place]way zepril 10-40 mg per capsule Take 1 capsule by mouth once daily. Active ondansetron (ZOFRAN) 4 mg tablet Take by mouth every 8 hours as needed for nausea/vomit ing. Active cloNIDine HCl (CATAPRES) 0.1 mg tablet Take 0.1 mg by mouth two times a day. Active ZOLMitriptan (ZOMIG) 2.5 mg tablet Take 2.5 mg by mouth as needed. May repeat dose after 2 hours if needed. Maximum daily dose is 10 mg per day. Active traZODone (DESYREL) 150 mg tablet Take 150 mg by mouth daily at bedtime. Active Magnesium Oxide 500 mg cap Take by mouth. Active Active Problems Patient Care Coordination No te Formatting of this note migh t be different from the original. Presentation/Indication for admission/procedure: Diaphoresis and chest pain, 2/2 to hypertensive urgency PMH/PSH: HTN nad DAMARIS Procedure/OR performed (including complications): None Brief Hospital Course/Narrative: Went [place] [facility], was given Nitroglycerin gel, NTG drip, Metoprolol and famotisdine. EKG done, showing T-wave iversions in inferolateral leads and Trop of 0.3 Active Issues/New Events (dated): HTN Urgency - Started on NTG drip LVEF: Impression/Plan: As Below Problem Noted Date Diagnosed Date Tobacco abuse 02/26/2013 Overview (02/26/2013): History: Chews Tobacco Plan: [employer] prior to discharge to risk of oral cancer SUMMARY 02/25/2013 Overview (02/27/2013): 42 yo with HTN (not on meds at home) DAMARIS p/w sudden onset CP found to have hypertensive urgency. He was transferred from OSH to [facility] and transitioned to oral medication. Troponins were negative x 2 in -. TTE shows moderate concentric hypertrophy showing hypertension likely is longstanding Hypertensive urgency 02/25/2013 Overview (02/28/2013): History: BP 220/114 on admission Had Diaphoresis [...] HTN urgency DAMARIS on CPAP 02/25/2013 Overview (02/26/2013): History: For the past 4 years On home BiPAP brought home BiPAP with Assessment: DAMARIS Plan: Continue nocturnal BiPAP Hypertension 02/25/2013 Overview (02/28/2013): History: Has been told by PCP before that has systolic's in 160's, but patient denied treatment Assessment: Uncontrolled HTN Plan: As above under hypertensive urgency Immunizations Immunization Administration Dates Next Due pneumococcal polysaccharide (PPV23) vaccine, 23 valent (PNEUMOVAX 23) 02/28/2013(Deferred: Patient Refused - pt spoke with (DR. Parish) decided vaccine not needed, d/c'd order) Family History Medical History Relation Comments myocardial infarction [Other] Maternal Grandfath er Relation Status Comments Maternal Grandfather Social History Tobacco Use Types Packs/Day Years Used Date Smoking Tobacco: Never Smokeless Tobacco: Current Chew Tobacco Cessation:Ready to Q uit: Yes; Counseling Given: Yes Alcohol Use Standard Drinks/Week Comments Yes 20 (1 standard drink = 0.6 oz pu re alcohol) 3-4 Cans Per Day Sex and Gender Information Value Date Recorded Sex Assigned at Not on file Legal Sex Male 9:03 AM EDT Gender Identity Not on file Sexual Orientation Not on file Last Filed Vital Signs Vital Sign Reading Time Taken Comments Blood Pressure 159/81 02/28/2013 3:10 PM EDT Pulse 79 02/28/2013 2:53 PM EDT Temperature 36.7 C (98.1 F) 02/28/2013 2:53 PM EDT Respiratory Rate 20 02/28/2013 2:53 PM EDT Oxygen Saturation 97% 02/28/2013 2:53 PM EDT Inhaled Oxygen Concentration - - Weight 146 kg (321 lb 12.8 oz) 02/28/2013 6:00 A M EDT Height 182.9 cm (6') 02/26/2013 12:45 PM EDT Body Mass Index 43.64 02/26/2013 12:45 PM EDT Plan of Treatment Health Maintenance Due Date Last Done Comments Anxiety Screening 10/11/1987 Depression Screening 10/11/1987 HIV Screening 10/11/1987 Hepatitis C Screening 10/11/1987 DTaP,Tdap,Td Vaccine (1 - Tdap) 1988 Hepatitis B Vaccine (1 of 3 - 19+ 3-dose series) 1988 CT Colonography 2014 Cologuard (FIT-DNA) 2014 Colonoscopy 2014 Colorectal Cancer Screening 2014 Fecal Occult Blood 2014 Prostate Cancer Screening Discussion 2014 Sigmoidoscopy 2014 Lipid Screening 02/25/2018 02/25/2013 Pneumococcal Vaccine: 50+ (1 of 1 - PCV) 10/11/2019 Shingrix Vaccine (1 of 2) 10/11/2019 Covid-19 Vaccine (1 - 2023-2 5 season) 2024 Influenza Vaccine (#1) 2025 Diabetes Screening 09/24/2025 09/24/2022, 0 02/28/2013, 02/27/2013, Additional history exists Procedures Procedure Name Priority Date/Time Associated Diagnosis Comments COMPREHENSIVE METABOLIC PANEL Routine 02/28/2013 5:14 AM EDT LIPID PANEL, FASTING Routine 02/25/2013 1:30 PM EDT from Last 3 Months or Most Recently Relevant to Health Maintenance Results * (ABNORMAL) COMP METABOLIC PANEL (02/28/2013 5:14 AM EDT) Protein, Total 6.9 6.0 - 8.4 g/dL [facility] Albumin 4.2 3.5 - 5.0 g/dL [facility] Calcium 9.6 8.5 - 10.5 mg/dL [facility] Bilirubin, Total 0.3 0.0 - 1.5 mg/dL [facility] Alkaline Phosphatase 66 40 - 150 U/L [facility] AST 16 7 - 40 U/L [facility] Glucose 101(H) 65 - 100 mg/dL [facility] BUN 19 10 - 25 mg/dL [facility] Creatinine 1.10 0.70 - 1.40 mg/dL [facility] Sodium 140 135 - 146 mmol/L [facility] Potassium 4.3 3.5 - 5.0 mmol/L [facility] Chloride 101 98 - 110 mmol/L [facility] CO2 27 23 - 32 mmol/L [facility] Anion Gap 12 0 - 15 mmol/L [facility] ALT 29 5 - 50 U/L [facility] Blood specimen (specimen) BLOOD SPECIMEN / Unknown 02/28/2013 5:14 AM EDT 02/28/2013 5:15 AM EDT us Marcell Chowdhury MD LABORATORY Final Result [facility] [address] [place] [address] * LIPID PANEL BASIC (02/25/2013 1:30 PM EDT) Triglyceride 52 30 - 149 mg/dL [facility] Cholesterol, Total 190 100 - 199 mg/dL [facility] HDL Cholesterol 76 >45 mg/dL [facility] VLDL Cholesterol 10 6 - 40 mg/dL [facility] LDL Cholesterol, Calculated 104 60 - 129 mg/dL [facility] Fasting Time 8 hrs [facility] TC:HDL Ratio 2.50 1.00 - 5.00 [facility] LDL:HDL Ratio 1.37 0.50 - 3.55 [facility] Non HDL Cholesterol 114 90 - 159 mg/dL [facility] Blood specimen (specimen) BLOOD SPECIMEN / Unknown 02/25/2013 1:30 PM EDT 02/25/2013 1:46 PM EDT Marcell Chowdhury MD LABORATORY Final Result [facility] [address] [place] [address] from Last 3 Months or Most Recently Relevant to Health Maintenance Insurance [facility] Address: [facility] [address]
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
--- OUTSIDE RECORDS SUMMARY | 2025-01-21 08:57 | XMS_ITS | Clinical Summary ---
Author Organization [facility] Address [address] [place] [address] Care Team Providers Care Road Patcher Name Role Phone Iron Olmos Primary Care Provider [phone] Allergies No known active allergies Medications cloNIDine (Catapres) 0.1 MG tablet Take 0.1 mg by mouth in the morning and 0.1 mg before bedtime. Active amLODIPine-benazepr il (Lotrel) 10-40 MG capsule Take 1 capsule by mouth Daily Active hydrALAZINE (Apresoline) 25 MG tablet Take 25 mg by mouth in the morning and 25 mg at noon and 25 mg in the evening and 25 mg before bedtime. 5 Active ondansetron ODT (Zofran-ODT) 4 MG disintegrating tablet Take 4 mg by mouth every 6 (six) hours if needed 5 Active propranolol (Inderal) 20 MG tablet Take 20 mg by mouth in the morning and 20 mg in the evening and 20 mg before bedtime. Active traZODone (Desyrel) 150 MG tablet Take 150 mg by mouth at bedtime 5 Active ZOLMitriptan (Zomig) 2.5 MG tablet Take 2.5 mg by mouth 1 (one) time if needed Active erenumab (Aimovig) 70 MG/ML injection Inject 70 mg under the skin every 28 (twenty-eigh t) days Active testosterone cypionate (Depo-Testosterone) 100 MG/ML injection Inject 100 mg into the shoulder, thigh, or buttocks every 14 (fourteen) days Active Cyanocobalamin (Vitamin B-12) [address] 5,000 mcg under the tongue 1 (one) time each day Active Cholecalciferol (Vitamin D3) 50 MCG (2000 UT) chewable tablet Chew 1 tablet 1 (one) time each day Active magnesium oxide (Mag-Ox) 400 mg tablet 400 mg Daily Active testosterone cypionate (Depo-Testosterone) 200 MG/ML injectionIndication s:Secondary male hypogonadism Inject 1 mL (200 mg) into the shoulder, thigh, or buttocks every 14 (fourteen) days 6 mL 1 5 04/12/20 Active Syringe, Disposable, 3 ML miscIndications:Sec ondary male hypogonadism 1 Syringe every 14 (fourteen) days 10 each 1 5 01/25/20 25 Active Encounters Date Type Department Care Team Description 10/26/2024 9:40 AM EDT Office Visit [facility] [address] [place] [address] Krystle Truong MD 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); Encounter for dietary consultation; Class 3 severe obesity due to excess calories without serious comorbidity with body mass index (BMI) of 50.0 to 59.9 in adult ([facility]) 10/26/2024 Bamboo flowsheet [facility] [address] [place] [address] Krystle Truong MD from Last 3 Months Social History Tobacco Use Types Packs/Day Years Used Date Smoking Tobacco: Never Tobacco Cessation:Counseling Given: Not Answered Sex and Gender Information Value Date Recorded Sex Assigned at Not on file Legal Sex Male 6:42 PM EDT Gender Identity Not on file Sexual Orientation Not on file Last Filed Vital Signs Vital Sign Reading Time Taken Comments Blood Pressure 160/94 10/26/2024 9:45 AM EDT Pulse 64 10/26/2024 9:45 AM EDT Temperature - - Respiratory Rate 16 10/26/2024 9:45 AM EDT Oxygen Saturation 93% 10/26/2024 9:45 AM EDT Inhaled Oxygen Concentration - - Weight 191 kg (420 lb) 10/26/2024 9:45 AM EDT Height 182.9 cm (6') 10/26/2024 9:45 AM EDT Body Mass Index 56.96 10/26/2024 9:45 AM EDT Plan of Treatment Upcoming Encounters Date Type Department Care Team (Late st Contact Info) Description 02/22/2025 9:40 AM EDT Office Visit [facility] [address] [place] [address] Krsytle Truong MD [address] [place] [address] Insurance [facility] MEDICARE Care Teams Road Patcher Relationship Specialty Start Date End Date Iron Olmos DO PCP - General Internal Medicine 12/09/23
--- OUTSIDE RECORDS SUMMARY | 2025-01-21 08:58 | XMS_ITS | CCD ---
Author Organization [facility] Care Team Providers Care Doctor Of Naturopathic Medicine Name Role Phone Iron Gan DO Primary Care Provider RAVI LOPEZ Admitting Unavailable RAVI LOPEZ Attending Unavailable IRON GAN Primary Care Unavailable RAVI LOPEZ Referring Unavailable RAVI LOPEZ Admitting Unavailable RAVI LOPEZ Attending Unavailable IRON GAN Primary Care Unavailable TUSHARDMITRI TALLEY Admitting Unavailable TUSHAR, DMITRI Attending Unavailable DMITRI FINLEY Consulting Unavailable RODRIGO, DR LEWIS Primary Care Unavailable MISC, DR BLAKELY Attending Unavailable MISC, DR BLAKELY Consulting Unavailable MISC, DR BLAKELY Admitting Unavailable RODRIGO, DR LEWIS Primary Care Unavailable RODRIGO, DR LEWIS Primary Care Unavailable RODRIGO, DR LEWIS Admitting Unavailable BALL, DR LEWIS Attending Unavailable RODRIGO, DR LEWIS Consulting Unavailable MISC, DR BLAKELY Admitting Unavailable MISC, DR BLAKELY Attending Unavailable RODRIGO, DR LEWIS Primary Care Unavailable Iron Gan Unavailable Unavailable Primary Care Provider Unavailgabbie e Unavailable Primary Care Provider UnavailMILEY Davison Referring Unavailable MILEY ENRIQUE Attending Unavailable Iron Gan MD Primary Care Provider Iron Gan MD Primary Care Provider KRYSTLE TRUONG Attending Unavailable IRON GAN Referring Unavailable Bo Shah Admitting Unavailable Iron Gan Primary Care Unavailable Bo Shah Attending Unavailable Iron Gan Primary Care Unavailable ANDREW CRUZ Attending Unavailable ANDREW CRUZ Admitting Unavailable LIEN UREÑA Attending Unavailable Allergies Allergy Classification Reported Allergen(s) Allergy Type Date of Onset Reaction(s) Facility (2 sources) patient allergy list reviewed by nurse or physicia Propensity to adverse reactions 9 Comment:Done LINAGORA Other (2 sources) Allergies Reconciled Propensity to adverse reactions Unknown [facility] Adcade Other Medications Current Medications Medication Drug Class(es) [...] / benazepril hydrochloride 40 mg oral capsule (12 sources) Dihydropyridine Calcium Channel Betsy, Angiotensin Converting [...] 1 tablet by faye th once daily. cholecalciferol 0.05 mg oral capsule (7 sources) Vitamin D Start: 09-29-2024 take 1 capsule by mouth once daily Cholecalciferol (Vitamin D3) 50 mcg (2,000 unit) capsule Active 50 MCG PO Daily September 29, 2024 12:00am Cholecalciferol (Vitamin D3) 50 MCG (2000 UT) chewable tablet Chew 1 tablet 1 (one) time each day Active Cholecalciferol, Vitamin D3, (VITAMIN D-3) 50 mcg (2,000 unit) cap Active cloNIDine hydrochloride 0.1 mg oral tablet (14 sources) Central alpha-2 Adrenergic Agonist Start: 09-29-2024 [...] 21, 2023 1:31pm take 1 tablet by faye every twenty-four hours cloNIDine HCl 0.1 MG 1 tablet Orally Once a day Active 1 ml erenumab-aooe 70 mg/ml auto-injector (5 sources) Start: 09-29-2024 inject 70 mg by subcutaneous injection every month Erenumab-Aooe (Aimovig Autoinjector) 70 mg/mL auto-injector Active 70 MG SUBCUT every month September 29, 2024 12:00am Erenumab-aooe (A IMOVIG) 70 MG/ML SOAJ Inject into the skin every 30 days 0 Active hydrALAZINE hydrochloride 25 mg oral tablet (12 sources) Arteriolar Vasodilator Start: 08-09-2024 hydrALAZINE (Apresoline) 25 MG tablet Take 25 mg by mouth in the morning and 25 mg at noon and 25 mg in the evening and 25 mg before bedtime. 08/09/2024 Active Start: 09-10-2023 End: 09-29-2024 take 1 tablet [...] Comment on above: [facility] magnesium oxide 400 mg oral capsule (6 sources) Start: 09-29-2024 take 1 capsule by mouth once daily Magnesium Oxide 400 mg magnesium capsule Active 400 MG PO Daily September 29, 2024 12:00am magnesium oxide (Mag-Ox) 400 mg tablet 400 mg Daily Active Magnesium Oxide 500 mg cap Take [...] 8 hours. ondansetron 4 mg oral tablet (9 sources) Serotonin-3 Receptor Antagonist Start: 09-29-2024 take 1 tablet by mouth every eight hours as needed Ondansetron Hcl 4 mg tablet Active 4 MG PO Every 8 hours as needed September 29, 2024 12:00am Start: 09-14-2024 take 1 tablet by faye every six hours as needed ondansetron ODT (Zofran-ODT) 4 MG disintegrating tablet Take 4 mg by mouth every 6 (six) hours if needed 09/14/2024 Active Start: 10-07-2022 4 mg, IntraVEN ous, EVERY 6 HOURS PRN, Starting on Thu10/07/22 at 1121, Until Discontinued, Nausea, Post-op Start: 04-19-2020 take 2 tablets by [facility] twice daily ondansetron (ZOFRAN) 4 MG tablet Zofran 4 mg tablet Take 2 tablets twice a day by oral route. 0 04/19/2020 Suspended ondansetron (ZOF RAN) 4 mg tablet Take by mouth every 8 hours as needed for nausea/vomiting. Active oxyCODONE (1 source) Opioid Agonist Start: 10-07-2022 oxyCODONE (ROXICODONE) immediate release tablet 5 mg propranolol hydrochloride 20 mg oral tablet (12 sources) beta-Adrenergic Betsy Start: 09-29-2024 take 1 [...] 16, 2024 1:59pm take [address] [facility] every twenty-four hours Propranolol HCl 20 MG [...] CART Inject as directed daily 0 Active Syringe, Disposable, 3 ML misc (2 sources) Start: 10-26-2024 End: 01-24-2025 [facility] Dis[facility], [facility] Ind[facility]: Secondary male hypogonadism 1 Syringe every 14 (fourteen) days 10 each 1 10/26/2024 01/24/2025 Active 1 ml testosterone cypionate 200 mg/ml injection (7 sources) Androgen Start: 10-26-2024 End: 04-12-2025 testosterone cypionate (Depo-Testosterone) 200 MG/ML injection Indications: Secondary male hypogonadism Inject 1 mL (200 mg) into the shoulder, thigh, or buttocks every 14 (fourteen) days 6 mL 1 10/26/2024 04/12/2025 Active Start: 09-29-2024 Testosterone C ypionate (Depo-Testosterone) 200 mg/mL oil Active 200 MG IM EVERY 4 WEEKS September 29, 2024 12:00am testosterone cyp ionate (Depo-Testosterone) 100 MG/ML injection Inject 100 mg into the shoulder, thigh, or buttocks every 14 (fourteen) days Active testosterone cyp ionate (DEPO-TESTOSTERONE) 200 MG/ML injection Inject 200 mg into the muscle once a week. 1/2 ml weekly 0 Active traZODone hydrochloride 150 mg oral tablet (8 sources) Serotonin Reuptake Inhibitor Start: 08-07-2024 take 1 tablet by mouth at bedtime traZODone (Desyrel) 150 MG tablet Take 150 mg by mouth at bedtime 08/07/2024 Active take 1 tablet by faye th once daily at bedtime traZODone (DESYREL) 150 mg tablet Take 1 50 mg by mouth daily at bedtime. Active tropicamide 10 mg/ml ophthalmic solution (2 sources) Anticholinergic Start: 03-01-2024 End: 03-01-2024 tropicamide 1 % 1 Drop (MYDRIACYL) Start: 03-01-2024 End: 03-01-2024 1 Drop, BOTH EYES, DIRECT ED, Starting on Thu03/01/24 at 0930, Until Thu03/01/24 at 212, Administer for dilation vitamin b12 5 mg sublingual tablet (9 sources) Vitamin B12 take 1 tablet under the tongue once daily Cyanocobalamin (Vitamin B-12) [address] 5,000 mcg under the tongue 1 (one) time each day Active cyanocobalamin ( VITAMIN B-12) 1,000 mcg tab [...] 0 Suspended ZOLMitriptan 2.5 mg oral tablet (7 sources) Serotonin-1b and Serotonin-1d Receptor Agonist Start: [...] Discontinued 5 MG PO Daily at bedtime 1 November 20, 2023 12:00am September 29, 2024 9:35am may repeat once if no response in 30-60 minutes Problems Active Problems Problem Classification Problem Date Documented Date Episodic/Chronic Administrative/social admission (2 sources) Patient encounter status; Translations: [Dietary counseling and surveillance] 10-26-2024 Episodic Allergic reactions (5 sources) Acute eczema; Translations: [...] sources) H/O: high risk medication; Translations: [Other technician terminal and repeater (current) drug therapy] Episodic Other aftercare (2 sources) Long-term current use of drug therapy; Translations: [Other technician terminal and repeater (current) drug therapy] Episodic Other circulatory disease [...] Translations: [TESTICULAR HYPOFUNCTION] Onset: 03-25-2022 Chronic Other endocrine disorders (2 sources) Male hypogonadism; Translations: [Testicular hypofunction] 10-26-2024 Chronic Other eye disorders (2 sources) Chalazion; [...] sources) Obesity; Translations: [Obesity, unspecified] Chronic Other nutritional; endocrine; and metabolic disorders (2 sources) Severe obesity; Translations: [Class 3 severe obesity due to excess calories without serious comorbidity with body mass index (BMI) of 50.0 to 59.9 in adult] 10-26-2024 Chronic Other screening for suspected conditions (not [...] Interpretation Reference Range Facility Employee Health Noteon 11-15 Employee Health Note [id number]#1.[address] [facility] Employee Health Note [id number]#1.[address] [facility] Employee Health Note [id number]#1.[address] [facility] Employee Health Note [id number]#1.[address] [facility] Employee Health Note [id number]#1.[address] [facility] Employee Health Note [id number]#1.[address] [facility] 36on 11-03-2024 36 Patient has been informed. [facility] 36 ----- Message from Rena Oseguera MD sent at 11/02/2024 2:32 PM EDT ----- Regarding: Workmans Comp Katherin, This patient is scheduled with me for november 11 - I have reviewed the requirements of Workman's Comp with our clinical outcomes manager At this time we don't have the manpower or resources to facilitate WorkMan's Comp Please notify patient to find another provider for this and cancel the appt on November 11 Thank you [facility] Telephoneon 11-03-2024 Telephone [phone] Spencer Yeboah as 1970 M Date Provider Department Center 11/03/2024 [id number] STEVENSON [facility] ENDOCR [facility] No family history on file [facility] Employee Health Noteon 10-24 Employee Health Note [id number]#1.0 0[facility] 36on 10-18-2024 36 I do not think it changes clinical management, if anything they will require specific documentation and pre-auth for certain things. [facility] 36 I can definitely sukhwinder e this new patient Does the workman's comp have any relevance to how we treat a patient? [facility] Telephoneon 10-17-2024 Telephone [phone] Spencer Yeboah as 1970 M Date Provider Department Center 10/17/2024 [facility]AZ[facility]EL [facility] No family history on file [facility] Employee Health Noteon 10-13 Employee Health Note [id number]#[facility]. [facility] Employee Health Note [id number]#1.0 0[facility] Employee Health Noteon 09-22 Employee Health Note [id number]#1.[address] [place] [address] Coding Summaryon 09-20-2024 Coding Summary HTMLBase 64 TbextjrtGPt4jWg+PGhlYW Q+AS5JLLSxI18tuMUhhB3q U0GBYWcDGfsoRDDCHTvEKi YjccFzXO9pmAFlFDQb IC8+WY2qSUFuFlupxAUin1 K8rME4R63szq9vMHvzqPM4 NNAfKkZbmbodu6rcfRy7MI cuNmluOyBt NCHjjS98ARL7yS45Cy45mM ArdTFzc8yzvQr8GmKdNVGn PTJ5eKxlDYdgi2CrCWCiG4 5gtKIai8O8 PNWvsEkbpVJdQqTrkDR8hY 1eRAftsptrv1wqkywsQls0 yr01bVIbv7Q1oVU0K2Mxqd G6VVKutUBt DcyaoSRZmQ2gmktgc5erqk aiIfWwOBExERs5STe4WGXa rUelWeSgNM04SMO6GGFivg CaO2UoXPCn hWkfIqL0u9O4Zm1BI0QHLs tnQ0WZFNXIHOajqNE+PC90 jy48D9UoVzsjEan7ZFWuZI M8hPY5lH2e WWLxHYnsl3O2eCX3M3Srfd Lrqx6ms0buUZSxMLeeP73l tAKes5C9FBZwaOM8TSWagQ beRfBhtH11 Oyc+MMKwiFpch8UdFddyp8 opz2elpQg6BgzwUGBkvcIv gRqeGMB7p0BkZn6tBEEftS B8wPX7aS9l NyZpLhV8RObqR960VyNbqG JoNqkxG63zY0WvcUT+PHRy Dwx6RKGfcWtgMV7bX7PqRQ RpbmctbGVm rBxnHK3fGZNocqbsHBXkiA 3wXXRmS8p2PxWnLrH6DIaf F2MqZQWztgdjFu64zV0eCp AjDlD7UUob U2VtbsH5FWNqjZSnTOjcZF C4N63vf4M4TDMpPAFtHZN5 pLW8wC1lyCbuzklrpUWvdU sgdmVydGlj BClnABsvY020ZCKngXzuGr NvZGluZyBEYXRlOiAgMDMv MTEvMjAyNTwvdGQ+PHRkIH E7ePimNUIj oGAjYZqlQu9vaGunhDwnNF 6rXYIveooqXOOkgJ1eMADx cHYcgTxuFI6xNPXuvlkwx2 16FmArJIL6 ZDRggNGeP9XzeY7kZeIeBS YoKGAuG9JrgRSdDNfgE796 IFnrLaJ5CFGfsbReD3IxKD FsaWduOiB0 w6Q2Vf0Kn3HjldhdF1BomB KlEeGoNoumMTh3M6RdYjql dHI+VL39DXCqYW72WGw5AM N9iJbfPYxl MNFsS9HdcI3zUfLpNUIvFG RkOyc+PHRhYmxlIHdpZHRo OPaxZYKtPtQnbUetYG7qKh 9yZGVyLWNv vCkrwCEgKbUyb9tvAKWoWF xmQG1lsJxbC4FimYW3SVIs k2c6Qy16P30uW8BceTQ+PG FieMJ0nJY3 cW7kPaLbMeQ3WTdgJ568Ip ZunYReXxcyr8lfz8lvuQe7 WhY9BYKsocJnyPcoDEA6i5 FsHx99Y06q IHdpZHRoPSIxNSUiIHZhbG utof1xvA2xVz4+PGNvbCB3 xZG7vF1zTpIkQeQ9JVnsW9 49InRvcCIv Xskyk0pql4fjqFd9OtLdUF RjzgGgvTjpTRY0g8DnNz56 J5LbtCqor2PeQgg0zx29fC Rvg0P3iHG1 L0JoKVKtcdgnrVMewUabCB 4xJYYgnifnCBAjnF6yYPIu Z9w7RfBjMoX7ZXzaC4Hknh O4GKHihUQd VCAlqVTBeT7vdorre2zznc nsLjOhHOVrIUo4MNo0WAAr nWdoPwEjUYU9HbJ0ZUM0yU LsoP8nlWkk sbcqrM7cGzg+IMB8gHEbiH EYGU2wQampvTL+PHRkIHN0 rBaiZNiuQBZkpK4hGRYcD3 x5KhUqVbD9 CDaqR9QvgnL3CSPnxXYdDN HqrHLQiW2seoove0qdrepe PzFyRUClHFi9ZJk3DXBxmX duOiBsZWZ0 EnJ3APV1tEQczC1oxNgwgr ggzR8tIjy+QmlydGggRGF0 ADd2L2PlGlj0ZWCwaEavZB 0ncGFkZGlu Cj5ahZmazEsbOA9dTTDuft otq483UqCsa6fgMDYraUYi IZxsXGW1E43vl0K2LTAnAC NfGRP4xBW0 nX1ikQdmwbzabMQbnZymwr KshMfvAWhsQDogM664PYDm lDxpVvIfAVf2S9XsBvx7HO CvnWjkGY7f jTYhQTttHp9svWojvThnZO 7iOGIefwyqv697XuEiz8sg PKRzqEMdUKaoVFM5Q69qv0 R9UNApHNNa XVQ3uHZ5lZ4tqZtpehgnwW VmdDsgdmVydGljYWwtYWxp Q620MGCubBgmOvUckSu3K8 CkQfa9OITg fSimAC1xvAVuCPfbNg2loL rizDtnRO6hGUPwcxwnz045 QwVav6ocYAYbyHFuLBvtEN X4Y61pg7G7 HMUcASGqZYV4xJW5mG0hvX lnbjogbGVmdDsgdmVydGlj YJowYPiiW924UDBuwDfnJx BhdGllbnQg OUebSXd2P4IiBjsqmIV+PC 32ZXOqYF88aIKaiQTvb7uo eMe8KpFaNSVmCER3cRaeJO baq7SiJMLh A27xvRRij5Y1SVZhhCjsnN KtNwWgzFL0oW2zTDxgfvpp i4pofjbrTkrjm2wamn35lD 86S70gHAnu ZHRoPSIzMCUiIHZhbGlnbj 7xgM8tZx1+WQAptCI8vZP0 mM2oVJPcIiS1YDleK589Kx RvcCIvPjxj r3ifu5xhnZv2DqP4LWWvnl IxlSuqQKS9z9CqGr61Z76b IHdpZHRoPSIyMCUiIHZhbG ndzn4crQ6v Ii8+JSRhmRV6tPY9hS8qSk BrGdH9GHfbE294UnLfsNNz LmwlX83pF2GddSN+PHRyPj z9VBIklVrp YS9njCDvKNcuVs4oQZC1Uz TjBhZfYEbtV0TmBZAzfxvd topamBL5XXMeEVTfhC55Zz 9udDogMTBw tPLFgU5mliltv6rrhhcmKw PzNERdPXi7WPs3NEFzvGuo KhJlIJW1KrV7LRG6oQGpfU 1hbGlnbjog qF0tH5TwFAFgakgvPy00dN 4fByLdRmT6OHbvMrm+R0VP OtpUKMREEH5BEYUuG0MZRM QVES13BA54 cKOzy6R6oIG8X5TdQAKxtt debhjfxZB4WDDxELBtgK86 eKFhTHntGj9yo4P8y934DC YrXJGjyF55 Ib0xtEzaKUYsbYNGpK0uxy zqp4kqfwvjMaTqWRTrUZm4 ZUo0MWYtgJpqMdYsEZP0Hd Q5HKB1sJHm tF3faFwzmojxrR7oEqh+MD PrHaAeVFb3LUjsjYM+PHRk NXQ6nKeaCSunULLqgL6pJA YqY0p2QtYb MqW3SUxgB9VvOKWrkmfnDd 24aI8tGvTgPnF1JXkrC5Mq coW9PHDljTCuJZkdDGU8S6 6be3Q6UFTs QIMfPPC1wQH0qT0baPupru ogbGVmdDsgdmVydGljYWwt OKupP052AVXzvEeoAnX2YE zsWILnAU07 II31kAIpu4X0iUW2L2UbDL EfkisihtcpjKQ0QAQzPJRj hJ39sXMcRUzcGb5wu8N5x3 06IDAuMDUw xW31Rx3obCdlMKVlyVCTjI 5buyhxu2rvrrkuVkAcFMOe QVz3QWn9SZOrxYdhBaOgLF Q9ByX5BFJ7 cKAxeU9ufJckjnupmV4eXo c+TUFMRTwvdGQ+PHRkIHN0 qGdwIHegENNvwI3kYRQaO7 v0AsHxBoU3 VQcnT2QsBUEdweskAe13rN 1bHoKcNkM5KTwjI6EaoiA5 YOJinBVeOVjdRLP6V19qd4 H7HHJbOCXg JJS8aRK6eO1buUspqadwgC VmdDsgdmVydGljYWwtYWxp X105VMOrpOlcFf2RNX09UB 22N6GuJgwz dGFibGU+PHRhYmxlIHdpZH QzOVeiTPDoAoMnuFoaZW3t Ce2cEJNdEMMfvShdyQDpQb Bvc8bbEUMb AEjmFL6kbYjtW8JuvAQ7RB Kza2z4Ro32M63xT7YeeDG+ GSBioXB1kMQ9vU5qAcQzSl F2WMnhT836 UbMisANrJcbtl5xvy6avtA h7VrMtPKYreoQhrZgmKQK6 c9VzYr55E49iWZtfWJRrTM IyMCUiIHZh jStfkq8taB4jXx6+PGNvbC V0nVB1lC9nGxVxPoC5ACtj N160LaQbuAKlWkjiE67aF5 JvdXA+PHRy Rwl9DIHokHekEB2zfEKpFZ hhGz7bTGP0OmLoXfQmOHft U0PcTCFcyaxwloaxnKV9PK DwKPWkmB21 Rh2qdWrlBu2zAVNnXWM6ZN DhvJHsO4DgrB4fNaHcHICb NSGkA8SauBTjYHpaP463PY oqIyA9AYDi wmWqE4OoVHRujQwvJzI7q9 G5Ds7BwGbivAEqKS7yUtRg SIb8E0PmZei0WMQhoIvsIA 0ncGFkZGlu Fy7xdImmcViyIG1bOUDedh vnl535IoCoq4ztQLMgxYMu QAcoJEM4D77aj2B0GDJzSY BeCNS2qUC4 xX9tqEoioxkcgNQceDbwmo VcxHhwSNcpHKcgQ985KRJu pYpjRwWRDek5N7CfXmj2CJ JuwGcfFC7v hDTeVXlrNl8rwVkbmWziWB 2sAQQcquvkt629IgPaw2jh TWTcgUVtFFjgBMY0Q80vx6 X6DZCqMNWv DRN6bIN1jF8hiThfflyboT VmdDsgdmVydGljYWwtYWxp E844SIDgdClyYp6COau3A4 GiNhz1BSVx pHihQG6etNXmACmjYp9dpG ydaVeaSN9mKTKrbuyry792 SfQwq3jxFILdoEHxBQyeKE I0F80gf6Y9 JOSyJAFzDUO4kEA4qI3nfL lnbjogbGVmdDsgdmVydGlj KThkRXupM762OMMrjIfsWp BheWVyOjwv dGQ+CX78pp81G0AqMhmjWq o4SVEjSBN6iOG6iA8eMFWm PHnrq0N9lHC7I1JpueHwzl 3bw8xzDSNl ZTo (more content not included)... [facility] Coding Summaryon 09-12-2024 Coding Summary HTMLBase 64 QjqtmyzpULz0wWr+PGhlYW Q+VJ4QZUBlZ93psROneI2x C6JQDGoKByhzVURSJShNXu YweqSsCW6xtZZqAHQl IC8+OU0yXXPcMkcuyYXmb5 F0xRY4J09qil9yCNgxzQE1 ORDvInEylgijf0advOq7IE cuNmluOyBt OQMzwU46XPT7aM95Cl78cS ZbcWEgc4vltHk3ZbQvZTHc HJK3kNczZJngx9UsGXYdG4 2fmMCll9W4 PPIqbCvspKBqZyUqmFA5uT 9aNGfrhdxvu3khrxntMzv9 ou68jBGnh2K7sKW9W2Wqmz Y3AMQbuQAl VyvwtHGCmW8hekeon1igom zgEvXiVKByGFd7JQi0GYMr pSwuLpSoET26PSA7UROcze IwO1DvCIHs fLobPgL3t7B3Pv6AC2ZVLs woZ7CUBJTYZDluaIX+PC90 fm52P5DdCpwqQbh5GZLySL W3uUB1cI7m CISpXNhto6Z4kIL7T2Amrr Jkjv3zr4owXEBoZVklJ90c qWNbb1K3JHUqjIJ1TFZubG uoIiXdvZ22 Oyc+NPSklEmzp6ClChbix5 eds2kohSg8KdazLZGkszLy kHsiOLF9z2KzCb5nGEQllJ Q2kHQ3oI5e ErRzUdL2RImeO673DoQxzS LgClltL62nE7MqfEK+PHRy Lmb8YECoaJiaTQ5mQ6SsIA RpbmctbGVm nGkkRT7qJBEjhlacFPGsoX 0hVPLmI1d4IhBrBqI8HIla D5PdMYJdnrkfFf58wQ1eJx ZrWmE2GUyn V6ZcneC8IVOwlCIoPLzwRM R7T64fw5U3RSXfFSOvOEC7 vET6dB4trSgylrlrjJFrhU sgdmVydGlj GBbpDHdfQ988YRTocIrpPh NvZGluZyBEYXRlOiAgMDMv MDMvMjAyNTwvdGQ+PHRkIH L6jBhkOMCx kLEuHQmkGd2vxErfkGbeEV 7eSXVrtvqrHFHkeO8iUHIb jYXjeJpjQP4mXLKepeveu6 63MfBtEJA9 UWWtdSIxO8YdaU6hUlHsDQ GsKVJcZ0EgxYArTIwiJ777 FDabQgC0ZCHjytEbE9BnID FsaWduOiB0 f6G9Ab3Gx2VkipogQ2HkiV PoWlLfEgvzXDl9O0VpNfsg dHI+AY88TLHeLH58QKu0EF V2iMrdUZhb NZZhH4RabH6kKzZgFMOdEO RkOyc+PHRhYmxlIHdpZHRo HGigMRHmHhXpmStrMM7zDt 9yZGVyLWNv iPesaHUmBcYyv6fdVYYaUJ uqID8trLloL3IwjNK2EDXx e5r6Yv24C31uI0OowQR+PG TfbDG7xYD8 kY9hUfMfKjL0DXpwB267Gf UuzITsQzqzv8zoj9pvxRz7 VvI6KGLfjmRmwGhaFAV5n8 PxAt92N56s IHdpZHRoPSIxNSUiIHZhbG ilco9twT5hSn4+PGNvbCB3 hHJ9dP6bIjYnQbB7KXpeC1 49InRvcCIv Vphne6ycj9klbGu7YcPlNH TioqIlfBrxPLR8u7ZkSt99 Y3CfsHdxc5BgXmy1yg90bJ Qzy4J0fOD2 Q5SiGXWifrbieHBxeCikIS 2yFFYyorrnHCEzyI6gBATd R6b8FfWgIoE3OHcpZ1Ekjw K2ZTVbwBIp BBBlkPLOfY4cipgyk3muey uvNiIvNHVcFRm7WZt1HXAa jLelXrNfJEM1IkY6URX4qZ FjyN3igCnp mkcdtV2bGsn+JVY2mYEaaY NNGZ0mQhyxnXS+PHRkIHN0 lNtaZLwoEOSbfD2iQACiV0 j3ZwJhXjI2 HYczS0DnzpG6HJJjfLOxRK NnvSOEiG9pyunaf8dqnuep CuUbUNMtNKh8HWk6RXIcqN duOiBsZWZ0 CdD9NZJ1mKUuiL3fhXyazj smlG0dRgu+QmlydGggRGF0 HQf4X7UbEwt1QMKdrSdeDF 0ncGFkZGlu Wp9ywLvilWwnIC6rXUKpix xda349DnTcf6chLCCpfEFg VHgyLRU9N21yp7R7ZDLdGF JgVSL8vBS8 mD3zuUhniokxpUYwcBbbep OtyZldZVyiRKdjZ242CEJk iErcZmWbMIk0M4QcEyu5PS QbsDwjRV5i sFWeUQsbHa9czXnktXsfSP 8oKWMavjnbi444LuIxb9tp NXLwdRQvGPbcRDE7E76yp8 W9BCBkYKOa DVS2nJN2lU4twLmyvkkutX VmdDsgdmVydGljYWwtYWxp S790ZVLtvOomGiDhcVi8S3 JcYbx3ZIQc eVjdSE7vhMVdBFeaNa5zyB bojYniFU9fFNXxjiqcs733 UyEzj7xyXEDumJDxQDkyDX U3A82hq1T5 BKKdPQDgGVK5fMN7bE4qmH lnbjogbGVmdDsgdmVydGlj CGxpCTylL565VGQwpMmnEa BhdGllbnQg WXvkNQc0U0RaDmsulNL+PC 33DKRnLP37hJIbwSWpu8kl bNi3WhTpPVHcXPN1fFerXV fgc3OuZISj B19vzTYax5D6YVIazXcuyM DhXaDmzYT2jD4rPFkjcsht y9vinyzaBjbzl8olkx79rJ 11A59bMPar ZHRoPSIzMCUiIHZhbGlnbj 0xwH6iIm6+CUCgfNV8cYO0 wD6kLSYhZsJ1UJsiR326Gu RvcCIvPjxj o1vhi3wntHi7MkG0NASzxf ZrrIrtROA2f4ZuDz72J25v IHdpZHRoPSIyMCUiIHZhbG jokk4voH0z Ii8+PAZnfCJ3bKB9uT7rFz KeLlW1PLjrX822ZiQczXKj UznrZ48oZ6PyvTN+PHRyPj v4TPSchXoe QX1knHPuDUxbKt2pPHB3Il TmWeBwZHetS4GpZPSjafep gmalpAP0TEZsATZoqH24Bf 9udDogMTBw tMMOjF7pyruad6xwcuahQx PvETKwLBz9YIu2BQAntWif EgPqAAY7WiP7BXZ4mTSjuM 1hbGlnbjog jV3gB2PjDEHuajzgQq42yC 1oXeMeJgU0HQruNos+R0VP BddQWLKVKA3OCRNuM0JNSK KEAN20VQ27 nLHja1L1kCV2O3ZxOJCudw hvmlymyJN9QNSuFSHvjM65 mKQzTHnrFq5fx3M8j453TL UjRGXdjD12 Yo2ezFxxTIOugUXTjC3myo lqg8oatayvPpYhETQaPTo3 FYx7ZXIeeExlTpKbHOA4Aj Z2EPY4qJNe uA3maPyysjltuP4aQbe+MD UyHrHwETk6HZnzfTF+PHRk SHX1qJhgTScrTFFatJ6xXT NbS0g8QxZh ExW4YOryQ5SoZNUbzxmuEz 53tG3iFxKfWgH3ZSjbZ7Rb yuN5TZPygDRdGSnsJBM4O6 5cx8T6MDAf KMVvQSU9fPQ7qK9zuXiuyk ogbGVmdDsgdmVydGljYWwt AVgaS849HTOjtYpjIyO0BC heAVSvBS32 GB92hIAxy8F5vNO9I0CaHJ NwrdblsevfyAX9DIYvGWJx nI20hKFwYHzxEo0us7F2d2 06IDAuMDUw fG38Rn6cdUhzHDHapNYBzI 7iqomcu7affhjeAsHsQONx COx0PPu4NPUpeQbsSbBiDO H5XrI2ENN4 qZXekS3lvCnaxgmtpA3vIv c+TUFMRTwvdGQ+PHRkIHN0 fIjpOPlpXQLbaV5iJXAmL7 l9YzHfOxO2 CNehQ4OrYGTzgpemRr42lL 8bXuKdGoA0BXsfE0WpxrO5 AGGxqWKrZHvdTQB7V28rw9 I7RCHlKINa ZLB9aYI9tQ9ecBnabsvdsU VmdDsgdmVydGljYWwtYWxp H751IOUocKfpEv5LKX32LO 75J2AqQezi dGFibGU+PHRhYmxlIHdpZH WsMOneASSoXmGlhTyuXC7c Wg6wLBNmYCZpjLcglRHtOy Box3zcWRLo WLtjYY1jfFldI4TjiTJ5JI Nrw5p7Wh57E12zQ3AsrTV+ FZComMX0gNY0qD6sTmKnCc K9CQroM452 SzLlyOJxCghvc5snu3qtfV y8ExTgPJVbgtFbgMrtXIC2 a0BlVy17X37eJUbjPDHlWD IyMCUiIHZh bVazri9iqS4cYj6+PGNvbC J5uHX3tU3dNlLuVdN6NNuf Z918XqBfrDFbDdthL56oZ4 JvdXA+PHRy Svz7FSGeoQcqJI4ltAIdEG czAk6gSIF7BkGbNwPdWNdg E2WzVAVfjnzgbayfiBW4JZ ZfECDkaV63 Cy5zbZqvFk2vAZXtEJG9GI TaiNDfI0HyyV3eCxXfVQVc ONDyB9JoiXUoXZysH796IZ gePcR8GZJt lsCaA9QhLYUooJdqMiP6z9 Q4Ww5UfXzpnQRrYX3iMyVh IPc3M3ArDbq4NYOjaFfyUS 0ncGFkZGlu Kh7dvEtzmSfiWD1tODBrly rmi360AlMfj5xdMNMtwIIr EShvJHO4O76lc5M1ARDcYL DzLSH7sML9 tX4hfQcdbjlioSXpkNengl UvxZdyDSjcXSbhP803AOGl sFaeBmOZUqi9X7ObNjc2BV ZmxPirTK5c oPMtVFajHm0haZaclXqjWA 0gIOOjalrlo115HlRmq5rn YWAbsVDuQHfaKTA1Z40xj1 I9LEJgIRVg ZGH4dSE1nB1zhDgsyajkyN VmdDsgdmVydGljYWwtYWxp I793IRMszOjoGg5YKqu7E3 KgEnh3DRFr eQooPX2vyDMkOMyxUa6iaS pakXcsAA9qYZEgbkubp282 JjZcp2noYYRfaFHzWKyvPL Q5Z37un8N2 FZYbFVUzBYT4lZW1aO3clU lnbjogbGVmdDsgdmVydGlj OVktDRzuI864UUMclCfxPo BheWVyOjwv dGQ+ND78nm07Z0PvPslnQb h8MUZyPXQ7oAH1hU3rUOSt IJcij8P6dVQ1P3YwglTlkg 7ee0pnWRXw ZTo (more content not included)... [facility] Refillon 08-06-2024 Refill [id number] Spencer Yeboah as 1970 [facility] Provider Department Center 08/06/2024 MAURY WILLIS PHYS MED Medical Pavi No family history on file Reason for Visit and Comments: Med Refill [[id number]] Normal [facility] Abstracton 06-22-2024 Abstract [id number] Spencer Yeboah as 1970 M Date [facility] Department Walker 06/22/2024 LIEN [place]AÑA PHYS MED Medical Pavi No family history on file [facility] Coding Summaryon 05-30-2024 Coding Summary HTMLBase 64 ManqgiruCJz1jBg+PGhlYW Q+EV2PIRLyX87zlHDjlG8q S0IAVLeGIdquVQGVDWcILr FanoRkOK3hiSIkQMQw IC8+MC5yIHWoZvpgcQIhc3 M0aWL1Q39xnh3aJCcuvJU7 ZTVnRoHhnibwh6slpXz1IJ cuNmluOyBt YWPaeV82WDM0lG49Hq08rC GyzBWul2kbfXv8CeVoIJAw GOY5jJajXCcai9XzOYGwF8 1ucTZuv0P0 RSYnyUgkyUBtWrRasXR6zR 0iKFgpggsti6gwfspaEtk6 nv41nBHeg4A3hAG4X0Yxrq V6NXQrmKKs YuhhhVYZjA5impygo9kpcd iiUmIcOQPqRGj4SCw7SUKp aQftVcSqWT36DFF8ODFzua VrQ8QmXSQs xLmtHpV7k8H1Xc1HI3KBSv lzQ6NILULEQXedhBE+PC90 vg72Z8KfCvsuVqk7ONVgLL R9kTF9lJ4h YJHwVQiua9E3oEZ7S6Tfyc Vtfw0dv8dtDFOpTUhcD97c kSEfo9Z8VJXuqKG4PILnwN rcCaCcbN71 Oyc+EVTtdMito4QvEpkvl0 ams4ayxKh7DmfeCXPutkJm oZjgCVQ4m1XuVg8lWAHfzC D3yHQ2wL9p LeSeRvA2GZtpU577EfPmhK OkKyevL58wT0ElhAT+PHRy Fbq0XCHvsOseZM0uZ5DiZZ RpbmctbGVm iPfyXO1lYEJpwcfjFRBpgC 6yKQMpZ3p7PcMpEeA2AGpu O9EoTIWtfthlLf33uV3eZp ExBrZ9KSoz H1KxsxA1CPKsmRYrOPwoDK H8I28xx0D6ODKbJVDtPDU9 pOF7jP6fkYzlgoiykQNcgN sgdmVydGlj MWpqKYzkT693NELcdFrbKd NvZGluZyBEYXRlOiAgMTEv MTgvMjAyNDwvdGQ+PHRkIH A5fPknXVUd wPWpYNabEx1nlLamqZofQP 2qNWAbboafTFHxzL5tZATy mAKoeLzxAA9jUJYhrctqn5 26PvIwUXE0 LGAzgXBjY0UjwW8xNeFiWK StLKUwC9LctMHuIFioM300 ILawPiL2MHXiemHyU0NySC FsaWduOiB0 i8G6Ek1Fx3CspndiP6CjxF JqKcXcNvcjOZl9V3ThOmce dHI+MX63WHElEK26HAp1RZ P8aBmdNMvz OIYiA2CkvJ2bQzIzFVCwKU RkOyc+PHRhYmxlIHdpZHRo BPsqIIKtOrJriSjfVM3uXd 9yZGVyLWNv hZxcbVMxCkXvz4glZAIqBZ tzEC9xlEanQ2FyeCP2GAJu x8a2Fj40V44dO6KjyBB+PG WtpTY4jGA0 fH5nKbThQrM3UFfrJ005Ls LchIWfUwjbx9rid2jmvPm7 GmA2CYNkmdDdeZuqXIG3y2 ZmUl31F99f IHdpZHRoPSIxNSUiIHZhbG lkis3dlV6qSu3+PGNvbCB3 bSX3iZ3aWkNwSeT8PIzpG3 49InRvcCIv Ujqfv1uqj3iebYe2LoBjVH BvqqBpuDrcXJK1f1PtXi30 S6KhbOwjp3FtFkq5nr10fF Nqh2Y9nBC9 N4JxLRMtnleagEBlbXtgAM 6vIORoynkqDLVpaO9jBTKd R8b5SfTjVhR9EZmfB6Wyer Z7FYFuuAWt BFXazPOOwC0dndygc1murr xwFeKgZQQsBIq1LMy4WQIh sWzxUcOgUHZ2OlI8IBE4kY LkqU7gqVoa nopxtE5tPbx+EOS5yYGscA IWXY5lFjewvZQ+PHRkIHN0 iKixHLdoKGFlbB0fHXCjW9 b6UrQcUdY3 WTfoP1XdmwC9QTAtvNLuUU YraRMIlV6whuvmz5iahfkc IjEqBUXiUSl5LPw8DJQtjU duOiBsZWZ0 VzN2GLB1xXAmmS8iwZhjyd lhuT2vUxi+QmlydGggRGF0 PQz4U9VaSuk6VLEmdLnhQI 0ncGFkZGlu Fc8xnHhvxNfvOI5hCCLwyl nxr355MjFaf1fwBAZrmUVr VDurMTM6U68zo7Q9VOCwGQ AjAOY7oKO5 rK7teQhcdshbkYOfpZpakq MimQkjANuxWKxtQ850MQIy vEtnLbFzJPi2F7TyIak9CQ AkjGdgDH8a fVWzTYywDr1glEjqxBtoBB 7xGITnizhdo559BkHbr6qb VUPpiUCvWPlcSON4G28qf6 E6BWFdKGVf YXU3iUK5uR9svJevrcuhoN VmdDsgdmVydGljYWwtYWxp M934TKAuxSesHxBgpUy7V1 RcBuc0HWNb iVkcBX0bjGJyBRyjRv8vtX noiGtfGC5mXUYhbiwfw263 XjFfj3hrVKOlmIDlHIfwIQ D7K18oc5F4 VAAyOJReOTM1rLP3dY9smK lnbjogbGVmdDsgdmVydGlj JChsPSphB697ZTGzpXazVu BhdGllbnQg DOugKTe8A6RtWvmgvAP+PC 17DYVaNV31ySCumPZup0kd qKd6RzChANGwFPX2uEimYT hot7BqDHYt J92wpBYix3I4DQDtxWulrK UaUaNfaED5mT8uTVecziml b4zvsvgtWyrrq8mtpj54bS 73X33bZGrb ZHRoPSIzMCUiIHZhbGlnbj 8xlQ7zNk6+XLJzpBT2dTR9 kQ3rFXCaZqK1OWhjW293Cv RvcCIvPjxj o6mbt4slhJj9FiE9NUHwwp NywZiyRFT6d8JdXv67K13k IHdpZHRoPSIyMCUiIHZhbG kbcf5fgO0o Ii8+CMYkxSP1mLF8gS0fNh AxSuD7JSzsK341PzFyeGGh KclrQ03kW9ObxOI+PHRyPj y6QYOlkQmd TR6toDCfAUqyVe2cOSD9Ix ZuWvAzKVqzG6IkMGRvpfau szrtvBN9EPBqPXGidJ11Tt 9udDogMTBw hVVSeE8hxqtlb6mrxuykIs XfUHEpCGw4BYa8RVKtjYey EcVsHYY1OsZ4FMQ2gFGylN 1hbGlnbjog rE7hO0KmSRFeybozXe03mM 3eUhGeYdD6YVoiJaj+R0VP IfcIELYYLM6RKZLvN5TAFH DUZC43YY45 jRHwn1I1ySM9B3TrHMSsqf rlobdkoNI0VUOuAAJfyI16 bZVqBJfrEz4cn6G9d441KX UvXWKcnB47 Zn3kpHbyVPSykSLWjH2quv wlr9yfwturLlDdLDNxIPd5 SOr4HDVncKzsQbGcBRU7Fg J8WPX8nZOu zQ1fdQmadmhrmU7gVxe+MD PzIxMbBPn9JNameIM+PHRk EHG6xVulDOtmYZBftO5dLM LdL9e0XiXl ZbO3MOrvB9XgFPUqqtpfPk 34aE2uLfDpNjD8XTeyA9Za cwM3UMLtgWIaEYmvHJY9X9 9zt7V1CGZx ZNZdYSF0tXD8nP6zsBvreh ogbGVmdDsgdmVydGljYWwt SMdgA525XRVklPzxSkH0BP urTJPsUC98 PE22tHTlm7E3hEG0I8GvQA UawuvlsqozuAX1BOVtGDEc hA56jKHxFKycOs8yp5A7a6 06IDAuMDUw gY98Ow3zoTcaOUQunSYBiN 7yzenpt3pbhxygJkMlDGOn HYf0KUp4EONzrEqxPuBmAB Q2PeB7GDS9 pMIwlB6nlPgblxwgfH8fDd c+TUFMRTwvdGQ+PHRkIHN0 pJbfEMfqZUYoeD1kFBMlY4 i5YrGpXfS0 HBbaD0NxRNIwmdviCg21aI 4pBfBpQjC6AUheW5BjdpL1 BSNgjUKgTUafDXB6Y77xu5 Y4KPGsXDIe OKC6zVA0nU4euNhpqxlizI VmdDsgdmVydGljYWwtYWxp R654YHXvcSneZd1MGF17QC 35O9WhRuvp dGFibGU+PHRhYmxlIHdpZH KjOBdpSJOwSpCfqEefKH8o Ja8lPEMqVOXdhNrihGEnBd Jtn2lcILVp HJmkMO3plTlwP5LnoZV4PE Ckw4o2Ab23H95kN7LwjZS+ XCRzbNA7kNR3gD3yPvWvDt L1WKedW591 NzPekJNqSnusg1fcm4csqJ e8GwYvGDQnclQuvMeeEQC5 v5KvYa16X70qVGxeKRUkUC IyMCUiIHZh mSyudg2moM8vLk2+PGNvbC B7pDJ3rU6vGqLiJjF3EYfs G201GvHdlWAyZpayG86nA6 JvdXA+PHRy Tlm3CZPkbQbvIE7doDXeOF ysEj4tRFU4AdDaOpEnMWtx Z7ZuERLdpwnfuutiqDA8OT ZpRYXqcK36 Cj6fwMoyId6nIZWbKBA9UT YbdSWqD5QniW3iJmSiFRGt KTHxU6UoqDLmMMdzM741LY yrDgH2LKUc oqRkS2CdTMKmoThwVsE5k4 X5Kk5AyJxxrRZgHA4fBaXu SGo7N3AzPyu5OSRnzGpaWG 0ncGFkZGlu Bb0lvUcxmApeWF2iWKDqci bft698FuOte6lzCXZlpJOu RUkcVNP8E69ee4Q2GHApZV WnARF7mAR2 sK2ubGfdqcqmzKAlpBtobc ZmyQpyANubZRntT406DVBx vQsfLpBMGkj2D1KfIiv6ZQ PfuKmzMJ6l uGRkMRktVn5rnDmlwGboDO 9kGVGvevkfc205NkMkq2rc VBTnpXZlNSxiKDH9M06fj9 S2JQWoGAUh CLZ4tSW4vU0gzNyjytpldE VmdDsgdmVydGljYWwtYWxp T270ESZesOoqIh4LLjk2X9 McSio3UVDf oZzuSA8upUZlEOpgDe9vtD ucqRpqVD0bQNYnmbqwa481 MdUxa2fmTRPtgFVmQFnxAC Z7F27gp0X7 WVLdPRZeYUZ3zQM6lX9juJ lnbjogbGVmdDsgdmVydGlj RTdsNWgoJ247JZToxOwtNs BheWVyOjwv dGQ+OD84hp10F1CzUsbqYm f4PPKjVSX4aLS8iG0pKRUs BTobh0L7hXD6U2LwiaSplr 1ep2woTIVh ZTo (more content not included)... [facility] Coding Queryon 05-25-2024 Coding Query Can you please document for this patient's visit? Thanks. [Electronically Signed on: 05/26/2024 07:46 EST] ANDREW CRUZ [Verified on: 05/26/2024 07:46 EST] ANDREW CRUZ [Transcribed on: 05/25/2024 08:42 EST] [facility] ED Clinical Summaryon 2023 ED Clinical Summary [facility] ? Urgent Care [address] [place] [id number] Clinical Summary PERSON INFORMATION Name: SARA YEBOAH Age: 53 Years Sex: MALE : 1970 MRN: Acct#: Visit Reason: Medical screening exam; [facility] F/U- RT KNEE INJURY, HEAD INJURY Arrival: 05/24/2024 15:43:59 Discharge: 05/24/2024 16:50:00 LOS: 000 01:07 Check In: 05/24/2024 15:43:59 Checkout: 05/24/2024 16:50:00 Address: [address] [place] [address] PCP: Iron Gan PROVIDER INFORMATION Provider Role Assigned Unassigned ANDREW [...] Head Injury, Adult Follow-Up: With: Address: When: [facility] Occupational Health Within 3 months [...] verbalizes understanding of instructions given Comment: Normal [facility] ED Patient Summaryon 024 ED Patient Summary [facility] ? Urgent Care [address] [place] [address] PATIENT DISCHARGE INSTRUCTIONS Patient Information Name: SARA YEBOAH Age: 53 Years Date of : 1970 Reason For Visit: Medical screening exam; [facility] F/U- RT KNEE INJURY, HEAD INJURY Arrival Time: 05/24/2024 15:43:59 Primary Care Physician: Iron Gan Attending Physician: Bo Shah PA-C Comment: Patient Education With: Address: When: [facility] Occupational Health Within 3 months [...] your frie (more content not included)... 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 Patient previously seen at [facility] occupational health clinic, transferring care over to [facility] at this time. Patient has [...] currently following with Dr. Salcedo a neuro agricultural researcher in [place], who he sees once a year to [...] that he is currently following with Dr. Ureña at [facility] who is following him for his head [...] evaluated by a Dr. Enrique at the [facility] who is a neuro-hospital sales representative as they were concerned that his vision was causing him issues with his balance, states that his neuro-hospital sales representative stated that his vision is fine but [...] his ears, states he has seen an dobie man, not currently in any active treatment for [...] has i (more content not included)... Normal [facility] [place] 024 Urgent Care Record [facility] ? Urgent Care [address] [place], [place] [id number] PATIENT DISCHARGE INSTRUCTIONS Patient Information Name: SARA YEBOAH Age: 53 Years Date of : 1970 [facility]: [id number] Reason For Visit: Medical screening exam; [facility] F/U- RT KNEE INJURY, HEAD INJURY Arrival Time: 05/24/2024 15:43:59 Primary Care Physician: Iron Gan Attending Physician: Bo Shah PA-C Comment: Visit Diagnosis: Diagnoses This Visit Concussion with loss of consciousness of 30 minutes or less, initial encounter (S06.0X1A) Major depressive disorder, single episode, mild (F32.0) Medical screening exam ([id number]) Panic disorder [episodic paroxysmal anxiety] (F41.0) Postconcussional [...] sign any legal documents With: Address: When: [facility] Occupational Health Within 3 months Comments: Follow-up occupational health in approximately 3 months for reevaluation. If you are having any worsening issues or any other problems please contact us at any time. Medication Information: The exam and treatment you received today in the [facility] were for an urgent problem and are not intended as complete care. It is important for you to follow up with a doctor, nurse practitioner, or physician?s assistant branch manager for ongoing care. If your symptoms become [...] so we can reach you if necessary. [facility] has provided you with a complete list of medications post discharge. Please inform your physiologist/provider of your visit and for further instruction [...] 2.96 m2 (more content not included)... Normal [facility] Follow-Upon 04-04-2024 Follow-Up [id number] Spencer Yeboah 1970 M Date Provider Department Center 04/04/2024 Anshul2-LIEN UREÑA MP PHYS MED Medical Pavi No family history on file Level of Service:[id number] [place] OFFICE/OUTPATIENT ESTABLISHED LOW MDM 20 MIN (GC) Reason for Visit and Comments: Follow-up [110746] Worker's Compensation [732] [facility] Lori 03-08-2024 CNPN Telephone (OPHTBE) SARA YEBOAH ([id number]) 1970 M Date Time Provider Department 03/08/24 MILEY ENRIQUE OPHTBE During your visit today, we recorded the following information about you: Estefany Bowles 03/08/2024 8:32 AM Signed Faxed FROI form to [facility] at [phone]. Also faxed to HIM and placed original in envelope for scanning into [employer]. Allergies As of Date: 03/08/2024 (No Known [...] Status:Closed by ESTEFANY BOWLES on 03/08/24 Normal [facility] FUNDUS PHOTOS OU (BOTH EYES) on 03-01-2024 [facility] Radiology Study observation (narrative) [facility] VISUAL FIELD 30-2 OU (BOTH E YES)on 03-01-2024 [facility] Radiology Study observation (narrative) [facility] 36on 01-18-2024 36 Patient last seen 03/2023 has a one year F/U scheduled for 03/2024 [facility] Refillon 01-18-2024 Refill [id number] Spencer Yeboah as 1970 M Date Provider Department Center 01/18/2024 Anshul2-LIEN UREÑA MP PHYS MED Medical Pavi No family history on file Reason for Visit and Comments: Med Refill [[id number]] [facility] CNPMaame 09-22-2023 CNPN Telephone (OPHTBE) SARA YEBOAH ([id number]) 1970 M Date Time Provider Department 09/22/23 MILEY ENRIQUE During your visit today, we recorded the following information about you: Kristina Melton 09/22/2023 3:40 PM Signed Received outside Records from [facility] needing consult with Dr. Enrique for Neuro Ophthalmology consult. Please contact patient to schedule at [phone]. Records in Dr. Enrique's mailbox. Allergies As of Date: 09/22/2023 (No Known Allergies) Date Reviewed: 02/28/2013 Reviewed by: Riana Trejo ([facility]) - Fully Assessed Reason for Visit: Received Outside Medical Records [[id number]] Prescriptions as of 09/25/2023 - metoprolol tartrate, [...] Status:Closed by KRISTINA MELTON on 09/25/23 Normal [facility] FLUORO FOR SURGICAL PROCEDUR ESon 10-07-2022 FLUORO FOR SURGICAL PROCEDURES Radiology exam is complete. No Radiologist dictation. Please follow up with ordering provider. Final result Normal [facility] Radiology exam is complete. No Radiologist dictation. Please follow up with ordering provider. MHPN RIS CONSOLIDATED EKG 12 LeadOrdered By: Milan Pearson on 09-25-2022 Atrial Rate 67 BPM [employer] Work Phone: P [place] 21 degrees [employer] Work Phone: P-R Interval 190 ms [employer] Work Phone: Q-T Interval 388 ms [employer] Work Phone: QRS Duration 110 ms [employer] Work Phone: QTc Calculation (Bazett) 409 ms [employer] Work Phone: R [place] -38 degrees [employer] Work Phone: T [place] 41 degrees [employer] Work Phone: Ventricular Rate 67 BPM [employer] Work Phone: [employer] Work Phone: EKG 12 Leadon 09-25-2022 Normal sinus rhythm Left axis deviation Abnormal ECG No previous ECGs available [facility] Milan Menon MD - 09/25/2022 Normal sinus rhythm Left axis deviation Abnormal ECG No previous ECGs available [employer] Work Phone: MRSA DNA Probe, Nasalon 09-10 MRSA, DNA, Nasal Negative NEGATIVE [facility] [employer] Comment on above: NEGATIVE: MRSA DNA n ot detected by nucleic acid amplification. Results should be used as an adjunct to nosocomial control efforts to identify patients needing enhanced precautions. The test is not intended to identify patients with staphylococcal infections. Results should not be used to guide or monitor treatment for MRSA infections. Specimen Description .NASAL SWAB [employer] [facility] MRSA, DNA, Nasalon MRSA, DNA, Nasal Negative Normal [facility] Comment on above: Result Comment: NEGA TIVE: MRSA DNA not detected by nucleic acid amplification. Results should be used as an adjunct to nosocomial control efforts to identify patients needing enhanced precautions. The test is not intended to identify patients with staphylococcal infections. Results should not be used to guide or monitor treatment for MRSA infections. Performed By: #### M RSANO #### [facility] [address] [place] [address] [employer] Furniture Assembler: Omkar Leon DO [facility] [address] [place] [address] Metal Furniture Assembler: Nirmal Colon MD Basic Metabolic Panelon 09-10 Anion gap [Moles/Vol] 9 mmol/L 9 - 17 mmol/L [facility] Calcium [Mass/Vol] 9.4 mg/dL 8.6 - 10. 4 mg/dL [facility] Chloride [Moles/Vol] 102 mmol/L 98 - 107 mmol/L [facility] CO2 [Moles/Vol] 27 mmol/L 20 - 31 mmol/L [facility] Creatinine [Mass/Vol] 1.06 mg/dL 0.70 - 1.20 mg/dL [facility] GFR/1.73 sq M.predicted MDRD (S/P/Bld) [Vol rate/Area] - PINF [facility] Comment on above: These results are not [...] 118 mg/dL High 70 - 99 mg/dL [facility] Interpretation and review of laboratory results Abnormal [facility] Potassium [Moles/Vol] 4.9 mmol/L 3.7 - 5.3 mmol/L [facility] Sodium [Moles/Vol] 138 mmol/L 135 - 144 mmol/L [facility] Urea nitrogen [Mass/Vol] 17 mg/dL 6 - 20 mg/dL [facility] Basic Metabolic Profon 09-24 Anion gap [Moles/Vol] 9 mmol/L Normal 9-17 [facility] Comment on above: Performed By: #### C DP, BMP #### [facility] [address] [facility] [place] [address] [employer] Furniture Assembler: Omkar Leon DO Calcium [Mass/Vol] 9.4 mg/dL Normal 8.6-10.4 [facility] Comment on above: Performed By: #### C DP, BMP #### [facility] [address] [facility] [place] [address] [employer] Furniture Assembler: Omkar Leon DO Chloride [Moles/Vol] 102 mmol/L Normal 98-107 [facility] Comment on above: Performed By: #### C DP, BMP #### [facility] [place] [address] [employer] Furniture Assembler: Omkar Leon DO CO2 [Moles/Vol] 27 mmol/L Normal 20-31 [facility] Comment on above: Performed By: #### C DP, BMP #### [facility] [address] [facility] [place] [address] Metal Furniture Assembler: Omkar Leon DO Creatinine [Mass/Vol] 1.06 mg/dL Normal 0.70-1.20 [facility] Comment on above: Performed By: #### C DP, BMP #### [facility] [place] [address] [employer] Furniture Assembler: Omkar Leon DO GFR/1.73 sq M.predicted among non-blacks MDRD (S/P/Bld) [Vol rate/Area] mL/min/{1.73_m2} Normal >60 [facility] Comment on above: Result Comment: These [...] Performed By: #### C DP, BMP #### [facility] [address] [facility] [place] [address] [employer] Furniture Assembler: Omkar Leon DO Glucose [Mass/Vol] 118 mg/dL High 70-99 [facility] Comment on above: Performed By: #### C DP, BMP #### [facility] [address] [facility] [place] [address] [employer] Furniture Assembler: Omkar Leon DO Potassium [Moles/Vol] 4.9 mmol/L Normal 3.7-5.3 [facility] Comment on above: Performed By: #### C DP, BMP #### [facility] [place] [address] [employer] Furniture Assembler: Omkar Leon DO Sodium [Moles/Vol] 138 mmol/L Normal 135-144 [facility] Comment on above: Performed By: #### C DP, BMP #### [facility] [address] [facility] [place] [address] [employer] Furniture Assembler: Omkar Leon DO Urea nitrogen [Mass/Vol] 17 mg/dL Normal 6-20 [facility] Comment on above: Performed By: #### C DP, BMP #### [facility] [address] [place] [address]. [place] [address] Metal Furniture Assembler: Omkar Leon DO CBC with Auto Differentialon 09-24-2022 Absolute Eos # 0.20 [facility] Absolute Lymph # 1.70 [facility] Absolute Bailey # 0.60 [facility] Basophils (Bld) [#/Vol] 0.10 10*3/uL [facility] Basophils/100 WBC (Bld) 1 % 0 - 2 % [facility] Eosinophils/100 WBC (Bld) 2 % 0 - 4 % [facility] Hematocrit (Bld) [Volume fraction] 41.3 % 41 - 53 % [facility] Hemoglobin (Bld) [Mass/Vol] 14.2 g/dL 13.5 - 17.5 g/dL [facility] Interpretation and review of laboratory results Abnormal [facility] Lymphocytes/100 WBC (Bld) 23 % Low 24 - 44 % [facility] MCH (RBC) [Entitic mass] 31.1 pg 26 - 34 pg [facility] MCHC (RBC) [Mass/Vol] 34.4 g/dL 31 - 37 g/dL [facility] MCV (RBC) [Entitic vol] 90.4 fL 80 - 100 fL [facility] Monocytes/100 WBC (Bld) 8 % High 1 - 7 % [facility] Platelet distribution width (Bld) [Ratio] 13.4 % 11.5 - 14.9 % [facility] Platelet mean volume (Bld) [Entitic vol] 9.2 fL 6.0 - 12.0 fL [facility] Platelets (Bld) [#/Vol] 230 10*3/uL [facility] RBC (Bld) [#/Vol] 4.57 10*6/uL 4.5 - 5.9 m/uL [facility] Segmented neutrophils/100 WBC (Bld) 66 % 36 - 66 % [facility] Segs Absolute 5.00 [facility] WBC (Bld) [#/Vol] 7.6 10*3/uL [facility] CBC with Diffon 09-24-2022 Abs. Basophil 0.10 k/uL Normal 0.0-0.2 [facility] Comment on above: Performed By: #### C DP, BMP #### [facility] [address] [place] [address] Metal Furniture Assembler: Omkar Leon DO Abs.Neutrophil (Seg) 5.00 k/uL Normal 1.3-9.1 [facility] Comment on above: Performed By: #### C DP, BMP #### [facility] [address] [place] [address] [employer] Furniture Assembler: Omkar Leon DO Basophils/100 WBC (Bld) 1 % Normal 0-2 [facility] Comment on above: Performed By: #### C DP, BMP #### [facility] [address] [place] [address] [employer] Furn[employer] Assembler: Omkar Leon DO Eosinophils (Bld) [#/Vol] 0.20 10*3/uL Normal 0.0-0.4 [facility] Comment on above: Performed By: #### C DP, BMP #### [facility] [place] [address] [employer] Furniture Assembler: Omkar Leon DO Eosinophils/100 WBC (Bld) 2 % Normal 0-4 [facility] Comment on above: Performed By: #### C DP, BMP #### [facility] [address] [place] [address]. [place] [address] [employer] Furn[employer] Assembler: Omkar Leon DO Erythrocyte distribution width (RBC) [Ratio] 13.4 % Normal 11.5-14.9 [facility] Comment on above: Performed By: #### C DP, BMP #### [facility] [address] [place] [address] [employer] Furn[employer] As[employer]er: Omkar Leon DO Hematocrit (Bld) [Volume fraction] 41.3 % Normal 41-53 [facility] Comment on above: Performed By: #### C DP, BMP #### [facility] [place] [address] [employer] Furn[employer] Assembler: Omkar Leon DO Hemoglobin (Bld) [Mass/Vol] 14.2 g/dL Normal 13.5-17.5 [facility] Comment on above: Performed By: #### C DP, BMP #### [facility] [address] [place] [address] [employer] Furniture Assembler: Omkar Leon DO Lymphocytes (Bld) [#/Vol] 1.70 10*3/uL Normal 1.0-4.8 [facility] Comment on above: Performed By: #### C TOÑO, BMP #### [facility] [address] [place] [address] [employer] Furniture Assembler: Omkar Leon DO Lymphocytes/100 WBC (Bld) 23 % Low 24-44 [facility] Comment on above: Performed By: #### C TOÑO, BMP #### [facility] [place] [address] [employer] Furniture Assembler: Omkar Leon DO MCH (RBC) [Entitic mass] 31.1 pg Normal 26-34 [facility] Comment on above: Performed By: #### C TOÑO, BMP #### [facility] [address] [place] [address] [employer]er: Omkar Leon DO MCHC (RBC) [Mass/Vol] 34.4 g/dL Normal 31-37 [facility] Comment on above: Performed By: #### C TOÑO, BMP #### [facility] [address] [place] [address] [employer] Furn[employer] As[employer]er: Omkar Leon DO MCV (RBC) [Entitic vol] 90.4 fL Normal 80-100 [facility] Comment on above: Performed By: #### C TOÑO, BMP #### [facility] [address] [place] [address] [employer]er: Omkar Leon DO Monocytes (Bld) [#/Vol] 0.60 10*3/uL Normal 0.1-1.3 [facility] Comment on above: Performed By: #### C TOÑO, BMP #### [facility] [address] [place] [address] [employer]er: Omkar Leon DO Monocytes/100 WBC (Bld) 8 % High 1-7 [facility] Comment on above: Performed By: #### C TOÑO, BMP #### [facility] [place] [address] [employer] Furniture Assembler: Omkar Leon DO Neutrophil (Seg) 66 % Normal 36-66 [facility] Comment on above: Performed By: #### C DP, BMP #### [facility] [address] [place] [address] [employer]er: Omkar Leon DO Platelet mean volume (Bld) [Entitic vol] 9.2 fL Normal 6.0-12.0 [facility] Comment on above: Performed By: #### C TOÑO, BMP #### [facility] [address] [place] [address] [employer]er: Omkar Leon DO Platelets (Bld) [#/Vol] 230 10*3/uL Normal 150-450 [facility] Comment on above: Performed By: #### C TOÑO, BMP #### [facility] [address] [place] [address] [employer]er: Omkar Leon DO RBC (Bld) [#/Vol] 4.57 10*6/uL Normal 4.5-5.9 [facility] Comment on above: Performed By: #### C TOÑO, BMP #### [facility] [address] [place] [address] [employer]er: Omkar Leon DO WBC (Bld) [#/Vol] 7.6 10*3/uL Normal 3.5-11.0 [facility] Comment on above: Performed By: #### C TOÑO, BMP #### [facility] [address] [place] [address] [employer]er: Omkar Leon DO MRSA, DNA, Nasalon 3 Specimen Description .NASAL SWAB Normal [facility] Comment on above: Performed By: #### M RSANO #### [facility] [address] [place] [address] [employer] Furniture Assembler: Omkar Leon DO [address] [address] [employer] Furniture Assembler: Nirmal Colon MD Microscopic Urinalysison Bacteria, UA None None [facility] Casts UA 3 to 5 /LPF [facility] Epithelial Cells UA 0 TO 2 /HPF [facility] RBC clumps Auto (Urine sed) [#/Area] 0 TO 2 /HPF [facility] WBC, UA 0 TO 2 /HPF [facility] TYPE AND SCREENon 09-24-2022 ABO/Rh Positive [facility] Arm Band Number [id number] [facility] Blood Bank Comment ABORH CONFIRMED O POS: 003 [facility] Expiration Date 2022,2359 [facility] Type + Screenon 09-24-2022 Type + Screen Sample Expiration 2022,2359 Arm Band Number [id number] ABO/Rh(D) O POSITIVE Antibody Screen NEGATIVE Blood Bank Comment ABORH CONFIRMED O POS: 003 Normal [facility] Comment on above: Performed By: #### T YS #### [facility] [address] [place] [address] [employer]: Omkar Leon DO UA w/Reflex Cultureon 2022 Bilirubin, SemiQt,Ur Negative Normal NEG [facility] Comment on above: Performed By: #### U LOR CARDOZA #### [facility] [address] [place] [address] [employer]er: Omkar Leon DO Blood, Urine Negative Normal NEG [facility] Comment on above: Performed By: #### U AXLOR #### [facility] [address] [facility] [place] [address] [employer]er: Omkar Leon DO Clarity (U) Clear Normal CLEAR [facility] Comment on above: Performed By: #### U AXLOR #### [facility] [address] [facility] [place] [address] [employer]er: Omkar Leon DO Color (U) Yellow Normal YEL [facility] Comment on above: Performed By: #### U AXLOR #### [facility] [address] [place] [address] [employer]er: Omkar Leon DO Glucose Ql (U) Negative Normal NEG [facility] Comment on above: Performed By: #### U LOR CARDOZA #### [facility] [address] [place] [address] [employer]er: Omkar Leon DO Ketones Ql (U) Negative Normal NEG [facility] Comment on above: Performed By: #### U AX, UMJULISSAO #### [facility] [address] [place] [address] [employer]er: Omkar Leon DO Leukocyte esterase Test strip Ql (U) Negative Normal NEG [facility] Comment on above: Performed By: #### U AXLOR #### [facility] [address] [place] [address] [employer]er: Omkar Leon DO Nitrite,Ur Negative Normal NEG [facility] Comment on above: Performed By: #### U AXLOR #### [facility] [address] [place] [address] [employer]er: Fanelly, Omkar, DO PH,Ur 5.5 Normal 5.0-8.0 [facility] Comment on above: Performed By: #### U AXLOR #### [facility] [address] [facility] [place] [address] [employer]er: Omkar Leon DO Protein Ql (U) 2+ Abnormal NEG [facility] Comment on above: Performed By: #### U AXLOR #### [facility] [address] [place] [address] [employer]er: Omkar Leon DO Spec. [place],Ur 1.021 Normal 1.000-1.030 [facility] Comment on above: Performed By: #### U AXLOR #### [facility] [address] [place] [address] [employer]er: Omkar Leon DO Urobilinogen,Ur Normal Normal NORM [facility] Comment on above: Performed By: #### U LOR CARDOZA #### [facility] [address] [place] [address] [employer]er: Omkar Leon DO Urinalysis with Reflex to Cu ltureon 09-24-2022 Bilirubin Urine Negative NEGATIVE [facility] Color, UA Yellow Yellow [facility] Glucose Auto test strip (U) [Mass/Vol] Negative NEGATIVE [facility] Interpretation and review of laboratory results Abnormal [facility] Ketones (U) [Mass/Vol] Negative NEGATIVE [facility] Leukocyte esterase Auto test strip Ql (U) Negative NEGATIVE [facility] Nitrite Auto test strip Ql (U) Negative NEGATIVE [facility] Protein (U) [Mass/Vol] 5.5 mg/dL 5.0 - 8.0 [facility] Protein (U) [Mass/Vol] 2+ Abnormal NEGATIVE [facility] Specific [place], UA 1.021 1.000 - 1.030 [facility] Turbidity UA Clear Clear [facility] Urine Hgb Negative NEGATIVE [facility] Urobilinogen, Urine Normal Normal [facility] Urinalysis,Microon 3 Bacteria None Normal NONE [facility] Comment on above: Performed By: #### LOR PARKER #### [facility] [address] [place] [address] [employer]er: Omkar Leon DO Casts 3 to 5 [facility] Comment on above: Performed By: #### LOR PARKER #### [facility] [address] [place] [address] [employer]er: Omkar Leon DO Epithelial cells LM Ql (Urine sed) 0 TO 2 [facility] Comment on above: Performed By: #### LOR PARKER #### [facility] [address] [place] [address] [employer]er: Omkar Leon DO Urine RBC's 0 TO 2 Normal [facility] Comment on above: Performed By: #### LOR PARKER #### [facility] [address] [place] [address] [employer]er: Omkar Leon DO Urine WBC's 0 TO 2 Normal [facility] Comment on above: Performed By: #### LOR PARKER #### [facility] [address] [place] [address] [employer]er: Omkar Leon DO MAGNESIUMon 04-01-2022 Magnesium [Mass/Vol] 1.8 mg/dL Normal 1.8-2.4 [facility] Comment on above: Performed By: #### M G #### [facility] [address] [address] [address] Madhu Augustine AZVNMUI-[id number]-IGGDFS-FACTOR 1 on 02-03-2022 Insulin-Like Growth Factor I 240 ng/mL Normal 74-255 [facility] Comment on above: Performed By: #### I NSGF1 #### [facility] [address] [address] [address] Madhu Augustine FSHon 02-01-2022 FSH 0.4 mIU/mL Critically low 1.5-12.4 [facility] Comment on above: Performed By: #### L BCFSH #### [facility] [address] [address] [address] Madhu Augustine LUTEINIZING HORMONE (LH)on 0 02-01-2022 LH <0.3 Critically low 1.7-8.6 [facility] Comment on above: Performed By: #### L BCLH #### [facility] [address] [place] [address] Dr. Madhu Augustine TESTOSTERONE, TOTALon 2021 Testosterone [Mass/Vol] 756 ng/dL Normal 264-916 [facility] Comment on above: Result Comment: Adul t male reference interval is based on a population of healthy nonobese males (BMI <30) between 19 and 39 years old. Omar, et.al. JCEM 2017,102;9867-1756. PMID: [id number]. Performed By: #### T ESTTOT #### [facility] [address] [place] [address] Dr. Madhu Augustine CBC AUTO DIFFon 01-31-2022 BASO # 0.1 103/ul Normal 0.0-0.1 [facility] Comment on above: Performed By: #### C BC #### [facility] [address] [place] [address] Dr. Madhu Augustine Basophils/100 WBC (Bld) 0.9 % Normal 0.2-2.0 [facility] Comment on above: Performed By: #### C BC #### [facility] [address] [place] [address] Dr. Madhu Augustine EO # 0.2 103/ul Normal 0.0-0.7 [facility] Comment on above: Performed By: #### C BC #### [facility] [address] [address] [address] Madhu Augustine Eosinophils/100 WBC (Bld) 2.4 % Normal 0.9-7.0 [facility] Comment on above: Performed By: #### C BC #### [facility] [address] [place] [address] Dr. Madhu Augustine Erythrocyte distribution width (RBC) [Ratio] 14.4 % Normal 11.0-15.0 [facility] Comment on above: Performed By: #### C BC #### [facility] [address] [place] [address] Dr. Madhu Augustine Hematocrit (Bld) [Volume fraction] 41.1 % Critically low 42.0-54.0 [facility] Comment on above: Performed By: #### C BC #### [facility] [address] [place] [address] Dr. Madhu Augustine Hemoglobin (Bld) [Mass/Vol] 13.5 g/dL Critically low 14.0-18.0 [facility] Comment on above: Performed By: #### C BC #### [facility] [address] [place] [address] Dr. Madhu Augustine IG # 0.05 10e3/ul Critically high 0.00-0.03 [facility] Comment on above: Performed By: #### C BC #### [facility] [address] [place] [address] Dr. Madhu Augustine IG % 0.7 % Critically high 0.0-0.5 [facility] Comment on above: Performed By: #### C BC #### [facility] [address] [place] [address] Dr. Madhu Augustine LYMPH # 1.6 103/ul Normal 1.2-3.8 [facility] Comment on above: Performed By: #### C BC #### [facility] [address] [place] [address] Dr. Madhu Augustine Lymphocytes/100 WBC (Bld) 21.5 % Normal 20.5-60.0 [facility] Comment on above: Performed By: #### C BC #### [facility] [address] [place] [address] Dr. Madhu Augustine MANUAL DIFF REQ NO Normal [facility] Comment on above: Performed By: #### C BC #### [facility] [address] [place] [address] Dr. Madhu Augustine MCH (RBC) [Entitic mass] 30.7 pg Normal 25.9-34.0 [facility] Comment on above: Performed By: #### C BC #### [facility] [address] [place] [address] Dr. Madhu Augustine MCHC (RBC) [Mass/Vol] 32.8 g/dL Normal 29.9-35.2 [facility] Comment on above: Performed By: #### C BC #### [facility] [address] [place] [address] Dr. Madhu Augustine MCV (RBC) [Entitic vol] 93.4 fL Normal 80.0-94.0 [facility] Comment on above: Performed By: #### C BC #### [facility] [address] [place] [address] Dr. Madhu Augustine MONO # 0.7 103/ul Normal 0.3-0.8 [facility] Comment on above: Performed By: #### C BC #### [facility] [address] [place] [address] Dr. Madhu Augustine Monocytes/100 WBC (Bld) 8.5 % Normal 1.7-12.0 [facility] Comment on above: Performed By: #### C BC #### [facility] [address] [place] [address] Dr. Madhu Augustine NEUT # 5.1 103/ul Normal 1.4-6.5 [facility] Comment on above: Performed By: #### C BC #### [facility] [address] [place] [address] Dr. Madhu Augustine Neutrophils/100 WBC (Bld) 66.0 % Normal 43.0-75.0 [facility] Comment on above: Performed By: #### C BC #### [facility] [address] [place], [place] [id number] Dr. Madhu Augustine Platelet mean volume (Bld) [Entitic vol] 10.2 fL Normal 9.5-13.5 [facility] Comment on above: Performed By: #### C BC #### [facility] [address] [place] [address] Dr. Madhu Augustine PLT 207 103/ul Normal 150-450 [facility] Comment on above: Performed By: #### C BC #### [facility] [address] [place] [address] Dr. Madhu Augustine RBC 4.40 106/ul Critically low 4.70-6.10 [facility] Comment on above: Performed By: #### C BC #### [facility] [address] [place] [address] Dr. Madhu Augustine WBC 7.6 103/ul Normal 4.0-11.0 [facility] Comment on above: Performed By: #### C BC #### [facility] [address] [place] [address] Dr. Madhu Augustine LIPID PROFILEon 01-31-2022 CHOL-HDL RATIO NORM SEE BELOW Normal [facility] Comment on above: Result Comment: 3.3 - 4.4 LOW RISK 4.4 - 7.1 AVERAGE RISK 7.1 - 11.0 MODERATE RISK >11.0 HIGH RISK Performed By: #### L IPID, CMP #### [facility] [address] [place] [address] Dr. Madhu Augustine Cholesterol [Mass/Vol] 156 mg/dL Normal <=200 [facility] Comment on above: Performed By: #### L IPID, CMP #### [facility] [address] [place] [address] Dr. Madhu Augustine Cholesterol in HDL [Mass/Vol] 53 mg/dL Normal 40-60 [facility] Comment on above: Performed By: #### L IPID, CMP #### [facility] [address] [place] [address] Dr. Madhu Augustine Cholesterol in LDL [Mass/Vol] 84.0 mg/dL Normal [facility] Comment on above: Performed By: #### L IPID, CMP #### [facility] [address] [address] [address] Madhu Augustine Cholesterol.total/ Cholesterol in HDL [Mass ratio] 2.9 {ratio} Normal [facility] Comment on above: Performed By: #### L IPID, CMP #### [facility] [address] [address] [address] Madhu Augustine HDL NORMAL > or = 60 mg/dl - LO W CARDIOVASCULAR RISK <40 mg/dl - HIGH CARDIOVASCULAR RISK Normal [facility] Comment on above: Performed By: #### L IPID, CMP #### [facility] [address] [address] [address] Madhu Augustine LDL CALC NORMAL SEE BELOW Normal [facility] Comment on above: Result Comment: <100 mg/dl OPTIMAL 100 - 129 mg/dl NEAR OR ABOVE OPTIMAL 130 - 159 mg/dl BORDERLINE HIGH 160 - 189 mg/dl HIGH >190 mg/dl VERY HIGH Performed By: #### L IPID, CMP #### [facility] [address] [place] [address] Dr. Madhu Augustine Triglyceride [Mass/Vol] 95 mg/dL Normal <=150 [facility] Comment on above: Performed By: #### L IPID, CMP #### [facility] [address] [place] [address] Dr. Madhu Augustine VLDL CALC 19.0 mg/dL Normal [facility] Comment on above: Performed By: #### L IPID, CMP #### [facility] [address] [address] [address] Madhu Augustine PROF 14(COMP METB)on 022 Albumin [Mass/Vol] 3.5 g/dL Normal 3.4-5.0 [facility] Comment on above: Performed By: #### L IPID, CMP #### [facility] [address] [place] [address] Dr. Madhu Augustine Albumin/Globulin [Mass ratio] 1.1 {ratio} Normal [facility] Comment on above: Performed By: #### L IPID, CMP #### [facility] [address] [address] [address] Madhu Augustine ALP [Catalytic activity/Vol] 51 U/L Normal 46-116 [facility] Comment on above: Performed By: #### L IPID, CMP #### [facility] [address] [place] [address] Dr. Madhu Augustine ALT [Catalytic activity/Vol] 40 U/L Normal 16-63 [facility] Comment on above: Performed By: #### L IPID, CMP #### [facility] [address] [place] [address] Dr. Madhu Augustine Anion gap [Moles/Vol] 12.7 mmol/L Normal [facility] Comment on above: Performed By: #### L IPID, CMP #### [facility] [address] [place] [address] Dr. Madhu Augustine AST [Catalytic activity/Vol] 18 U/L Normal 15-37 [facility] Comment on above: Performed By: #### L IPID, CMP #### [facility] [address] [place] [address] Dr. Madhu Augustine Bilirubin [Mass/Vol] 0.4 mg/dL Normal 0.2-1.0 [facility] Comment on above: Performed By: #### L IPID, CMP #### [facility] [address] [place] [address] Dr. Madhu Augustine Calcium [Mass/Vol] 8.9 mg/dL Normal 8.5-10.1 [facility] Comment on above: Performed By: #### L IPID, CMP #### [facility] [address] [place] [address] Dr. Madhu Augustine Chloride [Moles/Vol] 104 mmol/L Normal 98-107 [facility] Comment on above: Performed By: #### L IPID, CMP #### [facility] [address] [place] [address] Dr. Madhu Augustine CO2 [Moles/Vol] 26.4 mmol/L Normal 21.0-32.0 [facility] [place] [facility] Comment on above: Performed By: #### L IPID, CMP #### [facility] [address] [address] [address] Madhu Augustine Creatinine [Mass/Vol] 0.99 mg/dL Normal 0.70-1.30 [facility] Comment on above: Performed By: #### L IPID, CMP #### [facility] [address] [address] [address] Madhu Augustine EGFR-AF ARMENIAN >60 Normal >=60 [facility] Comment on above: Performed By: #### L IPID, CMP #### [facility] [address] [address] [address] Madhu Augustine EGFR-NON AF ARMENIAN >60 Normal >=60 [facility] Comment on above: Performed By: #### L IPID, CMP #### [facility] [address] [address] [address] Madhu Augustine Globulin (S) [Mass/Vol] 3.2 g/dL Normal [facility] Comment on above: Performed By: #### L IPID, CMP #### [facility] [address] [address] [address] Madhu Augustine Glucose [Mass/Vol] 108 mg/dL Critically high 74-106 [facility] Comment on above: Performed By: #### L IPID, CMP #### [facility] [address] [address] [address] Madhu Augustine Potassium [Moles/Vol] 4.1 mmol/L Normal 3.5-5.1 [facility] Comment on above: Performed By: #### L IPID, CMP #### [facility] [address] [address] [address] Madhu Augustine Protein [Mass/Vol] 6.7 g/dL Normal 6.4-8.2 [facility] Comment on above: Performed By: #### L IPID, CMP #### [facility] [address] [address] [address] Madhu Augustine Sodium [Moles/Vol] 139 mmol/L Normal 136-145 [facility] Comment on above: Performed By: #### L IPID, CMP #### [facility] [address] [address] [address] Madhu Augustine Urea nitrogen [Mass/Vol] 14.0 mg/dL Normal 7.0-18.0 [facility] Comment on above: Performed By: #### L IPID, CMP #### [facility] [address] [address] [address] Madhu Augustine Urea nitrogen/Creatinin e [Mass ratio] 14.1 mg/mg Normal [facility] Comment on above: Performed By: #### L IPID, CMP #### [facility] [address] [address] [address] Madhu Augustine VITAMIN B12on 01-31-2022 Cobalamin (Vitamin B12) [Mass/Vol] 1106.0 pg/mL Critically high 193.0-986.0 [facility] Comment on above: Performed By: #### V ITB12, VITAD #### [facility] [address] [place] [address] Dr. Madhu Augustine VITAMIN D 25 OHon 01-31-2022 VIT D 25-OH 53.4 ng/mL Normal [facility] Comment on above: Performed By: #### V ITB12, VITAD #### [facility] [address] [place] [address] Dr. Madhu Augustine VIT D RANGES SEE BELOW Normal [facility] Comment on above: Result Comment: <20 ng/mL Vit D deficient 20 - <30 ng/mL Vit D insufficient 30 - 100 ng/mL Vit D sufficient >100 ng/mL Potential Toxicity Performed By: #### V ITB12, VITAD #### [facility] [address] [place] [address] Dr. Madhu Augustine Rehab Psych Evaluationon Rehab Psych Evaluation MR#: [id number] REHABILITATION SERVICES ( ) INPATIENT (x) OUTPATIENT Patient Name: Sara Yeboah Date of : 1970 Referring Physician: Lien Ureña M.D. Dictated By: Ramesh Hu, PhD Evaluation Date: 10/13/2018 neuropsychological evaluation DATE OF SERVICE: 10/12/2018-10/22/2018 DIAGNOSIS: Postconcussive syndrome DATE OF ONSET: 05/14/2018 DATE OF : 1970 AGE: 47 years TIME SPENT: 47966=8 unit; 87348=8 unit; 74572=9 units; 49866=3 unit; 80567=4 units REASON FOR REFERRAL: This is the initial neuropsychological evaluation of Mr. Sara Yeboah, a 48-year-old, right-hand, White, , gentleman, who was referred by research laboratory manager, Dr. Lien Ureña to ascertain his present neurocognitive status in the context of a work-related incident, which occurred on 05/14/2018 and resulted in a concussion and a reported brief loss of consciousness. Mr. Yeboah is referred with postconcussive syndrome. HISTORY OF PRESENTING PROBLEM: Mr. Yeboah presents to the current evaluation on time and accompanied by his , Mrs. Isha Yeboah; both were believed to be accurate historians. A clinic note from Dr. Ureña dated 09/13/2018 was consulted. Mr. Yeboah is presently involved with worker's compensation and was evaluated on 09/01/2018 by preventative medicine specialist, Dr. Young Morgan ([employer]); said evaluation was also consulted. Mr. Yeboah notes that attorneys working with the [employer] [employer] are handling his case. According to Dr. Morgan's medical examination report, Mr. Yeboah sustained a concussion on 05/14/2018, while working for [employer]. Dr. Morgan noted a 70-80 pound object had fallen from a david striking [Mr. Yeboah] on the head. According to Dr. Morgan's evaluation, Mr. Yeboah experienced no nausea or vomiting, but reported a headache of 7 of 10. It was noted that Mr. Yeboah was taken to [facility], where he underwent a CT [...] of high blood pressure. According to Dr. Ureña's clinic note, Mr. Yeboah's medical history is [...] Mr. Yeboah notes he was born in [place], [place]. He adds he has been for 24 years and has one child. Mr. Yeboah notes he presently resides in [place], [place] with his and daughter. EDUCATIONAL HISTORY: [...] May 2018 injury from his employment at [employer], where he has worked for approximately five [...] the Speech Therapy when he participated at [facility]. Mr. Yeboah also reports changes [...] Immediate Memory Index in the average range (TJS=059), and a Delayed Memory Index in the average range (LPI=930). Obtained index scores were compared to predicted [...] Therapy (CBT), such could be found through [facility] services. He may also benefit from reading The Depression Cure by Kamar and Feeling Better: A 6-week Mind-Body Program to Ease your Chronic Symptoms by Basilio Baron and The Anxiety and Phobia Workbook by Alfredo rL. 2. We recommend the following strategies to [...] i. Use a pocket notepad, personal digital media buyer, wristwatch alarm, voice recorder, pill box, or [...] If you have any questions, please call [phone]. DICTATED BY: Ramesh Hu, PhD Neuropsychology Fellow REVIEWED BY: Electronically Signed by: Nereyda Rivera, PhD, ABPP 10/28/2018 08:41 A Nereyda Rivera, PhD, ABPP Board Certified Clinical Neuropsychologist Date Dict: 10/13/2018/12:18 P/Ramesh Hu, PhD Date Trans: 10/13/2018 01:51 P/mmo [id number] cc: Nereyda Rivera, PhD, ABPP [id number] Rehab Medicine [facility] [address] Lien Ureña M.D. [facility] [address] *Mr. Sara Yeboah [address] [place] [address] [facility] Vital Signs Date Time Vital Sign Value Performing Clinician Facility 10-26-2024 09:45-0400 Body height 182.9 cm Krystle Truong MD Work Phone: [facility] 10-26-2024 09:45-0400 Body mass index (BMI) [Ratio] 56.96 kg/m2 Krystle Truong MD Work Phone: [facility] 10-26-2024 09:45-0400 Body weight 190.51 kg Krystle Truong MD Work Phone: [facility] 10-26-2024 09:45-0400 Diastolic blood pressure 94 mm[Hg] Krystle Truong MD Work Phone: [facility] 10-26-2024 09:45-0400 Heart rate 64 /min Krystle Truong MD Work Phone: [facility] 10-26-2024 09:45-0400 Respiratory rate 16 /min Krystle Truong MD Work Phone: [facility] 10-26-2024 09:45-0400 SaO2% (BldA) [Mass fraction] 93 % Krystle Truong MD Work Phone: [facility] 10-26-2024 09:45-0400 Systolic blood pressure 160 mm[Hg] Krystle Truong MD Work Phone: [facility] 09-29-2024 09:29-0400 Body height 182.88 cm [facility] 09-29-2024 09:29-0400 Body mass index (BMI) [Ratio] 59.8 kg/m2 [facility] 09-29-2024 09:29-0400 Body weight 200.26 kg [facility] 09-29-2024 09:29-0400 Diastolic blood pressure 101 mm[Hg] [facility] 09-29-2024 09:29-0400 Heart rate 76 /min [facility] 09-29-2024 09:29-0400 Respiratory rate 20 /min [facility] 09-29-2024 09:29-0400 Systolic blood pressure 170 mm[Hg] [facility] 10-07-2022 13:13-0400 SaO2% (BldA) [Mass fraction] 92 % Ravi Lopez MD Work Phone: [facility] [employer] 10-07-2022 11:30-0400 Body temperature 98.1 [degF] Ravi Lopez MD Work Phone: [facility] [employer] 10-07-2022 11:30-0400 Diastolic blood pressure 74 mm[Hg] Ravi Lopez MD Work Phone: [facility] [employer] 10-07-2022 11:30-0400 Heart rate 70 /min Ravi Lopez MD Work Phone: [facility] [employer] 10-07-2022 11:30-0400 Respiratory rate 16 /min Ravi Lopez MD Work Phone: [employer] 10-07-2022 11:30-0400 Systolic blood pressure 128 mm[Hg] Ravi Lopez MD Work Phone: [facility] [employer] [facility] [employer] 10-07-2022 05:46-0400 Body height 182.9 cm Ravi Lopez MD Work Phone: [facility] [employer] 10-07-2022 05:46-0400 Body mass index (BMI) [Ratio] 49.5 kg/m2 Ravi Lopez MD Work Phone: [employer] 10-07-2022 05:46-0400 Body weight 165.56 kg Ravi Lopez MD Work Phone: [employer] 09-26-2022 09:30-0400 Body height 182.88 cm [employer] Other [employer] Other 09-26-2022 09:30-0400 Body mass index (BMI) [Ratio] 53.65 kg/m2 [employer] Other 09-26-2022 09:30-0400 Body weight 179.44 kg [employer] Other [employer] Other 09-26-2022 09:30-0400 Diastolic blood pressure 82 mm[Hg] [employer] Other [employer] Other 09-26-2022 09:30-0400 Respiratory rate 16 /min [employer] Other [employer] Other 09-26-2022 09:30-0400 Systolic blood pressure 130 mm[Hg] [employer] Other [employer] Other 09-24-2022 07:12-0400 Body height 182.9 cm Ravi Lopez MD Work Phone: [employer] 09-24-2022 07:12-0400 Body mass index (BMI) [Ratio] 49.5 kg/m2 Ravi Lopez MD Work Phone: [employer] 09-24-2022 07:12-0400 Body temperature 98.01 [degF] Ravi Lopez MD Work Phone: [employer] 09-24-2022 07:12-0400 Body weight 165.56 kg Ravi Lopez MD Work Phone: [employer] 09-24-2022 07:12-0400 Diastolic blood pressure 83 mm[Hg] Ravi Lopez MD Work Phone: [employer] Comment on above: 172/91 right arm 09-24-2022 07:12-0400 Heart rate 70 /min Ravi Lopez MD Work Phone: [employer] 09-24-2022 07:12-0400 Respiratory rate 18 /min Ravi Lopez MD Work Phone: [facility] [employer] 09-24-2022 07:12-0400 SaO2% (BldA) [Mass fraction] 97 % Ravi Lopez MD Work Phone: [employer] 09-24-2022 07:12-0400 Systolic blood pressure 162 mm[Hg] Ravi Lopez MD Work Phone: [employer] Comment on above: 172/91 right arm Encounters Encounter Date Encounter Type Care Provider Facility Start: 10-26-2024 End: 10-26-2024 Robert flowsheet Krystle Truong MD Work Phone: [facility] Start: 10-26-2024 End: 10-26-2024 Bamluzo flowsheet Krystle Truong MD Work Phone: [facility] Start: 10-26-2024 End: 10-26-2024 Office outpatient new 45 minutes Krystle Truong MD Work Phone: [facility] Comment on above: 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); Encounter for dietary consultation; Class 3 severe obesity due to excess calories without serious comorbidity with body mass index (BMI) of 50.0 to 59.9 in adult Start: 10-26-2024 End: 10-26-2024 ambulatory KRYSTLE TRUONG Not Available Start: 10-12-2024 End: 10-17-2024 Telephone encounter Krystle Truong MD Work Phone: [facility] Comment on above: Advice Only Start: 09-29-2024 End: 09-29-2024 ambulatory [facility] Work Phone: Start: 09-29-2024 End: 09-29-2024 Encounter for general adult medical examination without abnormal findings [facility] Start: 09-29-2024 End: 09-29-2024 Patient encounter procedure [facility] Work Phone: Start: 08-30-2024 ambulatory Bo Shah Facility:[facility] Start: 05-24-2024 End: 05-24-2024 ambulatory Iron Gan Facility:[facility] Start: 04-04-[address] [facility] Start: 03-08-2024 End: 03-08-2024 Telephone encounter Miley Enrique OD Work Phone: Ophthalmology Comment on above: FROI form Start: 03-01-2024 End: 03-01-2024 ambulatory MILEY ENRIQUE Facility:[facility] Start: 03-01-2024 End: 03-01-2024 Patient encounter procedure Miley Enrique OD Work Phone: Ophthalmology Comment on above: Post concussion synd alma (Primary Dx); Pituitary dysfunction (HCC) Start: 09-22-2023 Telephone encounter Miley greer OD Work Phone: Ophthalmology Comment on above: Received Outside Med ical Records Start: 07-08-2023 End: 07-08-2023 ambulatory Iron Gan Other [employer] Other Start: 07-08-2023 Telephone encounter Iron DEUTSCH [facility] Start: 03-19-2023 End: 03-19-2023 ambulatory Iron Gan Other [employer] Other Start: 03-19-2023 Telephone encounter Iron DEUTSCH [facility] Start: 10-31-[address] DOCTOR FLOWERS Facility :[facility] Start: 10-07-2022 End: 10-07-2022 ambulatory [facility] Start: 10-07-2022 End: 10-07-2022 Subsequent hospital visit by physician Ravi Lopez MD Work Phone: [facility] Med Surg Comment on above: Primary osteoarthrit is of left hip (Primary Dx) Start: 09-26-2022 End: 09-26-2022 ambulatory Iron Gan Other [employer] Other Start: 09-26-2022 Encounter for other preprocedural examination Iron Gan [facility] Start: 09-26-2022 Office outpatient vi sit 25 minutes Iron Gan [facility] Start: 09-24-2022 End: 09-29-2022 ambulatory [facility] Start: 09-24-2022 End: 09-28-2022 Subsequent hospital visit by physician Ravi Lopez MD Work Phone: [facility] Pre-Admit Testing Comment on above: Hypertension, unspec ified type Start: 04-02-2022 Encounter for genera l adult medical examination without abnormal findings DR IRON GAN [facility] Start: 04-01-2022 End: 04-02-2022 Encounter for general adult medical examination without abnormal findings DR IRON GAN Facility:[facility] Start: 04-01-2022 End: 04-02-[address] IRON GAN Facility:[facility] Start: 03-28-2022 Adult health examination Onesimo Gan Other [facility] Other Start: 01-31-2022 End: 02-01-[address] DOCTOR FLOWERS Facility:[facility] Start: 04-05-2020 Preoperative cardiovascular examination Iron Gan Other [employer] Other Procedures Date Procedure Procedure Detail Performing [...] Performed By: #### L IPID, CMP #### [facility] [address] [place] [address] Dr. Madhu Augustine Start: 12-09-2013 Pre-surgery evaluation Iron Gan Other Start: 02-25-2013 Lipid 1996 panel - S dinorah or Plasma Miley Enrique OD Work Phone: Screening for malign ant neoplasm of prostate [employer] Other Plan of Treatment Date Care Activity Detail Author Start: 09-24-2025 Diabetes Screening Diabetes Screenin g [facility] Start: 02-22-2025 End: 02-22-2025 Patient encounter procedure 02/22/2025 9:40 AM EDT [facility] [address] [place] [address] Krystle Truong MD [address] [place] [address] [facility] Start: 10-26-2024 End: 10-26-2025 ACTH ACTH Lab Routine Secondary male hypogonadism Expected: 10/26/2024 (Approximate), Expires: 10/26/2025 [facility] Comment on above: Expected: 10/26/2024 (Approximate), Expires: 10/26/2025 Start: 10-26-2024 End: 10-26-2025 Cortisol Cortisol Lab Routine Secondary male hypogonadism Expected: 10/26/2024 (Approximate), Expires: 10/26/2025 [facility] Comment on above: Expected: 10/26/2024 (Approximate), Expires: 10/26/2025 Start: 10-26-2024 End: 10-26-2025 Growth hormone Growth hormone Lab Routine Secondary male hypogonadism Expected: 10/26/2024 (Approximate), Expires: 10/26/2025 [facility] Comment on above: Expected: 10/26/2024 (Approximate), Expires: 10/26/2025 Start: 10-26-2024 End: 10-26-2025 Hemoglobin [Mass/volume] in Blood Hemoglobin Lab Routine Secondary male hypogonadism Expected: 10/26/2024 (Approximate), Expires: 10/26/2025 [facility] Comment on above: Expected: 10/26/2024 (Approximate), Expires: 10/26/2025 Start: 10-26-2024 End: 10-26-2025 Insulin-like growth factor 1 Insulin-like growth factor 1 Lab Routine Secondary male hypogonadism Expected: 10/26/2024 (Approximate), Expires: 10/26/2025 [facility] Comment on above: Expected: 10/26/2024 (Approximate), Expires: 10/26/2025 Start: 10-26-2024 End: 10-26-2025 Prolactin Prolactin Lab Routine Secondary male hypogonadism Expected: 10/26/2024 (Approximate), Expires: 10/26/2025 [facility] Comment on above: Expected: 10/26/2024 (Approximate), Expires: 10/26/2025 Start: 10-26-2024 End: 10-26-2025 Prostate specific Ag [Mass/volume] in Serum or Plasma PSA Lab Routine Secondary male hypogonadism Expected: 10/26/2024 (Approximate), Expires: 10/26/2025 [facility] Work Phone: Comment on above: Expected: 10/26/2024 (Approximate), Expires: 10/26/2025 Start: 10-26-2024 End: 10-26-2025 Testosterone [Mass/volume] in Serum or Plasma Testosterone Lab Routine Secondary male hypogonadism Expected: 10/26/2024 (Approximate), Expires: 10/26/2025 [facility] Comment on above: Expected: 10/26/2024 (Approximate), Expires: 10/26/2025 Start: 10-26-2024 End: 10-26-2025 Thyrotropin [Units/volume] in Serum or Plasma TSH Lab Routine Secondary male hypogonadism Expected: 10/26/2024 (Approximate), Expires: 10/26/2025 [facility] Comment on above: Expected: 10/26/2024 (Approximate), Expires: 10/26/2025 Start: 10-26-2024 End: 10-26-2025 Thyroxine (T4) free [Mass/volume] in Serum or Plasma T4, free Lab Routine Secondary male hypogonadism Expected: 10/26/2024 (Approximate), Expires: 10/26/2025 [facility] Comment on above: Expected: 10/26/2024 (Approximate), Expires: 10/26/2025 Start: 10-26-2024 End: 10-26-2024 Patient encounter procedure [facility] Comment on above: Arrived Start: 03-13-2024 Influenza vaccination Influenza Vacc ine (#1) [facility] Start: 07-13-2023 Depression Assessment Depression Ass essment [facility] Start: 03-13-2023 Covid-19 Vaccine ( season) Covid-19 Vaccine ( season) [facility] Start: 03-13-2023 Influenza vaccination Influenza Vacc ine (#1) [facility] Start: 10-24-2022 End: 10-24-2022 Patient encounter procedure 10/24/2022 Office Visit Orthopedic Surgery Ravi Lopez MD [address] [facility] [address] [place] [address] [facility] Start: 10-07-2022 End: 10-07-2022 Admission to same day surgery center 10/07/2022 Surgery IP Unit Ravi Lopez MD [address] [place] [address] HIP TOTAL ARTHROPLASTY MINIMALLY INVASIVE [facility] Comment on above: HIP TOTAL ARTHROPLAS TY MINIMALLY INVASIVE Start: 10-07-2022 Subsequent hospital visit by physician 10/07/2022 Hospital Encounter IP Unit Ravi Lopez MD [address] [facility] [address] [place] [address] [facility] Start: 10-07-2022 End: 10-07-2022 Arthrp acetblr/prox fem prostc agrft/algrft [facility] Start: 02-10-2022 Influenza vaccination Flu vaccine (# 1) [facility] Start: 07-09-2021 COVID-19 Vaccine (4 - Booster for Pfizer series) COVID-19 Vaccine (4 - Booster for Pfizer series) [facility] Start: 10-11-2019 Shingles vaccine (1 of 2) Shingles vaccine (1 of 2) [facility] Start: 10-11-2019 Shingrix Vaccine (1 of 2) Shingrix Vaccine (1 of 2) [facility] Start: 02-25-2018 Lipid panel Lipid Screening [facility] Start: 02-29-2016 Diabetes Screening Diabetes Screenin g [facility] Start: 2014 Screening for malign ant neoplasm of colon [facility] Start: 2009 Lipid panel Lipids [facility] Start: 2004 Diabetes screen Diabetes screen [facility] Start: 1988 DTaP/Tdap/Td vaccine (1 - Tdap) DTaP/Tdap/Td vaccine (1 - Tdap) [facility] Start: 1988 Hepatitis B Vaccine (1 of 3 - 19+ 3-dose series) Hepatitis B Vaccine (1 of 3 - 19+ 3-dose series) [facility] Start: 1988 Urine microalbumin profile DTaP,Tdap,Td Vaccine (1 - Tdap) [facility] Start: 10-11-1987 Annual PCP Team Master Barber jeramy Disease Visit Annual PCP Team Chronic Disease Visit [facility] Start: 10-11-1987 Anxiety Screening Anxiety Screening [facility] Start: 10-11-1987 BP Controlled (<130/80) BP Controlle d (<130/80) [facility] Start: 10-11-1987 Depression Screening Depression Scre ening [facility] Start: 10-11-1987 Hepatitis C screening B ON [facility] Start: 10-11-1987 HIV screening HIV Screening [facility] Start: 1984 HIV screening HIV screen [facility] Start: 1981 Depression Screen Depression Screen [facility] Comprehensive metabo lic 2000 panel - Serum or Plasma [facility] Oxygen therapy [Mini [facility] Data Set] Initiate Oxygen Therapy Protocol Respiratory Care Routine Daily until discontinued starting 10/07/2022 [facility] Work Phone: Comment on above: Daily until disconti nued starting 10/07/2022 Spirometry panel Incentive maynor metry Respiratory Care Routine Every 2hr while awake until discontinued starting 10/07/2022 [facility] [employer] Work Phone: Comment on above: Every 2hr while awak e until discontinued starting 10/07/2022 [facility] Immunizations Immunization Date Immunization Notes Care Provider Fa cility NEGATED: Highlighted row has not occurred!02-28-2013 pneumococcal polysaccharide vaccine, 23 valent Miley Enrique OD Work Phone: [facility] Comment on above: Deferred: Patient Re fused - pt spoke with (DR. Parish) decided vaccine not needed, d/c'd order Payers Date Payer Category Payer [facility] [id number] 2022 Unknown [id number] 2021 Medicare MEDICARE [id number] 2019 Unknown [id number] 2018 Unknown [id number] 2018 Unknown [id number] 2018 Worker's Compensation [id number] 1969 Unknown [id number] 1969 Unknown [id number] 1969 Unknown [id number] 1969 Unknown [id number] 1969 Unknown [id number] 593 1969 Unknown [id number] 593 1969 Unknown [id number] 1259 1969 Unknown [id number] 718 1969 Unknown [id number] 1959 Medicare [id number] 1959 Unknown [id number] Social History Date Type Detail Facility Start: 09-24-2022 End: 10-21-2024 Tobacco smoking status [facility] Never smoked tobacco [employer] Start: 09-24-2022 Tobacco use and exposure Smokeless tobacco non-user [employer] Phone: Start: 09-24-2022 End: 03-01-2024 Alcohol intake Current drinker of alcohol (finding) [employer] Phone: Start: 09-24-2022 Alcohol Comment social [employer] Phone: Start: 1970 Sex Assigned At Not on file [employer] Phone: Start: 09-14-2022 End: 10-07-2022 Exposure to SARS-CoV-2 (event) Not sure [employer] Phone: Start: 03-01-2024 End: 10-21-2024 Sex Assigned At [facility] [employer] Other Start: 02-25-2013 Tobacco use and exposure User of smokeless tobacco [facility] History of tobacco use Chews Tobacco [facility] Start: 02-25-2013 End: 10-21-2024 Alcohol intake [facility] Start: 02-25-2013 Alcohol Comment 3-4 Cans Per Day [facility] Tobacco smoking status AKIS Unknown if ever smoked [facility] Start: 09-29-2024 Sex Male (finding) [facility] Start: 1970 Sex Assigned At Male [facility] Medical Equipment Procedure Code Equipment Code Equipment Origin al Text Equipment Identifier Dates Dup Use [id number] I mpl Hip Cer Option Type 1 Tpr Sleve +3 - [id number] Start: 10-07-2022 Head Fem [id number] Hip Biolox Delt Opt For G7 Acet Sys - [id number] Start: 10-07-2022 Clinical Notes 09-24-2022 to 10-26-2024 Krystle Truong MD - 10/26/2024 9:40 AM EDTTelephone Encounter - Ian Pierre - 10/12/2024 4:50 PM EDTTelephone Encounter - Ian Pierre - 10/12/2024 4:50 PM EDTDischarge Instructions Note Date & Type Note Facility 10-26-2024 History of Presen t illness Narrative Sara Yeboah is a 54 y.o. male Iron Gan MD presents with chief complaint of Pituitary Problem (NEW RE/LAB) HPI: HPI 10/2024 New patient sent from Dr. 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 [place], and he is morbidly obese body mass index 56, plan to start Ozempic with his primary care soon SUBJECTIVE: MEDICATIONS: Current Outpatient Medications Medication Instructions Aimovig 70 mg, Every 28 days amLODIPine-benazepril (Lotrel) 10-40 MG capsule 1 capsule, Daily Cholecalciferol (Vitamin D3) 50 MCG (1999) chewable tablet 1 tablet, Daily cloNIDine (CATAPRES) 0.1 mg, 2 times daily hydrALAZINE (APRESOLINE) 25 mg, 4 times daily magnesium oxide (MAG-OX) 400 mg, Daily ondansetron ODT (ZOFRAN-ODT) 4 mg, Every 6 hours PRN propranolol (INDERAL) 20 mg, 3 times daily Syringe, Disposable, 3 ML misc 1 Syringe, Does not apply, Every 14 days testosterone cypionate (DEPO-TESTOSTERONE) 100 mg, Every 14 days testosterone cypionate (DEPO-TESTOSTERONE) 200 mg, Intramuscular, Every 14 days traZODone (DESYREL) 150 mg, Nightly Vitamin B-12 5,000 mcg, Daily ZOLMitriptan (ZOMIG) 2.5 mg, Once as needed ALLERGIES: No Known Allergies Past Medical History: Diagnosis Date Concussion with loss of consciousness of 30 minutes or less Disorder of pituitary gland (CMS/HCC) Hypertension (CMS/HCC) Major depressive disorder, single episode, mild (HCC) (CMS/HCC) Panic disorder (episodic paroxysmal anxiety) Postconcussive syndrome Sprain of unspecified site of right knee, initial encounter Tinnitus, bilateral Unspecified injury of head, initial encounter No past surgical history on file. REVIEW OF SYMPTOMS: 14 POINT OF SYSTEM REVIEWED AND NEGATIVE OBJECTIVE: Visit Vitals BP (!) 160/94 Pulse 64 Resp 16 Ht 6' Wt (!) 420 lb SpO2 93% BMI 56.96 kg/m Smoking Status Never BSA 3.12 m Physical Exam Constitutional: Appearance: Normal appearance. He is normal weight. HENT: Head: Normocephalic and atraumatic. Right Ear: External ear normal. Nose: Nose normal. Mouth/Throat: Pharynx: Oropharynx is clear. Eyes: Extraocular Movements: Extraocular movements intact. Pupils: Pupils are equal, round, and reactive to light. Cardiovascular: Rate and Rhythm: Normal rate and regular rhythm. Pulmonary: Effort: Pulmonary effort is normal. Abdominal: General: Abdomen is flat. Palpations: Abdomen is soft. Musculoskeletal: General: Normal range of motion. Skin: General: Skin is warm. Neurological: General: No focal deficit present. Mental Status: He is alert. Psychiatric: Mood and Affect: Mood normal. Behavior: Behavior normal. ASSESSMENT AND PLAN: Assessment/Plan Diagnoses and all orders for this visit: Secondary male hypogonadism - testosterone cypionate (Depo-Testosterone) 200 MG/ML injection; Inject 1 mL (200 mg) into the shoulder, thigh, or buttocks every 14 (fourteen) days - Syringe, Disposable, 3 ML misc; 1 Syringe every 14 (fourteen) days - PSA; Future - Hemoglobin; Future - Testosterone; Future - Cortisol; Future - ACTH; Future - Growth hormone; Future - T4, free; Future - TSH; Future - Insulin-like growth factor 1; Future - Prolactin; Future I will start him testosterone cypionate 200 mg 1 mL every 2 weeks we will check lab before next visit in 3 months and adjust I will check also other pituitary hormones Encounter for dietary consultation Class 3 severe obesity due to excess calories without serious comorbidity with body mass index (BMI) of 50.0 to 59.9 in adult Diet and exercise reviewed with the patient Follow up in about 4 months (around 02/25/2025). documented in this encounter [facility] 10-17-2024 Note Received workman's c omp referral for pituitary dysfunction, possible testosterone therapy. Are any providers willing to take on a new workman's comp case? [facility] 10-12-2024 Telephone encounter Note Patient has special permissions from [employer] to pay for upcoming appointment. Will you see a workers comp case? Please advise. [facility] 10-12-2024 Miscellaneous Notes Patient has special permissions from [employer] to pay for upcoming appointment. Will you see a workers comp case? Please advise. documented in this encounter [facility] 09-28-2024 Note Spouse called re ref erral to [facility] endocrinology- states has not been contacted re scheduling appt with same, discussion held with spouse re initial referral sent 09/21, discussed alternatives, spouse requesting referral resubmitted to [facility]. Office contacted and I was instructed to resubmit referral - accompanied by letter by provider [Electronically Signed on: 09/30/2024 17:29 EDT] Monique Moy RN [Verified on: 09/30/2024 17:29 EDT] Farzaneh MATTHEW, [facility] 05-24-2024 Note Patient Education Ma terials Follows: [...] your friends, family, a trusted colleague, and group work program director about your injury, symptoms, and restrictions. Ask them to watch for any problems that are new or get worse. General instructions ? Take yznw-gct-[id number] and prescription medicines only as told by [...] . The ris (more content not included)... [facility] 04-04-2024 Note ASSESSMENT/PLAN: Sara was seen [...] and magnesium continue to provide benefit Lien Ureña MD SUBJECTIVE: Sara Yeboah is a 53 y.o. male who presents to [facility] today for 1 year follow-up [...] of his [place]. He was evaluated by neuro-hospital sales representative at [facility] for his issues who ruled out [...] word finding difficul (more content not included)... [facility] 03-08-2024 Telephone encounter Note Faxed FROI form [facility] HOSPITAL at [phone]. Also faxed to HIM and placed original in envelope for scanning into [employer]. [facility] 03-08-2024 Miscellaneous Notes Faxed FROI form to [facility] at [phone]. Also faxed to HIM and placed original in envelope for scanning into [employer]Wire. documented in this encounter [facility] 03-01-2024 Note HNO ID: [id number] Author: MILEY ENRIQUE OD Service: ? Author Type: SAWSMITH Type: Progress Notes Filed: 03/01/2024 12:42 Note [...] improve Return care to PCP and Neurologist [facility] 03-01-2024 History of Presen t illness Narrative [...] PCP and Neurologist documented in this encounter [facility] 03-01-2024 Note Date of Procedure 03/01/2024. Feed Management Advisor Information Salt Operator: Tia R. Disc Right Eye Normal. Left Eye Normal. Macula Right Eye Normal. Left Eye Normal. Periphery Right Eye Pigmentation. Left Eye Normal. [facility] 03-01-2024 Note Date of Procedure 03/01/2024. Feed Management Advisor Information Salt Operator: Tia R. Reliability Right Eye Borderline. Left Eye Borderline. Interpretation Right Eye Normal. Left Eye Normal. Interval Change Right Eye Initial. Left Eye Initial. [facility] 09-22-2023 Miscellaneous Notes Received outside Records from [facility] needing consult with Dr. Enrique for Neuro Ophthalmology consult. Please contact patient to schedule at [phone]. Records in Dr. Enrique's mailbox. documented in this encounter [facility] 10-07-2022 History of Presen t illness Narrative [facility] Occupational Therapy Evaluation Date: 10/07/22 Patient Name: Sara Yeboah Room: Account: [id number] : 1970 (51 y.o.) Gender: male Discharge [...] Occupation: On disability Additional Comments: Patient's spouse Isha is taking 1 week off for work [...] Skilled Clinical Factors: OT demonstrated use of finish filer and patient threaded B LE with finish filer and Minimal assist into underwear. Assist to thread B LE pants. Assist to manage clothing over hips and don socks/shoes. Demonstrated use of sock aid, however patient declines use. Patient and patient's spouse report that she will provide patient with assist PRN for lower body self-care. Patient acknowledges that he has a finish filer and sock aid at home. Toileting: Minimal assistance Toileting Skilled Clinical Factors: assist to manage pants as they fell to the ground, however CGA for all other tasks Additional Comments: OT provided patient and patient's spouse with education regarding safety with self-care including use of modified techniques such as sitting for lower body bathing/dressing, use of finish filer/sock aid, and use of shower chair. Patient and patient's spouse verbalize Good understanding and state they have a sock aid and finish filer and will purchase a shower chair. Patient [...] Verbalized understanding, Demonstrated understanding Functional Outcome Measures [facility] Daily Activity - Inpatient How much help [...] How much help for eating meals?: None [facility] Inpatient Daily Activity Raw Score: 17 [facility] Inpatient ADL T-Scale Score : 37.26 ADL Inpatient [facility] 0-100% Score: 50.11 ADL Inpatient [facility] G-Code Modifier : CK Goals Patient Goals [...] Treatment Minutes: 38 Minutes Physical Therapy Facility/Department: [facility] MED [facility]G Physical Therapy Initial Assessment Name: Sara Yeboah : 1970 Date of Service: 10/07/2022 Discharge Recommendations: The patient would benefit from additional Physical Therapy after discharge from the facility upon return to their Home. PT Equipment Recommendations Equipment Needed: Yes Mobility Devices: Walker Other: Adjusted to his height by board writer Patient Diagnosis(es): The encounter diagnosis was [...] adjusted for pt per his height by board writer.Recommend staying on first floor initially and [...] Occupation: On disability Additional Comments: Patient's spouse Isha is taking 1 week off for work [...] to use restroom, CGA to min x1. AM-[facility] Score -[facility] Inpatient Mobility Raw Score : 14 (10/07/22 1544) -[facility] Inpatient T-Scale Score : 38.1 (10/07/22 1544) Mobility Inpatient CMS 0-100% Score: 61.29 (10/07/22 1544) Mobility Inpatient [facility] G-Code Modifier : CL (10/07/22 154) Goals Short Term Goals Time Frame for [...] at patient request documented in this encounter [employer] Phone: 10-07-2022 Hospital Discharg e instructions Gillian [...] Admitting Physician: Ravi Lopez MD PCP: Iron aGn DO Discharging Nurse: Discharging Hospital Unit/Room#: [facility] OR Pool/NONE Discharging Unit Emergency Contact: Extended Emergency Contact Information Primary Emergency Contact: Isha eYboah Mobile Relation: Spouse Acid Pump Operator needed? No Past Surgical History: Past Surgical [...] Assisted Dressing Independent Toileting Independent Feeding Independent [employer] Safety Program Coordinator Independent Med Delivery whole Wound Care Documentation [...] NOT a DME order): walker Other Treatments: Fdc assessment and monitoring. Medication education and monitoring [...] motion for TKA patients. Hip precautions for AKREN patients. Incentive Spirometer: 3- 4 inhalations every [...] to Facility/ Agency [facility] [address] [place] [address] [address] [facility] [address] Fax Aircraft Hydraulic Equipment Mechanic/Spot Facer signature: PHYSICIAN SECTION Prognosis: Good Condition at [...] H&P PHYSICIAN SIGNATURE: documented in this encounter [facility] [employer] Phone: 09-26-2022 Evaluation note Encounter Date Diagnosis [...] syndrome (ICD-10 - F07.81) Stable w/ treatment [facility] Other 03-15-2023 Hospital Discharge instructions* Discharge Instructions* [...] powder, deodorant, jewelry, piercings, perfume, makeup, nail colombian, hair accessories, or hair spray on the [...] hospital. The Day of Surgery: Arrive at [facility] Surgery Entrance at the time directed by your surgeon and check in at the desk. If you have a living will or healthcare power of privacy attorney, please bring a copy. You will be taken to the pre-op holding area where you will be prepared for surgery. A physical assessment will be performed by a nurse practitioner or char house supervisor. Your IV will be started and [...] needed in recovery room. [facility] [employer] Phone: evaluation note* Diagnosis Hypertension, unspecified type Osteoarthritis of left hip, unspecified osteoarthritis type documented in this encounter [facility] [employer] Phone: [email or web address] note* Diagnosis Primary osteoarthritis of left hip- Primary Primary localized osteoarthrosis, pelvic region and thigh Primary osteoarthritis of left hip Primary localized osteoarthrosis, pelvic region and thigh documented in this encounter [facility] [employer] Phone: [facility] [employer] Other Evaluation note* Diagnosis Post concussion syndrome- Primary Postconcussion syndrome Pituitary dysfunction (HCC) Unspecified disorder of the pituitary gland and its hypothalamic control [facility] Diagnosis Onset Date Resolution Status Admit Date Depression acute September 29 9:21am Hypertension acute September 29, 2024 9:21am Insomnia acute September 29 9:21am Low testosterone in male acute September 29, 2024 9:21am Obstructive sleep apnea acute 2024 9:21am Post concussion syndrome acute September 29, 2024 9:21am Screening PSA (prostate specific antigen) acute September 29 9:21am Wellness examination noneactive Justin hi 2024 9:21am [facility] Work Phone: Evaluation note* Diagnosis Secondary male hypogonadism- Primary Other testicular hypofunction Encounter for dietary consultation Class 3 severe obesity due to excess calories without serious comorbidity with body mass index (BMI) of 50.0 to 59.9 in adult documented in this encounter [facility] - Reported* Type Description Date [...] KNEE-LEFT 2013 Hospitalization History SEE SURGICAL HX [facility] Other Summary Purpose Family History No Family History Records Found Relationship Condition Age at Onset Recorded Date/T álvaro mother Hypertension Unknown Advance Directives No Advanced Directives Records FoundLatest [...] section and content) DATE CREATED AUTHOR 12/19/2018 [facility] DATE CREATED AUTHOR AUTHOR'S ORGANIZ ATION 10/09/2022 [facility] DATE CREATED AUTHOR AUTHOR'S ORGANIZ ATION 11/24/2022 [facility] DATE CREATED AUTHOR AUTHOR'S ORGANIZ ATION 03/22/2024 [facility] DATE CREATED AUTHOR AUTHOR'S ORGANIZ ATION 10/28/2024 [facility] EPIC DATE CREATED AUTHOR AUTHOR'S ORGANIZ ATION 11/18/2024 [facility] DATE CREATED AUTHOR AUTHOR'S ORGANIZ ATION 11/19/2024 [facility] Care Teams (unrecognized sec tion and content) Doctor Of Naturopathic Medicine Relationship Specialty Start Date End Date Iron Gan DO [address] [place] [address] PCP - General Internal Medicine 08/26/22 Doctor Of Naturopathic Medicine Relationship Specialty Start Date End Date Iron Gan DO [address] [place] [address] PCP - General Internal Medicine 08/26/22 Team Status: Active Member Role Status Dates Iron Gan DO Primary Care Provider Active Team Status: Inactive Member Role Status Dates Iron Gan DO Primary Care Provide r, Attending Provider Active Start: September 29, 2024 End: September 29, 2024 Doctor Of Naturopathic Medicine Relationship Specialty Start Date End Date Iron Gan MD [address] [place] [id number] PCP - General Internal Medicine 12/09/23 Doctor Of Naturopathic Medicine Relationship Specialty Start Date End Date Iron Gan MD PCP - General Internal Medicine 12/09/23 Doctor Of Naturopathic Medicine Relationship Specialty Start Date End Date Iron Gan MD PCP - General Internal Medicine 12/09/23 REASON FOR VISIT (unrecogniz ed section and content) Specialty Diagnoses / Procedures Referred By Nayla t Referred To Contact Diagnoses Osteoarthritis of left hip, unspecified osteoarthritis type DEGENERATIVE JOINT DISEASE LEFT HIP Procedures NV ARTHRP ACETBLR/PROX FEM PROSTC AGRFT/ALGRFT HIP TOTAL ARTHROPLASTY MINIMALLY INVASIVE Ravi Lopez MD [address] [place] [address] [facility] [address] [place] [address] Referral ID Status Reason Start Date Expiration Date Visits Re quested Visits Authorized [id number] 1 1 Reason Comments Received Outside Medical Records Reason Comments concussion follow up Specialty Diagnoses / Procedures Referred By Nayla lucio Referred To Contact Optometry / OPHTHALMOLOGY Diagnoses CONCUSSION Procedures CONCUSSION OPHT Miley Enrique, OD [address] [place] [address] [address] [place], [place] [id number] Miley Enrique, OD [address] [place] [address] [address] [place] [address] Referral ID Status Reason Start Date Expiration Date Visits Re quested Visits Authorized [id number] Closed 03/01/2024 03/01/2024 1 1 Reason Comments FROI form Reason Onset Date Comments Advice Only 10/12/2024 Reason Comments Pituitary Problem NEW RE/LAB Specialty Diagnoses / Procedures Referred By Nayla lucio Referred To Contact Endocrinology Diagnoses Disorder of pituitary gland, unspecified Procedures NV OFFICE/OUTPATIENT NEW LOW MDM 30 MINUTES Iron Gan MD Phone: tel: fax: Krystle Truong MD [address] [place] [address] Phone: tel: fax: Referral ID Status Reason Start Date Expiration Date Visits Re quested Visits Authorized [id number] Closed 09/19/2024 03/18/2025 1 1 Ordered Prescriptions (unrec ognized section and content) [...] 100 mL IVPB (COMPLETED) 3,000 mg, IntraVENous, MEDICAL COLLECTIONS SPECIALIST TO O.R., 1 dose, On Thu10/07/22 at 0600, Antimicrobial Indications: Surgical Prophylaxis, Administer within 1 hour prior to incision. Recommend to repeat in 3-4 hours after initial dose if still intra-op., Pre-op (day of surgery) 0742 (Given - Provid er: Keny Dneg APRN - FISH CUTTER) ceFAZolin (ANCEF) 3000 mg in sodium chloride [...] (NoRateChange - Provider: Keny Deng APRN - FISH CUTTER)0909 (Paused - Provider: Keny Deng APRN - [...] or prosecute any alcohol or drug abuse patient.[facility] Center[facility] the event this information is protected by the Federal Confidentiality of Alcohol and Drug Abuse Patient Records regulations: The Federal rules restrict any use of the information to criminally investigate or prosecute any alcohol or drug abuse patient.[facility] the event this information is protected by the Federal Confidentiality of Alcohol and Drug Abuse Patient Records regulations: The Federal rules restrict any use of the information to criminally investigate or prosecute any alcohol or drug abuse patient.[facility] Goals (unrecognized section and content) Goals may [...] BE BASED ON THE PRIMARY CLINICAL RECORDS. [employer] [facility]. provides no warranty or guarantee of the accuracy or completeness of information in this document.
[2025-01-21 09:29] LABS: Hematocrit 48.2 % (42.0-54.0); Hemoglobin 16.3 g/dL (14.0-18.0); Immature Granulocytes Abs Auto 0.03 10^3/uL (0.00-0.03); Immature Granulocytes Pct Auto 0.4 % (0.0-0.5); Lymphocytes Absolute Auto 1.6 10^3/uL (1.2-3.8); Mean Corpuscular HGB Conc 33.8 g/dL (29.9-35.2); Mean Corpuscular Hemoglobin 32.4 pg (25.9-34.0); Mean Corpuscular Volume 95.8 fL (80.0-94.0); Platelet Count 226 10^3/uL (150-450); Red Blood Count 5.03 10^6/uL (4.70-6.10); White Blood Count 8.5 10^3/uL (4.0-11.0)
[2025-01-21 09:54] LABS: Alanine Aminotransferase 92 U/L (16-63); Albumin Globulin Ratio 0.9; Albumin Level 3.6 g/dL (3.4-5.0); Alkaline Phosphatase 78 U/L (46-116); Aspartate Amino Transferase 58 U/L (15-37); Globulin 3.9 g/dL; Total Protein 7.5 g/dL (6.4-8.2)
[2025-01-21 10:34] LABS: Iron 66.0 ug/dL (65.0-175.0); Percent Iron Saturation 19.9 %; Total Iron Binding Capacity 331.0 ug/dL (250.0-450.0)
[2025-01-21 11:14] LABS: Folate 5.70 ng/mL (8.60-58.90)
[2025-01-22 06:38] LABS: Vitamin B12 361 pg/mL (232-1245)
== END 2025-01-21 08:54 | disposition home or self-care (01) ==
PROVIDERS: PCP Internal Medicine; Visit Provider Internal Medicine
DX: D64.9 Anemia, unspecified (principal); R74.01 Elevation of levels of liver transaminase levels
CPT/HCPCS: 36415; 80076; 82607; 82728; 82746; 83540; 83550; 85025

== ENCOUNTER 2025-01-31 09:35 | Outpatient (OUT) | payer BC, MEDICARE, SELFPAY ==
--- NOTE | 2025-01-31 09:38 | US_ITS ---
[place] [id number] Patient Name: SARA YEBOAH MRN: [id number] date: 1970 Sex: M Assigned Patient Location: [place] Current Patient Location: [place] Accession/Order Number: [id number] Exam Date: 01/31/2025 11:03 Report Date: 01/31/2025 11:04 At the request of: JOSHUA WALLACE DO Procedure: US right upper quadrant LIMITED ABDOMINAL ULTRASOUND: CLINICAL HISTORY: High Liver Transaminase Level COMPARISON: None TECHNIQUE: Grayscale and color Doppler images of the right upper quadrant organs were obtained. FINDINGS: Pancreas: Not clearly visualized. Liver: Fatty infiltration. Gallbladder: Unremarkable. CBD: 3.6 mm RT KIDNEY: No Hydronephrosis US/US right upper quadrant IMPRESSION: FATTY INFILTRATION OF THE LIVER. NO ACUTE PROCESS.. Impression dictated by: Roman Wray Jr., D.O. 01/31/2025 11:04 AM Dictation Location: [place] [address] Electronically authenticated by: [id number] Y Date: 01/31/2025 11:04
== END 2025-01-31 09:36 | disposition home or self-care (01) ==
LOC: US 09:35
PROVIDERS: PCP Internal Medicine; Visit Provider Internal Medicine
DX: R74.01 Elevation of levels of liver transaminase levels (principal); K76.0 Fatty (change of) liver, not elsewhere classified
CPT/HCPCS: 76705

== ENCOUNTER 2025-02-18 08:16 | Outpatient (OUT) | payer BC, MEDICARE, SELFPAY ==
--- OUTSIDE RECORDS SUMMARY | 2025-02-18 08:19 | XMS_ITS | Clinical Summary ---
Author Organization [facility] Address [address] [place] [address] Care Team Providers Care New Accounts Representative Name Role Phone Unavailable Primary Care Provider [...] cyanocobalamin (VITAMIN B-12) 1,000 mcg tab Active amLODIPine-Elisabet zepril 10-40 mg per capsule Take 1 [...] complications): None Brief Hospital Course/Narrative: Went to [place] ED, was given Nitroglycerin gel, NTG drip, Metoprolol and famotisdine. EKG done, showing T-wave iversions in inferolateral leads and Trop of 0.3 Active Issues/New Events (dated): HTN Urgency - Started on NTG drip LVEF: Impression/Plan: As Below Problem Noted Date Diagnosed Date Tobacco abuse 02/26/2013 Overview (02/26/2013): History: Chews Tobacco Plan: Medical Records Field Technician prior to discharge to risk of oral cancer SUMMARY 02/25/2013 Overview (02/27/2013): 42 yo with HTN (not on meds at home) DAMARIS p/w sudden onset CP found to have hypertensive urgency. He was transferred from OSH to [facility] and transitioned to oral medication. Troponins were [...] Patient Refused - pt spoke with (DR. Praish) decided vaccine not needed, d/c'd order) Family [...] 10/11/2019 Shingrix Vaccine (1 of 2) 10/11/2019 Influenza Vaccine (#1) 2025 Diabetes Screening 09/24/2025 [...] Protein, Total 6.9 6.0 - 8.4 g/dL [facility] Albumin 4.2 3.5 - 5.0 g/dL [facility] Calcium 9.6 8.5 - 10.5 mg/dL [facility] Bilirubin, Total 0.3 0.0 - 1.5 mg/dL [facility] Alkaline Phosphatase 66 40 - 150 U/L [facility] AST 16 7 - 40 U/L [facility] Glucose 101(H) 65 - 100 mg/dL [facility] BUN 19 10 - 25 mg/dL [facility] Creatinine 1.10 0.70 - 1.40 mg/dL [facility] Sodium 140 135 - 146 mmol/L [facility] Potassium 4.3 3.5 - 5.0 mmol/L [facility] Chloride 101 98 - 110 mmol/L [facility] CO2 27 23 - 32 mmol/L [facility] Anion Gap 12 0 - 15 mmol/L [facility] ALT 29 5 - 50 U/L [facility] Blood specimen (specimen) BLOOD SPECIMEN / Unknown 02/28/2013 5:14 AM EDT 02/28/2013 5:15 AM EDT us Marcell Chowdhury MD LABORATORY Final Result [facility] [address] [place] [address] * LIPID PANEL BASIC (02/25/2013 1:30 PM EDT) Triglyceride 52 30 - 149 mg/dL [facility] Cholesterol, Total 190 100 - 199 mg/dL [facility] HDL Cholesterol 76 >45 mg/dL [facility] VLDL Cholesterol 10 6 - 40 mg/dL [facility] LDL Cholesterol, Calculated 104 60 - 129 mg/dL [facility] Fasting Time 8 hrs [facility] TC:HDL Ratio 2.50 1.00 - 5.00 [facility] LDL:HDL Ratio 1.37 0.50 - 3.55 [facility] Non HDL Cholesterol 114 90 - 159 mg/dL [facility] Blood specimen (specimen) BLOOD SPECIMEN / Unknown 02/25/2013 1:30 PM EDT 02/25/2013 1:46 PM EDT us Marcell Chowdhury MD LABORATORY Final Result [facility] [address] [place] [address] from Last 3 Months or Most Recently Relevant to Health Maintenance Insurance [facility]
--- OUTSIDE RECORDS SUMMARY | 2025-02-18 08:19 | XMS_ITS | Patient Health Record ---
Author Organization [facility] Address [address] [place] [address] Care Team Providers Care Defence Force Senior Officer Name Role Phone Leigh Salcedo MD Primary Care Provider Leigh Holbrook Unavailable [phone] Allergies No Known Allergies Reason For Referral No Information Medications Medication SIG (Take, Route, Frequency, Duration) Notes Start Date End Date Status Testosterone Cypionate 200 MG/ML Solution INJECT 0.5ML INTRAMUSCULARLY ONCE EVERY WEEK; Duration: 28 12/24/2022 Active Norditropin FlexPro 15 MG/1.5ML Solution Pen-injector INJECT 0.6 MG SUB-Q EVERY MORNING; Duration: 25 Active Comfort EZ Pen [place] 32G X 5 MM Miscellaneous USE TO [...] days NKDA; Dx: S06.9X0A. Please process through [employer] Workers [employer]. Claim [id number]. DOI: 05/14/18. 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) GHD (growth hormone deficiency) (E23.0) Active confirmed Problem Disorder of pituitary gland (201031683) Pituitary dysfunction (E23.7) Active confirmed Plan Of Treatment Pending Test Test Name Order Date Testosterone, Free & Total by MS 021 Vitamin B12 03/05/2021 Vitamin B12 06/10/2022 Vitamin B12 09/16/2022 Vitamin B12 02/27/2022 Vitamin B12 10/29/2021 T4 Free 02/27/2022 T4 Free 06/10/2022 T4 Free 09/16/2022 T3 total 09/16/2022 T3 total 06/10/2022 Testosterone, Serum 06/10/2022 Testosterone, Serum 09/16/2022 Testosterone, Serum 04/02/2021 Testosterone, Serum 06/27/2021 Testosterone, Serum 10/29/2021 TSH 09/16/2022 TSH 06/10/2022 TSH 02/27/2022 Luteinizing Hormone(LH), S 10/29/2021 FSH, Serum 10/29/2021 CBC With Differential/Platelet 1 CBC With Differential/Platelet 1 CBC With Differential/Platelet 2 CBC With Differential/Platelet 2 CBC With Differential/Platelet 3 CBC With Differential/Platelet 1 T3,Free,Serum 02/27/2022 Vitamin D, 25-Hydroxy 02/27/2022 Vitamin D, 25-Hydroxy 06/10/2022 Vitamin D, 25-Hydroxy 03/05/2021 Vitamin D, 25-Hydroxy 09/16/2022 Vitamin D, 25-Hydroxy 10/29/2021 Lipid Panel 10/29/2021 Lipid Panel 09/16/2022 Comp. Metabolic Panel (14) 03/05/2021 Comp. Metabolic Panel (14) 04/02/2021 Comp. Metabolic Panel (14) 09/16/2022 Comp. Metabolic Panel (14) 06/10/2022 Comp. Metabolic Panel (14) 02/27/2022 Comp. Metabolic Panel (14) 10/29/2021 CBC, No Differential/Platelet 02/27/2022 IGF-1 (ADULT) 06/10/2022 IGF-1 (ADULT) 09/16/2022 IGF-1 03/05/2021 IGF-1 02/27/2022 IGF-1 10/29/2021 IGF-1 06/27/2021 IGF-1 04/02/2021 Insurance Providers Payer Name Payer Address Payer Phone Subscriber Number Group Number Insured Name Patient Relationship to Insured Coverage Start Date Coverage End Date -[employer] [address] [place] [id number] SARA YEBOAH Self - patient is the insured Medications Administered Medication Instructions Date of Administration Dosage Notes SOD CHLOR 250([id number] SEBASTIAN) 03/05/2021 250 mL Medical (General) History Medical History History ICD Code Hypertension Personal history of traumatic brain inju ry Z87.820 Hypogonadism male E29.1 Pituitary dysfunction E23.7 Surgical History Surgery Date(Month/Year) Left Knee Arthoscopy 2013 L Hand reconstruction (congenital defect ) 1976 Hospitalization History Reason Date(Month/Year) see above.
--- OUTSIDE RECORDS SUMMARY | 2025-02-18 08:19 | XMS_ITS | Clinical Summary ---
Author Organization [facility] Address [address] [place] [address] Care Team Providers Care Rag Shredder Name Role Phone Unavailable Primary Care Provider [...] 02/26/2013 Overview (09/08/2022): History: Chews Tobacco Plan: Train Inspector prior to discharge to risk of oral [...] Recorded Patient Health Questionnaire-2 Score 0 04/04/2024 [place] Safety & Environment Answer Date Rec orded [...] Description 04/03/2025 1:00 PM EDT Office Visit [facility] [address] [place] [address] Jorge L Johnson MD [address] [place] [address] Health Maintenance Due Date Last Done Comments CT Colonography 1970 Colonoscopy 1969 Colorectal Cancer Screening 1970 FIT-DNA 1970 FIT 1969 FOBT 1970 Sigmoidoscopy 1970 Hepatitis B Vaccines (1 of 3 - 19+ 3-dose series) 1988 Adult Tetanus 10/11/1991 Zoster Vaccines (1 of 2) 10/11/2019 COVID-19 Vaccine (2023-2 5 season) 2024 05/14/2021, 10/16/2020, 09/24/2020 Influenza [...] patient's age to complete this topic Insurance [employer]
--- OUTSIDE RECORDS SUMMARY | 2025-02-18 08:19 | XMS_ITS | Clinical Summary ---
Author Organization [facility] Address [address], [address] [place] [address] Care Team Providers Care Client Consultant Name Role Phone Iron Olmos DO Primary Care Provider [phone] Allergies No known active allergies Medications amLODIPine-lary [...] 2014 FIT/FOBT: Average risk 2014 Fecal-DNA (Cologuard): [place] ge risk 2014 Sigmoidoscopy/CT colonography 2014 Pneumococcal 50+ years Vacci ne (1 of 1 - PCV) 10/11/2019 Shingles vaccine (1 of 2) 10/11/2019 Annual Wellness Visit (Medicare) 06/08/2023 COVID-19 Vaccine ( - 2023-2 5 season) 2024 05/14/2021, 10/16/2020, [...] Polio vaccine Aged Out No longer elig ible based on patient's age to complete this topic Medical Devices Implanted Type Area Solar Pool Heating Installer Device Identifier Shelf Expiration Date Model / Serial / Lot G7 Finned 4 Hole Shell 58g - [id number] Implanted:Qty: 1 on 10/07/2022 by Ravi New MD at [facility] Hip Left: Hip [employer]- 12/27/2031 [id number] / / [id number] Liner Acet Neut G 40 Mm Vivacit-E G7 - [id number] Implanted:Qty: 1 on 10/07/2022 by Ravi New MD at [facility] Hip Left: Hip [employer]- 04/14/2027 [id number] / / [id number] Stem Fem Sz 14 L113mm Nk L39.6mm 133deg Hi Offset Hip Ti - [id number] Implanted:Qty: 1 on 10/07/2022 by Ravi New MD at [facility] Hip Left: Hip [employer]- 02/28/2032 [id number] / / [id number] Head Fem [id number] Hip Biol[employer] Delt Opt For G7 Acet Sys - [id number] Implanted:Qty: 1 on 10/07/2022 by Ravi New MD at [facility] Hip Left: Hip [employer]- 06/16/2032 [id number] / / [id number] Dup Use [id number] Impl Hip Cer Option Type 1 Tpr Sleve +3 - [id number] Implanted:Qty: 1 on 10/07/2022 by Ravi New MD at [facility] Hip Left: Hip [employer] 05/07/2032 [id number] / / [id number] Description:Duplicate number does not work Insurance MEDICARE [address] BCBS Advance Directives * Full Code (Latest Code Status on File) Date Activated Date Inactivated Comments 10/07/2022 5:37 AM 10/07/2022 6:13 PM Care Teams Client Consultant Relationship Specialty Start Date End Date Iron Olmos DO [address] [place] [address] PCP - General Internal Medicine 08/26/22
--- OUTSIDE RECORDS SUMMARY | 2025-02-18 08:19 | XMS_ITS | CCD ---
Author Organization [facility] Care Team Providers Care Blemish Remover Name Role Phone Iron Gan DO Primary [...] physicia Propensity to adverse reactions 9 Comment:Done [employer] Other (2 sources) Allergies Reconciled Propensity to adverse reactions Unknown [facility] [employer] Other Medications Current Medications Medication Drug Class(es) [...] Comment on above: [facility] 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 1 [...] sources) H/O: high risk medication; Translations: [Other nursing home (current) drug therapy] Episodic Other aftercare (2 sources) Long-term current use of drug therapy; Translations: [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] Episodic Other circulatory disease [...] Employee Health Noteon 11-15 Employee Health Note [id number]#1.0 [employer] [facility] Employee Health Note [id number]#1.0 [employer] [facility] Employee Health Note [id number]#1.0 [employer] [facility] Employee Health Note [id number]#1.0 [employer] [facility] Employee Health Note [id number]#1.0 [employer] [facility] Employee Health Note [id number]#1.0 [employer] [facility] 36on 11-03-2024 36 Patient has been informed. [facility] 36 ----- Message from Rena Oseguera MD sent at 11/02/2024 2:32 PM EDT ----- Regarding: Workmans Comp Katherin, This patient is scheduled with me for november 11 - I have reviewed the requirements of Workman's Comp with our clinical informatics strategist At this time we don't have the manpower or resources to facilitate WorkMan's Comp Please notify patient to find another provider for this and cancel the appt on November 11 Thank you [facility] Telephoneon 11-03-2024 Telephone [phone] Spencer Yeboah as 1970 M Date Provider Department Center 11/03/2024 [id number] STEVENSON [facility] ENDOCR [facility] No family history on file [facility] Employee Health Noteon 10-24 Employee Health Note [id number]#1.0 0[facility] 36on 10-18-2024 36 I do not think it changes clinical management, if anything they will require specific documentation and pre-auth for certain things. [facility] 36 I can definitely sukhwinder e this new patient Does the workman's comp have any relevance to how we treat a patient? [facility] Telephoneon 10-17-2024 Telephone [phone] Spencer Yeboah as 1970 M Date Provider Department Center 10/17/2024 [facility] No family history on file [facility] Employee Health Noteon 10-13 Employee Health Note [id number]#[facility]. [facility] Employee Health Note [id number]#1.0 0[facility] Employee Health Noteon 09-22 Employee Health Note [id number]#1.[address] [place] [address] Coding Summaryon 09-20-2024 Coding Summary HTMLBase 64 BqflbgpdWRv8kWm+PGhlYW Q+BC8EYFCtR03aaBBlaA2w B1MYNGzXAticGAJQZCuBYu QzsbFyLP6tpAXqNWQr IC8+IU7tRPFfFcgwnEVey5 W4aSX1Z44vtf8oZSiiuUI4 WRBxJoYryaauw3ltwNe3MB cuNmluOyBt HCPnqX57EUT0zA61Wl30bB KobGZvr6ljwUl3ChZpXZPt JKD5uRfyDUltq4ZlQOGmA5 6nxCVvt1F4 DYOdjYmyfYGwZtShiJF5fM 3rNGcwmhkxn3ceykugNah9 lw70pHQdo7F7cLC6H2Nvtq J7GEEdgGAz SuhftUWTrU7txodeu7ckgi ekGnEdKMDzIQd1HFm3TPWd uRblSvDoTA61TBC2LYSlqj IwB9MlXJBm wRlgSfF7u9M4Fh4AY3JDNg smY4QPJYMMPCyayIQ+PC90 ib20D8KbQuzbYko1BSHxMB P2tOE2uT5m WOXxCCysu2J3oUL1X5Ixpd Aoor2mz5aaFXOrOVsuP73k lXOcc9W4DIGdlUM5FSZqsE krUdYfwV52 Oyc+UWXexPoyd5VqJnbnz1 aod6ugjGl3SmdgLSEqgoZf zTppPGG8c6UpIm9oAYXbbR M5kTI5bP3t BqUxZuL1ZWatU905NjIohM KxXnxmB49nQ4EvyBA+PHRy Voh1HVSrlPxmAP5iR8JjLK RpbmctbGVm tFbjUZ2pKHXapyvpRMKhiV 3sRPWsA3q9KoKnGiP8WYer Z0SaGLMuffqwFh16gI7jGd GaGbP3OIbt L9SyunQ0JSSzlYWqIRdjCI V8D77vi9D3JCWuOMTmWIF6 tMD1iY6aiMfwkxofnCAlaN sgdmVydGlj FPumBIgkF475FKCsdTkhAc NvZGluZyBEYXRlOiAgMDMv MTEvMjAyNTwvdGQ+PHRkIH W3cVkvWMMl aRBrVKncRi9yaCeijOkhTQ 3iKWOntoazZAGajN1lEEOu lCClrRjvRT2yNHJpkkdnz1 60BaRrLCM3 BTGtvGTzN4UynU2mSgCoTZ HzJQXpG0CcgGBwYIqzQ819 AWloGfX9AMLibtYgY5IjXR FsaWduOiB0 e7Y0Xk5Wx3QsoukxW8DkcK LtWzPhGahsEHx0X3DlGkkw dHI+ZI07AMVtRU21SLw0IR S0oRufMIrl LPNpW1PzlW0zAbKkNRHhWR RkOyc+PHRhYmxlIHdpZHRo ILfsNNDyRrHqfNubWZ4lFr 9yZGVyLWNv qIyuzOSlDtEdc3fmOSWfEI taDR1exAaqN1HztCF5WGCg n4n5Ft90X46mK5ElmYV+PG LnoBC2yJE4 zO1oJuIrUrK6BNzyC791Ba HzhTVrSifbb7viw2mctQg2 PaR3UTFpasPsuBrlGAG7d1 RrOv61L69a IHdpZHRoPSIxNSUiIHZhbG sstc9ylB9oBn9+PGNvbCB3 qDN9hV5eHzOtHhI8OFvdO7 49InRvcCIv Hyhif4vtt6pggKv4XcXrQT YmxgAtmHclEXZ9q4MkBh51 U1FwtFeyt8XjOro7pm00dG Btm0I8rLH0 E4PnQVPlvtiyyTEpaLabYD 2xLMVvkifpASUtkY2iTVNe C4z2AcSkGlV7TUbpE7Jfjx V0OJDljNIh IJAujHSYeY9hzkehf2ovfk ctUzFyFCKqBEl3SPh2SROl tKmbKoTuGBP3QpM9EAU3hA BciO3znGgu igzydG8oJxu+KVD9nRFwlX WUGU6zRvhteUK+PHRkIHN0 jCutSOleUSIndC1xQUZsL6 q3WbUhBsO6 RUocH0AckaP6KSEwpCBaPK IenNNFcE7vqsamj9bmufql FuShMJAvNDg4JJh8VHRqxG duOiBsZWZ0 DsE2KIU4jXLamF8arRwymx tbqR2bRab+QmlydGggRGF0 QRw9A7JsHcm2MGIefBxjNX 0ncGFkZGlu Uo8bjSxqcXifLL3yMEWkql hyj427EtSlu6pwMZUlfVZm DSifXWR5C52ev7B4CQNxJW YxDOI8nPU3 cB1laTqtkniinIWogKsspm HsfJgvEArbOMhdY268GNDf kVfyTsKpWCq1K5WoDyl9RJ WdiWbwTI7a aCDaQCrzBd4aeWwmeKhkAI 4xEEAomphdz838PnBfu9wo ICNmaNIoLXakYBT4M78sg5 I7HFNcWPHd USS4eGJ3zU7yrIznoubgdM VmdDsgdmVydGljYWwtYWxp T243DGZqfDqeCpQtyWs1B1 GoLhu3ZRXv nOvgBZ6klZNvZFeqFx1fjZ oznVusBU4bERBaekqwx140 EcJsw4dkSUQhxWXoKYovWV A2B51up1D3 WOAfOUGrPNH6wOQ6bS9adW lnbjogbGVmdDsgdmVydGlj NQslGCixW933EWWnxHnxKf BhdGllbnQg BIbiPSc0A8AgMdovrQL+PC 68JXBwCD42wZZeaGWml0ox sFd3SdAvWAExZUF8sRrmGA kkl9EwIJFk Q11acSZzl6O4QZIqvMlyrQ MdUaVenEQ9kJ2uNNyytrai j3cnjvxuHyids1rxss32gN 72Z62dZPtl ZHRoPSIzMCUiIHZhbGlnbj 3weC2dEk3+IDUbmIO3zNW5 eF3hPLEvCgB8EXmyV957Kj RvcCIvPjxj h3exy0urdBy0WyP3UJOgyi FsaYyeSSO1q6OvNe22U36x IHdpZHRoPSIyMCUiIHZhbG hgvv6tmE7v Ii8+POAheSV1kVG6mM5hTx QqEpH9EJoxM778JfNwdWBo ZobjF94iO1JzxXP+PHRyPj b0CEDebLck ZG6saSDyNNndJq5mDLF8Cl VgIaGoEKjdG8FjLXSzzoyo clsxoMR4GXFrOPFvjQ58Fr 9udDogMTBw vIKFdH7smgryr6vesofiDh RhNDPiNXz9SGp1HIJwqOth ThZpMBH0RbY6WRF8lZGuhS 1hbGlnbjog gK9aF5FdNRKyzddbJn72qN 9cNwUhNkL2HMrwRco+R0VP FqiSHWDBMS7QNDXlW1XIHR YFYK94VN83 lLTgs7L7wDS8B1IwFUWfrp gmwpzvqSE6EIIwRTMezP88 iFOmBCvdCt3as2C8c876XR XuHCOszU88 Bf6hxWatYJGtjUNHqW5zrp rsw2ujftcwKiLoKKLnJHs0 QFl0REOnyBifKtTyAWL8Uh J2MDS6qXVt cM0nrCxobmglcE5lFgk+MD MgNfLrFGb7USurmMO+PHRk EZT7iKmrDDlnQYAoiG6aPP VjI3n1NlFo RkJ5YSfiH1KwBOZxqcmqTw 91oQ1gBjJwZuX2IIkiL2Dh stF3RDAruSOsTMgqVEI7Z1 5pi1B4RMUq UPUpBME1jEK3yD1ykUdzlo ogbGVmdDsgdmVydGljYWwt TUpfN366XTIeiIlkVbW4UY rsRIZrPM13 DG64lUJoq4V7dIX7G6XeFT FjdefolshhgJW2KSBnSTKh iA72eZRmKCveEc9px8I5p4 06IDAuMDUw zO84Xd6zmHdnYWNbgFJNbC 2xfubsa7atddcpFqAjENIz ZKy7HOw8CIQntNqhWrDsIA L9BaR1JZC1 xHVnuL6oiQgtywhhbD8uMh c+TUFMRTwvdGQ+PHRkIHN0 wSytRUhhLNSisZ8oCMBjO9 m0WkMgXbY8 KAwaC2PvQILltcwiTc37pB 4cTsTwHzK6GBbgJ0KlnlX2 ISYskHKrDGyqTIQ7P74be3 D9BBOkVJQr HKC8aTP2bQ3ibXcknkvlnE VmdDsgdmVydGljYWwtYWxp E951CACqcLwvFl1OZV85EN 57J1KmAsjb dGFibGU+PHRhYmxlIHdpZH LaLSukIDFpBiHqkCvdCR0r Lk5gBODgXYFdkHmbqVQiDb Ove1hvGDQx GHqjZH1tuQnrE4OjyQF6PI Wbz7f9Nu49Z20bE3DpiFU+ JFWcaJD2cXR8dQ8fGbPnGg D1SQahG478 NxQfgARxTxxpe4zky5yxvL a7ZvMfYUJpghOmzEqgDIV6 c9GwFz78Q57vREbbWYKoDX IyMCUiIHZh jWqviq1cmT7iKu9+PGNvbC P9sAB3iS1tNnYoJeM7RHht H382ScFgeUYiEhtrU51uG7 JvdXA+PHRy Ezy3BVSapSydFV2enUYbNP tpTz9hONB9XvElXnPeBLvn K0GlIGGntluoquuxkJA1XR RuQGZldF97 Of4atFyoQe2eSADpCEX7YC SlaADeX7SikX8gIsMnHKVp RMPhM1NehHRiQPizJ456MA kkBgH7GJKu ofAxU5SlXFTqwGrvCqO8d3 J5Am4GcBdemIUvVB6yMjRw GTo1I4FoKdw5TNSpfDceFI 0ncGFkZGlu Zm8dqWwglWqyUJ0xZGVakc ivo937WzQhp7nzSTMzhUJs BFzoGIQ6E40ao5A4XGNdGU PxJLG9nUL1 uT6lkDjlteacnGQnpOnsin EkdZhqNXfwMByqD686LQHy bKweRbGUQpf9N0CbHwf8BE KcgPiwJT2h xPEuSUirDh3nsXuunAkhBQ 8bZOEtqsary699RrIql0df WKJqoVKlQTpiIOX8Z48bo0 P0EQKzDOVn SNZ3sPV6gB2wkCavmocdsV VmdDsgdmVydGljYWwtYWxp G350RDXtuCboYg9KMtr1C1 EgEwy1LNWq pOznGK8yaFWyZYkcGl7cuM vcjSquRM8iWJOdarqyf706 ImIww6szQMTbrHTeISzcOI K7C75nv3S3 KWDtJLIeRBH0hSO5mI1rxV lnbjogbGVmdDsgdmVydGlj HPzvBBnaT111IFUpzMmiWf BheWVyOjwv dGQ+PW75yj03V3YqFkumWz t1QRVeKWS9mXA6kH7eFBEq GIstd9J4wBX2D7GwgnCtmi 2nq6tfIFIk ZTo (more content not included)... [facility] Coding Summaryon 09-12-2024 Coding Summary HTMLBase 64 TzorhwlmENj1hSb+PGhlYW Q+EJ7ZOQBrT25paJPzwD3a P6EIOOnIYghmYQQVOEyJDb NybuWbXD9ytJDeBMEj IC8+JJ3hHNBsSqkxmHHtx8 H1fDN1F41ycy7nFIfmeUV0 CVAwMqKsgbqpn2ztvSf3JF cuNmluOyBt FWBkaS85AUG3lH99Dq64cP NttPUog4bitRf9KmYgWLTh DJA9iFgrCTuhl4CdIXLxP1 1rlREta0X3 BTIaeUexdWKwLqUxjVB0bI 7dHMlnrcrbr9ihwkmiQlu1 bw75pIWco1E4fPC1L3Ykcd P3ZTMkwXJm WhzmuUHRpC9wyaqrc0dwup asTmLzOFPhDBg6KEu9EYHk bJfvSiRhHO81WEQ7KFAnff AgR7SdTHCw dVbaKrX7m3S9Rk1EC7SHOs ueE9NQDLXECQjgzWI+PC90 qm03U3NhQpwgRle3ZHCxKL N5bUY2mJ3h HAQjOMkdv6U0hAL8F9Wblt Asye9wz2vrYTRbYWnrB04e fZXvx7Y6XMOjiGP6QNCoeR seRwQakS04 Oyc+UWTylVeah5WxQjexr1 npv6vmcEz1JydbDOOztiBw bOabEHJ1i4IvKf3xCYZltC T8uHH7wG9i NdJbIbC5RFysT975JbYweJ JiUiuaA58fP4NaoFO+PHRy Bqb6FBFokPfjGX6gK4MuXP RpbmctbGVm bUwvEQ8fKGFafyjpXTChkV 4nEPFmD4g4VxPqWoI3JWmu H4GgMIMonmxlPo30xF7yBj SrSpK7QLjp K4AvzwZ3FSKiwQEmKEphNP W6K77la1F0RNJhROAwUWQ7 hFC9aO4piNohkisgdDBcaU sgdmVydGlj QPjxSFmfO912JJAweZwiKa NvZGluZyBEYXRlOiAgMDMv MDMvMjAyNTwvdGQ+PHRkIH G7vGmzOUHf uZOdZAxoTy7soTnziPokRF 6dACNuqzxtCEJgoF7fIABs jICplHxnTU1zALNihucyt8 17EtBbHDO4 QBUfcODxV7DbuN8nRoZyYS UhRVPhP8WbsGGkZCtyR410 YLegHbS5HJLfgjBsS2BzYE FsaWduOiB0 h1B0Lk1Zb9ImcqeaQ4KglP FeEvHuUhxcAWn4X2LvGpxv dHI+NS12ZZReLT70MWd0JU B3sKxzGYil SPWpX3NfpP4nVjGaUWPxMD RkOyc+PHRhYmxlIHdpZHRo QLsaSKUaCxDpvFguDO5hDk 9yZGVyLWNv tJopiBVySqUpc9ksFDIiEY mxZD4jjObwN0DypWP9WETw u3o0Kp98I22pJ4UkfEP+PG YrrHM4nIA7 dK3uEsQnBqK2ARfuJ508Pu SajKLnQecef1sxa6tmnWf0 RmZ2RUVhfyKikTdcFJP6t1 AzGq40D87d IHdpZHRoPSIxNSUiIHZhbG uybl4wjD7uGi8+PGNvbCB3 cFQ1fI9yKqVtQaR5VDblG9 49InRvcCIv Hbjqt8ptk2vibJd3RaRhDK AnadOmeVyiJHB5c9TgSi41 D6NmmXgdv1FsRfd1ju61uY Ffj6S4oLA2 I6NwZSHeubnbqVAyfYauTP 9dXHXqmndaVKGncU1oHUQl N5k5RfEmDlS8NRjrG5Genl E9CKJosLXd BAGzdXZLcL4dcwhor6duwh yzMgLzUBHhTTr6IIr4ZSYb cCqqArYgMSW9DtX9HCS6iZ HxmF4gmTtu ufjuuG3uDqw+IIO3uCOziT GUUE4wDfehoPT+PHRkIHN0 sLauXDvrKMWnqR3gIXZoP6 s2GaYgExY6 SCsvP1NzmlJ9QELukWYtFB CeuGGFbS2svgjsi7ahkpgv IjJsOAZjGGk6EVk2RTEssN duOiBsZWZ0 DwO9KBI6hKFcfN6aqSjyys ljeL8fRes+QmlydGggRGF0 OHx7E9XlArh3YZRshOhxLK 0ncGFkZGlu Sz1rqZrplGsrCP0tDXSbbs pti340QuPoq3eqELQsoSPm CGliHYL2S62dt8F2HDKpYN LzUKA7mEA8 jJ1lfYqaneczmJNgbEapyp NhiRkbHPmlLQhbI727XOBl rIxeTgVlQGe6C9MiJep7IJ LqhMyoAG2i jMOaKChoDx0ajNdsgGtkPF 2eOOXihfaui150CuJcd6ax CZEnpITgZKqfEZX5Y53eg8 K9NYZyBJFf BJD6zKN0xO3usQgncrnjcF VmdDsgdmVydGljYWwtYWxp G349IOXibKkuDjJgvFt9R3 KwQli4CITr oNctRV4qhZCbNLewLr3pcV yewYjrSA6xGMYfrdlnh347 XmGlo0lrEOKerOSuVHgmQH H5G25yc9D8 FGCuLNJzNRV2wHX6qE0azK lnbjogbGVmdDsgdmVydGlj UTafOXkcW823QKBasNjgKd BhdGllbnQg ZHxaYOs6S5XgSdvaqIW+PC 14TTXxHW84eXQkhBAbz1wt vVy1ZmQmQXOeKVO8jIadGV spc2SsJAXv Q41stZUcl9E9UQUrpBwqlA ScZoRaeRS6xB8mGXyxdwpd q8djbnvqQlemi7uvxv44sN 02Z27gGEij ZHRoPSIzMCUiIHZhbGlnbj 3wdS2mNm1+ZKFcnJD7dRT9 lN0cSGEeAhH4QLrzG776Kw RvcCIvPjxj q9qbk2vyhPj4ZuB3MSFpjb TwgTknDCO6k5IjMh06H38f IHdpZHRoPSIyMCUiIHZhbG fbmf1dgN1e Ii8+ICNzdJY2eYK8pY8sDy GoDsM9HSzkB596ZrYyuVGi YaqsF14sE7RauIF+PHRyPj e6NSVzfYrm CI7llWWbQAstEu5fPUW6El TlTcUbPRqdB6ImJWXywnza nixepNF4JOAiMCPxqQ74Yj 9udDogMTBw bKQNiY7rrlcuz9cvlpyzBu TuXYVnMJm9KOj3NNLbtRke IzXjYDA9BaC8CUX0hETiqV 1hbGlnbjog gQ9bL3ZxYYXbsjjnUu77xF 0mSxCmXrM4TUwoSdy+R0VP FizYTUKSIQ2JEIIgQ5QOTG GPOI05ZC93 vKXza3K2rZV4Z9EoJCOtyp fvmxnauBF0TIHnIOBblV38 rXYxAMbwGo9zf2T7h480YL AnZDDojI94 Oe4zjPihDSLdrLQUdV2odu yry1mweybnLkGxNLGeFUq7 GOo8VGFezEgyFdUoSGW4Ns D4QAW2fUMg eO4nuAfpevhesK5jOrj+MD AuJrOlFBo3IPkoeVT+PHRk FTH4pHqyQBjoHWItaX5iCZ KkY9t5IxLb SrN9TGnnL5CaYOImhtuvOo 65hQ0gZhCwWdM8GMpyJ7Iu ziH5GEMqtVVyAHhpCKH9V5 2ga6T4ASKq QAYbJBI7zHD2yP5aeClmsf ogbGVmdDsgdmVydGljYWwt GQytH562XCWifHfeInC6YV cwJZEkLO05 KD76tAAgy4N1mTA5Z9NcCN BlmisutjigrEU7WNEdLCYh bP59tLQpJFqtZo4hd7V6p1 06IDAuMDUw zY35Md4ykIzpBPRfbKKMcH 3blhyaf2nbwxtxUbUoZQMt GYj7QPx7GNXblRqyKuXbKQ M3EpV3MSA3 kVNbmT1ebEistgpdrU0xMa c+TUFMRTwvdGQ+PHRkIHN0 aFusZSgfMPMpxS7tFKUtB7 p3VhRrSoY6 XSqxX8VlOUJyzidiTd68lL 1vRqPbHqC9DKzsW0LvxiR4 KPQhsNIiQGanGSF7N52xn2 V2UPCdTQZn PZG8tAS0gW8qvXacvejvdO VmdDsgdmVydGljYWwtYWxp I161XARctHpjJy8ULP48KG 03V8ShMhdy dGFibGU+PHRhYmxlIHdpZH ZeXMjuKEAdVyEuzNcgGR4k Zj9oTMZcTDWddWdmcUTkWk Ije4pxRAZz KJtwDS1nyHjsU2IbwWI3ED Fnx6m0Tw83Q14gG9PwlLN+ XMAofPW7hXA1uO6qVpFlTq V7BNwhG743 ZqIzsHQaYglgh4ovl9jldW b2CbGuGRKyawUglDsdZEG3 k3HmYz12M27kWFjhEQVlPT IyMCUiIHZh sMwjun4zqS8fHk6+PGNvbC D3pND4wJ7aDpIzDyG6PLds O779YaOlyKMeOdteX49vF8 JvdXA+PHRy Tdu3KCFkxLmhAT1zzEJrEQ tzEh0oTFW5TqBiSjQfZKic J0OsHAQycgpfxqkhjZU1PH FwZGBboU10 Fm7uwSyzBg3eXZEpBED7AM VrgSLtC4HtmN9mQbEnOZQe ZCZyW8QwpJUfQZdcM717ZI mdLzP6UGCg kjUiO8IyPQHdyEfcFzK8e4 U3Mg5MyYfvtFWjUE5iEzOi PYz3S9DdLwv1EFNzqVbtGO 0ncGFkZGlu Jb4vzEacqWfzMN9sAAFnno tpb345HeZac2ndWNPtjMGz HJqfHXM9W72bn9E3VHLeEX JbMYE2rCI0 iO0zwLuswxoddTPfoRjyla HgsLwzOPosQVbyD980AFHh uBvoYzPQFzn8C7ToAtz8XM ZdsSqcNH9d bOVeKWprSu2vnHpaeLhpUL 4oEFOkixvzi898EdEnm8zu QLLmmWApCQhuHVD4T91at8 P0LOIdWEVf YUF8vMG9mZ3uqXgbbpugpC VmdDsgdmVydGljYWwtYWxp Y509MKEjpPguVm0YVop3V2 WwKpm8VMOo uDmgNX8hmJWnFPlzUx2ilU dqwKybON5pKLSykhsuk840 VmGqo3vnGYFnwZCuQUnnDZ N4M79fq6N1 NSAhKSOzPKI0sBL3xZ8iiV lnbjogbGVmdDsgdmVydGlj KBobSAfwW538MWJwzZfiTr BheWVyOjwv dGQ+PQ99so87C4SrTzbeUk p8TZNrUHW9hUX2kX4fRBNn SDorz4Y1hAX9C2EtspWpyx 0ju4xuASSi ZTo (more content not included)... [facility] Refillon 08-06-2024 Refill [id number] Spencer Yeboah as 1970 [facility] Provider Department Center 08/06/2024 MAURY WILLIS PHYS MED Medical Pavi No family history on file Reason for Visit and Comments: Med Refill [[id number]] Normal [facility] Abstracton 06-22-2024 Abstract [id number] Spencer Yeboah as 1970 M Date [facility]ly [facility] Department [place] 06/22/2024 LIEN ESPAÑA PHYS MED Medical Pavi No family history on file [facility] Coding Summaryon 05-30-2024 Coding Summary HTMLBase 64 GoobrqinAZp8pJr+PGhlYW Q+ME1JHQAuG65xrEVuhY8e O6POQBmJSbuyLTYDGQxSIj BiisSlFQ9cnYEfAOIm IC8+IJ9hZNGhQongvJGge1 G7pTN7O57eyj4tZSkbrFR9 YUUiIgBubxgsg9srqKo9VW cuNmluOyBt WWJshW04KMV4dS30Wd14eW DzeSJso7cctBn7OhXgTPGh PZQ3kLisCAafe0WtRJHpV2 0agEYla2F8 MPCduLyeyBJqItAtsPO6hS 8pDTomsqwmd4wedmquIyt5 wq08xVVcx6F1lJZ7F8Eqrg P1YGOtnBPr ZazmbJNFuY4ldjjij3dkhd tgHjQmPMCzCCd5LXk7NOVx hMkaPnTsYV87QED8NDZhzs CwB9ByOOTt sZowGtI5f3B5Ph6KU7SUBe mfX5VQEETDRGdehEL+PC90 oz18B6GoTmugSjz1QEUrUV G9uRM3gH0g IDAkGXgzi4R8aAU5E9Opnz Rric8qa7ctIGMaYHzxN09o vOKxx5W6EPYfoEV9WMYlqW haRtSkgD62 Oyc+NQMhmBkqy9WuQoizt5 mhd5vtvJj3DmkuMFRyyoMo fQarLWQ2l2YsWf4bMBWsmR T4sJJ6iV0t JfTwQpZ9TEzrV512KsEueP KbTlieX69aN7AmvHR+PHRy Zzs2KRCctFzhFI3mL2PdER RpbmctbGVm dInqST0bMAUfuavdBXNxkR 9uSQAgQ8y9SqRpEkG7PKyx B5WaKIHoclrjVe15xF9xKh FpGuE8JLct D6YtbrC5PWKoqSGaKZlsQU H3R91lz0L8LPZuNBKuLNV1 gFH9rW3ziXtwepanxERflZ sgdmVydGlj PKpxRVtkD497AOMogBmkRl NvZGluZyBEYXRlOiAgMTEv MTgvMjAyNDwvdGQ+PHRkIH G3gEedRDLl zEZlBIkcBd7twEpybGwiHT 3oKZRokgboJHTcjM0qXEEw eUKdrPjtDU5yKVZwgkmfo3 30AmKcOSJ3 EZJaaDQfE7AavJ6vHgJhMO QlLEJyA7OfyGTxWRiuE300 DFxpJpF1AVIshvJwD5WvLC FsaWduOiB0 n3Z7Gj1Tg3WrkpvfM1HzbY WlAgWzEtfoSTx3Y2OtRzeb dHI+CP18XVBfUW76HJb0BJ I8zErtFOed FDGtL3IibH8lLwHqIBHbBY RkOyc+PHRhYmxlIHdpZHRo ELmjDMYsBpBtzXnqSL2oBl 9yZGVyLWNv mBxwpBWoOrHaj5pnHZUsGK wdJO3xgQqiZ5DxuGL2VMJb o7h1Su77D95aS9YvjRJ+PG ZbkPR3nNA4 dZ3aSwChNkU7GDvpR765Qp BldHLbQrfaz2ibc6rdnKw9 WqM2TKAureOqfNuvDDK6y5 ReQw28Z69t IHdpZHRoPSIxNSUiIHZhbG bjtk4enI7cUc1+PGNvbCB3 jID2uV3fAuOfGdE8HAmxS0 49InRvcCIv Iyfon8bkr4dyyRs7OfMfSA NkqnOlfGmeQGH0c6OvQr56 P7IisCmnx2RfTzr4fm41bX Srn2W7tDD8 I8LzIRJualevzISnxYshNW 4tLLJmxozpNPZohF3tQGWp E1i1CaGvLoS1OYlmY1Rweq Z5KKBxyEVq LVXbtRWBiN4omslgx5epyj sbYeAnLJSjLLl3VIs5LXZu kQciVaOiCFP0NnS0QQK6qO HbdA9moQbt nwmmtV8pZwl+ZGH2pACfhN PRII0qKudqkND+PHRkIHN0 pLxtSDbvFEEwnM7dHVAhU9 b2NpHpLfJ7 WWkzS8AuhqH1XLShiDNrAL DlqHZGtO2qquugd3gbjdra YaRwTLYoQZw2GPw7DXCohA duOiBsZWZ0 WjO2WLW1mDYooH8kkZjmwp rjxN0oFli+QmlydGggRGF0 PYz4E2ShQdy0PKAvuBeoOH 0ncGFkZGlu Xk5xrIsopJkbWT4lYLXjoj sdp845FhSgq1xrYNBdjEUk UBtiJIN2K07ap6Z2PYHoST HsDUY2oET2 iI0evUwsamgqlNFshSyszw LdiUfnXGzaGJwyW204OOYy yShsRdCdKEq0O5MgNfa6XV TqpKjcNE2c aERzLTbrCa7hwLmdgMrpYB 9mJLRustulp286YqNom4jo DQYezIIhINlnYPN6G96bh2 X2RWYuMGNf FME0sJO1sX1imEozjvhglM VmdDsgdmVydGljYWwtYWxp C974EMWaqZgdQvUtqMj5X8 BoFrq8NHXv lQmnWF6bxREsZVzsJe3leC hmuOzjAK2wAGEtzxqcb259 HxUer6vhLJIwnQAeISmzUV Y3P13zx0V5 EXEaUOJuNTH3jTV6mD6aoB lnbjogbGVmdDsgdmVydGlj BDzjQNgqC319DXAoqSukBo BhdGllbnQg KRkbUMu4I1ZfAsvdxKJ+PC 82LQNiXP76iPDaoAZka1uz qPx8SuZpJPApOTP9mUznKV slm6RePHRb A17baZIyt5L3EUGybEvsbW KiQqAbgYH7iN8rSKxpvwal r4lhuwsmMkcic3ohfh34vP 67Q08iXGrv ZHRoPSIzMCUiIHZhbGlnbj 0rxE3kSt2+HDTdrQJ5wBN2 oV9pUOIjKyM6JPbbI844Mu RvcCIvPjxj i0jtd8hqdYo9AmC4FIKyqm HqrKppLHD8r0QdOh83G53a IHdpZHRoPSIyMCUiIHZhbG fpsc4znE0a Ii8+ICWmkVW0nLH7lL8lDu VzDzR5OEjzA638SgQpmJSi FrigL77jJ1XuyAR+PHRyPj w7CPElfFye QJ6gxNIvLIpzBc1vQFN8Ww EyXsAfUMsfH6QtYWQjocnk nuqkpXE5YVDhQMDwxB02Yx 9udDogMTBw aIAHlK6racklp7smgrhmFm MaMQGwDOe6PGt4VZFbtHog QhQhNCK5OzN9MLJ2oXKhrD 1hbGlnbjog nT8zA7AmLGGprdceLo88zV 4mZmUdWuT4UZnaUfd+R0VP HjuPWZCDBZ4CAUMaO4NZXW EDPL42LT97 fHUyn0Y6pIX0M1WaOKDvvt zrlffkmSR0PLIxWHGbuJ73 cITnVFdzDs6zx4U7z463ZC AqFCArmN55 Fo1ghCmdJSOugNXEdS1dzh ois7qddqljUvGpLHPbJCy3 VNv8LJVqqPigVzZvALX2Zw W3DWR7nVJn jD3pdCputnaxgI5eVdv+MD YaEcGfLMx9AJcpsQT+PHRk QTS1lXnqHZreTCKnnB9fTS MrL6m9HrPd IsI9SFjbZ1BeEYBhncfiAl 75vQ1pVrQxJjK8NTncK8Vt zzA4FIVnhTXqITpiHEO8X5 1zi9T8NXHe BYRlOKH3vSA6cT0dzZuqyi ogbGVmdDsgdmVydGljYWwt XLaeS482DVOxqKblVtZ6TT ohIHNkES91 ZC19kRZgo5F4cTG4D7EgHA XsxjirqtlgaGT1GJJpPGHq rB98hRKeZLzyOx6jr5T3o3 06IDAuMDUw jW19Yy5jaWnaVWCwyJHVwM 6lbpqdi9nzylslJcMkTFEv DWq7SBh0LADyaNzmWtOmIK P6FzO2VBY5 bWRfxE9jpWlimkzuqL7sHs c+TUFMRTwvdGQ+PHRkIHN0 bRedEPdkFWTknS0iLLYbB7 q1IkFcZdV6 IIqfV2NzMPLpmnjkKo04iA 0eJxSaZfS8UCakC4MpyaA2 VQQylEHgIFumJZU3M43ka8 B8XCCiQUZp IES7pHP9mO4seVlmmvgvpT VmdDsgdmVydGljYWwtYWxp P965RDCnxXzjIb6BOH80KL 94V0GzXitc dGFibGU+PHRhYmxlIHdpZH BoWPnhVOQcBkPwvWnqUT9k Za0lAWMxQAKthAekfRMhGd Llx7wfEYIq EFbxWE9hsIiaW9BmuKV6FC Psn6v6Hv54A07xV6AjgWK+ OTJvyGL4fDM3qN5qLtJjHd O9MJwuX785 XkWezRBpOtqjl3oyd5iskL c0RhQuZQKroxJymLmlPPM9 q9BiOx09Z51sTPgeQWOoDY IyMCUiIHZh wXifim7sgF8sEp3+PGNvbC O4wWX4kB4fBmJmMpZ8BNlv I502XcHylPCyBdikS26gK5 JvdXA+PHRy Aqq1KZJkfWxaYR7mrEGmDO koEy0mZNV2IyElWqMoKYkh K7OrUEEujaaafmyhgHZ8KE WqHOQhuS32 Di5umWsnAs8cAFSmYLX6PJ FbsBMvZ3KlrR2fPkOqBBQi RFFiP8WiaOLfHCumI425NH ugGsM1UFEb gbEoV9CuUDOxeWbbImX7r2 F0Sc9MkYemzHXkUE3oObEj ZCc2Y0LyMht0CLQyhFcvII 0ncGFkZGlu Pg3btHqhmWrnVX8lJPCkgh etl280WcVgb5juPHOviRGm DKhsHSK8G05ia7M0BIFkHM PiNOV8dTG3 tG9inLiykhourOInvXxcoo QblXbjXHlnMZeiZ906CFCr kJjvZgQJBrb0H7LiUuz3QS QiyVpyJZ8x sMInWMsyOz3xiWteuMxnZT 8rDABoiroei860KsRrl5eb XPQffHXdXJjkNAX5O01em2 M8UUEzVOIf OYQ4wCG7fG6uaRuqncvjgI VmdDsgdmVydGljYWwtYWxp Q832WBLedQwlIc6MUrt0N2 UdLyc9GINj zJsvJG9iiHYkNZtuEz9xoT lmrWdlPH0mQWXhbjwnw334 HkWhs1rbOFJurVZlOUnsSG U0A24is1I1 VDPfTGGrYMD0iZR5lR7zuF lnbjogbGVmdDsgdmVydGlj WHdxBSmrK203AXNblTgzYs BheWVyOjwv dGQ+FY61xw52E0NmQepqAn w1RAHgXQR4aKI5oR6pEPTk OQvxw7G3cYR5P8IrujSdyb 6or0grNLPf ZTo (more content not included)... [facility] Coding Queryon 05-25-2024 Coding Query Can you please document for this patient's visit? Thanks. [Electronically Signed on: 05/26/2024 07:46 EST] ANDREW CRUZ [Verified on: 05/26/2024 07:46 EST] ANDREW CRUZ [Transcribed on: 05/25/2024 08:42 EST] [facility] ED Clinical Summaryon 2023 ED Clinical Summary [facility] ? Urgent Care [address] [place] [id number] Clinical Summary PERSON INFORMATION Name: SARA YEBOAH Age: 53 Years Sex: MALE : 1970 MRN: Acct#: Visit Reason: Medical screening exam; [facility] F/U- RT KNEE INJURY, HEAD INJURY Arrival: 05/24/2024 15:43:59 Discharge: 05/24/2024 16:50:00 LOS: 000 01:07 Check In: 05/24/2024 15:43:59 Checkout: 05/24/2024 16:50:00 Address: [address] [place] [id number] PCP: Iron Gan PROVIDER INFORMATION Provider Role [...] Head Injury, Adult Follow-Up: With: Address: When: [facility] Occupational Health Within 3 months Comments: Follow-up [...] verbalizes understanding of instructions given Comment: Normal [facility] ED Patient Summaryon 024 ED Patient Summary [facility] ? Urgent Care [address] [place] [address] PATIENT DISCHARGE INSTRUCTIONS Patient Information Name: SARA YEBOAH Age: 53 Years Date of : 1970 Reason For Visit: Medical screening exam; [facility] F/U- RT KNEE INJURY, HEAD INJURY Arrival Time: 05/24/2024 15:43:59 Primary Care Physician: Iron Gan Attending Physician: Bo Shah PA-C Comment: Patient Education With: Address: When: [facility] Occupational Health Within 3 months Comments: Follow-up [...] your frie (more content not included)... 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 Patient previously seen at [facility] occupational health clinic, transferring care over to [facility] at this time. Patient has a previous [...] currently following with Dr. Salcedo a neuro laser engineer in [place], who he sees once a year to [...] is currently following with Dr. Ureña at [facility] who is following him for his head [...] evaluated by a Dr. Enrique at the [facility] who is a neuro-safety admin assistant as they were concerned that his vision was causing him issues with his balance, states that his neuro-safety admin assistant stated that his vision is fine but [...] his ears, states he has seen an motor vehicle clerk, not currently in any active treatment for [...] has i (more content not included)... Normal [facility] [place] 024 Urgent Care Record [facility] ? Urgent Care [address] [place], [place] [id number] PATIENT DISCHARGE INSTRUCTIONS Patient Information Name: SARA YEBOAH Age: 53 Years Date of : 1970 [facility]: [id number] Reason For Visit: Medical screening exam; [facility] F/U- RT KNEE INJURY, HEAD INJURY Arrival Time: 05/24/2024 15:43:59 Primary Care Physician: Iron Gan Attending Physician: Bo Shah PA-C Comment: Visit Diagnosis: Diagnoses This Visit Concussion with loss of consciousness of 30 minutes or less, initial encounter (S06.0X1A) Major depressive disorder, single episode, mild (F32.0) Medical screening exam ([id number]) Panic disorder [episodic paroxysmal anxiety] (F41.0) Postconcussional [...] sign any legal documents With: Address: When: [facility] Occupational Health Within 3 months Comments: Follow-up occupational health in approximately 3 months for reevaluation. If you are having any worsening issues or any other problems please contact us at any time. Medication Information: The exam and treatment you received today in the [facility] were for an urgent problem and are not intended as complete care. It is important for you to follow up with a doctor, nurse practitioner, or physician?s safety admin assistant for ongoing care. If your symptoms [...] so we can reach you if necessary. [facility] has provided you with a complete list of medications post discharge. Please inform your associate genetics professor/provider of your visit and for further instruction [...] 2.96 m2 (more content not included)... Normal [facility] Follow-Upon 04-04-2024 Follow-Up [id number] Spencer Yeboah 1970 M Date Provider Department Center 04/04/2024 Anshul2-LIEN UREÑA MP PHYS MED Medical Pavi No family history on file Level of Service:35925 ID OFFICE/OUTPATIENT ESTABLISHED LOW MDM 20 MIN (GC) Reason for Visit and Comments: Follow-up [257178] Worker's Compensation [732] [facility] Lori 03-08-2024 CNPN Telephone (OPHTBE) SARA YEBOAH ([id number]) 1970 M Date Time Provider Department 03/08/24 MILEY ENRIQUE OPHTBE During your visit today, we recorded the following information about you: Estefany Bowles 03/08/2024 8:32 AM Signed Faxed FROI form to [facility] at [phone]. Also faxed to [facility] and placed original in envelope for scanning into [email or web address]. Allergies As of Date: 03/08/2024 (No Known [...] Status:Closed by ESTEFANY BOWLES on 03/08/24 Normal [facility] FUNDUS PHOTOS OU (BOTH EYES) on 03-01-2024 [facility] Study observation (narrative) [facility] VISUAL FIELD 30-2 OU (BOTH E YES)on 03-01-2024 [facility] Study observation (narrative) [facility] 36on 01-18-2024 36 Patient last seen 03/2023 has a one year F/U scheduled for 03/2024 [facility] Refillon 01-18-2024 Refill [id number] Spencer Yeboah as 1970 M Date Provider Department Center 01/18/2024 Anshul2-LIEN UREÑA MP PHYS MED Medical Pavi No family history on file Reason for Visit and Comments: Med Refill [[id number]] [facility] CNPMaame 09-22-2023 CNPN Telephone (OPHTBE) SARA YEBOAH ([id number]) 1970 M Date Time Provider Department 09/22/23 MILEY ENRIQUE During your visit today, we recorded the following information about you: Kristina Melton 09/22/2023 3:40 PM Signed Received outside Records from [facility] needing consult with Dr. Enrique for Neuro Ophthalmology consult. Please contact patient to schedule at [phone]. Records in Dr. Enrique's mailbox. Allergies As of Date: 09/22/2023 (No Known Allergies) Date Reviewed: 02/28/2013 Reviewed by: Riana Trejo ([facility]) - Fully Assessed Reason for Visit: Received Outside Medical Records [[id number]] Prescriptions as of 09/25/2023 - metoprolol tartrate, [...] KRISTINA MELTON on 09/25/23 Normal [facility] FLUORO FOR SURGICAL PROCEDUR ESon 10-07-2022 FLUORO FOR SURGICAL PROCEDURES Radiology exam is complete. No Radiologist dictation. Please follow up with ordering provider. Final result Normal [facility] Radiology exam is complete. No Radiologist dictation. Please follow up with ordering provider. MHPN RIS CONSOLIDATED EKG 12 LeadOrdered By: Milan Pearson on 09-25-2022 Atrial Rate 67 BPM BON [employer] Work Phone: P [place] 21 degrees [employer] Work Phone: P-R Interval 190 ms [employer] Work Phone: Q-T Interval 388 ms [employer] Work Phone: QRS Duration 110 ms [employer] Work Phone: QTc Calculation (Bazett) 409 ms [employer] Work Phone: R [place] -38 degrees [employer] Work Phone: T [place] 41 degrees [employer] Work Phone: Ventricular Rate 67 BPM NPC III Work Phone: [employer] Work Phone: EKG 12 Leadon 09-25-2022 Normal sinus rhythm Left axis deviation Abnormal ECG No previous ECGs available [facility] Milan Menon MD - 09/25/2022 Normal sinus rhythm Left axis deviation Abnormal ECG No previous ECGs available [employer] Work Phone: MRSA DNA Probe, Nasalon 09-10 MRSA, DNA, Nasal Negative NEGATIVE [facility] [employer] Comment on above: NEGATIVE: MRSA DNA n ot detected by nucleic acid amplification. Results should be used as an adjunct to nosocomial control efforts to identify patients needing enhanced precautions. The test is not intended to identify patients with staphylococcal infections. Results should not be used to guide or monitor treatment for MRSA infections. Specimen Description .NASAL SWAB [facility] MRSA, DNA, Nasalon MRSA, DNA, Nasal Negative Normal [facility] Comment on above: Result Comment: NEGA TIVE: MRSA DNA not detected by nucleic acid amplification. Results should be used as an adjunct to nosocomial control efforts to identify patients needing enhanced precautions. The test is not intended to identify patients with staphylococcal infections. Results should not be used to guide or monitor treatment for MRSA infections. Performed By: #### M RSANO #### [facility] [address] [place] [address] Car Shifter: Omkar Leon DO [facility] [place] [address] Car Shifter: Nirmal Colon MD Basic Metabolic Panelon 09-10 Anion gap [Moles/Vol] 9 mmol/L 9 - 17 mmol/L [facility] Calcium [Mass/Vol] 9.4 mg/dL 8.6 - 10. 4 mg/dL [facility] Chloride [Moles/Vol] 102 mmol/L 98 - 107 mmol/L [facility] CO2 [Moles/Vol] 27 mmol/L 20 - 31 mmol/L [facility] Creatinine [Mass/Vol] 1.06 mg/dL 0.70 - 1.20 mg/dL [facility] GFR/1.73 sq M.predicted MDRD (S/P/Bld) [Vol rate/Area] - PINF [facility] Comment on above: These results are [...] 118 mg/dL High 70 - 99 mg/dL [facility] Interpretation and review of laboratory results Abnormal [facility] Potassium [Moles/Vol] 4.9 mmol/L 3.7 - 5.3 mmol/L [facility] Sodium [Moles/Vol] 138 mmol/L 135 - 144 mmol/L [facility] Urea nitrogen [Mass/Vol] 17 mg/dL 6 - 20 mg/dL [facility] Basic Metabolic Profon 09-24 Anion gap [Moles/Vol] 9 mmol/L Normal 9-[address] [facility] Comment on above: Performed By: #### C DP, BMP #### [facility] [address] [facility] [place] [address] Car Shifter: Omkar Leon DO Calcium [Mass/Vol] 9.4 mg/dL Normal 8.6-10.[address] [facility] Comment on above: Performed By: #### C DP, BMP #### [facility] [address] [facility] [place] [address] Car Shifter: Omkar Leon DO Chloride [Moles/Vol] 102 mmol/L Normal 98-[address] [facility] Comment on above: Performed By: #### C DP, BMP #### [facility] [place] [address] Car Shifter: Omkar Leon DO CO2 [Moles/Vol] 27 mmol/L Normal 20-[address] [facility] Comment on above: Performed By: #### C DP, BMP #### [facility] [address] [facility] [place] [address] Car Shifter: Omkar Leon DO Creatinine [Mass/Vol] 1.06 mg/dL Normal 0.70-1.[address] [facility] Comment on above: Performed By: #### C DP, BMP #### [facility] [place] [address] Car Shifter: Omkar Leon DO GFR/1.73 sq M.predicted among non-blacks MDRD (S/P/Bld) [Vol rate/Area] mL/min/{1.73_m2} Normal >[address] [facility] Comment on above: Result Comment: These [...] Performed By: #### C DP, BMP #### [facility] [address] [facility] [place] [address] Car Shifter: Omkar Leon DO Glucose [Mass/Vol] 118 mg/dL High 70-[address] [facility] Comment on above: Performed By: #### C DP, BMP #### [facility] [address] [facility] [place] [address] Car Shifter: Omkar Leon DO Potassium [Moles/Vol] 4.9 mmol/L Normal 3.7-5.[address] [facility] Comment on above: Performed By: #### C DP, BMP #### [facility] [place] [address] Car Shifter: Omkar Leon DO Sodium [Moles/Vol] 138 mmol/L Normal 135-[address] [facility] Comment on above: Performed By: #### C DP, BMP #### [facility] [address] [facility] [place] [address] Car Shifter: Omkar Leon DO Urea nitrogen [Mass/Vol] 17 mg/dL Normal 6-[address] [facility] Comment on above: Performed By: #### C DP, BMP #### [facility] [address] [place] [address]. [place] [address] Car Shifter: Omkar Leon DO CBC with Auto Differentialon 09-24-2022 Absolute Eos # 0.20 [facility] Absolute Lymph # 1.70 [facility] Absolute [place] # 0.60 [facility] Basophils (Bld) [#/Vol] 0.10 10*3/uL [facility] Basophils/100 WBC (Bld) 1 % 0 - 2 % [facility] Eosinophils/100 WBC (Bld) 2 % 0 - 4 % [facility] Hematocrit (Bld) [Volume fraction] 41.3 % 41 - 53 % [facility] Hemoglobin (Bld) [Mass/Vol] 14.2 g/dL 13.5 - 17.5 g/dL [facility] Interpretation and review of laboratory results Abnormal [facility] Lymphocytes/100 WBC (Bld) 23 % Low 24 - 44 % [facility] MCH (RBC) [Entitic mass] 31.1 pg 26 - 34 pg [facility] MCHC (RBC) [Mass/Vol] 34.4 g/dL 31 - 37 g/dL [facility] MCV (RBC) [Entitic vol] 90.4 fL 80 - 100 fL [facility] Monocytes/100 WBC (Bld) 8 % High 1 - 7 % [facility] Platelet distribution width (Bld) [Ratio] 13.4 % 11.5 - 14.9 % [facility] Platelet mean volume (Bld) [Entitic vol] 9.2 fL 6.0 - 12.0 fL [facility] Platelets (Bld) [#/Vol] 230 10*3/uL [facility] RBC (Bld) [#/Vol] 4.57 10*6/uL 4.5 - 5.9 m/uL [facility] Segmented neutrophils/100 WBC (Bld) 66 % 36 - 66 % [facility] Segs Absolute 5.00 [facility] WBC (Bld) [#/Vol] 7.6 10*3/uL [facility] CBC with Diffon 09-24-2022 Abs. Basophil 0.10 k/uL Normal 0.0-0.[address] [facility] Comment on above: Performed By: #### C DP, BMP #### [facility] [address] [place] [address] Car Shifter: Omkar Leon DO Abs.Neutrophil (Seg) 5.00 k/uL Normal 1.3-9.[address] [facility] Comment on above: Performed By: #### C DP, BMP #### [facility] [address] [place] [address] Car Shifter: Omkar Leon DO Basophils/100 WBC (Bld) 1 % Normal 0-[address] [facility] Comment on above: Performed By: #### C DP, BMP #### [facility] [address] [place] [address] Car Shifter: Omkar Leon DO Eosinophils (Bld) [#/Vol] 0.20 10*3/uL Normal 0.0-0.[address] [facility] Comment on above: Performed By: #### C DP, BMP #### [facility] [place] [address] Car Shifter: Omkar Leon DO Eosinophils/100 WBC (Bld) 2 % Normal 0-[address] [facility] Comment on above: Performed By: #### C DP, BMP #### [facility] [address] [place] [address]. [place] [address] Car Shifter: Omkar Leon DO Erythrocyte distribution width (RBC) [Ratio] 13.4 % Normal 11.5-14.[address] [facility] Comment on above: Performed By: #### C DP, BMP #### [facility] [address] [facility] [place] [address] Car Shifter: Omkar Leon DO Hematocrit (Bld) [Volume fraction] 41.3 % Normal 41-[address] [facility] Comment on above: Performed By: #### C DP, BMP #### [facility] [place] [address] Car Shifter: Omkar Leon DO Hemoglobin (Bld) [Mass/Vol] 14.2 g/dL Normal 13.5-17.[address] [facility] Comment on above: Performed By: #### C DP, BMP #### [facility] [address] [facility] [place] [address] Car Shifter: Omkar Leon DO Lymphocytes (Bld) [#/Vol] 1.70 10*3/uL Normal 1.0-4.[address] [facility] Comment on above: Performed By: #### C TOÑO, BMP #### [facility] [address] [place] [address] Car Shifter: Omkar Leon DO Lymphocytes/100 WBC (Bld) 23 % Low 24-[address] [facility] Comment on above: Performed By: #### C TOÑO, BMP #### [facility] [place] [address] Car Shifter: Omkar Leon DO MCH (RBC) [Entitic mass] 31.1 pg Normal 26-[address] [facility] Comment on above: Performed By: #### C TOÑO, BMP #### [facility] [address] [place] [address] Car Shifter: Omkar Leon DO MCHC (RBC) [Mass/Vol] 34.4 g/dL Normal 31-[address] [facility] Comment on above: Performed By: #### C TOÑO, BMP #### [facility] [address] [place] [address] Car Shifter: Omkar Leon DO MCV (RBC) [Entitic vol] 90.4 fL Normal 80-[address] [facility] Comment on above: Performed By: #### C TOÑO, BMP #### [facility] [address] [place] [address] Car Shifter: Omkar Leon DO Monocytes (Bld) [#/Vol] 0.60 10*3/uL Normal 0.1-1.[address] [facility] Comment on above: Performed By: #### C TOÑO, BMP #### [facility] [address] [place] [address] Car Shifter: Omkar Leon DO Monocytes/100 WBC (Bld) 8 % High 1-[address] [facility] Comment on above: Performed By: #### C TOÑO, BMP #### [facility] [place] [address] Car Shifter: Omkar Leon DO Neutrophil (Seg) 66 % Normal 36-66 [facility] Comment on above: Performed By: #### C DP, BMP #### [facility] [address] [place] [address] Car Shifter: Omkar Leon DO Platelet mean volume (Bld) [Entitic vol] 9.2 fL Normal 6.0-12.[address] [facility] Comment on above: Performed By: #### C TOÑO, BMP #### [facility] [address] [place] [address] Car Shifter: Omkar Leon DO Platelets (Bld) [#/Vol] 230 10*3/uL Normal 150-[address] [facility] Comment on above: Performed By: #### C TOÑO, BMP #### [facility] [address] [place] [address] Car Shifter: Omkar Leon DO RBC (Bld) [#/Vol] 4.57 10*6/uL Normal 4.5-5.[address] [facility] Comment on above: Performed By: #### C TOÑO, BMP #### [facility] [address] [place] [address] Car Shifter: Omkar Leon DO WBC (Bld) [#/Vol] 7.6 10*3/uL Normal 3.5-11.[address] [facility] Comment on above: Performed By: #### C TOÑO, BMP #### [facility] [address] [place] [address] Car Shifter: Omkar Leon DO MRSA, DNA, Nasalon 3 Specimen Description .NASAL SWAB Normal [facility] Comment on above: Performed By: #### M RSANO #### [facility] [address] [place] [address] Car Shifter: Omkar Leon DO [address] [address] Car Shifter: Nirmal Colon MD Microscopic Urinalysison Bacteria, UA None None [facility] Casts UA 3 to 5 /LPF [facility] Epithelial Cells UA 0 TO 2 /HPF [facility] RBC clumps Auto (Urine sed) [#/Area] 0 TO 2 /HPF [facility] WBC, UA 0 TO 2 /HPF [facility] TYPE AND SCREENon 09-24-2022 ABO/Rh Positive [facility] Arm Band Number [id number] [facility] Blood Bank Comment ABORH CONFIRMED O POS: 003 [facility] Expiration Date 2022,2359 [facility] Type + Screenon 09-24-2022 Type + Screen Sample Expiration 2022,2359 Arm Band Number [id number] ABO/Rh(D) O POSITIVE Antibody Screen NEGATIVE Blood Bank Comment ABORH CONFIRMED O POS: [address] [facility] Comment on above: Performed By: #### T YS #### [facility] [address] [place] [address] Car Shifter: Omkar Leon DO UA w/Reflex Cultureon 2022 Bilirubin, SemiQt,Ur Negative Normal NEG [facility] Comment on above: Performed By: #### U LOR CARDOZA #### [facility] [address] [place] [address] Car Shifter: Omkar Leon DO Blood, Urine Negative Normal NEG [facility] Comment on above: Performed By: #### U AXLOR #### [facility] [address] [facility] [place] [address] Car Shifter: Omkar Leon DO Clarity (U) Clear Normal CLEAR [facility] Comment on above: Performed By: #### U AXLOR #### [facility] [address] [facility] [place] [address] Car Shifter: Omkar Leon DO Color (U) Yellow Normal YEL [facility] Comment on above: Performed By: #### U AXLOR #### [facility] [address] [place] [address] Car Shifter: Omkar Leon DO Glucose Ql (U) Negative Normal NEG [facility] Comment on above: Performed By: #### U LOR CARDOZA #### [facility] [address] [place] [address] Car Shifter: Omkra Leon DO Ketones Ql (U) Negative Normal NEG [facility] Comment on above: Performed By: #### U AX, UMJULISSAO #### [facility] [address] [place] [address] Car Shifter: Omkar Leon DO Leukocyte esterase Test strip Ql (U) Negative Normal NEG [facility] Comment on above: Performed By: #### U AXLOR #### [facility] [address] [facility] [place] [address] Car Shifter: Omkar Leon DO Nitrite,Ur Negative Normal NEG [facility] Comment on above: Performed By: #### U AXLOR #### [facility] [address] [facility] [place] [address] Car Shifter: Fanelly, Omkar, DO PH,Ur 5.5 Normal 5.0-8.[address] [facility] Comment on above: Performed By: #### U AXLOR #### [facility] [address] [facility] [place] [address] Car Shifter: Omkar Leon DO Protein Ql (U) 2+ Abnormal NEG [facility] Comment on above: Performed By: #### U AXLOR #### [facility] [address] [place] [address] Car Shifter: Omkar Leon DO Spec. [place],Ur 1.021 Normal 1.000-1.030 [facility] Comment on above: Performed By: #### U AXLOR #### [facility] [address] [place] [address] Car Shifter: Omkar Leon DO Urobilinogen,Ur Normal Normal NORM [facility] Comment on above: Performed By: #### U LOR CARDOZA #### [facility] [address] [place] [address] Car Shifter: Omkar Leon DO Urinalysis with Reflex to Cu ltureon 09-24-2022 Bilirubin Urine Negative NEGATIVE [facility] Color, UA Yellow Yellow [facility] Glucose Auto test strip (U) [Mass/Vol] Negative NEGATIVE [facility] Interpretation and review of laboratory results Abnormal [facility] Ketones (U) [Mass/Vol] Negative NEGATIVE [facility] Leukocyte esterase Auto test strip Ql (U) Negative NEGATIVE [facility] Nitrite Auto test strip Ql (U) Negative NEGATIVE [facility] Protein (U) [Mass/Vol] 5.5 mg/dL 5.0 - 8.0 [facility] Protein (U) [Mass/Vol] 2+ Abnormal NEGATIVE [facility] Specific [place], UA 1.021 1.000 - 1.030 [facility] Turbidity UA Clear Clear [facility] Urine Hgb Negative NEGATIVE [facility] Urobilinogen, Urine Normal Normal [facility] Urinalysis,Microon 3 Bacteria None Normal NONE [facility] Comment on above: Performed By: #### LOR PARKER #### [facility] [address] [place] [address] Car Shifter: Omkar Leon DO Casts 3 to 5 [facility] Comment on above: Performed By: #### LOR PARKER #### [facility] [address] [place] [address] Car Shifter: Omkar Leon DO Epithelial cells LM Ql (Urine sed) 0 TO 2 [facility] Comment on above: Performed By: #### LOR PARKER #### [facility] [address] [place] [address] Car Shifter: Omkar Leon DO Urine RBC's 0 TO [address] [facility] Comment on above: Performed By: #### LOR PARKER #### [facility] [address] [place] [address] Car Shifter: Omkar Leon DO Urine WBC's 0 TO [address] [facility] Comment on above: Performed By: #### LOR PARKER #### [facility] [address] [place] [address] Car Shifter: Omkar Leon DO MAGNESIUMon 04-01-2022 Magnesium [Mass/Vol] 1.8 mg/dL Normal 1.8-2.4 [facility] Comment on above: Performed By: #### M G #### [facility] [address] [address] [address] Madhu Augustine MWWLFOD-YZHS-HMHAUL-FACTOR 1 on 02-03-2022 Insulin-Like Growth Factor I 240 ng/mL Normal 74-255 [facility] Comment on above: Performed By: #### I NSGF1 #### [facility] [address] [address] [address] Madhu Augustine FSHon 02-01-2022 FSH 0.4 mIU/mL Critically low 1.5-12.4 [facility] Comment on above: Performed By: #### L BCFSH #### [facility] [address] [address] [address] Madhu Augustine LUTEINIZING HORMONE (LH)on 0 02-01-2022 LH <0.3 Critically low 1.7-8.6 [facility] Comment on above: Performed By: #### L BCLH #### [facility] [address] [place] [address] Dr. Madhu Augustine TESTOSTERONE, TOTALon 2021 Testosterone [Mass/Vol] 756 ng/dL Normal 264-916 [facility] Comment on above: Result Comment: Adul t male reference interval is based on a population of healthy nonobese males (BMI <30) between 19 and 39 years old. Omar, et.al. JCEM 2017,102;6072-1839. PMID: [id number]. Performed By: #### T ESTTOT #### [facility] [address] [place] [address] Dr. Madhu Augustine CBC AUTO DIFFon 01-31-2022 BASO # 0.1 103/ul Normal 0.0-0.1 [facility] Comment on above: Performed By: #### C BC #### [facility] [address] [place] [address] Dr. Madhu Augustine Basophils/100 WBC (Bld) 0.9 % Normal 0.2-2.0 [facility] Comment on above: Performed By: #### C BC #### [facility] [address] [place] [address] Dr. Madhu Augustine EO # 0.2 103/ul Normal 0.0-0.7 [facility] Comment on above: Performed By: #### C BC #### [facility] [address] [address] [address] Madhu Augustine Eosinophils/100 WBC (Bld) 2.4 % Normal 0.9-7.0 [facility] Comment on above: Performed By: #### C BC #### [facility] [address] [place] [address] Dr. Madhu Augustine Erythrocyte distribution width (RBC) [Ratio] 14.4 % Normal 11.0-15.0 [facility] Comment on above: Performed By: #### C BC #### [facility] [address] [place] [address] Dr. Madhu Augustine Hematocrit (Bld) [Volume fraction] 41.1 % Critically low 42.0-54.0 [facility] Comment on above: Performed By: #### C BC #### [facility] [address] [place] [address] Dr. Madhu Augustine Hemoglobin (Bld) [Mass/Vol] 13.5 g/dL Critically low 14.0-18.0 [facility] Comment on above: Performed By: #### C BC #### [facility] [address] [place] [address] Dr. Madhu Augustine IG # 0.05 10e3/ul Critically high 0.00-0.03 [facility] Comment on above: Performed By: #### C BC #### [facility] [address] [place] [address] Dr. Madhu Augustine IG % 0.7 % Critically high 0.0-0.5 [facility] Comment on above: Performed By: #### C BC #### [facility] [address] [place] [address] Dr. Madhu Augustine LYMPH # 1.6 103/ul Normal 1.2-3.8 [facility] Comment on above: Performed By: #### C BC #### [facility] [address] [place] [address] Dr. Madhu Augustine Lymphocytes/100 WBC (Bld) 21.5 % Normal 20.5-60.0 [facility] Comment on above: Performed By: #### C BC #### [facility] [address] [place] [address] Dr. Madhu Augustine MANUAL DIFF REQ NO Normal [facility] Comment on above: Performed By: #### C BC #### [facility] [address] [place] [address] Dr. Madhu Augustine MCH (RBC) [Entitic mass] 30.7 pg Normal 25.9-34.0 [facility] Comment on above: Performed By: #### C BC #### [facility] [address] [place] [address] Dr. Madhu Augustine MCHC (RBC) [Mass/Vol] 32.8 g/dL Normal 29.9-35.2 [facility] Comment on above: Performed By: #### C BC #### [facility] [address] [place] [address] Dr. Madhu Augustine MCV (RBC) [Entitic vol] 93.4 fL Normal 80.0-94.0 [facility] Comment on above: Performed By: #### C BC #### [facility] [address] [place] [address] Dr. Madhu Augustine MONO # 0.7 103/ul Normal 0.3-0.8 [facility] Comment on above: Performed By: #### C BC #### [facility] [address] [place] [address] Dr. Madhu Augustine Monocytes/100 WBC (Bld) 8.5 % Normal 1.7-12.0 [facility] Comment on above: Performed By: #### C BC #### [facility] [address] [place] [address] Dr. Madhu Augustine NEUT # 5.1 103/ul Normal 1.4-6.5 [facility] Comment on above: Performed By: #### C BC #### [facility] [address] [place] [address] Dr. Maduh Augustine Neutrophils/100 WBC (Bld) 66.0 % Normal 43.0-75.0 [facility] Comment on above: Performed By: #### C BC #### [facility] [address] [place], [place] [id number] Dr. Madhu Augustine Platelet mean volume (Bld) [Entitic vol] 10.2 fL Normal 9.5-13.5 [facility] Comment on above: Performed By: #### C BC #### [facility] [address] [place] [address] Dr. Madhu Augustine PLT 207 103/ul Normal 150-450 [facility] Comment on above: Performed By: #### C BC #### [facility] [address] [place] [address] Dr. Madhu Augustine RBC 4.40 106/ul Critically low 4.70-6.10 [facility] Comment on above: Performed By: #### C BC #### [facility] [address] [place] [address] Dr. Madhu Augustine WBC 7.6 103/ul Normal 4.0-11.0 [facility] Comment on above: Performed By: #### C BC #### [facility] [address] [place] [address] Dr. Madhu Augustine LIPID PROFILEon 01-31-2022 CHOL-HDL RATIO NORM SEE BELOW Normal [facility] Comment on above: Result Comment: 3.3 - 4.4 LOW RISK 4.4 - 7.1 AVERAGE RISK 7.1 - 11.0 MODERATE RISK >11.0 HIGH RISK Performed By: #### L IPID, CMP #### [facility] [address] [place] [address] Dr. Madhu Augustine Cholesterol [Mass/Vol] 156 mg/dL Normal <=200 [facility] Comment on above: Performed By: #### L IPID, CMP #### [facility] [address] [place] [address] Dr. Madhu Augustine Cholesterol in HDL [Mass/Vol] 53 mg/dL Normal 40-60 [facility] Comment on above: Performed By: #### L IPID, CMP #### [facility] [address] [place] [address] Dr. Madhu Augustine Cholesterol in LDL [Mass/Vol] 84.0 mg/dL Normal [facility] Comment on above: Performed By: #### L IPID, CMP #### [facility] [address] [address] [address] Madhu Augustine Cholesterol.total/ Cholesterol in HDL [Mass ratio] 2.9 {ratio} Normal [facility] Comment on above: Performed By: #### L IPID, CMP #### [facility] [address] [address] [address] Madhu Augustine HDL NORMAL > or = 60 mg/dl - LO W CARDIOVASCULAR RISK <40 mg/dl - HIGH CARDIOVASCULAR RISK Normal [facility] Comment on above: Performed By: #### L IPID, CMP #### [facility] [address] [address] [address] Madhu Augustine LDL CALC NORMAL SEE BELOW Normal [facility] Comment on above: Result Comment: <100 mg/dl OPTIMAL 100 - 129 mg/dl NEAR OR ABOVE OPTIMAL 130 - 159 mg/dl BORDERLINE HIGH 160 - 189 mg/dl HIGH >190 mg/dl VERY HIGH Performed By: #### L IPID, CMP #### [facility] [address] [place] [address] Dr. Madhu Augustine Triglyceride [Mass/Vol] 95 mg/dL Normal <=150 [facility] Comment on above: Performed By: #### L IPID, CMP #### [facility] [address] [place] [address] Dr. Madhu Augustine VLDL CALC 19.0 mg/dL Normal [facility] Comment on above: Performed By: #### L IPID, CMP #### [facility] [address] [address] [address] Madhu Augustine PROF 14(COMP METB)on 022 Albumin [Mass/Vol] 3.5 g/dL Normal 3.4-5.0 [facility] Comment on above: Performed By: #### L IPID, CMP #### [facility] [address] [place] [address] Dr. Madhu Augustine Albumin/Globulin [Mass ratio] 1.1 {ratio} Normal [facility] Comment on above: Performed By: #### L IPID, CMP #### [facility] [address] [address] [address] Madhu Augustine ALP [Catalytic activity/Vol] 51 U/L Normal 46-116 [facility] Comment on above: Performed By: #### L IPID, CMP #### [facility] [address] [place] [address] Dr. Madhu Augustine ALT [Catalytic activity/Vol] 40 U/L Normal 16-63 [facility] Comment on above: Performed By: #### L IPID, CMP #### [facility] [address] [place] [address] Dr. Madhu Augustine Anion gap [Moles/Vol] 12.7 mmol/L Normal [facility] Comment on above: Performed By: #### L IPID, CMP #### [facility] [address] [place] [address] Dr. Madhu Augustine AST [Catalytic activity/Vol] 18 U/L Normal 15-37 [facility] Comment on above: Performed By: #### L IPID, CMP #### [facility] [address] [place] [address] Dr. Madhu Augustine Bilirubin [Mass/Vol] 0.4 mg/dL Normal 0.2-1.0 [facility] Comment on above: Performed By: #### L IPID, CMP #### [facility] [address] [place] [address] Dr. Madhu Augustine Calcium [Mass/Vol] 8.9 mg/dL Normal 8.5-10.1 [facility] Comment on above: Performed By: #### L IPID, CMP #### [facility] [address] [place] [address] Dr. Madhu Augustine Chloride [Moles/Vol] 104 mmol/L Normal 98-107 [facility] Comment on above: Performed By: #### L IPID, CMP #### [facility] [address] [place] [address] Dr. Madhu Augustine CO2 [Moles/Vol] 26.4 mmol/L Normal 21.0-32.0 [facility] Comment on above: Performed By: #### L IPID, CMP #### [facility] [address] [address] [address] Madhu Augustine Creatinine [Mass/Vol] 0.99 mg/dL Normal 0.70-1.30 [facility] Comment on above: Performed By: #### L IPID, CMP #### [facility] [address] [address] [address] Madhu Augustine EGFR-AF URUGUAYAN >60 Normal >=60 [facility] Comment on above: Performed By: #### L IPID, CMP #### [facility] [address] [address] [address] Maduh Augustine EGFR-NON AF URUGUAYAN >60 Normal >=60 [facility] Comment on above: Performed By: #### L IPID, CMP #### [facility] [address] [address] [address] Madhu Augustine Globulin (S) [Mass/Vol] 3.2 g/dL Normal [facility] Comment on above: Performed By: #### L IPID, CMP #### [facility] [address] [address] [address] Madhu Augustine Glucose [Mass/Vol] 108 mg/dL Critically high 74-106 [facility] Comment on above: Performed By: #### L IPID, CMP #### [facility] [address] [address] [address] Madhu Augustine Potassium [Moles/Vol] 4.1 mmol/L Normal 3.5-5.1 [facility] Comment on above: Performed By: #### L IPID, CMP #### [facility] [address] [address] [address] Madhu Augustine Protein [Mass/Vol] 6.7 g/dL Normal 6.4-8.2 [facility] Comment on above: Performed By: #### L IPID, CMP #### [facility] [address] [address] [address] Madhu Augustine Sodium [Moles/Vol] 139 mmol/L Normal 136-145 [facility] Comment on above: Performed By: #### L IPID, CMP #### [facility] [address] [address] [address] Madhu Augustine Urea nitrogen [Mass/Vol] 14.0 mg/dL Normal 7.0-18.0 [facility] Comment on above: Performed By: #### L IPID, CMP #### [facility] [address] [address] [address] Madhu Augustine Urea nitrogen/Creatinin e [Mass ratio] 14.1 mg/mg Normal [facility] Comment on above: Performed By: #### L IPID, CMP #### [facility] [address] [address] [address] Madhu Augustine VITAMIN B12on 01-31-2022 Cobalamin (Vitamin B12) [Mass/Vol] 1106.0 pg/mL Critically high 193.0-986.0 [facility] Comment on above: Performed By: #### V ITB12, VITAD #### [facility] [address] [place] [address] Dr. Madhu Augustine VITAMIN D 25 OHon 01-31-2022 VIT D 25-OH 53.4 ng/mL Normal [facility] Comment on above: Performed By: #### V ITB12, VITAD #### [facility] [address] [place] [address] Dr. Madhu Augustine VIT D RANGES SEE BELOW Normal [facility] Comment on above: Result Comment: <20 ng/mL Vit D deficient 20 - <30 ng/mL Vit D insufficient 30 - 100 ng/mL Vit D sufficient >100 ng/mL Potential Toxicity Performed By: #### V ITB12, VITAD #### [facility] [address] [place] [address] Dr. Madhu Augustine Rehab Psych Evaluationon Rehab Psych Evaluation MR#: [id number] REHABILITATION SERVICES ( ) INPATIENT (x) OUTPATIENT Patient Name: Sara Yeboah Date of : 1970 Referring Physician: Lien Ureña M.D. Dictated By: Ramesh Hu, PhD Evaluation Date: 10/13/2018 neuropsychological evaluation DATE OF SERVICE: 10/12/2018-10/22/2018 DIAGNOSIS: Postconcussive syndrome DATE OF ONSET: 05/14/2018 DATE OF : 1970 AGE: 47 years TIME SPENT: 38375=8 unit; 76713=7 unit; 08817=0 units; 77294=5 unit; 59483=7 units REASON FOR REFERRAL: This is the initial neuropsychological evaluation of Mr. Sara Yeboah, a 48-year-old, right-hand, White, , gentleman, who was referred by chief building inspector, Dr. Lien Ureña to ascertain his present [...] medicine specialist, Dr. Young Morgan ([employer]); said evaluation was also consulted. Mr. Yeboah notes that attorneys working with the [employer] are handling his case. According to Dr. Morgan's medical examination report, Mr. Yeboah sustained a concussion on 05/14/2018, while working for [employer]. Dr. Morgan noted a 70-80 pound object had fallen from a david striking [Mr. Yeboah] on the head. According to Dr. Morgan's evaluation, Mr. Yeboah experienced no nausea or vomiting, but reported a headache of 7 of 10. It was noted that Mr. Yeboah was taken to [facility], where he underwent a CT [...] Mr. Yeboah notes he was born in [place], [place]. He adds he has been for 24 years and has one child. Mr. Yeboah notes he presently resides in [place], [place] with his and daughter. EDUCATIONAL HISTORY: [...] May 2018 injury from his employment at [employer], where he has worked for approximately five [...] the Speech Therapy when he participated at [facility]. Mr. Yeboah also reports changes to [...] Immediate Memory Index in the average range (TQZ=697), and a Delayed Memory Index in the average range (LBZ=085). Obtained index scores were compared to predicted [...] Therapy (CBT), such could be found through [facility] services. He may also benefit [...] Use a pocket notepad, personal digital marketing specialist, wristwatch alarm, voice recorder, pill box, or [...] If you have any questions, please call [phone]. DICTATED BY: Ramesh Hu, PhD Neuropsychology Fellow REVIEWED BY: Electronically Signed by: Nereyda Rivera, PhD, ABPP 10/28/2018 08:41 A Nereyda Rivera, PhD, ABPP Board Certified Clinical Neuropsychologist Date Dict: 10/13/2018/12:18 P/Ramesh Hu, PhD Date Trans: 10/13/2018 01:51 P/mmo [id number] cc: Nereyda Rivera, PhD, ABPP [id number] Rehab Medicine [facility] [id number] Lien Ureña M.D. [facility] [id number] *Mr. Sraa Yeboah [address] [place] [address] [facility] Vital Signs Date Time Vital Sign Value Performing Clinician Facility 10-26-2024 09:45-0400 Body height 182.9 cm Krystle Truong MD Work Phone: [facility] 10-26-2024 09:45-0400 Body mass index (BMI) [Ratio] 56.96 kg/m2 Krystle Truong MD Work Phone: [facility] 10-26-2024 09:45-0400 Body weight 190.51 kg Krystle Truong MD Work Phone: [facility] 10-26-2024 09:45-0400 Diastolic blood pressure 94 mm[Hg] Krystle Truong MD Work Phone: [facility] 10-26-2024 09:45-0400 Heart rate 64 /min Krystle Truong MD Work Phone: [facility] 10-26-2024 09:45-0400 Respiratory rate 16 /min Krystle Truong MD Work Phone: [facility] 10-26-2024 09:45-0400 SaO2% (BldA) [Mass fraction] 93 % Krystle Truong MD Work Phone: [facility] 10-26-2024 09:45-0400 Systolic blood pressure 160 mm[Hg] Krystle Truong MD Work Phone: [facility] 09-29-2024 09:29-0400 Body height 182.[address] [facility] 09-29-2024 09:29-0400 Body mass index (BMI) [Ratio] 59.8 kg/m2 [facility] 09-29-2024 09:29-0400 Body weight 200.[address] [facility] 09-29-2024 09:29-0400 Diastolic blood pressure 101 mm[Hg] [facility] 09-29-2024 09:29-0400 Heart rate 76 /min [facility] 09-29-2024 09:29-0400 Respiratory rate 20 /min [facility] 09-29-2024 09:29-0400 Systolic blood pressure 170 mm[Hg] [facility] 10-07-2022 13:13-0400 SaO2% (BldA) [Mass fraction] 92 % [facility] Lopez MD [facility] 10-07-2022 11:30-0400 Body temperature 98.1 [degF] Ravi Lopez MD Work Phone: [facility] [employer] 10-07-2022 11:30-0400 Diastolic blood pressure 74 mm[Hg] Ravi Loepz MD Work Phone: [facility] [employer] 10-07-2022 11:30-0400 Heart rate 70 /min Ravi Lopez MD Work Phone: [facility] [employer] 10-07-2022 11:30-0400 Respiratory rate 16 /min Ravi Lopez MD Work Phone: [employer] 10-07-2022 11:30-0400 Systolic blood pressure 128 mm[Hg] Ravi Lopez MD Work Phone: [facility] [employer] [facility] 10-07-2022 05:46-0400 Body height 182.9 cm Ravi Lopez MD Work Phone: [facility] [employer] 10-07-2022 05:46-0400 Body mass index (BMI) [Ratio] 49.5 kg/m2 Ravi Lopez MD Work Phone: [employer] 10-07-2022 05:46-0400 Body weight 165.56 kg Ravi Lopez MD Work Phone: [employer] 09-26-2022 09:30-0400 Body height 182.88 cm [employer] [facility] [employer] Other 09-26-2022 09:30-0400 Body mass index (BMI) [Ratio] 53.65 kg/m2 [employer] [facility] Other [employer] Other 09-26-2022 09:30-0400 Body weight 179.44 kg [employer] [facility] Other [employer] Other 09-26-2022 09:30-0400 Diastolic blood pressure 82 mm[Hg] [facility] Other [employer] Other 09-26-2022 09:30-0400 Respiratory rate 16 /min [employer] [facility] Other [employer] Other 09-26-2022 09:30-0400 Systolic blood pressure 130 mm[Hg] [employer] [facility] Other [employer] Other 09-24-2022 07:12-0400 Body height 182.9 cm Ravi Lopez MD Work Phone: [employer] 09-24-2022 07:12-0400 Body mass index (BMI) [Ratio] 49.5 kg/m2 Ravi Lopez MD Work Phone: [employer] 09-24-2022 07:12-0400 Body temperature 98.01 [degF] Ravi Lopez MD Work Phone: [employer] 09-24-2022 07:12-0400 Body weight 165.56 kg Ravi Lopez MD Work Phone: [employer] 09-24-2022 07:12-0400 Diastolic blood pressure 83 mm[Hg] Ravi Lopez MD Work Phone: [employer] Comment on above: 172/91 right arm 09-24-2022 07:12-0400 Heart rate 70 /min Ravi Lopez MD Work Phone: [employer] 09-24-2022 07:12-0400 Respiratory rate 18 /min Ravi Lopez MD Work Phone: [facility] [employer] 09-24-2022 07:12-0400 SaO2% (BldA) [Mass fraction] 97 % Ravi Lopez MD Work Phone: [employer] 09-24-2022 07:12-0400 Systolic blood pressure 162 mm[Hg] Ravi Lopez MD Work Phone: [employer] Comment on above: 172/91 right arm Encounters Encounter Date Encounter Type Care Provider Facility Start: 10-26-2024 End: 10-26-2024 Robert flowsheet Krystle Truong MD Work Phone: [facility] Start: 10-26-2024 End: 10-26-2024 Bamluzo flowsheet Krystle Truong MD Work Phone: [facility] Start: 10-26-2024 End: 10-26-2024 Office outpatient new 45 minutes Krystle Truong MD Work Phone: [facility] Comment on above: Secondary male hypog [...] Advice Only Start: 09-29-2024 End: 09-29-2024 ambulatory [facility] Work Phone: Start: 09-29-2024 End: 09-29-2024 Encounter for general adult medical examination without abnormal findings [facility] Start: 09-29-2024 End: 09-29-2024 Patient encounter procedure [facility] Work Phone: Start: 08-30-2024 ambulatory Bo Shah Facility:[facility] Start: 05-24-2024 End: 05-24-2024 ambulatory Iron Gan Facility:[facility] Start: 04-04-[address] [facility] Start: 03-08-2024 End: 03-08-2024 Telephone encounter Miley Enrique OD Work Phone: Ophthalmology Comment on above: FROI form Start: 03-01-2024 End: 03-01-2024 ambulatory MILEY ENRIQUE Facility:[facility] Start: 03-01-2024 End: 03-01-2024 Patient encounter procedure Miley Enrique OD Work Phone: Ophthalmology Comment on above: Post concussion synd alma (Primary Dx); Pituitary dysfunction (HCC) Start: 09-22-2023 Telephone encounter Miley greer OD Work Phone: Ophthalmology Comment on above: Received Outside Med ical Records Start: 07-08-2023 End: 07-08-2023 ambulatory Iron Gan Other [employer] Other Start: 07-08-2023 Telephone encounter Iron DEUTSCH [facility] Start: 03-19-2023 End: 03-19-2023 ambulatory Iron Gan Other [employer] Other Start: 03-19-2023 Telephone encounter Iron DEUTSCH [facility] Start: 10-31-[address] DOCTOR FLOWERS Facility :[facility] Start: 10-07-2022 End: 10-07-2022 ambulatory [facility] Start: 10-07-2022 End: 10-07-2022 Subsequent hospital visit by physician Ravi Lopez MD Work Phone: [facility] Med Surg Comment on above: Primary osteoarthrit is of left hip (Primary Dx) Start: 09-26-2022 End: 09-26-2022 ambulatory Iron Gan Other [employer] Other Start: 09-26-2022 Encounter for other preprocedural examination Iron Gan [facility] Start: 09-26-2022 Office outpatient vi sit 25 minutes Iron Gan [facility] Start: 09-24-2022 End: 09-29-2022 ambulatory [facility] Start: 09-24-2022 End: 09-28-2022 Subsequent hospital visit by physician Ravi Lopez MD Work Phone: [facility] Pre-Admit Testing Comment on above: Hypertension, unspec ified type Start: 04-02-2022 Encounter for genera l adult medical examination without abnormal findings DR IRON GAN [facility] Start: 04-01-2022 End: 04-02-2022 Encounter for general adult medical examination without abnormal findings DR IRON GAN Facility:[facility] Start: 04-01-2022 End: 04-02-[address] IRON GAN Facility:[facility] Start: 03-28-2022 Adult health examination Onesimo Gan Other [employer] Other Start: 01-31-2022 End: 02-01-[address] DOCTOR FLOWERS Facility:[facility] Start: 04-05-2020 Preoperative cardiovascular examination Iron Gan Other [employer] Other Procedures Date Procedure Procedure Detail Performing [...] Phone: Start: 09-24-2022 Blood typing serologic abo Dainel Palmer MD Work Phone: Start: 09-24-2022 Iadna s aureus methi cillin resist amp probe tq Ravi Lopez MD Work Phone: Start: 09-24-2022 Urnls dip stick/tabl et rgnt auto w/o microscopy Daniel Palmer MD Work Phone: Start: 04-01-2022 PSA screening DMITRI FINLEY Comment on above: Performed By: #### L IPID, CMP #### [facility] [address] [place] [address] Dr. Madhu Augustine Start: 12-09-2013 Pre-surgery evaluation Iron Gan Other Start: 02-25-2013 Lipid 1996 panel - S dinorah or Plasma Miley Enrique OD Work Phone: Screening for malign ant neoplasm of prostate [facility] Other Plan of Treatment Date Care Activity Detail Author Start: 09-24-2025 Diabetes Screening Diabetes Screenin g [facility] Start: 02-22-2025 End: 02-22-2025 Patient encounter procedure 02/22/2025 9:40 AM EDT Office Visit [facility] ENDOCRINOLOGY [address] [place] [address] Krystle Truong MD [address] [place] [address] [facility] ENDOCR[facility]OLOGY Start: 10-26-2024 End: 10-26-2025 ACTH ACTH Lab Routine Secondary male hypogonadism Expected: 10/26/2024 (Approximate), Expires: 10/26/2025 [facility] Comment on above: Expected: 10/26/2024 (Approximate), Expires: 10/26/2025 Start: 10-26-2024 End: 10-26-2025 Cortisol Cortisol Lab Routine Secondary male hypogonadism Expected: 10/26/2024 (Approximate), Expires: 10/26/2025 [facility] Comment on above: Expected: 10/26/2024 (Approximate), Expires: 10/26/2025 Start: 10-26-2024 End: 10-26-2025 Growth hormone Growth hormone Lab Routine Secondary male hypogonadism Expected: 10/26/2024 (Approximate), Expires: 10/26/2025 [facility] Comment on above: Expected: 10/26/2024 (Approximate), Expires: 10/26/2025 Start: 10-26-2024 End: 10-26-2025 Hemoglobin [Mass/volume] in Blood Hemoglobin Lab Routine Secondary male hypogonadism Expected: 10/26/2024 (Approximate), Expires: 10/26/2025 [facility] Comment on above: Expected: 10/26/2024 (Approximate), Expires: 10/26/2025 Start: 10-26-2024 End: 10-26-2025 Insulin-like growth factor 1 Insulin-like growth factor 1 Lab Routine Secondary male hypogonadism Expected: 10/26/2024 (Approximate), Expires: 10/26/2025 [facility] Comment on above: Expected: 10/26/2024 (Approximate), Expires: 10/26/2025 Start: 10-26-2024 End: 10-26-2025 Prolactin Prolactin Lab Routine Secondary male hypogonadism Expected: 10/26/2024 (Approximate), Expires: 10/26/2025 [facility] Comment on above: Expected: 10/26/2024 (Approximate), Expires: 10/26/2025 Start: 10-26-2024 End: 10-26-2025 Prostate specific Ag [Mass/volume] in Serum or Plasma PSA Lab Routine Secondary male hypogonadism Expected: 10/26/2024 (Approximate), Expires: 10/26/2025 [facility] Work Phone: Comment on above: Expected: 10/26/2024 (Approximate), Expires: 10/26/2025 Start: 10-26-2024 End: 10-26-2025 Testosterone [Mass/volume] in Serum or Plasma Testosterone Lab Routine Secondary male hypogonadism Expected: 10/26/2024 (Approximate), Expires: 10/26/2025 [facility] Comment on above: Expected: 10/26/2024 (Approximate), Expires: 10/26/2025 Start: 10-26-2024 End: 10-26-2025 Thyrotropin [Units/volume] in Serum or Plasma TSH Lab Routine Secondary male hypogonadism Expected: 10/26/2024 (Approximate), Expires: 10/26/2025 [facility] Comment on above: Expected: 10/26/2024 (Approximate), Expires: 10/26/2025 Start: 10-26-2024 End: 10-26-2025 Thyroxine (T4) free [Mass/volume] in Serum or Plasma T4, free Lab Routine Secondary male hypogonadism Expected: 10/26/2024 (Approximate), Expires: 10/26/2025 [facility] Comment on above: Expected: 10/26/2024 (Approximate), Expires: 10/26/2025 Start: 10-26-2024 End: 10-26-2024 Patient encounter procedure [facility] Comment on above: Arrived Start: 03-13-2024 Influenza vaccination Influenza Vacc ine (#1) [facility] Start: 07-13-2023 Depression Assessment Depression Ass essment [facility] Start: 03-13-2023 Covid-19 Vaccine ( season) Covid-19 Vaccine ( season) [facility] Start: 03-13-2023 Influenza vaccination Influenza Vacc ine (#1) [facility] Start: 10-24-2022 End: 10-24-2022 Patient encounter procedure 10/24/2022 Office Visit Orthopedic Surgery Ravi Lopez MD [address] [facility] [address] [place] [address] [facility] Orthopedics and Sports Medicine Start: 10-07-2022 End: 10-07-2022 Admission to same day surgery center 10/07/2022 Surgery IP Unit Ravi Lopez MD [address] [facility] [address] [place] [address] HIP TOTAL ARTHROPLASTY MINIMALLY INVASIVE [facility] Comment on above: HIP TOTAL ARTHROPLAS TY MINIMALLY INVASIVE Start: 10-07-2022 Subsequent hospital visit by physician 10/07/2022 Hospital Encounter IP Unit Ravi Lopez MD [address] [facility] [address] [place] [address] [facility] Start: 10-07-2022 End: 10-07-2022 Arthrp acetblr/prox fem prostc agrft/algrft [facility] Start: 02-10-2022 Influenza vaccination Flu vaccine (# 1) [facility] Start: 07-09-2021 COVID-19 Vaccine (4 - Booster for Pfizer series) COVID-19 Vaccine (4 - Booster for Pfizer series) [facility] Start: 10-11-2019 Shingles vaccine (1 of 2) Shingles vaccine (1 of 2) [facility] Start: 10-11-2019 Shingrix Vaccine (1 of 2) Shingrix Vaccine (1 of 2) [facility] Start: 02-25-2018 Lipid panel Lipid Screening [facility] Start: 02-29-2016 Diabetes Screening Diabetes Screenin g [facility] Start: 2014 Screening for malign ant neoplasm of colon [facility] Start: 2009 Lipid panel Lipids [facility] Start: 2004 Diabetes screen Diabetes screen [facility] Start: 1988 DTaP/Tdap/Td vaccine (1 - Tdap) DTaP/Tdap/Td vaccine (1 - Tdap) [facility] Start: 1988 Hepatitis B Vaccine (1 of 3 - 19+ 3-dose series) Hepatitis B Vaccine (1 of 3 - 19+ 3-dose series) [facility] Start: 1988 Urine microalbumin profile DTaP,Tdap,Td Vaccine (1 - Tdap) [facility] Start: 10-11-1987 Annual PCP Team Computer Analyst jeramy Disease Visit Annual PCP Team Chronic Disease Visit [facility] Start: 10-11-1987 Anxiety Screening Anxiety Screening [facility] Start: 10-11-1987 BP Controlled (<130/80) BP Controlle d (<130/80) [facility] Start: 10-11-1987 Depression Screening Depression Scre ening [facility] Start: 10-11-1987 Hepatitis C screening [facility] Start: 10-11-1987 HIV screening HIV Screening [facility] Start: 1984 HIV screening HIV screen [facility] Start: 1981 Depression Screen Depression Screen [facility] Comprehensive metabo lic 2000 panel - Serum or Plasma [facility] Oxygen therapy [[facility] Data Set] Initiate Oxygen Therapy Protocol Respiratory Care Routine Daily until discontinued starting 10/07/2022 [facility] Work Phone: Comment on above: Daily until disconti nued starting 10/07/2022 Spirometry panel Incentive maynor metry Respiratory Care Routine Every 2hr while awake until discontinued starting 10/07/2022 [facility] [employer] Work Phone: Comment on above: Every 2hr while awak e until discontinued starting 10/07/2022 [facility] Immunizations Immunization Date Immunization Notes Care Provider Fa cility NEGATED: Highlighted row has not occurred!02-28-2013 pneumococcal polysaccharide vaccine, 23 valent Miley Enrique OD Work Phone: [facility] Comment on above: Deferred: Patient Re fused - pt spoke with (DR. Parish) decided vaccine not needed, d/c'd order Payers Date Payer Category Payer [facility] [id number] 2022 Unknown [id number] 2021 Medicare MEDICARE [id number] 2019 Unknown [id number] 2018 Unknown [id number] 2018 Unknown [id number] 2018 Worker's Compensation [id number] 1970 Unknown [id number] 176 1969 Unknown [id number]. 176 1969 Unknown [id number]. 593 1969 Unknown [id number]. 593 1969 Unknown [id number] [id number]. 593 1969 Unknown [id number] [id number]. 593 1969 Unknown [id number] [id number]. 1259 1970 Unknown [id number] [id number]. 718 1969 Unknown [id number]. 718 1959 Medicare [id number] 1959 Unknown [id number] Social History Date Type Detail Facility Start: 09-24-2022 End: 10-21-2024 Tobacco smoking status [facility] Never smoked tobacco [facility] Start: 09-24-2022 Tobacco use and exposure Smokeless tobacco non-user [facility] Phone: Start: 09-24-2022 End: 03-01-2024 Alcohol intake Current drinker of alcohol (finding) [facility] Phone: Start: 09-24-2022 Alcohol Comment social [place] Phone: Start: 1970 Sex Assigned At Not on file B ON [employer] Phone: Start: 09-14-2022 End: 10-07-2022 Exposure to SARS-CoV-2 (event) Not sure [facility] Phone: Start: 03-01-2024 End: 10-21-2024 Sex Assigned At [facility] Other Start: 02-25-2013 Tobacco use and exposure User of smokeless tobacco [facility] History of tobacco use Chews Tobacco [facility] Start: 02-25-2013 End: 10-21-2024 Alcohol intake [facility] Start: 02-25-2013 Alcohol Comment 3-4 Cans Per Day [facility] Tobacco smoking status TNIS Unknown if ever smoked [facility] Start: 09-29-2024 Sex Male (finding) [facility] Start: 1970 Sex Assigned At Male F [facility] Medical Equipment Procedure Code Equipment Code Equipment Origin al Text Equipment Identifier Dates Dup Use [id number] I mpl Hip Cer Option Type 1 Tpr Sleve +3 - [id number] Start: 10-07-2022 Head Fem [id number] Hip Biolox Delt Opt For G7 Acet Sys - [id number] Start: 10-07-2022 Clinical Notes 09-24-2022 to [...] Iron gan for hypogonadism testosterone 210 ( [phone]) and back in 2023 144, 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 documented in this encounter [facility] 10-17-2024 Note Received workman's c omp referral for pituitary dysfunction, possible testosterone therapy. Are any providers willing to take on a new workman's comp case? [facility] 10-12-2024 Telephone encounter Note Patient has special permissions from [employer] to pay for upcoming appointment. Will you see a workers comp case? Please advise. [facility] 10-12-2024 Miscellaneous Notes Patient has special permissions from [employer] to pay for upcoming appointment. Will you see a workers comp case? Please advise. documented in this encounter [facility] 09-28-2024 Note Spouse called re ref erral to [facility] endocrinology- states has not been contacted re scheduling appt with same, discussion held with spouse re initial referral sent 09/21, discussed alternatives, spouse requesting referral resubmitted to [facility]. Office contacted and I was instructed to resubmit referral - accompanied by letter by provider [Electronically Signed on: 09/30/2024 17:29 EDT] Monique Moy RN [Verified on: 09/30/2024 17:29 EDT] Farzaneh MATTHEW, [facility] 05-24-2024 Note Patient Education Ma terials [...] your friends, family, a trusted colleague, and beater worker helper about your injury, symptoms, and restrictions. Ask them to watch for any problems that are new or get worse. General instructions ? Take wgok-kgb-vloryve and prescription medicines only as told by [...] . The ris (more content not included)... [facility] 04-04-2024 Note ASSESSMENT/PLAN: Sraa was seen today for follow-up and worker's [...] a 53 y.o. male who presents to [facility] today for 1 year [...] of his [place]. He was evaluated by neuro-safety admin assistant at [facility] for his issues who ruled out any [...] word finding difficul (more content not included)... [facility] 03-08-2024 Telephone encounter Note Faxed FROI form to [facility] at [phone]. Also faxed to HIM and placed original in envelope for scanning into [email or web address]. [facility] 03-08-2024 Miscellaneous Notes Faxed FROI form to [employer] at [phone]. Also faxed to HIM and placed original in envelope for scanning into [email or web address]. documented in this encounter [facility] 03-01-2024 Note HNO ID: [id number] Author: MILEY ENRIQUE OD Service: ? 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 Service Center Supervisor Information Leg Breaker: Tia R. Disc Right Eye Normal. Left Eye Normal. Macula Right Eye Normal. Left Eye Normal. Periphery Right Eye Pigmentation. Left Eye Normal. [facility] 03-01-2024 Note Date of Procedure 03/01/2024. Service Center Supervisor Information Leg Breaker: Tia R. Reliability Right Eye Borderline. Left Eye Borderline. Interpretation Right Eye Normal. Left Eye Normal. Interval Change Right Eye Initial. Left Eye Initial. [facility] 09-22-2023 Miscellaneous Notes Received outside Records from [facility] needing consult with Dr. Enrique for Neuro Ophthalmology consult. Please contact patient to schedule at [phone]. Records in Dr. Enrique's mailbox. documented in this encounter [facility] 10-07-2022 History of Presen t illness Narrative [facility] Occupational Therapy Evaluation Date: 10/07/22 Patient Name: Sara Yeboah Room: Account: [id number] : 1970 (51 y.o.) Gender: male Discharge [...] Skilled Clinical Factors: OT demonstrated use of admitting coordinator and patient threaded B LE with admitting coordinator and Minimal assist into underwear. Assist to thread B LE pants. Assist to manage clothing over hips and don socks/shoes. Demonstrated use of sock aid, however patient declines use. Patient and patient's spouse report that she will provide patient with assist PRN for lower body self-care. Patient acknowledges that he has a admitting coordinator and sock aid at home. Toileting: Minimal assistance Toileting Skilled Clinical Factors: assist to manage pants as they fell to the ground, however CGA for all other tasks Additional Comments: OT provided patient and patient's spouse with education regarding safety with self-care including use of modified techniques such as sitting for lower body bathing/dressing, use of admitting coordinator/sock aid, and use of shower chair. Patient and patient's spouse verbalize Good understanding and state they have a sock aid and admitting coordinator and will purchase a shower chair. Patient [...] Verbalized understanding, Demonstrated understanding Functional Outcome Measures [facility] Daily Activity - Inpatient How much [...] How much help for eating meals?: None [facility] Inpatient Daily Activity Raw Score: 17 [facility] Inpatient ADL T-Scale Score : 37.26 ADL Inpatient [facility] 0-100% Score: 50.11 ADL Inpatient [facility] G-Code Modifier : CK Goals Patient Goals [...] Treatment Minutes: 38 Minutes Physical Therapy Facility/Department: [facility] MED SURG Physical Therapy Initial Assessment Name: Sara Yeboah : 1970 Date of Service: 10/07/2022 Discharge Recommendations: The patient would benefit from additional Physical Therapy after discharge from the facility upon return to their Home. PT Equipment Recommendations Equipment Needed: Yes Mobility Devices: Walker Other: Adjusted to his height by resume writer Patient Diagnosis(es): The encounter diagnosis was [...] adjusted for pt per his height by resume writer.Recommend staying on first floor initially and [...] to use restroom, CGA to min x1. AM-[facility] Score -[facility] Inpatient Mobility Raw Score : 14 (10/07/22 1544) -[facility] Inpatient T-Scale Score : 38.1 (10/07/22 1544) Mobility Inpatient CMS 0-100% Score: 61.29 (10/07/22 1544) Mobility Inpatient [facility] G-Code Modifier : CL (10/07/22 154) Goals [...] at patient request documented in this encounter [facility] Phone: 10-07-2022 Hospital Discharg e instructions Gillian [...] Admitting Physician: Ravi Lopez MD PCP: Iron Gan DO Discharging Nurse: Discharging Hospital Unit/Room#: [facility] OR Pool/NONE Discharging Unit Emergency Contact: Extended Emergency Contact Information Primary Emergency Contact: Isha Yeboah Mobile Relation: Spouse Machine Ironer needed? No Past Surgical History: Past Surgical [...] Assisted Dressing Independent Toileting Independent Feeding Independent Profile Trimmer Independent Med Delivery whole Wound Care Documentation [...] Unplanned Readmission: 0 Discharging to Facility/ Agency [facility] [address] [place] [address] [address] [facility] [address] Fax Gang Saw Operator/Domestic Technician signature: PHYSICIAN SECTION Prognosis: Good Condition at [...] H&P PHYSICIAN SIGNATURE: documented in this encounter [facility] [employer] Phone: 09-26-2022 Evaluation note Encounter Date Diagnosis [...] 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 The Day of Surgery: Arrive at [facility] Surgery Entrance at the time directed by your surgeon and check in at the desk. If you have a living will or healthcare power of dial maker, please bring a copy. You will be taken to the pre-op holding area where you will be prepared for surgery. A physical assessment will be performed by a nurse practitioner or night warehouse manager. Your IV will be started and you [...] needed in recovery room. [facility] [employer] Phone: evaluation note* Diagnosis Hypertension, unspecified type Osteoarthritis of left hip, unspecified osteoarthritis type documented in this encounter [facility] [employer] Phone: evaltiaaid note* Diagnosis Primary osteoarthritis of left hip- Primary Primary localized osteoarthrosis, pelvic region and thigh Primary osteoarthritis of left hip Primary localized osteoarthrosis, pelvic region and thigh documented in this encounter [facility] [employer] Phone: evaluation noteNo [facility] [employer] Other Evaluation note* Diagnosis Post concussion syndrome- Primary Postconcussion syndrome Pituitary dysfunction (HCC) Unspecified disorder of the pituitary gland and its hypothalamic control [facility] Diagnosis Onset Date Resolution Status [...] Wellness examination noneactive Justin hi 2024 9:21am [facility] Work Phone: Evaluation note* Diagnosis Secondary male [...] KNEE-LEFT 2013 Hospitalization History SEE SURGICAL HX [employer] Other Summary Purpose Family History No Family [...] content) DATE CREATED AUTHOR 12/19/2018 [facility] DATE CREATED AUTHOR AUTHOR'S ORGANIZ ATION 10/09/2022 [facility] DATE CREATED AUTHOR AUTHOR'S ORGANIZ ATION 11/24/2022 [facility] DATE CREATED AUTHOR AUTHOR'S ORGANIZ ATION 03/22/2024 [facility] DATE CREATED AUTHOR AUTHOR'S ORGANIZ ATION 10/28/2024 [facility] EPIC DATE CREATED AUTHOR AUTHOR'S ORGANIZ ATION 11/18/2024 [facility] DATE CREATED AUTHOR AUTHOR'S ORGANIZ ATION 11/19/2024 [facility] Care Teams (unrecognized sec tion and content) Blemish Remover Relationship Specialty Start Date End Date Iron Gan DO [address] [place] [address] PCP - General Internal Medicine 08/26/22 Blemish Remover Relationship Specialty Start Date End Date Iron Gan DO [address] [place] [address] PCP - General Internal Medicine 08/26/22 Team Status: Active Member Role Status Dates Iron Gan DO Primary Care Provider Active Team Status: Inactive Member Role Status Dates Iron Gan DO Primary Care Provide r, Attending Provider Active Start: September 29, 2024 End: September 29, 2024 Blemish Remover Relationship Specialty Start Date End Date Iron Gan MD [address] [place] [address] PCP - General Internal Medicine 12/09/23 Blemish Remover Relationship Specialty Start Date End Date Iron Gan MD PCP - General Internal Medicine 12/09/23 Blemish Remover Relationship Specialty Start Date End Date Iron Gan MD PCP - General Internal Medicine 12/09/23 REASON FOR VISIT (unrecogniz ed section and content) Specialty Diagnoses / Procedures Referred By Nayla t Referred To Contact Diagnoses Osteoarthritis of left hip, unspecified osteoarthritis type DEGENERATIVE JOINT DISEASE LEFT HIP Procedures ID ARTHRP ACETBLR/PROX FEM PROSTC AGRFT/ALGRFT HIP TOTAL ARTHROPLASTY MINIMALLY INVASIVE Ravi Lopez MD [address] [place] [address] [facility] [address] [place] [address] Referral ID Status Reason Start Date Expiration Date Visits Re quested Visits Authorized [id number] 1 1 Reason Comments Received Outside Medical Records Reason Comments concussion follow up Specialty Diagnoses / Procedures Referred By Nayla lucio Referred To Contact Optometry / OPHTHALMOLOGY Diagnoses CONCUSSION Procedures CONCUSSION OPHT Miley Enrique, OD [address] [place] [address] [place], [place] [id number] Miley Enrique, OD [address] [place] [address] [place] [address] Referral ID Status Reason Start Date Expiration Date Visits Re quested Visits Authorized [id number] Closed 03/01/2024 03/01/2024 1 1 Reason Comments FROI form Reason Onset Date Comments Advice Only 10/12/2024 Reason Comments Pituitary Problem NEW RE/LAB Specialty Diagnoses / Procedures Referred By Nayla lucio Referred To Contact Endocrinology Diagnoses Disorder of pituitary gland, unspecified Procedures ID OFFICE/OUTPATIENT NEW LOW MDM 30 MINUTES Iron Gan MD Phone: tel: fax: Krystle Truong MD [address] [place] [address] Phone: tel: fax: Referral ID Status Reason Start Date Expiration Date Visits Re quested Visits Authorized [id number] Closed 09/19/2024 03/18/2025 1 1 Ordered Prescriptions [...] 100 mL IVPB (COMPLETED) 3,000 mg, IntraVENous, FIELD EDUCATION COORDINATOR TO O.R., 1 dose, On Thu10/07/22 at 0600, Antimicrobial Indications: Surgical Prophylaxis, Administer within 1 hour prior to incision. Recommend to repeat in 3-4 hours after initial dose if still intra-op., Pre-op (day of surgery) 0742 (Given - Provid er: Keny Deng APRN - CAREER DEVELOPMENT COUNSELOR) ceFAZolin (ANCEF) 3000 mg in sodium chloride [...] (NoRateChange - Provider: Keny Deng APRN - CAREER DEVELOPMENT COUNSELOR)0909 (Paused - Provider: Keny Deng APRN - [...] or prosecute any alcohol or drug abuse patient.[facility] the event this information is protected by the Federal Confidentiality of Alcohol and Drug Abuse Patient Records regulations: The Federal rules restrict any use of the information to criminally investigate or prosecute any alcohol or drug abuse patient.[facility] the event this information is protected by the Federal Confidentiality of Alcohol and Drug Abuse Patient Records regulations: The Federal rules restrict any use of the information to criminally investigate or prosecute any alcohol or drug abuse patient.[facility] Goals (unrecognized section and content) Goals [...] BE BASED ON THE PRIMARY CLINICAL RECORDS. [facility]. provides no warranty or guarantee of the accuracy or completeness of information in this document.
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
[2025-02-18 08:44] LABS: Hemoglobin 15.1 g/dL (14.0-18.0)
[2025-02-22 06:08] LABS: IGF-1 160 ng/mL (74-255)
== END 2025-02-18 08:17 | disposition home or self-care (01) ==
LOC: LAB 08:17
PROVIDERS: PCP Internal Medicine; Visit Provider Internal Medicine
DX: E29.1 Testicular hypofunction (principal); Z12.5 Encounter for screening for malignant neoplasm of prostate
CPT/HCPCS: 36415; 82024; 82533; 83003; 84146; 84305; 84403; 85018; G0103